=== PATIENT | female | born 1940 | race Caucasian/White ===

== ENCOUNTER 2016-08-27 15:29 | Emergency (ER) | payer MEDICARE, OTHER ==
[2016-07-18 10:03] VITALS: BMI 22.3
[~2016-08-27 15:29] MED LIST: AZO PO; BIOTIN5 MG PO; COREG 3.1253.125 MG PO; FORTAMET500 MG/BOT PO; HYDROCODONE-APA1 TAB PO; NEXIUM20 MG PO; PAXIL40 MG PO; PHENAZOPYRIDIN100 MG PO; PRINIVIL20 MG PO; PROTONIX40 MG PO
[2016-08-27 16:31] LABS: BASOPHILS 0.5 % (0.0-2.0); EOSINOPHILS 0.8 % (0-7); HEMATOCRIT 29.6 % (36.0-48.0); HEMOGLOBIN 8.3 g/dL (12-16); IMMATURE GRANULOCYTES 0.5 % (0-5); LYMPHOCYTES 19.3 % (15-50); MCH 22.6 pg (26.0-34.0); MCV 80.7 fL (80.0-100.0); MEAN PLATELET VOLUME 11.5 fL (7.4-10.4); MONOCYTES 7.4 % (2-11); NEUTROPHILS 71.5 % (40-80); PLATELET COUNT 335 10x3/uL (130-400); RBC 3.67 10x6/uL (4.00-5.40); RDW 19.3 % (11.5-14.5); WBC 6.4 10x3/uL (4.8-10.8)
[2016-08-27 16:41] LABS: ALBUMIN 3.6 g/dL (3.4-5.0); ALKALINE PHOSPHATASE 87 U/L (46-116); ALT (SGPT) 16 U/L (10-68); CALC OSMOLALITY 279 mosm/kg (275-300); CALCIUM 9.1 mg/dL (8.5-10.1); CARBON DIOXIDE 25.7 mmol/L (21.0-32.0); CHLORIDE - SERUM 103 mmol/L (98-107); CREATININE - SERUM 0.8 mg/dL (0.6-1.3); GLUCOSE 100 mg/dL (74-106); POTASSIUM - SERUM 5.2 mmol/L (3.5-5.1); PROTEIN - SERUM 6.6 g/dL (6.4-8.2); SODIUM 139 mmol/L (136-145); UREA NITROGEN 19 mg/dL (7-18); eGFR NON AFRICAN AMERICAN 74 mL/min (90-120)
[2016-08-27 16:53] LABS: CKMB 0.5 U/L (0.0-3.6); CREATINE KINASE 110 UL (21-215)
[2016-08-27 16:57] LABS: TROPONIN-I < 0.017 ng/mL (0.000-0.060)
[2016-08-27 16:58] LABS: MAGNESIUM - SERUM 2.1 mg/dL (1.8-2.4)
== END 2016-08-27 17:40 | disposition home or self-care (01) ==
LOC: D.ER 15:29
PROVIDERS: Emergency Medicine
DX: R07.9 Chest pain, unspecified (principal); D64.9 Anemia, unspecified; E87.5 Hyperkalemia; I10 Essential (primary) hypertension; E11.9 Type 2 diabetes mellitus without complications; Z95.0 Presence of cardiac pacemaker

== ENCOUNTER 2016-09-18 20:38 | Inpatient (IN) | payer MEDICARE, OTHER ==
[~2016-09-18] VITALS: Ht 182.9 cm; Wt 120.1 kg
[2016-09-18 21:27] LABS: BASOPHILS 0.3 % (0.0-2.0); EOSINOPHILS 0.4 % (0-7); HEMATOCRIT 25.4 % (36.0-48.0); IMMATURE GRANULOCYTES 0.1 % (0-5); LYMPHOCYTES 26.5 % (15-50); MCH 22.2 pg (26.0-34.0); MCHC 28.3 g/dL (31.0-37.0); MCV 78.4 fL (80.0-100.0); MEAN PLATELET VOLUME 10.5 fL (7.4-10.4); MONOCYTES 9.3 % (2-11); NEUTROPHILS 63.4 % (40-80); PLATELET COUNT 360 10x3/uL (130-400); RBC 3.24 10x6/uL (4.00-5.40); RDW 18.8 % (11.5-14.5); WBC 7.3 10x3/uL (4.8-10.8)
[2016-09-18 21:54] LABS: ALBUMIN 3.6 g/dL (3.4-5.0); ALKALINE PHOSPHATASE 67 U/L (46-116); ALT (SGPT) 18 U/L (10-68); BILIRUBIN - TOTAL 0.22 mg/dL (0.2-1.3); CALC OSMOLALITY 285 mosm/kg (275-300); CALCIUM 9.3 mg/dL (8.5-10.1); CARBON DIOXIDE 29.5 mmol/L (21.0-32.0); CHLORIDE - SERUM 102 mmol/L (98-107); GLUCOSE 120 mg/dL (74-106); POTASSIUM - SERUM 4.1 mmol/L (3.5-5.1); PROTEIN - SERUM 6.9 g/dL (6.4-8.2); SODIUM 141 mmol/L (136-145); UREA NITROGEN 25 mg/dL (7-18); eGFR NON AFRICAN AMERICAN 57 mL/min (90-120)
[2016-09-18 21:57] LABS: HEMOGLOBIN 7.2 g/dL (12-16)
[2016-09-18 22:04] LABS: AMYLASE - SERUM 24 U/L (25-115); CKMB 0.6 U/L (0.0-3.6); CREATINE KINASE 36 UL (21-215); LIPASE 152 U/L (73-393)
[2016-09-18 22:07] LABS: TROPONIN-I < 0.017 ng/mL (0.000-0.060)
[2016-09-19] VITALS: BP 122/69
[2016-09-19 00:41] LABS: APPEARANCE HAZY (CLEAR); BILIRUBIN NEGATIVE (NEGATIVE); COLOR YELLOW (YELLOW); GLUCOSE NEGATIVE (NEGATIVE); KETONE NEGATIVE (NEGATIVE); LEUKOCYTE ESTERASE TRACE (NEGATIVE); NITRITE NEGATIVE (NEGATIVE); PROTEIN NEGATIVE (NEGATIVE); SPECIFIC GRAVITY 1.025 (1.005-1.020); UROBILINOGEN NORMAL (NORMAL)
--- NOTE | 2016-09-19 00:44 | NUR ---
RECEIVED FROM ER VIA WHEELCHAIR, IV-LAC,02-2L, TELEMTRY HAS BEEN PLACED, PT IS GOING TO NEED BLOOD, CONSENT TO BE SIGNED, PT DENIES ANY NEEDS, CALL LIGHT IN REACH, WILL CONTINUE TO MONITOR
[2016-09-19 00:49] LABS: BACTERIA MANY /hpf (NONE SEEN); EPITHELIAL CELLS 0-5 /hpf (0-5); GRANULAR CAST RARE /lpf (NONE SEEN); HYALINE CAST RARE /lpf (NONE SEEN); MUCUS >1+ /lpf (NONE SEEN); RED CELLS - URINE 0-5 /hpf (0-5)
[2016-09-19] MEDS ORDERED: CARAFATE1 G PO (00:54)
[2016-09-19] MEDS ORDERED: FERROUS SULFAT140 MG PO (00:54)
[2016-09-19] MEDS ORDERED: ZOFRAN4 MG PO (00:55)
[2016-09-19 01:48] VITALS: BP 122/69; BMI 35.0
[2016-09-19 04:00] VITALS: BP 139/51
--- NOTE | 2016-09-19 07:30 | NUR ---
RECEIVED PT IN BED AAOX4 RESP SOB ON EXERTION O2 ON 2LPM NC DENIES ANY NEEDS OR DISCOMFORT AT THIS TIME
[2016-09-19 07:39] VITALS: BP 134/46
[2016-09-19 08:12] LABS: BASOPHILS 0.4 % (0.0-2.0); IMMATURE GRANULOCYTES 0.2 % (0-5); LYMPHOCYTES 29.1 % (15-50); MCH 22.4 pg (26.0-34.0); MCHC 28.6 g/dL (31.0-37.0); MCV 78.3 fL (80.0-100.0); MEAN PLATELET VOLUME 9.7 fL (7.4-10.4); MONOCYTES 9.7 % (2-11); NEUTROPHILS 59.6 % (40-80); RBC 2.81 10x6/uL (4.00-5.40); RDW 18.9 % (11.5-14.5)
[2016-09-19 08:19] LABS: WBC 4.9 10x3/uL (4.8-10.8)
[2016-09-19 08:20] LABS: HEMOGLOBIN 6.3 g/dL (12-16); PLATELET COUNT 267 10x3/uL (130-400)
[2016-09-19 08:25] LABS: % SATURATION 3 % (15-55); IRON 10 ug/dl (35-150); TOTAL IRON BIND CAPACITY 315 ug/dl (260-445); UNSAT IRON BIND CAPACITY 305 ug/dl (150-375)
--- NOTE | 2016-09-19 09:00 | NUR ---
INFUSION OF #1 UNIT PRBCs STARTED PT TOLERATING WELL
--- NOTE | 2016-09-19 11:24 | NUR ---
Patient Name: JORGE JULIO Admission Status: ER Accout number: [id number] Admission Date: 09-18-2016 : 1940 Admission Diagnosis: Attending: DEAN Current LOS: 1 Anticipated DC Date: Planned Disposition: Home Primary Insurance: MEDICARE A & B Discharge Planning Comments: * Is the patient Alert and Oriented? Yes 0 * How many steps to enter\exit or inside your home? 1 0 * PCP DR. ARIAS 0 * [facility] * Preadmission Environment Home with Family 0 * ADLs Independent 0 * Equipment Bedside Commode Cane Crutch Tub Bench 0 * Other Equipment NO MEDICAL EQUIPMENT PROVIDER PREFERENCE 0 * List name and contact numbers for known caregivers / representatives who currently or will assist patient after discharge: GENET ORTIZ, GRANDDAUGHTER, 0 * Community resources currently utilized None 0 * Please name any agencies selected above. NONE 0 * Additional services required to return to the preadmission environment? No 0 * Can the patient safely return to the preadmission environment? Yes 0 * Has this patient been hospitalized within the prior 30 days at any hospital? Yes 0 CM MET WITH PT IN ROOM TO DISCUSS DISCHARGE PLANNING AND NEEDS. PT REPORTS LIVING AT HOME INDEPENDENTLY WITH HER EXTENDED FAMILY AND SPOUSE. 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 PT REPORTS HAVING ALL NEEDED EQUIPMENT AND NO MEDICAL EQUIPMENT PROVIDER PREFERENCE. PT HAS NO OUTSIDE SERVICES ASSISTING IN THE HOME. CM DISCUSSED AVAILABILITY OF HOME HEALTH, REHAB SERVICES AND MEDICAL EQUIPMENT. PT DENIES DISCHARGE NEEDS, REPORTS HER GRANDDAUGHTER WILL PICK HER UP FOR DISCHARGE HOME. PT PLANS TO DISCHARGE HOME WITH FAMILY, DENIES DISCHARGE NEEDS. CM TO FOLLOW AND ASSIST IF NEEDED. Product Engineering Manager: Celso Guthrie
[2016-09-19 12:11] VITALS: BP 100/49
--- NOTE | 2016-09-19 13:10 | NUR ---
INFUSION OF #2 UNIT PRBCs STARTED AT THIS TIME NAD NOTED
[2016-09-19 13:16] VITALS: Ht 182.9 cm; Wt 120.1 kg
--- NOTE | 2016-09-19 15:07 | NUR ---
SCD'S ON BILATERAL LE
[2016-09-19 15:44] LABS: HEMATOCRIT 26.3 % (36.0-48.0)
[2016-09-19 15:45] LABS: HEMOGLOBIN 7.6 g/dL (12-16)
--- NOTE | 2016-09-19 16:10 | NUR ---
INFUSION OF #2 UNIT PRBCs COMPLETE PT TOLERATED WELL
--- NOTE | 2016-09-19 18:15 | NUR ---
INFUSION OF #1 UNIT PRBCs COMPLETE PT TOLERATED WELL NAD NOTED
[2016-09-19 20:00] VITALS: BP 148/48
--- NOTE | 2016-09-19 20:09 | NUR ---
PT RESTING IN BED. ALERT/ORIENTED. INSTRUCTED ON NPO AT MIDNIGHT FOR EGD PER GI TOMORROW AT NOON. RIGHT A/C SALINE LOCK. SCDS IN PLACE. H&H BEING MONITORED EVERY 12 HOURS. RECIEVED 2 UNITS OF PRBCS TODAY. SEE ASSESSMENT. CPOC. CALL LIGHT IN REACH.
[2016-09-20] VITALS: BP 138/63
[2016-09-20 04:00] VITALS: BP 126/46
[2016-09-20 06:53] LABS: BASOPHILS 0.3 % (0.0-2.0); EOSINOPHILS 2.6 % (0-7); HEMATOCRIT 26.6 % (36.0-48.0); HEMOGLOBIN 7.9 g/dL (12-16); IMMATURE GRANULOCYTES 0.3 % (0-5); LYMPHOCYTES 31.7 % (15-50); MCH 24.4 pg (26.0-34.0); MCHC 29.7 g/dL (31.0-37.0); MONOCYTES 9.5 % (2-11); NEUTROPHILS 55.6 % (40-80); PLATELET COUNT 247 10x3/uL (130-400); RBC 3.24 10x6/uL (4.00-5.40); RDW 18.9 % (11.5-14.5); WBC 5.8 10x3/uL (4.8-10.8)
[2016-09-20 06:56] LABS: MCV 82.1 fL (80.0-100.0)
[2016-09-20 07:01] LABS: APTT 23.7 SECONDS (22.8-39.4); INR 1.04 (0.85-1.17); PROTIME 13.5 SECONDS (11.6-15.0)
[2016-09-20 07:03] LABS: ANION GAP 10.4 mmol/L (8-16); CALCIUM 8.5 mg/dL (8.5-10.1); CARBON DIOXIDE 28.9 mmol/L (21.0-32.0); CREATININE - SERUM 0.9 mg/dL (0.6-1.3); POTASSIUM - SERUM 4.3 mmol/L (3.5-5.1)
--- NOTE | 2016-09-20 07:09 | NUR ---
RECEIVED PT IN BED AAOX4 RESP UNLABORED DENIES ANY NEEDS OR DISCOMFORT NAD NOTED
[2016-09-20 08:07] VITALS: BP 123/43
--- NOTE | 2016-09-20 08:52 | NUR ---
PO MEDS NOT GIVEN PT NPO FOR EGD THIS AM
[2016-09-20 10:19] LABS: FOLATE (FOLIC ACID) - SERUM 15.8 ng/mL (>3.0)
--- NOTE | 2016-09-20 10:40 | NUR ---
IFUSION STARTED OF #1 UNIT PRBCs AT THIS TIME VSS PT TOLERATING WELL
[2016-09-20 11:23] VITALS: BP 117/53
--- NOTE | 2016-09-20 11:24 | NUR ---
22G IV TO LEFT HAND WITH ONE ATTEMPT. COVERED WITH OP SITE, DATED. TOLERATED WELL.
--- NOTE | 2016-09-20 11:52 | NUR ---
PT TO GI LAB VIA BED IN STABLE CONDITION WITH PRBC INFUSION CONTINUEING NAD NOTED
--- NOTE | 2016-09-20 13:20 | NUR ---
#1 UNIT OF PRBCs INFUSION COMPLETE PT TOLERATED WELL
--- NOTE | 2016-09-20 14:04 | NUR ---
UNIT OF BLOOD STARTED. PT UP TO BR CLARKE WELL. WILL CONTINUE TO MONITOR.
--- NOTE | 2016-09-20 14:43 | NUR ---
PATIENT TOLERATING BLOOD WELL. WILL CONTINUE TO MONITOR.
[2016-09-20 15:59] VITALS: BP 141/51
--- NOTE | 2016-09-20 16:15 | NUR ---
#2 UNIT OF PRBCs INFUSION COMPLETE
--- NOTE | 2016-09-20 20:28 | NUR ---
RESTING IN BED. ALERT/ORIENTED. HAD EGD TODAY AND ALSO RECEIVED 2 UNITS OF PRBCS. SCDS IN PLACE. HAS PIV X 2, ONE IN LEFT HAND , ONE IN RIGHT HAND, BOTH ARE SALINE LOCKED. SR PER TELEMETRY. O2 @ 2L/NC WITH NONLABORED RESPIRATIONS. SEE ASSESSMENT. CPOC. CALL LIGHT IN REACH.
[2016-09-20 20:55] VITALS: BP 148/61
[2016-09-21 00:11] VITALS: BP 122/43
[2016-09-21 04:49] VITALS: BP 127/54
[2016-09-21 04:58] LABS: BASOPHILS 0.3 % (0.0-2.0); IMMATURE GRANULOCYTES 0.4 % (0-5); LYMPHOCYTES 26.4 % (15-50); MCH 25.2 pg (26.0-34.0); MCHC 30.3 g/dL (31.0-37.0); MEAN PLATELET VOLUME 11.3 fL (7.4-10.4); MONOCYTES 7.7 % (2-11); NEUTROPHILS 63.2 % (40-80); PLATELET COUNT 257 10x3/uL (130-400); RDW 18.6 % (11.5-14.5); WBC 7.1 10x3/uL (4.8-10.8)
[2016-09-21 05:03] LABS: HEMATOCRIT 32.3 % (36.0-48.0); HEMOGLOBIN 9.8 g/dL (12-16); RBC 3.89 10x6/uL (4.00-5.40)
[2016-09-21 05:14] LABS: ANION GAP 7.4 mmol/L (8-16); CALCIUM 8.2 mg/dL (8.5-10.1); CARBON DIOXIDE 30.5 mmol/L (21.0-32.0); CREATININE - SERUM 0.9 mg/dL (0.6-1.3); POTASSIUM - SERUM 3.9 mmol/L (3.5-5.1)
--- NOTE | 2016-09-21 07:30 | NUR ---
WALKING ROUNDS,WITHOUT DISTRESS.DENIES NEEDS AT PRESENT.CALL LIGHT IN REACH.
[2016-09-21 08:01] VITALS: BP 138/53
--- NOTE | 2016-09-21 08:30 | NUR ---
ASSESSMENT PER FLOW SHEET.PT WITHOUT DISTRESS,DENIES NEEDS.CALL LIGHT IN REACH
--- NOTE | 2016-09-21 11:41 | NUR ---
STILL DENIES NEEDS.CALL LIGHT IN REACH
[2016-09-21 12:02] VITALS: BP 157/59
--- NOTE | 2016-09-21 13:56 | NUR ---
AWAKENS TO TAKE CARAFATE ORDERED.DENIES NEEDS
--- NOTE | 2016-09-21 14:57 | NUR ---
RESTING WITHOUT DISTRESS.CALL LIGHT IN REACH
[2016-09-21 15:11] LABS: HEMATOCRIT 33.6 % (36.0-48.0); HEMOGLOBIN 10.1 g/dL (12-16)
[2016-09-21 15:51] VITALS: BP 157/57
--- NOTE | 2016-09-21 17:06 | NUR ---
IV RIGHT HAND TENDER.DCD CATH INTACT.IV ABX IN LEFT HAND IV.REMAINS WITHOUT NEEDS,WITHOUT CHANGE FROM INITIAL ASSESSMENT.CONT PLAN OF CARE.
--- NOTE | 2016-09-21 20:00 | NUR ---
INITIAL ROUNDS, PT STATES "I WANT TO MAKE A COMLAINT". PT STATES SHE HAS BEEN HERE FOR 4 DAYS AND HAS NEVER HAD HER LINENS CHANGED, GOWN CHANGED OR ASSISTED TO TAKE A BATH. PT IS A MINIMUM ASSIST ONLY. ASKED PT IF SHE HAD BEEN OFFERED BATHS DURING THE DAY AND SHE REPLIED "OH YES, TWICE, BUT I TOLD THEM NO BECAUSE I FELT TO BAD". PT STATES THAT SHE NOW FEELS SO MUCH BETTER, SHE WANTS TO BE CLEAN. CARE PROVIDED BY FRONT MAKER LOCKSTITCH, COMPLETE LINEN CHANGE/GOWN CHANGE AND PROVIDED WITH NEEDED WIPES TO CLEANSE SELF. WILL MONITOR AND ASSIST NEEDED.
[2016-09-21 20:30] VITALS: BP 157/53
[2016-09-22 00:30] VITALS: BP 148/53
--- NOTE | 2016-09-22 02:39 | NUR ---
PT RESTING IN BED WITH NO DISTRESS. EYES CLOSED. RESPS EVEN/NONLABORD. CPOC. CALL LIGHT IN REACH.
[2016-09-22 04:30] VITALS: BP 156/70
[2016-09-22 05:08] LABS: BASOPHILS 0.4 % (0.0-2.0); EOSINOPHILS 2.5 % (0-7); HEMATOCRIT 33.8 % (36.0-48.0); HEMOGLOBIN 10.2 g/dL (12-16); IMMATURE GRANULOCYTES 0.3 % (0-5); MCHC 30.2 g/dL (31.0-37.0); MCV 82.8 fL (80.0-100.0); MEAN PLATELET VOLUME 11.2 fL (7.4-10.4); MONOCYTES 8.7 % (2-11); NEUTROPHILS 59.1 % (40-80); PLATELET COUNT 281 10x3/uL (130-400); RBC 4.08 10x6/uL (4.00-5.40); RDW 19.6 % (11.5-14.5); WBC 7.1 10x3/uL (4.8-10.8)
[2016-09-22 05:28] LABS: ANION GAP 12.8 mmol/L (8-16); CALCIUM 8.5 mg/dL (8.5-10.1); CARBON DIOXIDE 27.6 mmol/L (21.0-32.0); CREATININE - SERUM 0.9 mg/dL (0.6-1.3); POTASSIUM - SERUM 4.4 mmol/L (3.5-5.1)
[2016-09-22 08:14] VITALS: BP 147/62
--- NOTE | 2016-09-22 10:00 | NUR ---
CONSENTS SIGNED FOR COLONOSCOPY.
--- NOTE | 2016-09-22 10:10 | NUR ---
UP AMBULATING HALLWAY WITH PT ASSIST. WILL CONT. PLAN OF CARE.
[2016-09-22 11:44] VITALS: BP 151/58
[2016-09-22 15:13] LABS: HEMATOCRIT 37.2 % (36.0-48.0); HEMOGLOBIN 11.3 g/dL (12-16)
[2016-09-22 15:27] VITALS: BP 143/36
--- NOTE | 2016-09-22 19:50 | NUR ---
REFILLED PTS CUP WITH GO-LYTELY, PT DENIES OTHER NEEDS, WILL CONT TO MONITOR.
--- NOTE | 2016-09-22 20:24 | NUR ---
HS MEDS GIVEN WITH FRESH ICE WATER, PT C/O OF BOTTOM BEING SORE, RICHARD'S BUTT GIVEN FOR PTS TO USE ON BUTTOCKS. NO OTHER NEEDS EXPRESSED AT THIS TIME.
[2016-09-22 20:30] VITALS: BP 137/54
--- NOTE | 2016-09-22 23:57 | NUR ---
UP TO BED SIDE COMMODE, RESULTS CLEAR, WILL CONT TO MONITOR.
--- NOTE | 2016-09-23 00:27 | NUR ---
BUTTONHOLE MAKER AT BEDSIDE FOR VS, NEEDS ADDRESSED. CALL LIGHT IN REACH. WILL CONT TO MONITOR.
[2016-09-23 00:30] VITALS: BP 124/50
--- NOTE | 2016-09-23 03:16 | NUR ---
RESTING WITH EYES CLOSED, RESPERATIONS EVEN, NO S/S DISTRESS NOTED.
[2016-09-23 04:45] VITALS: BP 141/59
[2016-09-23 05:27] LABS: BASOPHILS 0.5 % (0.0-2.0); EOSINOPHILS 3.1 % (0-7); HEMATOCRIT 33.6 % (36.0-48.0); IMMATURE GRANULOCYTES 0.5 % (0-5); LYMPHOCYTES 28.1 % (15-50); MCH 24.8 pg (26.0-34.0); MCHC 29.8 g/dL (31.0-37.0); MCV 83.4 fL (80.0-100.0); MEAN PLATELET VOLUME 11.2 fL (7.4-10.4); MONOCYTES 11.5 % (2-11); NEUTROPHILS 56.3 % (40-80); PLATELET COUNT 267 10x3/uL (130-400); RBC 4.03 10x6/uL (4.00-5.40); RDW 19.9 % (11.5-14.5); WBC 5.8 10x3/uL (4.8-10.8)
[2016-09-23 05:49] LABS: ANION GAP 11.2 mmol/L (8-16); CALCIUM 8.5 mg/dL (8.5-10.1); CARBON DIOXIDE 28.3 mmol/L (21.0-32.0); CREATININE - SERUM 0.9 mg/dL (0.6-1.3); POTASSIUM - SERUM 3.5 mmol/L (3.5-5.1)
--- NOTE | 2016-09-23 07:49 | NUR ---
ASSESSMENT COMPLETED. TELEMERTY SHOWS PACED RHYTHM. O2 AT 2 L/M PER NC. PT IS NPO FOR TEST. DENIES ANY NEEDS. SR UP WITH CALL LIGHTS IN REACH
[2016-09-23 08:13] VITALS: BP 127/35
[2016-09-23 12:04] VITALS: BP 136/48
--- NOTE | 2016-09-23 12:11 | NUR ---
LYING QUIETLY. AWAITING TEST. DENIES ANY NEEDS. WILL MONITOR
[2016-09-23 15:23] LABS: HEMOGLOBIN 10.5 g/dL (12-16)
[2016-09-23 18:12] VITALS: BP 144/51
--- NOTE | 2016-09-23 18:17 | OP ---
PATIENT NAME: JORGE MUJICA MEDICAL RECORD: [id number] :42 LOCATION:D.M2 D.2126 ADMISSION DATE:09/18/16 SURGEON: MACY NATION MD DATE OF OPERATION: 09/20/2016 PROCEDURE: EGD with biopsy. ATTENDING PHYSICIAN: Stas Arias MD. INDICATIONS: Ms. Mujica is a pleasant 76-year-old woman with a history of diabetes, hypertension, who was admitted secondary to progressive weakness. She had a preceding 1-week history of nausea, vomiting and diarrhea. Her diarrhea has resolved. She is still having some nausea. On admission, her hemoglobin was 7.2, which decreased to 6.3. She received 2 units of packed red blood cells yesterday and this morning her hemoglobin is 7.9. She is receiving additional 2 units of packed red blood cells. Her MCV has been low at 78. Her GI history is significant for gastric ulcers (per EGD June 2016). She has not been taking any recent nonsteroidal anti-inflammatory drugs. She presents for inpatient EGD. PREMEDICATIONS: Total IV anesthesia: Propofol 150 mg. INSTRUMENT: Olympus video gastroscope. PROCEDURE AND FINDINGS: After receiving informed consent, Ms. Mujica posterior pharynx was anesthetized with Cetacaine spray, placed in left lateral decubitus position and sedated as per anesthesia. After achieving adequate level of sedation, gastroscope was introduced per orally and advanced to the duodenum without difficulty. The esophageal mucosa was remarkable for several large ulcers, nonbleeding in the distal esophagus. A very large hiatal hernia is present with multiple linear and superficial ulcers at the distal aspect of the hernia, all none bleeding. Antral mucosa was mildly erythematous and antral biopsies were obtained to rule out Helicobacter pylori. In the mid to proximal body of the stomach was a 0.5-0.75 cm sessile polyp that was cold biopsy. No lesions were seen in the cardia or fundus. Pylorus was patent and competent. Duodenal mucosa was without erythema or ulcers. The mucosa appeared normal through the proximal third portion. There was a small diverticulum noted at the junction between the second and third portion of the duodenum. Biopsies obtained from the second portion of duodenum to rule out celiac disease. The gastroscope was then withdrawn. Ms. Mujica tolerated the procedure well. No immediate complications. ASSESSMENT: 1. Several large nonbleeding ulcers in the distal esophagus likely secondary to gastroesophageal reflux disease. 2. Large hiatal hernia. 3. Multiple shallow gastric ulcers at the distal aspect of the hiatal hernia, nonbleeding. 4. Mild gastritis. 5. Small gastric polyp. 6. Small duodenal diverticulum. 7. Gastrointestinal blood and loss anemia and iron deficiency anemia likely explained by esophageal and gastric ulcers; however, recommend lower gastrointestinal study to rule out additional source of blood loss. OPERATIVE REPORT [id number] JORGE MUJICA RECOMMENDATIONS: 1. Protonix 40 mg p.o. b.i.d. 2. Sucralfate liquid 1 gram p.o. 4 times daily. 3. CBC daily. 4. Inpatient colonoscopy on Friday. TRANSINT:[id number] Voice Confirmation ID: [id number] DOCUMENT ID: [id number] MACY NATION MD at 1817 CC: STAS ARIAS MD [id number] DICTATION DATE: 09/20/16 1306 TOWER TRUCK DRIVER: 09/20/16 2241 ADM IN [place] [id number] [place] [id number]
--- NOTE | 2016-09-23 18:54 | NUR ---
PT IN GI LAB
--- NOTE | 2016-09-23 19:38 | NUR ---
ROSEY PEDRAZA GIVEN AT PT REQUEST, WILL CONT TO MONITOR.
[2016-09-23 20:00] VITALS: BP 139/57
--- NOTE | 2016-09-23 21:58 | NUR ---
HS MEDS GIVEN WITH FRESH ICE WATER. PT DENIES NEEDS.
[2016-09-24] VITALS: BP 165/61
--- NOTE | 2016-09-24 00:39 | NUR ---
RELAY RECORD CLERK AT BEDSIDE FOR VS, NEEDS ADDRESSED. CALL LIGHT IN REACH. WILL CONT TO MONITOR.
--- NOTE | 2016-09-24 00:41 | NUR ---
ANSWERED CL, PT STATED THAT SHE IS HUNGRY. CUP OF CHICKEN NOODLE SOUP AND CRACKERS GIVEN AT PT REQUEST.
--- NOTE | 2016-09-24 02:23 | NUR ---
RESTING WITH EYES CLOSED, RESPERATIONS EVEN, NO S/S DISTRESS NOTED.
[2016-09-24 04:00] VITALS: BP 137/57
[2016-09-24 05:55] LABS: BASOPHILS 0.3 % (0.0-2.0); EOSINOPHILS 2.2 % (0-7); HEMATOCRIT 33.6 % (36.0-48.0); HEMOGLOBIN 10.1 g/dL (12-16); IMMATURE GRANULOCYTES 0.6 % (0-5); LYMPHOCYTES 27.7 % (15-50); MCHC 30.1 g/dL (31.0-37.0); MCV 83.2 fL (80.0-100.0); MEAN PLATELET VOLUME 10.9 fL (7.4-10.4); MONOCYTES 9.3 % (2-11); NEUTROPHILS 59.9 % (40-80); PLATELET COUNT 298 10x3/uL (130-400); RBC 4.04 10x6/uL (4.00-5.40); RDW 20.1 % (11.5-14.5); WBC 6.8 10x3/uL (4.8-10.8)
--- NOTE | 2016-09-24 07:35 | NUR ---
ASSESSMENT COMPLETED. DENIES ANT NEEDS. CALL LIGHT IN REACH WITH SR UP RIGHT WRIST SL.
[2016-09-24] MEDS ORDERED: CARAFATE1 G PO (07:42)
[2016-09-24 08:27] VITALS: BP 139/62
--- NOTE | 2016-09-24 09:36 | NUR ---
Patient Name: JORGE JULIO Encounter No: [id number] : 1940 Primary Insurance: MEDICARE A & B Anticipated DC Date: 09-24-2016 Planned Disposition: Home DCP follow-up note: CM MET WITH PT IN ROOM TO DISCUSS DISCHARGE NEEDS AND PLANNING. CM DISCUSSED AVAILABILITY OF HOME HEALTH, REHAB SERVICES AND MEDICAL EQUIPMENT. PT DENIES DISCHARGE NEEDS. PT REPORTS HAVING HER GRANDDAUGHTER AFTER LUNCH TODAY TO TRANSPORT HOME AT DISCHARGE. IMPORTANT MESSAGE FROM MEDICARE PROVIDED AND EXPLAINED. Celso Guthrie, CASE MANAGEMENT
[2016-09-24 12:02] VITALS: BP 151/77
--- NOTE | 2016-09-24 12:14 | NUR ---
PT TO BE DISCHARGED. AWAITING TRANSPORTATION
--- NOTE | 2016-09-24 14:19 | NUR ---
TO PRIVATE CAR PER WHEEL CHAIR
--- NOTE | 2016-10-04 15:02 | OP ---
PATIENT NAME: JORGE MUJICA MEDICAL RECORD: [id number] :42 LOCATION:D.M2 D.2126 ADMISSION DATE:09/18/16 SURGEON: MACY NATION MD DATE OF OPERATION: 09/23/2016 PROCEDURE: Colonoscopy with polypectomy. ATTENDING PHYSICIAN: Stas Arias MD INDICATIONS: Ms. Mujica is a delightful 76-year-old woman with a history of diabetes and hypertension, who was admitted secondary to progressive weakness. She had a 1-week history of nausea, vomiting and diarrhea, but no hematemesis or rectal bleeding. Her GI history is significant for gastric ulcers (June 2016). She has not been taking any recent nonsteroidal anti-inflammatory drugs. Admission hemoglobin was 7.2, which decreased to 6.3 overnight, she has received a total of 4 units of packed red blood cells during her hospitalization and her hemoglobin and hematocrit have been stable since then with a hemoglobin of approximately 10-10.5. EGD on 09/20/2016 showed large esophageal ulcers and small gastric ulcers at the distal aspect of a large hiatal hernia and gastritis. Antral biopsies are pending. She presents for inpatient colonoscopy to rule out lower GI etiology of her gastrointestinal blood loss anemia. PREMEDICATIONS: Total IV anesthesia (propofol 380 mg). INSTRUMENT: Olympus video colonoscope. PROCEDURE AND FINDINGS: After receiving informed consent, Ms. Mujica was placed in left lateral decubitus position, sedated as per anesthesia. After achieving an adequate level of sedation, digital rectal exam was performed that showed no external hemorrhoidal tags, fissures or fistulas, normal sphincter tone, no palpable rectal masses. Colonoscope was introduced per rectally and advanced to the cecum. The cecum, IC valve, and appendiceal orifice were identified. There is no blood seen in the colon. As the colonoscope was withdrawn, careful inspection was made of the leblanc of the colon. Overall mucosa had normal vascular and fold pattern. There were some thick liquid stool scattered throughout the colon, especially in the cecum and the ascending colon. In the mid to proximal ascending colon, was a 0.5-0.75 cm sessile polyp removed with biopsy forceps technique. A few diverticula were seen scattered in the sigmoid colon. Retroflexion in rectum showed mild internal hemorrhoids with hemorrhoidal tags. Ms. Mujica tolerated the procedure well, no immediate complications. ASSESSMENT: 1. Small ascending colon polyp status post polypectomy. 2. Mild sigmoid diverticulosis coli. 3. Mild internal hemorrhoids. 4. Acute anemia secondary to gastrointestinal blood loss, likely secondary to esophageal and gastric ulcers. RECOMMENDATIONS: 1. Follow up histopathology. 2. Avoid nonsteroidal anti-inflammatory drugs. Recommend proton pump inhibitor twice a day indefinitely. 3. Follow up EGD in 3 months to document healing of esophageal and gastric ulcers. OPERATIVE REPORT [id number] JORGE MUJICA JEAN TRANSINT:[id number] Voice Confirmation ID: [id number] DOCUMENT ID: [id number] MACY NATION MD at 1502 CC: STAS ARIAS MD [id number] DICTATION DATE: 09/23/161851 SUPERVISOR SLASHING DEPARTMENT: 09/23/16 2322 DIS IN 09/24/16 [facility] [address] [place] [address]
== END 2016-09-24 14:20 | disposition home or self-care (01) | DRG 381 ==
LOC: D.ER 20:38 → D.M2 23:36
PROVIDERS: Family Medicine; Internal Medicine Gastroenterology; Physician Assistant; ADMIT Family Medicine
PROC: 0DB68ZX Excision of Stomach, Via Natural or Artificial Opening Endoscopic, Diagnostic (ICD-10-PCS; principal; 2016-09-20 12:00)
PROC: 0DBK8ZZ Excision of Ascending Colon, Via Natural or Artificial Opening Endoscopic (ICD-10-PCS; 2016-09-23)
DX: K22.10 Ulcer of esophagus without bleeding (principal); N39.0 Urinary tract infection, site not specified; D62 Acute posthemorrhagic anemia; K25.9 Gastric ulcer, unspecified as acute or chronic, without hemorrhage or perforation; I10 Essential (primary) hypertension; E11.9 Type 2 diabetes mellitus without complications; G62.9 Polyneuropathy, unspecified; K63.5 Polyp of colon; K64.8 Other hemorrhoids; K57.90 Diverticulosis of intestine, part unspecified, without perforation or abscess without bleeding; K22.8 Other specified diseases of esophagus

== ENCOUNTER 2016-11-05 21:40 | Inpatient (IN) | payer MEDICARE, OTHER ==
[~2016-11-05] VITALS: Ht 182.9 cm; Wt 117.7 kg
[~2016-11-05 21:40] MED LIST changes: +CARAFATE1 G PO; +FERROUS SULFAT140 MG PO; +ZOFRAN4 MG PO
[2016-11-05 22:20] LABS: BASOPHILS 0.4 % (0.0-2.0); EOSINOPHILS 1.6 % (0-7); HEMATOCRIT 27.3 % (36.0-48.0); HEMOGLOBIN 7.9 g/dL (12-16); IMMATURE GRANULOCYTES 0.2 % (0-5); LYMPHOCYTES 22.2 % (15-50); MCH 23.2 pg (26.0-34.0); MCHC 28.9 g/dL (31.0-37.0); MCV 80.3 fL (80.0-100.0); MEAN PLATELET VOLUME 10.4 fL (7.4-10.4); MONOCYTES 6.9 % (2-11); NEUTROPHILS 68.7 % (40-80); RDW 19.2 % (11.5-14.5)
[2016-11-05 22:21] LABS: PLATELET COUNT 363 10x3/uL (130-400)
[2016-11-05 22:33] LABS: ALBUMIN 3.3 g/dL (3.4-5.0); ALKALINE PHOSPHATASE 71 U/L (46-116); ALT (SGPT) 15 U/L (10-68); BILIRUBIN - TOTAL 0.26 mg/dL (0.2-1.3); CALC OSMOLALITY 283 mosm/kg (275-300); CALCIUM 8.5 mg/dL (8.5-10.1); CARBON DIOXIDE 24.5 mmol/L (21.0-32.0); CHLORIDE - SERUM 103 mmol/L (98-107); GLUCOSE 162 mg/dL (74-106); POTASSIUM - SERUM 4.2 mmol/L (3.5-5.1); PROTEIN - SERUM 6.6 g/dL (6.4-8.2); SODIUM 139 mmol/L (136-145); UREA NITROGEN 19 mg/dL (7-18); eGFR NON AFRICAN AMERICAN 57 mL/min (90-120)
[2016-11-05 22:45] LABS: CHOL - HDL RATIO 3.7 ratio (2.3-4.1); CHOLESTEROL, TOTAL 167 mg/dL (0-200); CKMB 0.5 U/L (0.0-3.6); CREATINE KINASE 19 UL (21-215); HDL CHOLESTEROL 45 mg/dL (32-96); LDL CHOLESTEROL 95 mg/dL (0-100); LDL-HDL RATIO 2.1 ratio (1.5-3.5); TRIGLYCERIDE 137 mg/dL (30-200); TROPONIN-I < 0.017 ng/mL (0.000-0.060)
[2016-11-06 00:04] LABS: % SATURATION 47 % (15-55); IRON 153 ug/dl (35-150); TOTAL IRON BIND CAPACITY 319 ug/dl (260-445); UNSAT IRON BIND CAPACITY 166 ug/dl (150-375)
[2016-11-06 00:31] LABS: FERRITIN 15 ng/mL (3-244)
--- NOTE | 2016-11-06 01:30 | NUR ---
CONSENT FOR BLOOD TRANSFUSION OBTAINED AND PLACED ON CHART.
[2016-11-06 01:50] VITALS: Ht 182.9 cm; Wt 117.7 kg
--- NOTE | 2016-11-06 03:00 | NUR ---
STARTED UNIT #1 PRBC. VSS.
[2016-11-06 04:00] VITALS: BP 115/47
--- NOTE | 2016-11-06 04:11 | NUR ---
AUTOCAD TECHNICIAN AT BEDSIDE FOR VS. NEEDS ADDRESSED. CALL LIGHT INREACH. WILL CONT TO MONITOR.
--- NOTE | 2016-11-06 04:27 | NUR ---
TOLERATING TRANSFUSION WELL WITH NO S/S REACTION.
[2016-11-06 07:52] VITALS: BP 126/41
[2016-11-06 09:01] LABS: BASOPHILS 0.7 % (0.0-2.0); EOSINOPHILS 3.3 % (0-7); HEMATOCRIT 29.2 % (36.0-48.0); HEMOGLOBIN 8.6 g/dL (12-16); IMMATURE GRANULOCYTES 0.2 % (0-5); MCH 23.9 pg (26.0-34.0); MCHC 29.5 g/dL (31.0-37.0); MCV 81.1 fL (80.0-100.0); MEAN PLATELET VOLUME 10.2 fL (7.4-10.4); MONOCYTES 12.4 % (2-11); NEUTROPHILS 58.4 % (40-80); PLATELET COUNT 291 10x3/uL (130-400); RDW 18.4 % (11.5-14.5)
[2016-11-06 09:21] LABS: WBC 5.8 10x3/uL (4.8-10.8)
--- NOTE | 2016-11-06 10:05 | NUR ---
RESTS WITH EYES CLOSED. IV PATENT. CALL LIGHT IN REACH. WILL CONT. PLAN OF CARE.
[2016-11-06 11:13] VITALS: BP 115/46
--- NOTE | 2016-11-06 19:28 | NUR ---
RESUMED CARE OF PT, LYING IN BED RESPIRATIONS EVEN AND UNLABORED ON ROOM AIR. LEFT HAND INFUSING PROTONIX @ 10. PLAN OF CARE DISCUSSED, NO NEEDS VOICED AT THIS TIME. WILL CONTINUE TO MONITOR. SEE NURSE ASSESSMENT. CALL LIGHT IN REACH.
[2016-11-06 20:00] VITALS: BP 146/55
[2016-11-07 00:49] VITALS: BP 141/53
--- NOTE | 2016-11-07 04:33 | NUR ---
ADMINISTRATION PROFESSIONAL AT BEDSIDE TO OBTAIN VITALS, CALL LIGHT IN REACH. WILL CONTINUE WITH PLAN OF CARE.
--- NOTE | 2016-11-07 05:28 | NUR ---
DR. ACEVES PAGED FOR SHOULDER PAIN, AWAITING CALL BACK.
[2016-11-07 05:35] LABS: BASOPHILS 0.5 % (0.0-2.0); EOSINOPHILS 3.1 % (0-7); HEMATOCRIT 28.7 % (36.0-48.0); HEMOGLOBIN 8.3 g/dL (12-16); IMMATURE GRANULOCYTES 0.5 % (0-5); LYMPHOCYTES 27.4 % (15-50); MCH 23.4 pg (26.0-34.0); MCHC 28.9 g/dL (31.0-37.0); MCV 80.8 fL (80.0-100.0); MONOCYTES 11.3 % (2-11); NEUTROPHILS 57.2 % (40-80); PLATELET COUNT 309 10x3/uL (130-400); RBC 3.55 10x6/uL (4.00-5.40); RDW 18.7 % (11.5-14.5); WBC 6.2 10x3/uL (4.8-10.8)
[2016-11-07 05:42] VITALS: BP 114/56
[2016-11-07 05:54] LABS: % SATURATION 4 % (15-55); IRON 14 ug/dl (35-150); TOTAL IRON BIND CAPACITY 304 ug/dl (260-445); UNSAT IRON BIND CAPACITY 290 ug/dl (150-375)
[2016-11-07 06:00] LABS: ANION GAP 11.4 mmol/L (8-16); CALCIUM 8.7 mg/dL (8.5-10.1); CREATININE - SERUM 0.9 mg/dL (0.6-1.3); POTASSIUM - SERUM 4.4 mmol/L (3.5-5.1)
[2016-11-07 08:22] VITALS: BP 124/53
--- NOTE | 2016-11-07 10:06 | NUR ---
1ST UNIT PRBC STARTED. VS WNL. LINE IS PATENT. EKG COMPLETED. WILL CONT. PLAN OF CARE.
[2016-11-07 11:46] VITALS: BP 135/60
--- NOTE | 2016-11-07 13:37 | NUR ---
2ND UNIT PRBC STARTED WITHOUT ADVERSE REACTIONS NOTED. WILL MONITOR.
--- NOTE | 2016-11-07 14:52 | NUR ---
IV ACCESS-22 GAUGE INSERTED IN RIGHT HAND FOR ACCESS. NOE REEDER RN
--- NOTE | 2016-11-07 15:42 | NUR ---
2ND IV SITE STARTD BY NOE ANAND WITH 22 GAUGE CATH X 1 STICK. LINE IS PATENT.
--- NOTE | 2016-11-07 15:53 | NUR ---
BLOODTRANSFUSION COMPLETED WITHOUT ADVERSE REACTIONS NOTED. LEAVING FOR GI LAB BY BED.
[2016-11-07 16:03] VITALS: BP 119/59
--- NOTE | 2016-11-07 16:57 | NUR ---
1620 PATIENT ARRIVED AND BLOOD IN FLUSHED WITH NORMAL SALINE. V/S 148/55 65 18 99 TEMP 98.1
[2016-11-07 20:52] VITALS: BP 113/43
--- NOTE | 2016-11-08 01:00 | NUR ---
LYING IN BED, NO NEEDS VOICED AT THIS TIME. WILL CONTINUE TO MONITOR.
[2016-11-08 02:00] VITALS: BP 142/48
--- NOTE | 2016-11-08 03:05 | NUR ---
NORCO 10 GIVEN FOR SHOULDER PAIN. WILL CONTINUE TO MONITOR.
[2016-11-08 04:00] VITALS: BP 128/53
[2016-11-08 05:37] LABS: BASOPHILS 0.3 % (0.0-2.0); EOSINOPHILS 2.7 % (0-7); HEMATOCRIT 32.9 % (36.0-48.0); IMMATURE GRANULOCYTES 0.3 % (0-5); LYMPHOCYTES 29.3 % (15-50); MCH 25.2 pg (26.0-34.0); MCHC 30.7 g/dL (31.0-37.0); NEUTROPHILS 57.4 % (40-80); PLATELET COUNT 275 10x3/uL (130-400); RBC 4.01 10x6/uL (4.00-5.40); RDW 18.4 % (11.5-14.5); WBC 5.9 10x3/uL (4.8-10.8)
[2016-11-08 05:49] LABS: HEMOGLOBIN 10.1 g/dL (12-16)
[2016-11-08 05:51] LABS: CALCIUM 8.5 mg/dL (8.5-10.1); CARBON DIOXIDE 27.3 mmol/L (21.0-32.0); POTASSIUM - SERUM 4.3 mmol/L (3.5-5.1)
--- NOTE | 2016-11-08 06:32 | NUR ---
NO CHANGES FROM PREVIOUS ASSESSMENT, CALL LIGHT IN REACH.
[2016-11-08 07:51] VITALS: BP 121/49
--- NOTE | 2016-11-08 09:58 | NUR ---
IV DCD. DC PLANS GIVEN. UNDERSTANDING VOICED.
--- NOTE | 2016-11-08 10:31 | NUR ---
Patient Name: JORGE JULIO Admission Status: ER Accout number: [id number] Admission Date: 11-05-2016 : 1940 Admission Diagnosis:WEAKNESS Attending: DEAN Current LOS: 3 Anticipated DC Date: 11-08-2016 Planned Disposition: Home Primary Insurance: MEDICARE A & B Discharge Planning Comments: * Is the patient Alert and Oriented? Yes 0 * How many steps to enter\\exit or inside your home? 1 OUTSIDE / 2-3 INSIDE 0 * PCP DR. ARIAS 0 * [facility] * Preadmission Environment Home with Family 0 * ADLs Independent 0 * Equipment Bedside Commode Cane Crutch Tub Bench 0 * Other Equipment NO MEDICAL EQUIPMENT PROVIDER PREFERENCE 0 * List name and contact numbers for known caregivers / representatives who currently or will assist patient after discharge: GENET ORTIZ, GRANDDAUGHTER, 0 * Community resources currently utilized None 0 * Please name any agencies selected above. NONE 0 * Additional services required to return to the preadmission environment? No 0 * Can the patient safely return to the preadmission environment? Yes 0 * Has this patient been hospitalized within the prior 30 days at any hospital? Yes 0 CM MET WITH PT IN ROOM TO DISCUSS DISCHARGE PLANNING AND NEEDS. PT REPORTS LIVING AT HOME INDEPENDENTLY WITH "FOUR GENERATIONS OF FAMILY". PT REPORTS BEING CAREGIVER FOR HER DEMENTED SPOUSE AND GRANDCHILDREN. PT REPORTS HAVING ALL NEEDED MEDICAL EQUIPMENT WITH NO MEDICAL EQUIPMENT PROVIDER PREFERENCE. PT STATES DR. SINGH IS WORKING ON GETTING HER A WHEELCHAIR FOR HOME USE. PT HAS NO OUTSIDE SERVICES ASSISTING IN THE HOME. CM DISCUSSED AVAILABILITY OF HOME HEALTH, REHAB SERVICES AND MEDICAL EQUIPMENT. PT DENIES DISCHARGE NEEDS, REPORTS HER GRANDDAUGHTER WILL PICK HER UP FOR DISCHARGE HOME. IMPORTANT MESSAGE FROM MEDICARE PROVIDED AND EXPLAINED. Motel Keeper: Celso Guthrie
--- NOTE | 2016-11-08 10:40 | NUR ---
LEAVING HOSP WITH DAUGHTER. ESCORTED TO CAR BY W/C.
--- NOTE | 2016-11-11 13:02 | OP ---
PATIENT NAME: JORGE JULIO MEDICAL RECORD: [id number] :42 LOCATION:D.M2 D.2114 ADMISSION DATE:11/05/16 SURGEON: GANESH FUENTES DO DATE OF OPERATION: 11/07/2016 PROCEDURE: EGD. SCOPE: Olympus video gastroscope. MEDICATIONS: Propofol 180 mg IV per anesthesia. INDICATIONS FOR PROCEDURE: Anemia and chest pain. FINDINGS: Informed consent was given. The patient was made comfortable with the above medication. After reaching an adequate level of sedation by slow IV push, the patient was placed in the left side. The gastroscope was then advanced through the mouth under direct visualization to the second portion of the duodenum. The upper, middle and distal thirds of the esophagus appeared normal. At the GE junction, there was some evidence of LA class C reflux induced esophagitis. The scope was advanced beyond the GE junction into the stomach where a very large hiatal hernia was visualized. The distance is approximately 8 cm in length. Retroflexion was performed both above and below the diaphragmatic hiatus. There were some linear Heri ulcers associated with this hernia. There was no stigmata of bleeding or signs of active or recent bleeding. The endoscope was advanced beyond the diaphragmatic hiatus through the body of the stomach and down to the antrum and prepyloric regions, which appeared normal. The endoscope was advanced into the duodenum where the bulb and second portion of the duodenum appeared normal. Scope was withdrawn from the patient. The patient tolerated the procedure well and there were no complications. ESTIMATED BLOOD LOSS: Zero. IMPRESSION: Large hiatal hernia with associated Heri ulcers. This is likely contributing to the patient's chest pain and could be a factor in her chronic anemia. PLAN AND RECOMMENDATIONS: 1. Return to floor when recovery parameters are met. 2. Restart diet. 3. Continue current medications. 4. Consider fundoplication regarding the chest pain and ongoing anemia. TRANSINT:[id number] Voice Confirmation ID: [id number] DOCUMENT ID: [id number] GANESH FUENTES DO at 1302 CC: [id number] DICTATION DATE: 11/07/16 1650 PSYCHIATRIC NURSING AIDE: 11/07/162114 DIS IN 11/08/16 [place] [id number] [place] [address]
== END 2016-11-08 10:41 | disposition home or self-care (01) | DRG 812 ==
LOC: D.ER 21:40 → D.M2 23:57
PROVIDERS: Family Medicine; Internal Medicine Gastroenterology; Physician Assistant; ADMIT Family Medicine
PROC: 0DJ08ZZ Inspection of Upper Intestinal Tract, Via Natural or Artificial Opening Endoscopic (ICD-10-PCS; principal; 2016-11-07 13:00)
DX: D50.0 Iron deficiency anemia secondary to blood loss (chronic) (principal); I10 Essential (primary) hypertension; Z95.0 Presence of cardiac pacemaker; F41.9 Anxiety disorder, unspecified; F32.9 Major depressive disorder, single episode, unspecified; E11.40 Type 2 diabetes mellitus with diabetic neuropathy, unspecified; K25.9 Gastric ulcer, unspecified as acute or chronic, without hemorrhage or perforation; K44.9 Diaphragmatic hernia without obstruction or gangrene; K21.0 Gastro-esophageal reflux disease with esophagitis; Z87.891 Personal history of nicotine dependence

== ENCOUNTER 2016-11-23 21:59 | Emergency (ER) | payer MEDICARE, OTHER ==
[2016-11-06 01:50] VITALS: BMI 36.7
[2016-11-23 23:22] LABS: BASOPHILS 0.2 % (0-2); EOSINOPHILS 2.4 % (0-7); HEMATOCRIT 38.6 % (36.0-48.0); HEMOGLOBIN 11.6 g/dL (12-16); IMMATURE GRANULOCYTES 0.4 % (0-5); LYMPHOCYTES 24.8 % (15-50); MCH 25.6 pg (26.0-34.0); MCHC 30.1 g/dL (31.0-37.0); MCV 85.2 fL (80.0-100.0); MEAN PLATELET VOLUME 11.5 fL (7.4-10.4); MONOCYTES 6.5 % (2-11); NEUTROPHILS 65.7 % (40-80); PLATELET COUNT 246 10x3/uL (130-400); RBC 4.53 10x6/uL (4.00-5.40); RDW 20.5 % (11.5-14.5); WBC 8.2 10x3/uL (4.8-10.8)
[2016-11-23 23:36] LABS: APTT 24.9 SECONDS (22.8-39.4); INR 0.98 (0.85-1.17); PROTIME 12.8 SECONDS (11.6-15.0)
[2016-11-23 23:37] LABS: ANION GAP 11.8 mmol/L (8-16); POTASSIUM - SERUM 3.8 mmol/L (3.5-5.1)
== END 2016-11-24 00:27 | disposition home or self-care (01) ==
LOC: D.ER 21:59
PROVIDERS: Nurse Practitioner Acute Care
DX: K92.2 Gastrointestinal hemorrhage, unspecified (principal); I10 Essential (primary) hypertension

== ENCOUNTER → 2016-12-02 10:16 | Outpatient (CLI) | payer MEDICARE, OTHER ==
[2016-11-06 01:50] VITALS: BMI 36.7
== END | disposition home or self-care (01) ==
LOC: D.RAD 10:16
DX: M75.122 Complete rotator cuff tear or rupture of left shoulder, not specified as traumatic (principal)

== ENCOUNTER → 2016-12-13 08:41 | Outpatient (CLI) | payer MEDICARE, OTHER ==
[2016-11-06 01:50] VITALS: BMI 36.7
== END | disposition home or self-care (01) ==
LOC: D.RAD 08:41
DX: K21.9 Gastro-esophageal reflux disease without esophagitis (principal); K44.9 Diaphragmatic hernia without obstruction or gangrene

== ENCOUNTER 2016-12-19 11:41 | Observation (INO) | payer MEDICARE, OTHER ==
[~2016-12-19] VITALS: Ht 182.9 cm; Wt 115.0 kg
--- NOTE | 2016-12-19 12:00 | NUR ---
PT ARRIVED TO ROOM VIA WHEELCHAIR. WILL ADMIT. PT ALERT AND ORIENTED. VS ARE WNL. PLACED ON TELE UNCON AFIB 168.
[2016-12-19 12:14] VITALS: BP 104/65; Ht 182.9 cm; Wt 115.0 kg
[2016-12-19 12:21] LABS: BASOPHILS 0.4 % (0-2); EOSINOPHILS 0.8 % (0-7); HEMATOCRIT 39.6 % (36.0-48.0); HEMOGLOBIN 12.1 g/dL (12-16); IMMATURE GRANULOCYTES 0.4 % (0-5); LYMPHOCYTES 22.3 % (15-50); MCH 26.2 pg (26.0-34.0); MCHC 30.6 g/dL (31.0-37.0); MCV 85.7 fL (80.0-100.0); MEAN PLATELET VOLUME 10.6 fL (7.4-10.4); MONOCYTES 5.4 % (2-11); NEUTROPHILS 70.7 % (40-80); RBC 4.62 10x6/uL (4.00-5.40); WBC 10.4 10x3/uL (4.8-10.8)
[2016-12-19 12:22] LABS: PLATELET COUNT 399 10x3/uL (130-400)
[2016-12-19 12:30] LABS: ANION GAP 14.9 mmol/L (8-16); CALCIUM 9.6 mg/dL (8.5-10.1); CARBON DIOXIDE 25.4 mmol/L (21.0-32.0); CREATININE - SERUM 1.1 mg/dL (0.6-1.3); POTASSIUM - SERUM 4.3 mmol/L (3.5-5.1)
--- NOTE | 2016-12-19 12:35 | NUR ---
22G IV STARTED IN LEFT HAND. PT TOLERATED WELL. ANNETTA RN IN ROOM COMPLETING ADMISSION ASSESSMENT. PT UP TO HIGH FOWLERS POSITION PER REQUESTS AND DIET TRAY PROVIDED.
--- NOTE | 2016-12-19 13:00 | NUR ---
TALKED WITH ALICJA MILLER ABOUT PT HOME MEDICATIONS. SAID OK TO RESTART. DONE. TOLD HER PT WAS STILL IN UNCON AFIB RATE OF 150S-160S. GIVEN ORDERS FOR ADDITIONAL MEDICATIONS AND ALSO WANTS TO ADD HEPARIN DRIP PROTOCOL. MADE SURE THAT ALICJA MILLER APN WAS AWARE PT GI BLEEDING HISTORY, SHE IS AND STILL WANTS PT TO BE STARTED ON HEPARIN DRIP FOR FEAR OF CLOTTING WITH AFIB. WILL DO ONCE ANOTHER IV IS SITED R/T HEPARIN AND CARDIZEM NOT BEING COMPATIBLE.
[2016-12-19 13:09] LABS: HEMOGLOBIN A1C 5.6 % (4.8-6.0)
[2016-12-19 13:12] LABS: INR 0.95 (0.85-1.17); PROTIME 12.6 SECONDS (11.6-15.0)
--- NOTE | 2016-12-19 14:01 | NUR ---
IV ACCESRS-22 GAUGE INSERTED IN LEFT HAND FOR 2ND SITE FOR INCOMPATIBLE MEDS. NOE REEDER RN
--- NOTE | 2016-12-19 15:29 | NUR ---
STARTED HEPARIN DRIP PER PROTOCOL. ACCORDING TO PTT ORDER STATES TO GIVE 3,000 UNIT BOLUS AND START HEPARIN DRIP TO 1,000 UNITS/HR. INFUSING TO LEFT WRIST NO PROBLEMS. WILL CONT TO MONITOR
[2016-12-19 16:22] VITALS: BP 120/70
--- NOTE | 2016-12-19 16:46 | NUR ---
PT FILLED OUT LIVING FILL INFORMATION. WITNESSED LIVING WILL AND MADE A COPY FOR CHART, ON THE FRONT OF PT CHART. GIVEN PT BACK ORIGINAL COPY OF LIVING WILL
--- NOTE | 2016-12-19 18:22 | NUR ---
PT WAS IN UNCONTROLLED AFIB SINCE ADMISSION. AT 180 PT WAS CONTROLLED AFIB 83 BPM. I ADMINISTERED DIGOXIN 0.25MG PER EMAR AT 181. AND PT CONVERTED TO ACCELERATED JUNCTIONAL RHYTHM AT THAT TIME. 90 BPM.
--- NOTE | 2016-12-19 18:41 | NUR ---
PT SITTING UP IN BED PLAYING ON HER IPAD, DENIES NEEDS.
--- NOTE | 2016-12-19 19:05 | NUR ---
PT VEHICLE INSPECTOR LIGHT REQUESTING HER HYDROCODONE. PT STATES THAT SHE TAKES ONE HYDROCODONE EVERY 4HRS NEEDED FOR PAIN AT HOME. REPORT GIVEN TO ORQUIDEA ANAND. PT REPORTING "BURNING" IN HEPARIN IV SITE. NO REDNESS, SWELLING, OR WARMTH NOTED AT EITHER IV SITE.
[2016-12-19 20:00] VITALS: BP 148/58
--- NOTE | 2016-12-19 22:10 | NUR ---
HS MEDS GIVEN. PT NOW RESTING AND MORE COMFORTABLE. IV HEPARIN AND IV CARDIZEM INFUSING. CPOC.
--- NOTE | 2016-12-19 23:00 | NUR ---
PAGE/RETURN CALL FROM DR CLIFFORD PROPOSITION PLAYER. REPORTED PT JUNCTIONAL 60'S SINCE THE BEGINNING OF THIS SHIFT, THAT SHE IS ON CARDIZEM AT 5ML/HR AND IS NOW DUE FOR DIGOXIN 0.25MG IV. QUESTIONING ON IF ANYTHING SHOULD BE HELD. ORDER RECIEVED TO D/C CARDIZEM DRIP AND GIVE THE ORDERED DIGOXIN.
--- NOTE | 2016-12-19 23:25 | NUR ---
ADMINISTERED DIGOXIN 0.25MG SIVP. CARDIZEM DRIP NOW OFF. JUNCTIONAL 60'S PER TELEMETRY.
[2016-12-20] VITALS: BP 138/62
--- NOTE | 2016-12-20 02:15 | NUR ---
PT NOW PACED SR 60 PER TELEMETRY. HEPARIN DRIP INCREASED TO 1200UNITS/HR AT THIS TIME BASED ON PTT OF 30.9
--- NOTE | 2016-12-20 02:30 | NUR ---
RESTING IN BED WITH NO DISTRESS. IV HEPARIN NOW INFUSING AT 12ML/HR. NEXT PTT IN AM. CPOC.
[2016-12-20 04:00] VITALS: BP 108/42
--- NOTE | 2016-12-20 06:15 | NUR ---
AM MEDS GIVEN. PT SAYING SHE FEELS MUCH BETTER THIS AM. SHE HAS BEEN IN SR MOST OF THE NIGHT. IV HEPARIN CONTINUES AT 12ML/HR. CPOC.
--- NOTE | 2016-12-20 07:25 | NUR ---
PT LAYING TO R SIDE ARROUSES EASILY DENIES NEEDS WILL CONT TO MONITOR. PT IS CURRENTLY IN NSR PACED 90 BPM.
[2016-12-20 07:58] LABS: HEMATOCRIT 33.2 % (36.0-48.0); MCH 25.7 pg (26.0-34.0); MCHC 30.1 g/dL (31.0-37.0); MCV 85.3 fL (80.0-100.0); RBC 3.89 10x6/uL (4.00-5.40); RDW 19.1 % (11.5-14.5)
[2016-12-20 07:59] LABS: WBC 7.2 10x3/uL (4.8-10.8)
[2016-12-20 08:04] VITALS: BP 113/39
[2016-12-20 08:16] LABS: INR 1.02 (0.85-1.17); PROTIME 13.2 SECONDS (11.6-15.0)
[2016-12-20 08:17] LABS: APTT 46.9 SECONDS (22.8-39.4)
--- NOTE | 2016-12-20 08:22 | NUR ---
ALICJA MILLER APN ROUNDING ON PT. GAVE OK TO DC HEPARIN DRIP, DONE.
[2016-12-20] MEDS ORDERED: CARDIZEM120 MG PO (09:53)
[2016-12-20] MEDS ORDERED: BETAPACE 80 MG80 MG PO (09:53)
--- NOTE | 2016-12-20 11:07 | NUR ---
PT DOES NOT HAVE A RIDE AT THE MOMENT. UNABLE TO DC PT HOME UNTIL RIDE ARRIVES.
[2016-12-20 12:00] VITALS: BP 127/39
--- NOTE | 2016-12-20 13:47 | NUR ---
PT RIDE STILL NOT AVAILABLE. PT LAYING TO R SIDE RESTING DENIES NEEDS WILL CONT TO MONITOR
[2016-12-20 16:00] VITALS: BP 129/33
--- NOTE | 2016-12-20 16:49 | NUR ---
WENT OVER DC PAPERWORK WITH PT PT VERBALIZES UNDERSTANDING. PT HAS SCRIPTS FOR SOTOLOL AND CARDIZEM IN HER POSESSION. DC BOTH PIVS WITH CATH TIPS INTACT. 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 PT IS AWAITING HER GRANDSON TO COME AND PICK HER UP, HE GETS OFF WORK AT 1800. WILL CONT TO MONITOR
--- NOTE | 2016-12-20 18:35 | NUR ---
PT GRANDSON GOT TO HOSPITAL TO DRIVE HER HOME. WHEELED PT DOWNSTAIRS TO FRONT ENTRANCE AND GRANDSON TOOK HER HOME.
== END 2016-12-20 18:36 | disposition home or self-care (01) ==
LOC: D.M2 11:41 → OBSVTIME 14:00 → D.M2 12-20 18:36
PROVIDERS: Internal Medicine Interventional Cardiology; ADMIT Internal Medicine Cardiovascular Disease
DX: I48.91 Unspecified atrial fibrillation (principal); Z95.0 Presence of cardiac pacemaker; I10 Essential (primary) hypertension

== ENCOUNTER 2016-12-21 10:34 | Inpatient (IN) | payer MEDICARE, OTHER ==
[~2016-12-21] VITALS: Ht 182.9 cm; Wt 115.1 kg
[~2016-12-21 10:34] MED LIST changes: +BETAPACE 80 MG80 MG PO; +CARDIZEM120 MG PO
[2016-12-21 11:25] LABS: BASOPHILS 0.4 % (0-2); EOSINOPHILS 2.4 % (0-7); HEMATOCRIT 36.6 % (36.0-48.0); HEMOGLOBIN 11.1 g/dL (12-16); IMMATURE GRANULOCYTES 0.4 % (0-5); LYMPHOCYTES 22.8 % (15-50); MCH 25.9 pg (26.0-34.0); MCHC 30.3 g/dL (31.0-37.0); MCV 85.3 fL (80.0-100.0); MEAN PLATELET VOLUME 11.4 fL (7.4-10.4); MONOCYTES 6.3 % (2-11); NEUTROPHILS 67.7 % (40-80); PLATELET COUNT 364 10x3/uL (130-400); RBC 4.29 10x6/uL (4.00-5.40); RDW 19.2 % (11.5-14.5); WBC 7.8 10x3/uL (4.8-10.8)
[2016-12-21 11:38] LABS: ALBUMIN 3.6 g/dL (3.4-5.0); ALKALINE PHOSPHATASE 83 U/L (46-116); ALT (SGPT) 17 U/L (10-68); BILIRUBIN - TOTAL 0.24 mg/dL (0.2-1.3); CALC OSMOLALITY 286 mosm/kg (275-300); CALCIUM 9.3 mg/dL (8.5-10.1); CARBON DIOXIDE 24.7 mmol/L (21.0-32.0); CHLORIDE - SERUM 105 mmol/L (98-107); GLUCOSE 153 mg/dL (74-106); POTASSIUM - SERUM 4.5 mmol/L (3.5-5.1); SODIUM 141 mmol/L (136-145); UREA NITROGEN 22 mg/dL (7-18); eGFR NON AFRICAN AMERICAN 57 mL/min (90-120)
[2016-12-21 11:43] LABS: TROPONIN-I < 0.017 ng/mL (0.000-0.060)
[2016-12-21 18:43] VITALS: BP 120/70; Ht 182.9 cm; Wt 115.1 kg
--- NOTE | 2016-12-21 18:45 | NUR ---
RECIEVED FROM ER. TELEMERTY SHOWS UNCONTROLLED AFIB AT 110. CARDIZEM DRIP AT 10. DENIES ANY NEEDS. CALL LIGHT IN REACH WITH SR UP. WILL MONITOR
--- NOTE | 2016-12-21 19:00 | NUR ---
RECEIVED REPORT AND ASSUMED PT CARE FROM DAY SHIFT NURSE @ THIS TIME.
[2016-12-21 20:00] VITALS: BP 103/53
--- NOTE | 2016-12-21 20:18 | NUR ---
PT REQUESTS PAIN MEDICATION, NO ORDER FOR PAIN MEDICATION. PT STATES HAVING SORENESS IN HER LEFT SHOULDER D/T OLD INJURY - ROTATOR CUFF REPAIR. CALL TO DR OLIVA, HE RETURNS CALL. NEW ORDER RECEIVED FOR NORCO 10/325 MG 1 PO Q4H PRN PAIN.
--- NOTE | 2016-12-21 23:39 | NUR ---
PT RESTING WELL WITHOUT C/O OR DISTRESS NOTED. CALL LIGHT WITHIN REACH.
[2016-12-22] VITALS: BP 137/59
[2016-12-22 04:00] VITALS: BP 125/66
--- NOTE | 2016-12-22 08:33 | NUR ---
ASSESSMENT COMPLETED. TELEMERTY SHOWS CONTROLLED AFIB. O2 AT 2 L/M PER NC. IV TO LEFT WRIST WITH CARDIZEM AT 5. DRNIES ANY NEEDS. CALL LIGHT IN REACH WITH SR UP. WILL MONITOR
[2016-12-22 08:46] VITALS: BP 122/70
--- NOTE | 2016-12-22 11:26 | NUR ---
RESTING QUIETLY RESP UNLABORED NAD NOTED
--- NOTE | 2016-12-22 11:46 | NUR ---
LYING QUIETLY. NO NEEDS VOICED. CARDIZEM DRIP INFUSING WELL. WILL MONITOR
[2016-12-22 12:12] VITALS: BP 110/41
--- NOTE | 2016-12-22 14:33 | NUR ---
LYING QUIETLY WITH EYES CLOSED. RESP REG AND NON LABORES. TELEMERTY SHOWS CAF AT 77. WILL MONITOR
[2016-12-22 16:23] VITALS: BP 101/46
--- NOTE | 2016-12-22 17:22 | NUR ---
UP ON SIDE OF BED FOR DIET. DENIES ANY NEEDS. CARDIZEM DRIP INFUSING, TELEMERTY SHOWS CAF WITH OCC PACED BEAT. NO NEED VOICED
--- NOTE | 2016-12-22 19:15 | NUR ---
INITIAL ROUNDS MADE. PT LYING IN BED RESTING WELL WITH EYES CLOSED, AWAKENED EASILY WHEN NAME CALLED. NO NEEDS OR C/O VOICED AT THIS TIME. CALL LIGHT IN REACH. WILL CONT TO MONITOR.
[2016-12-22 20:00] VITALS: BP 116/56
[2016-12-23] VITALS: BP 137/53
--- NOTE | 2016-12-23 02:02 | NUR ---
PT RESTING WELL WITH EYES CLOSED, CONT TO MONITOR.
[2016-12-23 04:00] VITALS: BP 131/41
[2016-12-23 08:00] VITALS: BP 119/46
[2016-12-23] MEDS ORDERED: BETAPACE 80 MG80 MG PO (08:42)
--- NOTE | 2016-12-23 09:41 | NUR ---
Patient Name: JORGE JULIO Admission Status: ER Accout number: [id number] Admission Date: 12-22-2016 : 1940 Admission Diagnosis: Attending: MIRZA Current LOS: 1 Anticipated DC Date: 12-23-2016 Planned Disposition: Home Primary Insurance: MEDICARE A & B Discharge Planning Comments: * Is the patient Alert and Oriented? Yes 0 * How many steps to enter\exit or inside your home? 1-O/2-3 IN 0 * PCP DR. ARIAS 0 * [facility]acy [facility] * Preadmission Environment Home with Family 0 * ADLs Independent 0 * Equipment Back Brace Cane Crutch Tub Bench 0 * Other Equipment NO MEDICAL EQUIPMENT PROVIDER PREFERENCE 0 * List name and contact numbers for known caregivers / representatives who currently or will assist patient after discharge: GENET ORTIZ, GRANDDAUGHTER, 0 * Community resources currently utilized None 0 * Please name any agencies selected above. NONE 0 * Additional services required to return to the preadmission environment? No 0 * Can the patient safely return to the preadmission environment? Yes 0 * Has this patient been hospitalized within the prior 30 days at any hospital? No 0 CM MET WITH PT IN ROOM TO DISCUSS DISCHARGE PLANNING AND NEEDS. PT REPORTS LIVING AT HOME INDEPENDENTLY WITH HER FAMILY. 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 PT REPORTS HAVING ALL NEEDED NO MEDICAL EQUIPMENT WITH NO MEDICAL EQUIPMENT PROVIDER PREFERENCE. PT HAS NO OUTSIDE SERVICES ASSISTING IN THE HOME. CM DISCUSSED AVAILABILITY OF HOME HEALTH, REHAB SERVICES AND MEDICAL EQUIPMENT. PT DENIES DISCHARGE NEEDS, REPORTS HER FAMILY WILL PICK HER UP FOR DISCHARGE HOME TODAY. PT ASKED TO MAKE SURE THAT HER MEDICATION IS AVAILABLE AT PHARMACY BEFORE LEAVING THE HOSPITAL, SHE WAS UNABLE TO OBTAIN IT FROM [facility] AND THAT IS WHY SHE ENDED BACK AT THE HOSPITAL THIS TIME. CM NOTIFIED SLEEVE MACHINE TENDER WHO WILL CALL IN PT'S MEDICATION TO PHARMACY. Rolling Attendant: Celso Guthrie
--- NOTE | 2016-12-23 10:25 | NUR ---
IV AND TELEMETRY DCD. DC PLANS GIVEN. UNDERSTANDING VOICED.
[2016-12-23 12:17] VITALS: BP 107/34
--- NOTE | 2016-12-23 15:09 | NUR ---
ESCORTED TO CAR BY W/C.
== END 2016-12-23 15:10 | disposition home or self-care (01) | DRG 310 ==
LOC: D.ER 10:34 → OBSVTIME 17:01 → D.M2 17:01
PROVIDERS: Emergency Medicine; ADMIT Internal Medicine Cardiovascular Disease
DX: I48.0 Paroxysmal atrial fibrillation (principal); Z95.0 Presence of cardiac pacemaker; I10 Essential (primary) hypertension; E11.40 Type 2 diabetes mellitus with diabetic neuropathy, unspecified; F32.9 Major depressive disorder, single episode, unspecified; F41.9 Anxiety disorder, unspecified; H35.30 Unspecified macular degeneration

== ENCOUNTER 2017-01-03 17:45 | Inpatient (IN) | payer MEDICARE, OTHER ==
[~2017-01-03] VITALS: Ht 182.9 cm; Wt 113.4 kg
[2017-01-03 19:19] LABS: ANION GAP 12.6 mmol/L (8-16); CALCIUM 8.8 mg/dL (8.5-10.1); CARBON DIOXIDE 26.8 mmol/L (21.0-32.0); CREATININE - SERUM 0.9 mg/dL (0.6-1.3); POTASSIUM - SERUM 4.4 mmol/L (3.5-5.1)
[2017-01-03 20:00] VITALS: BP 128/47
[2017-01-03 21:32] VITALS: BP 137/45; BMI 34.0
[2017-01-03 23:00] VITALS: BP 137/45
[2017-01-03 23:15] VITALS: BP 131/32
[2017-01-03 23:30] VITALS: BP 118/31
[2017-01-03 23:45] VITALS: BP 136/40
[2017-01-04] VITALS (14 sets, daily range): BP systolic 80–139; BP diastolic 34–93; Ht 182.9 cm; Wt 113.4 kg
[2017-01-04 06:41] LABS: BASOPHILS 0.7 % (0-2); EOSINOPHILS 4.6 % (0-7); HEMATOCRIT 32.1 % (36.0-48.0); HEMOGLOBIN 9.9 g/dL (12-16); IMMATURE GRANULOCYTES 0.4 % (0-5); LYMPHOCYTES 33.3 % (15-50); MCH 26.3 pg (26.0-34.0); MCHC 30.8 g/dL (31.0-37.0); MCV 85.4 fL (80.0-100.0); MEAN PLATELET VOLUME 11.8 fL (7.4-10.4); MONOCYTES 10.5 % (2-11); NEUTROPHILS 50.5 % (40-80); RBC 3.76 10x6/uL (4.00-5.40); RDW 16.9 % (11.5-14.5); WBC 7.1 10x3/uL (4.8-10.8)
[2017-01-04 06:47] LABS: PLATELET COUNT 261 10x3/uL (130-400)
[2017-01-04 06:54] LABS: ANION GAP 14.5 mmol/L (8-16); CALCIUM 8.6 mg/dL (8.5-10.1); CARBON DIOXIDE 24.7 mmol/L (21.0-32.0); CREATININE - SERUM 0.9 mg/dL (0.6-1.3); POTASSIUM - SERUM 4.2 mmol/L (3.5-5.1)
--- NOTE | 2017-01-04 08:00 | NUR ---
PT AOX4 RESP EVEN AND NONLABORED PT DENIES NEEDS AT THIS TIME IV TO RIGHT FOREARM PATENT AND INTACT SRX2 BED AT LOWEST SETTING CALL LIGHT WITHIN REACH WILL CONTINUE TO MONITOR
--- NOTE | 2017-01-05 00:33 | NUR ---
blood finished. vs 111/64 p 68 r 18. no complaints at present. call light in reach
[2017-01-05 04:00] VITALS: BP 137/45
--- NOTE | 2017-01-05 07:00 | NUR ---
PT REC'D FROM [facility]. RESTING IN BED PLAYING GAMES ON TABLET. AAOX4. RATING CURRENT PAIN IN SHOULDERS 01/27. STATES, "I THINK I NEED THAT ROTATOR CUFF SURGERY AGAIN." WILL ADMINSTERED PAIN MEDICATION IF AVAILABLE. REGULAR HEART RATE AND RHYTHM. TELEMETRY IN PLACE. L CHEST PM. BOWEL SOUNDS ACTIVE X4 QUADRATNS. SOFT TO PALPATION W/O COMPLAINTS OF PAIN. BED LOW, CALL LIGHT IN REACH, DENIES NEEDS, CPOC.
[2017-01-05 08:01] LABS: BASOPHILS 0.5 % (0-2); EOSINOPHILS 3.5 % (0-7); HEMOGLOBIN 11.4 g/dL (12-16); IMMATURE GRANULOCYTES 0.5 % (0-5); LYMPHOCYTES 25.9 % (15-50); MCHC 30.8 g/dL (31.0-37.0); MEAN PLATELET VOLUME 11.8 fL (7.4-10.4); MONOCYTES 10.3 % (2-11); NEUTROPHILS 59.3 % (40-80); PLATELET COUNT 225 10x3/uL (130-400); RBC 4.23 10x6/uL (4.00-5.40); RDW 16.8 % (11.5-14.5); WBC 6.3 10x3/uL (4.8-10.8)
[2017-01-05 08:06] LABS: MCV 87.5 fL (80.0-100.0)
[2017-01-05 08:10] LABS: ANION GAP 11.6 mmol/L (8-16); CALCIUM 8.7 mg/dL (8.5-10.1); CARBON DIOXIDE 26.4 mmol/L (21.0-32.0); CREATININE - SERUM 0.9 mg/dL (0.6-1.3)
[2017-01-05 08:42] VITALS: BP 135/50
--- NOTE | 2017-01-05 09:05 | NUR ---
MORNING MEDS PASSED AT THIS TIME. PRN PAIN MEDICATION ADMINISTERED PER PT COMPLAINTS OF 7/10 SHOULDER PAIN. WILL REASSESS. MORNING LABS REVIEWED PER PT REQUEST WELL. BED LOW, CALL LIGHT IN REACH, DENIES NEEDS. CPOC.
[2017-01-05 11:36] VITALS: BP 117/65
--- NOTE | 2017-01-05 12:37 | NUR ---
AWAKE AND ALERT. ORIENTED X3. NO C/O PAIN OR DISCOMFORT. REPORTS CL DIET IS AWFUL. DENIES NEEDS.
[2017-01-05 15:58] LABS: HEMATOCRIT 36.3 % (36.0-48.0); HEMOGLOBIN 11.2 g/dL (12-16)
[2017-01-05 17:30] VITALS: BP 126/47
--- NOTE | 2017-01-05 19:25 | NUR ---
RECIEVED SHIFT REPORT. PT IS LYING IN BED. ALERT AND ORIENTED AND ABLE TO VERBALIZE NEEDS. IV IS PATENT AND FLUIDS ARE RUNNING PER ORDER. PT IS AMBULATORY BUT WAS INSTRUCTED TO CALL FOR ANY ASSISTANCE NEEDED. PT STATES PAIN IS 8/10. NO NEEDS ARE VERBALIZED AT THIS TIME. WILL CONTINUE TO MONITOR. SIDE RAILS ARE UP X 2. BED IS IN LOWEST POSITION. CALL LIGHT IS WITHIN REACH.
[2017-01-05 20:00] VITALS: BP 136/52
--- NOTE | 2017-01-05 20:44 | NUR ---
SHIFT ASSESSMENT COMPLETED. NIGHT MEDS GIVEN WITH NO PROBLEMS. PT C/O PAIN 02/27. ADMINISTERED PRESCRIBED PRN NORCO PER ORDER. DENIES FURTHER NEEDS. WILL MONITOR. SIDE RAILS X 2. BED LOW. CALL LIGHT IN REACH.
[2017-01-06] VITALS: BP 135/54
--- NOTE | 2017-01-06 00:11 | NUR ---
PT REQUESTING SUGAR TO BE CHECKED AT THIS TIME. FSBS=94.
[2017-01-06 04:00] VITALS: BP 140/58
[2017-01-06 06:19] LABS: BASOPHILS 0.5 % (0-2); EOSINOPHILS 5.5 % (0-7); HEMOGLOBIN 10.7 g/dL (12-16); IMMATURE GRANULOCYTES 0.3 % (0-5); LYMPHOCYTES 25.8 % (15-50); MCHC 30.6 g/dL (31.0-37.0); MCV 88.4 fL (80.0-100.0); MEAN PLATELET VOLUME 11.2 fL (7.4-10.4); MONOCYTES 10.5 % (2-11); NEUTROPHILS 57.4 % (40-80); PLATELET COUNT 201 10x3/uL (130-400); RBC 3.96 10x6/uL (4.00-5.40); RDW 17.2 % (11.5-14.5); WBC 6.4 10x3/uL (4.8-10.8)
[2017-01-06 06:41] LABS: ALBUMIN 2.8 g/dL (3.4-5.0); ANION GAP 7.7 mmol/L (8-16); BILIRUBIN - TOTAL 0.4 mg/dL (0.2-1.3); CALCIUM 8.2 mg/dL (8.5-10.1); CARBON DIOXIDE 24.9 mmol/L (21.0-32.0); POTASSIUM - SERUM 3.6 mmol/L (3.5-5.1); PROTEIN - SERUM 5.8 g/dL (6.4-8.2)
--- NOTE | 2017-01-06 07:00 | NUR ---
PT REC'D FROM [facility]IK[facility] GAVIRIA. RESTING IN BED WITH EYES CLOSED. NO SIGNS OF DISTRESS. RESP EVEN AND UNLABORED. BED LOW, CALL LIGHT IN REACH, DENIES NEEDS CPOC.
[2017-01-06 07:10] VITALS: BP 160/50
--- NOTE | 2017-01-06 09:20 | NUR ---
MORNING MEDS PASSED AT THIS TIME. BED LOW, CALL LIGHT IN REACH, DENIES NEEDS. CPOC.
[2017-01-06 12:04] VITALS: BP 159/72
--- NOTE | 2017-01-06 15:40 | NUR ---
PT RESTING IN BED WITH NO COMPLAINTS OF PAIN OR DISCOMFORT AT THIS TIME. SPOKE WITH PT AT THIS TIME ABOUT RESITING HER IV, INFORMED PT THAT I WOULD DISCUSS WITH NURSE. BED IN LOW POSITION AND CALL LIGHT WITHIN REACH. WILL CONTINUE TO MONITOR.
[2017-01-06 15:54] VITALS: BP 165/58
--- NOTE | 2017-01-06 16:03 | NUR ---
NUTRITION MONITORING & EVAL CHART REVIEWED. CLEAR LIQUID DIET. WILL MONITOR DIET ADVANCEMENT, PO INTAKE. MAY REQUIRE NUTRITION SUPPORT IF UNABLE TO TOLERATE FULL LIQUID DIET IN [address] FOLLOWING
--- NOTE | 2017-01-06 16:08 | NUR ---
IV TO R WRIST RED AND SWOLLEN. DC'D WITH CATHETER INTACT. IV RESITED TO L UPPER ARM WITH 22 GUAGE IV CATHETER. X3 ATTEMPTS. TOLERATED WELL. BED LOW, CALL LIGHT IN REACH, DENEIS NEEDS. CPOC.
--- NOTE | 2017-01-06 19:20 | NUR ---
RECIEVED SHIFT REPORT. PT IS ALERT AND ORIENTED AND ABLE TO VERBALIZE NEEDS. IV IS PATENT AND FLUIDS ARE RUNNING PER ORDER. PT IS AMBULATORY BUT WAS INSTRUCTED TO CALL FOR ANY ASSISTANCE NEEDED. PT STATES PAIN IS 5/10. NO NEEDS ARE VERBALIZED AT THIS TIME. WILL CONTINUE TO MONITOR. SIDE RAILS ARE UP X 2. BED IS IN LOWEST POSITION. CALL LIGHT IS WITHIN REACH.
[2017-01-06 20:00] VITALS: BP 148/57
--- NOTE | 2017-01-06 21:20 | NUR ---
SHIFT ASSESSMENT COMPLETED. NIGHT MEDS GIVEN WITH NO PROBLEMS. PT C/O PAIN 01/27. ADMINISTERED PRESCRIBED PRN NORCO PER ORDER. DENIES FURTHER NEEDS. WILL MONITOR. SIDE RAILS X 2. BED LOW. CALL LIGHT IN REACH.
[2017-01-07] VITALS (8 sets, daily range): BP systolic 125–174; BP diastolic 51–85
[2017-01-07 06:53] LABS: BASOPHILS 0.3 % (0-2); EOSINOPHILS 4.4 % (0-7); HEMATOCRIT 37.5 % (36.0-48.0); HEMOGLOBIN 11.6 g/dL (12-16); IMMATURE GRANULOCYTES 0.3 % (0-5); LYMPHOCYTES 26.8 % (15-50); MCH 27.6 pg (26.0-34.0); MCHC 30.9 g/dL (31.0-37.0); MCV 89.1 fL (80.0-100.0); MEAN PLATELET VOLUME 12.3 fL (7.4-10.4); NEUTROPHILS 57.2 % (40-80); PLATELET COUNT 232 10x3/uL (130-400); RBC 4.21 10x6/uL (4.00-5.40); RDW 17.3 % (11.5-14.5); WBC 5.9 10x3/uL (4.8-10.8)
[2017-01-07 07:10] LABS: ALBUMIN 2.9 g/dL (3.4-5.0); ANION GAP 11.1 mmol/L (8-16); BILIRUBIN - TOTAL 0.4 mg/dL (0.2-1.3); CALCIUM 8.3 mg/dL (8.5-10.1); CARBON DIOXIDE 27.5 mmol/L (21.0-32.0); POTASSIUM - SERUM 3.6 mmol/L (3.5-5.1); PROTEIN - SERUM 6.2 g/dL (6.4-8.2)
--- NOTE | 2017-01-07 10:35 | NUR ---
PATIENT SUPINE IN BED ALERT AND RESTING QUIETLY. RESPIRATIONS EVEN AND UNLABORED. SIDE RAILS UP X2. BED IN LOW POSITION. CALL LIGHT IN REACH.
--- NOTE | 2017-01-07 11:34 | NUR ---
Patient Name: JORGE JULIO Admission Status: Elective Accout number: [id number] Admission Date: 01-05-2017 : 1940 Admission Diagnosis: Attending: DEAN Current LOS: 2 Anticipated DC Date: 01-09-2017 Planned Disposition: Home Primary Insurance: MEDICARE A & B Discharge Planning Comments: CM MET WITH PATIENT REGARDING D/C NEEDS AND PLANS. PATIENT LIVES WITH HER SPOUSE (JUAN MANUEL) WHOM HAS DEMENTIA AND HER SON AND HIS FAMILY. PATIENT HAS 2 STEPS W/RAILS TO ENTER HOME AND NO STAIRS INSIDE. PATIENTS FAMILY WILL PICK HER UP AT DISCHARGE. PATIENT IS INDEPENDENT WITH HER CARE AND HAS A WALKER, WHEELCHAIR, SHOWER CHAIR, BS COMMODE, AND IS BUYING A NEW GLUCOMETER (DOG CHEWED HERS UP). PATIENTS PCP IS DR. ARIAS AND USES [facility] ON [address] FOR HER PHARMACY. PATIENT DID NOT WANT HOME HEALTH. CM WILL CONTINUE TO FOLLOW PATIENT WITH D/C NEEDS AND PLANS. PCP DR. [facility]UA[facility] ON [address] [phone] EMIGDIO (SON) [phone] Personal Driver: Antonette Snyder Is the patient Alert and Oriented? Yes 0 * How many steps to enter\exit or inside your home? 2 W/RAILS 0 * PCP DR. ARIAS 0 * Pharmacy [facility] [address] 0 * Preadmission Environment Home with Family 0 * ADLs Independent 0 * Equipment Bedside Commode Shower Chair Walker Wheelchair 0 * Other Equipment BUYING NEW GLUCOMETER 0 * List name and contact numbers for known caregivers / representatives who currently or will assist patient after discharge: EMIGDIO (SON) [phone] 0 * Community resources currently utilized None 0 * Additional services required to return to the preadmission environment? Yes 0 * Can the patient safely return to the preadmission environment? Yes 0 * Has this patient been hospitalized within the prior 30 days at any hospital? Yes 0 Grand Total: 0
--- NOTE | 2017-01-07 15:45 | NUR ---
SPOKE WITH LULÚ IN GI LAB. STATED I HAD NO PRE-OP ORDERS. SHE STATED, "WELL I GUESS THATS HOW IT'LL BE THEN."
--- NOTE | 2017-01-07 17:31 | NUR ---
REPORT REC'D FROM [facility]IKA BRADFORD. ROOM READY AND AWAITING PT ARRIVAL.
--- NOTE | 2017-01-07 17:51 | NUR ---
PT REC'D BACK TO ROOM VIA BED. AAOX4. NO COMPLAINTS OF PAIN. VSS. DINNER TRAY ORDERED. BED LOW, CALL LIGHT IN REACH, DENIES NEEDS. CPOC.
--- NOTE | 2017-01-07 19:30 | NUR ---
RECIEVED SHIFT REPORT. PT IS LYING IN BED. ALERT AND ORIENTED AND ABLE TO VERBALIZE NEEDS. IV IS PATENT AND FLUIDS ARE RUNNING PER ORDER. PT IS AMBULATORY BUT WAS INSTRUCTED TO CALL FOR ANY ASSISTANCE NEEDED. PT STATES PAIN IS 6/10. NO NEEDS ARE VERBALIZED AT THIS TIME. WILL CONTINUE TO MONITOR. SIDE RAILS ARE UP X 2. BED IS IN LOWEST POSITION. CALL LIGHT IS WITHIN REACH.
[2017-01-08] VITALS: BP 122/68
[2017-01-08 04:00] VITALS: BP 130/66
[2017-01-08 06:14] LABS: BASOPHILS 0.3 % (0-2); EOSINOPHILS 3.6 % (0-7); HEMATOCRIT 35.3 % (36.0-48.0); IMMATURE GRANULOCYTES 0.3 % (0-5); LYMPHOCYTES 22.6 % (15-50); MCH 27.2 pg (26.0-34.0); MCHC 31.2 g/dL (31.0-37.0); MCV 87.2 fL (80.0-100.0); MEAN PLATELET VOLUME 11.8 fL (7.4-10.4); MONOCYTES 9.6 % (2-11); NEUTROPHILS 63.6 % (40-80); PLATELET COUNT 219 10x3/uL (130-400); RBC 4.05 10x6/uL (4.00-5.40); RDW 17.1 % (11.5-14.5); WBC 6.7 10x3/uL (4.8-10.8)
[2017-01-08 06:35] LABS: ALBUMIN 2.7 g/dL (3.4-5.0); ANION GAP 10.1 mmol/L (8-16); BILIRUBIN - TOTAL 0.4 mg/dL (0.2-1.3); CALCIUM 8.1 mg/dL (8.5-10.1); CARBON DIOXIDE 25.4 mmol/L (21.0-32.0); CREATININE - SERUM 0.8 mg/dL (0.6-1.3); POTASSIUM - SERUM 3.5 mmol/L (3.5-5.1); PROTEIN - SERUM 5.8 g/dL (6.4-8.2)
--- NOTE | 2017-01-08 07:00 | NUR ---
PT REC'D FROM KIKA GAVIRIA. RESTING IN BED WATCHING TV. AAOX4. PIV TO L FOREARM FREE OF REDNESS AND SWELLING. REGULAR HEART RATE AND RHYTHM. BOWEL SOUNDS ACTIVE X4 QUADRANTS. REFUSING SCD'S. RATING CURRENT PAIN IN SHOULDERS 12/28. PAIN PILL ADMINISTERED EARLIER. BED LOW, CALL LIGHT IN REACH, DENIES NEEDS. CPOC.
--- NOTE | 2017-01-08 08:00 | NUR ---
EXPLAINED TO PT NPO STATUS FOR MECKEL SCAN AND SBFT. STATED THAT SHE WOULD BE ABLE TO EAT ONCE TESTS WERE FINISHED. NO QUESTIONS OR CONCERNS VOICED AT THIS TIME. BED LOW, CALL LIGHT IN REACH, DENIES NEEDS. CPOC.
[2017-01-08 10:05] VITALS: BP 126/59
[2017-01-08 11:36] VITALS: BP 139/52
--- NOTE | 2017-01-08 16:11 | NUR ---
PT AOX4 RESP EVEN AND NONLABORED PT HERE FOR CHRONIC GI BLEED FOR THIS VISIT IV TO HAND PATENT AND INTACT. SRX2 BED AT LOWEST SETTING CALL LIGHT WITHIN REACH WILL CONTINUE TO MONITOR
--- NOTE | 2017-01-08 16:46 | NUR ---
IV TO L FOREARM RED AND SWOLLEN. DC'D WITH CATHETER INTACT. STEVIE HERE TO TAKE PT FOR MECKEL SCAN. 24GUAGE IV RESITED TO R HAND BY KIKA JARRELL. X2 ATTEMPTS. ESCORTED TO NUCLEAR MED IN WC.
[2017-01-08 19:00] VITALS: BP 154/62
--- NOTE | 2017-01-08 19:13 | OP ---
PATIENT NAME: JORGE MUJICA MEDICAL RECORD: [id number] :42 LOCATION:[id number] ADMISSION DATE:01/05/17 SURGEON: MACY NATION MD DATE OF OPERATION: 01/07/2017 PROCEDURE: EGD with biopsy. ATTENDING PHYSICIAN: Grayson. SURGEON: Nicolas Priest. INDICATIONS: Ms. 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 Over the past several days, she has had recurrent melenic stools and during her hospitalization has received 4 units of packed red blood cells. EGD on 06/2016 showed gastric ulcers, colonoscopy 09/23/2016 showed a small polyp, mild sigmoid diverticulosis and mild internal hemorrhoids. EGD on 11/07/2016 was significant for a large hiatal hernia with Heri ulcers. Barium swallow back /upper GI series on 12/13/2016 showed significant reflux, large hiatal hernia and duodenal diverticulum. She presents for inpatient EGD. PREMEDICATIONS: Total IV anesthesia (propofol 250 mg). INSTRUMENT: Olympus video gastroscope. PROCEDURE AND FINDINGS: After receiving informed consent, Ms. Mujica posterior pharynx was anesthetized with Cetacaine spray. She was placed in left lateral decubitus position, sedated as per anesthesia. After achieving adequate level of sedation, gastroscope was introduced per orally and advanced to the duodenum without difficulty. The esophageal mucosa was without erythema, ulcers, strictures or masses, appeared normal down the GE junction (GE junction located at 35 cm). A large hiatal hernia partially paraesophageal was noted with erythematous and edematous distal folds (in the fundus) which were biopsied. There were no ulcers. There is mild erythema in the antrum and antral biopsies were obtained to rule out Helicobacter pylori. There are no ulcers or blood seen in the stomach. In the second portion of duodenum was a large diverticula containing old food, but no blood, and in the third portion of duodenum were 2 smaller diverticula without signs of bleeding. The gastroscope was advanced to the proximal jejunum and no angioectasias or blood was seen. The gastroscope was then withdrawn. Ms. Mujica tolerated the procedure well, no immediate complications. ASSESSMENT: 1. Large hiatal hernia. 2. Gastritis. 3. Duodenal diverticula. 4. Gastrointestinal bleeding, unknown etiology with anemia secondary to GI bleeding. RECOMMENDATIONS: 1. Small bowel followthrough. 2. Meckel scan. 3. Small bowel capsule endoscopy (which will have to be done as an outpatient at [facility]). 4. If she has recurrent melenic stools, recommend Nuclear Medicine GI blood OPERATIVE REPORT [id number] JORGE MUJICA loss scan. TRANSINT:[id number] Voice Confirmation ID: [id number] DOCUMENT ID: [id number] MACY NATION MD at 1913 CC: LEIA GUERRA MD and NICOLAS PRIEST MD [id number] DICTATION DATE: 01/07/171741 COLD STORAGE SUPERINTENDENT: 01/08/17 0047 ADM IN [facility] [address] [place] [address]
--- NOTE | 2017-01-08 20:00 | NUR ---
PT IS RESTING IN BED WITH EYES OPEN. WORKING A PUZZLE ON HER TABLET. ALERT AND ORIENTED X 3. DENIES ACUTE DISCOMFORT AT THIS TIME. IV INFUSING TO RIGHT HAND WITHOUT DIFFICULTY. NO REDNESS OR EDEMA NOTED AT THE INSERTION SITE. TELEMETRY UNIT IS ON AND INTACT. SR'S ARE UP X 2 IN BED. CALL LIGHT AND BEDSIDE TABLE ARE WITHIN EASY REACH.
--- NOTE | 2017-01-08 21:18 | NUR ---
PT IS RESTING IN BED. NO NEEDS VOICED.
--- NOTE | 2017-01-08 23:19 | NUR ---
PT IS RESTING QUIETLY IN BED WITH EYES CLOSED. NO DISTRESS NOTED.
--- NOTE | 2017-01-09 00:33 | NUR ---
PT AWAKE WATCHING TV. SHE REQUESTED A GLASS OF WATER, BUT PT IS NPO AFTER MIDNIGHT. SHE VOICED UNDERSTANDING.
--- NOTE | 2017-01-09 01:38 | NUR ---
RN NOTE: CHANGED BATTERIES ON TELEMETRY. IV PATENT. PT STATES ABDOMINAL AND LEFT SHOULDER PAIN WELL CONTROLLED AT THIS ASSESSMENT. WILL CONTINUE TO MONITOR FOR NEEDS.
--- NOTE | 2017-01-09 03:00 | NUR ---
PT IS RESTING QUIETLY IN BED WITH EYES CLOSED. RESPS ARE EVEN AND UNLABORED. NO ACUTE DISTRESS NOTED.
[2017-01-09 04:00] VITALS: BP 131/60
[2017-01-09 05:56] LABS: BASOPHILS 0.5 % (0-2); EOSINOPHILS 3.9 % (0-7); HEMATOCRIT 35.3 % (36.0-48.0); IMMATURE GRANULOCYTES 0.2 % (0-5); LYMPHOCYTES 28.6 % (15-50); MCH 27.4 pg (26.0-34.0); MCHC 31.2 g/dL (31.0-37.0); MEAN PLATELET VOLUME 11.9 fL (7.4-10.4); MONOCYTES 12.8 % (2-11); PLATELET COUNT 226 10x3/uL (130-400); RBC 4.01 10x6/uL (4.00-5.40); RDW 17.3 % (11.5-14.5); WBC 6.4 10x3/uL (4.8-10.8)
--- NOTE | 2017-01-09 06:00 | NUR ---
PT IS RESTING IN BED WITH EYES CLOSED. NO DISTRESS NOTED.
[2017-01-09 06:14] LABS: ALBUMIN 2.7 g/dL (3.4-5.0); ANION GAP 10.9 mmol/L (8-16); BILIRUBIN - TOTAL 0.37 mg/dL (0.2-1.3); CALCIUM 8.3 mg/dL (8.5-10.1); CARBON DIOXIDE 25.9 mmol/L (21.0-32.0); CREATININE - SERUM 0.8 mg/dL (0.6-1.3); POTASSIUM - SERUM 3.8 mmol/L (3.5-5.1)
--- NOTE | 2017-01-09 08:00 | NUR ---
OFF UNIT VIA WC FOR TEST.
[2017-01-09 08:42] VITALS: BP 144/76
--- NOTE | 2017-01-09 10:00 | NUR ---
RETURNED FROM TEST. TOOK AM MEDS AND ATE ALL OF BREAKFAST. LUNGS ARE CLEAR BUT DIMINISHED THROUGHOUT. SKIN IS INTACT WITHOUT REDNESS. IV TO RIGHT HAND PATENE WITHOUT REDNESS AT INSERTION SITE. DENIES NEEDS.
[2017-01-09 12:01] VITALS: BP 156/64
--- NOTE | 2017-01-09 13:26 | NUR ---
C/O NAUSEA WITH LUNCH. REQUESTED AND GIVNE 4MG ZOFRAN PO FOR SAME. WILL MONITOR.
--- NOTE | 2017-01-09 15:27 | NUR ---
REPORTS SOME RELIEF WITH USE OF ZOFRAN. DENIES NEEDS AT THIS TIME.
[2017-01-09 15:45] VITALS: BP 159/58
--- NOTE | 2017-01-09 19:38 | NUR ---
ATE MOST OF SUPPER. NO C/O AT THIS TIME. NO CHANGES NOTED.
[2017-01-09 20:00] VITALS: BP 146/51
[2017-01-10 04:00] VITALS: BP 139/54
[2017-01-10 06:25] LABS: BASOPHILS 0.5 % (0-2); HEMATOCRIT 35.3 % (36.0-48.0); HEMOGLOBIN 10.8 g/dL (12-16); IMMATURE GRANULOCYTES 0.3 % (0-5); LYMPHOCYTES 28.6 % (15-50); MCH 26.9 pg (26.0-34.0); MCHC 30.6 g/dL (31.0-37.0); MEAN PLATELET VOLUME 11.9 fL (7.4-10.4); MONOCYTES 9.9 % (2-11); NEUTROPHILS 56.7 % (40-80); PLATELET COUNT 223 10x3/uL (130-400); RBC 4.01 10x6/uL (4.00-5.40); RDW 17.2 % (11.5-14.5)
[2017-01-10 06:44] LABS: ALBUMIN 2.7 g/dL (3.4-5.0); ANION GAP 11.1 mmol/L (8-16); BILIRUBIN - TOTAL 0.4 mg/dL (0.2-1.3); CALCIUM 8.3 mg/dL (8.5-10.1); CARBON DIOXIDE 27.7 mmol/L (21.0-32.0); CREATININE - SERUM 0.8 mg/dL (0.6-1.3); POTASSIUM - SERUM 3.8 mmol/L (3.5-5.1); PROTEIN - SERUM 5.9 g/dL (6.4-8.2)
--- NOTE | 2017-01-10 07:30 | NUR ---
AWAKE AND ALERT. ORIENTED X3. NO C/O AT THIS TIME. LUNGS ARE CLEAR BILATERALLY, OCCASSIONAL NON PRODUCTIVE COUGH NOTED. SKIN IS INTACT WITHOUT REDNESS. IV TO RIGHT HAND PATENT WITHOUT REDNESS AT INSERTION SITE. DENIES NEEDS.
[2017-01-10 08:16] VITALS: BP 151/53
--- NOTE | 2017-01-10 08:30 | NUR ---
ATE ALL OF BREAKFAST. IV TO RIGHT HAND LEAKING. D/C WITH CATHETER INTACT. ANXIOUS TO GET TO GO HOME.
--- NOTE | 2017-01-10 08:51 | NUR ---
CM REASSESSMENT NOTE: PATIENT IS DISCHARGING HOME TODAY-DID NOT WANT HOME HEALTH AND HAD NO OTHER NEEDS FOR DISCHARGE. PATIENT STATED SOMEONE IN HER FAMILY WILL BE DRIVING HER HOME.
--- NOTE | 2017-01-10 11:15 | NUR ---
DISCHARGED TO HOME AMBULATORY WITH FAMILY. DISCHARGE INSTRUCTIONS GIVEN BOTH VERBALLY AND WRITTEN. ALL QUESTIONS ANSWERED. PATIENT VERBALIZED UNDERSTANDING OF SAME. NO NEW PRESCRIPTIONS NEEDED.
== END 2017-01-10 11:15 | disposition home or self-care (01) | DRG 812 ==
LOC: D.MS 17:45 → OBSVTIME 17:46 → D.MS 01-05 18:17
PROVIDERS: Family Medicine; Internal Medicine Gastroenterology; ADMIT Family Medicine
PROC: 0DB98ZX Excision of Duodenum, Via Natural or Artificial Opening Endoscopic, Diagnostic (ICD-10-PCS; 2017-01-07)
PROC: 0DB68ZX Excision of Stomach, Via Natural or Artificial Opening Endoscopic, Diagnostic (ICD-10-PCS; principal; 2017-01-07 16:00)
DX: D50.0 Iron deficiency anemia secondary to blood loss (chronic) (principal); K92.1 Melena; K44.9 Diaphragmatic hernia without obstruction or gangrene; K29.70 Gastritis, unspecified, without bleeding; K57.10 Diverticulosis of small intestine without perforation or abscess without bleeding

== ENCOUNTER → 2017-01-15 08:11 | Outpatient (CLI) | payer MEDICARE, OTHER ==
[2017-01-04 13:51] VITALS: BMI 33.9
== END | disposition home or self-care (01) ==
LOC: D.CT 08:11
DX: K92.2 Gastrointestinal hemorrhage, unspecified (principal)

== ENCOUNTER 2017-02-01 10:22 | Inpatient (IN) | payer MEDICARE, OTHER ==
[~2017-02-01] VITALS: Ht 182.9 cm; Wt 105.9 kg
[2017-02-01 11:33] LABS: BASOPHILS 0.2 % (0-2); EOSINOPHILS 1.2 % (0-7); HEMATOCRIT 34.3 % (36.0-48.0); HEMOGLOBIN 10.5 g/dL (12-16); IMMATURE GRANULOCYTES 0.3 % (0-5); LYMPHOCYTES 20.3 % (15-50); MCHC 30.6 g/dL (31.0-37.0); MCV 84.9 fL (80.0-100.0); MEAN PLATELET VOLUME 11.8 fL (7.4-10.4); MONOCYTES 7.6 % (2-11); NEUTROPHILS 70.4 % (40-80); PLATELET COUNT 303 10x3/uL (130-400); RBC 4.04 10x6/uL (4.00-5.40); RDW 16.5 % (11.5-14.5); WBC 9.9 10x3/uL (4.8-10.8)
[2017-02-01 11:41] LABS: APTT 23.1 SECONDS (22.8-39.4); INR 1.02 (0.85-1.17); PROTIME 13.3 SECONDS (11.6-15.0)
[2017-02-01 11:50] LABS: ALBUMIN 3.5 g/dL (3.4-5.0); ALKALINE PHOSPHATASE 84 U/L (46-116); ALT (SGPT) 14 U/L (10-68); BILIRUBIN - TOTAL 0.29 mg/dL (0.2-1.3); CALC OSMOLALITY 285 mosm/kg (275-300); CALCIUM 9.1 mg/dL (8.5-10.1); CARBON DIOXIDE 27.4 mmol/L (21.0-32.0); CHLORIDE - SERUM 105 mmol/L (98-107); CREATININE - SERUM 1.1 mg/dL (0.6-1.3); GLUCOSE 125 mg/dL (74-106); POTASSIUM - SERUM 4.3 mmol/L (3.5-5.1); PROTEIN - SERUM 7.2 g/dL (6.4-8.2); SODIUM 140 mmol/L (136-145); UREA NITROGEN 29 mg/dL (7-18); eGFR NON AFRICAN AMERICAN 51 mL/min (90-120)
[2017-02-01 12:15] LABS: AMYLASE - SERUM 25 U/L (25-115); CKMB 0.4 U/L (0.0-3.6); CREATINE KINASE 28 UL (21-215); LIPASE 130 U/L (73-393)
[2017-02-01 12:19] LABS: APPEARANCE CLEAR (CLEAR); BILIRUBIN NEGATIVE (NEGATIVE); COLOR YELLOW (YELLOW); GLUCOSE NEGATIVE (NEGATIVE); KETONE NEGATIVE (NEGATIVE); LEUKOCYTE ESTERASE NEGATIVE (NEGATIVE); NITRITE NEGATIVE (NEGATIVE); PROTEIN NEGATIVE (NEGATIVE); UROBILINOGEN NORMAL (NORMAL)
[2017-02-01 12:23] LABS: TROPONIN-I < 0.017 ng/mL (0.000-0.060)
[2017-02-01 14:32] LABS: CKMB 0.3 U/L (0.0-3.6); CREATINE KINASE 24 UL (21-215)
[2017-02-01 14:34] LABS: TROPONIN-I < 0.017 ng/mL (0.000-0.060)
--- NOTE | 2017-02-01 15:10 | NUR ---
RECEIVED PT TO ROOM 2105 VIA W/C DX GI BLEED SOB NOTED ON EXERTION C/O GENERALIZED PAIN 03/30 PT IS AAOX4 IV OF NS PATENT TO RAC WITHOUT DIFFICULTY SITE WITHOUT REDNESS OR EDEMA
[2017-02-01 15:14] VITALS: BP 137/41; BMI 33.5
[2017-02-01 15:52] VITALS: BP 137/41
[2017-02-01 19:28] LABS: HEMATOCRIT 30.7 % (36.0-48.0); HEMOGLOBIN 9.4 g/dL (12-16)
[2017-02-01 19:50] LABS: CKMB 0.3 U/L (0.0-3.6); CREATINE KINASE 24 UL (21-215)
[2017-02-01 19:51] LABS: TROPONIN-I < 0.017 ng/mL (0.000-0.060)
--- NOTE | 2017-02-01 19:55 | NUR ---
PT RESTING IN BED. UP TO BATHROOM WITH STANDBYE ASSIST. NS INFUSING TO RIGHT AC IV AT 100. PT C/O PAIN AND ASKED FOR PAIN MEDS WITH NIGHT MED PASS. DENIES ANY OTHER NEEDS. WILL CONTINUE TO MONITOR
[2017-02-01 20:00] VITALS: BP 144/44
--- NOTE | 2017-02-02 00:57 | NUR ---
PT IN BED PLAYING A GAME ON HER TABLET. PT DENIES ANY NEEDS AT THIS TIME. NO S/S OF DISTRESS WILL CONTINUE TO MONITOR
[2017-02-02 01:07] LABS: HEMATOCRIT 28.9 % (36.0-48.0); HEMOGLOBIN 8.7 g/dL (12-16)
[2017-02-02 01:31] LABS: CKMB 0.4 U/L (0.0-3.6); CREATINE KINASE 24 UL (21-215)
[2017-02-02 01:32] LABS: TROPONIN-I < 0.017 ng/mL (0.000-0.060)
[2017-02-02 04:00] VITALS: BP 118/47
--- NOTE | 2017-02-02 05:57 | NUR ---
PT IN ROOM WITH LAB DRAWING BLOOD. PT DENIES ANY NEEDS AT THIS TIME. NO S/S OF DISTRESS. WILL CONTINUE TO MONITOR
[2017-02-02 06:44] LABS: BASOPHILS 0.6 % (0-2); EOSINOPHILS 3.4 % (0-7); HEMATOCRIT 27.5 % (36.0-48.0); HEMOGLOBIN 8.4 g/dL (12-16); LYMPHOCYTES 34.1 % (15-50); MCH 25.8 pg (26.0-34.0); MCHC 30.5 g/dL (31.0-37.0); MCV 84.4 fL (80.0-100.0); MEAN PLATELET VOLUME 12.4 fL (7.4-10.4); MONOCYTES 10.5 % (2-11); NEUTROPHILS 50.4 % (40-80); RBC 3.26 10x6/uL (4.00-5.40); RDW 16.6 % (11.5-14.5)
[2017-02-02 06:45] LABS: PLATELET COUNT 217 10x3/uL (130-400); WBC 6.8 10x3/uL (4.8-10.8)
[2017-02-02 06:53] LABS: ANION GAP 11.3 mmol/L (8-16); CALCIUM 8.7 mg/dL (8.5-10.1); CARBON DIOXIDE 26.2 mmol/L (21.0-32.0); CREATININE - SERUM 1.1 mg/dL (0.6-1.3); POTASSIUM - SERUM 4.5 mmol/L (3.5-5.1)
--- NOTE | 2017-02-02 07:00 | NUR ---
RECEIVED REPORT. ASSUMED CARE OF PATIENT. CALL LIGHT WITHIN REACH. RESTING ON LEFT LATERAL SIDE WITH EYES OPEN. RESP EVEN AND UNLABORED. UP ADLIB, REFUSES SCDS. IV FLUIDS INFUSING ORDERED TO RIGHT AC. NO DISTRESS. RESP EVEN AND UNLABORED. PACED ON TELEMETRY.
--- NOTE | 2017-02-02 07:30 | NUR ---
FRESH ICE WATER PROVIDED UPON REQUEST.
[2017-02-02 08:00] VITALS: BP 116/35
[2017-02-02] MEDS ORDERED: BETAPACE 80 MG80 MG PO (08:56)
[2017-02-02 12:00] VITALS: BP 125/59
--- NOTE | 2017-02-02 14:02 | NUR ---
BLOOD TRANSFUSION INITIATED AT THIS TIME. UNIT#1 INFUSING. TOLERATING INFUSION WELL. CALL LIGHT WITHIN REACH. NO DISTRESS.
[2017-02-02 16:00] VITALS: BP 115/51
--- NOTE | 2017-02-02 17:56 | NUR ---
PRBC UNIT #2 INFUSION INITIATED AT THIS TIME. CALL LIGHT WITHIN REACH. NO S/S BLOOD TRANSFUSION REACTION. TOLERATED FIRST UNIT OF PRBC'S WELL. NO DISTRESS.
--- NOTE | 2017-02-02 20:03 | NUR ---
PT LYING IN BED, AWAKE, ALERT, ORIENTED, DENIES ANY NEEDS. 2ND UNIT OF PRBC'S TRANSFUSING WITHOUT ANY DIFFICULTIES. PT IS TOLERATING WELL. PT DENIES ANY NEEDS, CONTINUE TO MONITOR CLOSELY. BED LOW, CALL LIGHT IN REACH, SIDE RAILS X 2, HOB 30 DEGREES.
--- NOTE | 2017-02-02 20:50 | NUR ---
2ND UNIT OF BLOOD HAS FINISHED, FLUSHING LINE NOW.
[2017-02-02 22:41] VITALS: BP 145/66
--- NOTE | 2017-02-02 23:28 | NUR ---
PT AWAKE, ALERT, ORIENTED, C/O NAUSEA EARLIER IN SHIFT, WAS GIVEN PRN ZOFRAN WHICH DID HELP. PT DENIES ANY OTHER NEEDS AT THIS TIME. SHE IS LYING IN BED, PLAYING A GAME ON HER TABLET. CONTINUE TO MONITOR CLOSELY.
[2017-02-03 02:51] VITALS: BP 121/46
[2017-02-03 05:22] LABS: BASOPHILS 0.3 % (0-2); EOSINOPHILS 2.4 % (0-7); HEMOGLOBIN 9.9 g/dL (12-16); IMMATURE GRANULOCYTES 0.5 % (0-5); MCHC 30.9 g/dL (31.0-37.0); MEAN PLATELET VOLUME 12.2 fL (7.4-10.4); MONOCYTES 10.5 % (2-11); NEUTROPHILS 59.3 % (40-80); PLATELET COUNT 197 10x3/uL (130-400); RBC 3.67 10x6/uL (4.00-5.40); RDW 16.4 % (11.5-14.5); WBC 6.6 10x3/uL (4.8-10.8)
[2017-02-03 05:23] LABS: MCV 87.2 fL (80.0-100.0)
[2017-02-03 05:27] VITALS: BP 136/58
[2017-02-03 05:38] LABS: ANION GAP 10.4 mmol/L (8-16); CALCIUM 8.5 mg/dL (8.5-10.1); CARBON DIOXIDE 27.5 mmol/L (21.0-32.0); CREATININE - SERUM 0.9 mg/dL (0.6-1.3); POTASSIUM - SERUM 3.9 mmol/L (3.5-5.1)
[2017-02-03 08:00] VITALS: BP 126/51
--- NOTE | 2017-02-03 10:48 | NUR ---
ASLEEP R SIDE - NO S/SX OF DISTRESS
[2017-02-03 12:00] VITALS: BP 133/53
--- NOTE | 2017-02-03 13:08 | NUR ---
RESTS WITH EYES CLOSED. CALL LIGHT IN REACH. NO S/S DISCOMFORTS NOTED. WILL MONITOR.
[2017-02-03 16:00] VITALS: BP 122/77
--- NOTE | 2017-02-03 19:45 | NUR ---
PT RESTING IN BED. DISCUSSED HER BEING NPO AFTER MN FOR HER EGD. PT DENIES ANY NEEDS, NO S/S OF DISTRESS WILL CONTINUE TO MONITOR
[2017-02-03 21:50] VITALS: BP 126/44
[2017-02-04] VITALS: BP 132/44
--- NOTE | 2017-02-04 00:10 | NUR ---
PTS IV IS RED, TENDER AND SWOLLEN. NS INFUSION STOPPED AND IV REMOVED WITH CATH INTACT . WILL ATTEMPT TO RESITE. PT DENIES ANY NEEDS WILL CONTINUE TO MONITOR
[2017-02-04 01:18] VITALS: BP 144/54
--- NOTE | 2017-02-04 01:21 | NUR ---
PT GIVEN A NORCO FOR 9/10 PAIN IN WHOLE CHEST SHOULDERS AND STOMACH. SAYS IT FEELS LIKE KNIFES IN STOMACH AND PRESSURE IN CHEST, SAYS IT IS THE SAME FEELING SHE HAS BEEN FEELING IT IS NOT A NEW ONSET. PT FEELS IT MAY BE R/T HER HERNIA. PT HAS NO S/S OF DISTRESS. WILL CONTINUE TO MONITOR
--- NOTE | 2017-02-04 04:33 | NUR ---
PT NEW IV 20G IN LEFT HAND. SCANT BLEEDING FROM INSERTION SITE. NS INFUSION HOOKED BACK TO NEW IV. NOT GOING ORDERED RATE AT THIS TIME BECAUSE PT IS HARD STICK AND THE 150ML/HR BLEW THE LAST IV RUNNING AT 75ML/HR
[2017-02-04 05:35] VITALS: BP 158/63
[2017-02-04 06:00] LABS: BASOPHILS 0.2 % (0-2); EOSINOPHILS 2.5 % (0-7); HEMOGLOBIN 9.9 g/dL (12-16); IMMATURE GRANULOCYTES 0.6 % (0-5); LYMPHOCYTES 25.1 % (15-50); MCH 27.2 pg (26.0-34.0); MCHC 30.9 g/dL (31.0-37.0); MCV 87.9 fL (80.0-100.0); MEAN PLATELET VOLUME 12.4 fL (7.4-10.4); MONOCYTES 8.5 % (2-11); NEUTROPHILS 63.1 % (40-80); PLATELET COUNT 201 10x3/uL (130-400); RBC 3.64 10x6/uL (4.00-5.40); RDW 16.9 % (11.5-14.5); WBC 8.1 10x3/uL (4.8-10.8)
[2017-02-04 06:05] LABS: ANION GAP 13.6 mmol/L (8-16); CALCIUM 8.2 mg/dL (8.5-10.1); CARBON DIOXIDE 24.4 mmol/L (21.0-32.0)
--- NOTE | 2017-02-04 06:33 | NUR ---
PT RESTING IN BED. PT HAPPY ABOUT HAVING A SMALL BM AFTER DRINKING SOME PRUNE JUICE. PT IS GOING TO TRY AND SLEEP UNTIL DAY SHIFT 0900 MED PASS. PT DENIES ANY NEEDS. NO S/S OF DISTRESS. WILL CONTINUE TO MONITOR
[2017-02-04 08:00] VITALS: BP 146/68
[2017-02-04 11:12] VITALS: Ht 182.9 cm; Wt 105.9 kg
[2017-02-04 12:00] VITALS: BP 132/52
--- NOTE | 2017-02-04 12:53 | NUR ---
GI LAB HERE TO TAKE PT FOR PROCEDURE. NO CURRENT NEEDS. WILL CPOC.
--- NOTE | 2017-02-04 14:20 | NUR ---
PT BACK FROM PROCEDURE. VSS. PT WILL BE HAVING ANOTHER PROCEDURE TOMORROW AND VOICED UNDERSTANDING. CL IN REACH, BED IN LOWEST, SIDE RAILS X2. WILL CPOC.
--- NOTE | 2017-02-04 15:30 | NUR ---
CONSENTS OBTAINED FOR COLONOSCOPY WITH TIVA AND PLACED IN CHART. PT RESTING QUIETLY IN BED AND DENIES ANY CURRENT NEEDS AT THIS TIME. CL IN REACH, BED IN LOWEST, SIDE RAILS X2. WILL CPOC.
[2017-02-04 15:51] VITALS: BP 116/59
--- NOTE | 2017-02-04 20:06 | NUR ---
PT LAYING IN BED. WARM TO THE TOUCH. HAS EMESIS BAG IN FROUNT OF HER. PT C/O NAUSEA. ZOFRAN OFFERED AND PT WANTS. WILL ADMINISTER TO LEFT HAND IV. PT DENIES ANY OTHER NEEDS. NO S/S OF DISTRESS. WILL CONTINUE TO MONITOR
--- NOTE | 2017-02-05 02:26 | NUR ---
PT DRINKING GOLYTELY IN PREPERATION OF COLONOSCOPY AT 1630 [address]. PT RESTING IN BED. PT STATES HER NAUSEA IS ALOT BETTER. PT DENIES ANY NEEDS. NO S/S OF DISTRESS. WILL CONTINUE TO MONITOR
[2017-02-05 04:51] VITALS: BP 146/62
[2017-02-05 06:13] LABS: BASOPHILS 0.2 % (0-2); EOSINOPHILS 1.7 % (0-7); HEMATOCRIT 37.7 % (36.0-48.0); HEMOGLOBIN 11.5 g/dL (12-16); IMMATURE GRANULOCYTES 0.7 % (0-5); LYMPHOCYTES 20.2 % (15-50); MCHC 30.5 g/dL (31.0-37.0); MCV 88.5 fL (80.0-100.0); MEAN PLATELET VOLUME 11.4 fL (7.4-10.4); MONOCYTES 8.2 % (2-11); RBC 4.26 10x6/uL (4.00-5.40); RDW 17.4 % (11.5-14.5); WBC 8.2 10x3/uL (4.8-10.8)
[2017-02-05 06:31] LABS: ANION GAP 12.2 mmol/L (8-16); CALCIUM 8.7 mg/dL (8.5-10.1); CARBON DIOXIDE 28.6 mmol/L (21.0-32.0); CREATININE - SERUM 0.9 mg/dL (0.6-1.3); POTASSIUM - SERUM 3.8 mmol/L (3.5-5.1)
[2017-02-05 06:44] LABS: PLATELET COUNT 261 10x3/uL (130-400)
--- NOTE | 2017-02-05 06:57 | NUR ---
PT SITTING ON BED SIDE COMMODE. STATES THAT SHE FEELS SICK... OVER HALF OF THE GOLYTLY IS GONE. SEVERAL LOOSE WATER BMS. PT DENIES ANY NEEDS AT THIS TIME. NO S/S OF DISTRESS. WILL CONTINUE TO MONVIVEKTOR
[2017-02-05 09:07] VITALS: BP 119/60
--- NOTE | 2017-02-05 09:28 | NUR ---
INTRODUCED MYSELF TO PT PRIMARY RN FOR TODAYS SHIFT. SHIFT ASSESSMENT COMPLETED. PT A&O SITTING UP IN BED. PT C/O NAUSEA AND PAIN. REQUESTED AND PROVIDED WITH PRN ZOFRAN AND PRN PAIN MEDICATION. PT IS TO BE NPO AFTER CLEAR LIQUID BREAKFAST. PT GOING FOR COLONOSCOPY TODAY AND VERBALIZED UNDERSTANDING. PT WILL RECIEVE 2 TAP WATER ENEMAS ORDERED AND ALSO VERBALIZED UNDERSTANDING AND IS FAMILAR WITH THEM. NO FURTHER NEEDS AT THIS TIME. CL IN REACH, BED IN LOWEST, SIDE RAILS X2. WILL CPOC.
[2017-02-05 12:08] VITALS: BP 110/46
--- NOTE | 2017-02-05 12:13 | NUR ---
2 TAP WATER ENEMAS DUE BUT UNABLE TO GIVE AT THIS TIME R/T INSUFFICIENT SUPPLY ON OUR UNIT. CALLED [facility] AND REQUESTED SUPPLY. WILL ADMINISTER WHEN AVAILABLE.
--- NOTE | 2017-02-05 13:29 | NUR ---
PT REQUESTED PRN PAIN MED ALONG WITH NAUSEA MED AND WAS PROVIDED WITH IT. 2 WARM TAP WATER ENEMAS GIVEN WITH MAINLY CLEAR RETURN WITH SCANT COFFEE GROUND MATERIAL NOTED. COMPLETED BED BATH AND BED CHANGE PROVIDED. PT VOICED THANKS AND WOULD LIKE TO REST UNTIL HER COLONOSCOPY LATER THIS AFTERNOON.
--- NOTE | 2017-02-05 15:54 | NUR ---
PRE-OP COMPLETED ORDERED. PT READY TO GO AND AWAITING GI TEAM. NO FURTHER NEEDS. WILL CTM.
--- NOTE | 2017-02-05 16:15 | NUR ---
PT LEAVING FOR COLONOSCOPY. NO CURRENT NEEDS. WILL CTM.
[2017-02-05 16:32] VITALS: BP 124/44
--- NOTE | 2017-02-05 18:03 | NUR ---
PT BACK FROM PROCEDURE A&O AND FEELING "FINE" VSS. PT WANTING TO EAT AND TRAY HAS BEEN ORDERED. NO CURRENT NEEDS. WILL CPOC.
--- NOTE | 2017-02-05 18:20 | NUR ---
PROVIDED PT WITH HER MISSED MEDS FROM WHEN SHE WAS IN HER PROCEDURE. PT REQUESTED NOT TO BE CONNECTED TO FLUIDS AND DRINKS WELL AND STATES SHE IS BEING D/C TOMORROW SO IS CURRENTLY SL.
[2017-02-05 23:32] VITALS: BP 116/49
--- NOTE | 2017-02-06 01:40 | NUR ---
RECEIVED IN BEDROOM. LAYING IN BED WATCHING TV. STATES PAIN IN SHOULDER, CHEST AND ABDOMEN AT AN 8 ON PAIN SCALE. NORCO GIVEN. SOCIAL WITH THIS NURSE. NO OTHE4R NEEDS VOICED. CALL LIGHT IN REACH
[2017-02-06 06:07] LABS: BASOPHILS 0.2 % (0-2); EOSINOPHILS 3.6 % (0-7); HEMATOCRIT 33.4 % (36.0-48.0); HEMOGLOBIN 10.1 g/dL (12-16); IMMATURE GRANULOCYTES 0.5 % (0-5); LYMPHOCYTES 29.1 % (15-50); MCH 27.1 pg (26.0-34.0); MCHC 30.2 g/dL (31.0-37.0); MCV 89.5 fL (80.0-100.0); MEAN PLATELET VOLUME 12.1 fL (7.4-10.4); MONOCYTES 12.7 % (2-11); NEUTROPHILS 53.9 % (40-80); PLATELET COUNT 219 10x3/uL (130-400); RBC 3.73 10x6/uL (4.00-5.40); RDW 17.9 % (11.5-14.5)
[2017-02-06 06:14] LABS: WBC 5.5 10x3/uL (4.8-10.8)
[2017-02-06 06:24] VITALS: BP 118/87
[2017-02-06 06:24] LABS: ANION GAP 11.1 mmol/L (8-16); CALCIUM 8.2 mg/dL (8.5-10.1); CARBON DIOXIDE 29.5 mmol/L (21.0-32.0); POTASSIUM - SERUM 3.6 mmol/L (3.5-5.1)
[2017-02-06] MEDS ORDERED: PREMARIN0.625 MG PO (07:41)
--- NOTE | 2017-02-06 08:07 | NUR ---
PT RESTING IN BED. LT HAND IV IS SL PER PT REQUEST. PT DENIES NEEDS. WCTM.
[2017-02-06 08:42] VITALS: BP 135/46
--- NOTE | 2017-02-06 08:52 | NUR ---
Patient Name: JORGE JULIO Admission Status: ER Accout number: [id number] Admission Date: 02-03-2017 : 1940 Admission Diagnosis:BRAYDEN Attending: DENNY Current LOS: 3 Anticipated DC Date: 02-06-2017 Planned Disposition: Primary Insurance: MEDICARE A & B Discharge Planning Comments: CM MET WITH PATIENT TO DISCUSS DISCHARGE PLANNING NEEDS. PATIENT STATED SHE LIVES AT HOME WITH HER , JUAN MANUEL, WHO HAS SEVERE DEMENTIA. HER SON EMIGDIO, WHO DRIVES "THE DUCKS" AND IS GONE ALL DAY UNTIL 10 OR 11 AT NIGHT. HER GRANDDAUGHTER GENET, WHO WORKS ALL DAY AND MOST NIGHTS AT [employer] AND HER SPOUSE LAVERN, WHO ALSO WORKS AND WHEN HE COMES HOME, HE GATHERS THE KIDS AND DOES HIS THING WITH THEM. SHE STATED THAT THIS IS WHERE SHE WILL RETURN ON DISCHARGE BUT IS UNSURE TO WHO WILL TAKE HER HOME. SHE STATED THAT IT WOULD BE WHOEVER GETS OFF FIRST, AND THAT IT MAY BE 7, 8, OR 9 TONIGHT BEFORE SHE CAN LEAVE. SHE WAS REQUESTING SERVICES TO HELP HER TAKE CARE OF HER SPOUSE. EXPLAINED THAT SHE WOULD NEED TO TALK WITH DR ARIAS ABOUT THIS, THAT SINCE HE IS NOT OUR PATIENT, WE COULD NOT SET UP THESE SERVICES, BUT THE [facility] COULD HELP THERE. SHE HAS REQUESTED HOME HEALTH TO ASSIST HER WHEN SHE GETS HOME. SHE HAS HAD FREQUENT ADMISSIONS FOR THE SAME REASON "GI BLEED" AND PER HER HAS HAD 21 UNITS OF BLOOD SINCE JULY. SHE SAID SHE GOES HOME AND DOES FINE FOR A DAY OR SO, BUT CONTINUES TO BLEED AND BECOMES SO WEAK AND DIZZY THAT SHE IS NOT ABLE TO GET OUT OF BED TO THE C LET ALONE TO THE KITCHEN TO MAKE MEALS OR TO THE BATHROOM TO TAKE A BATH. EXPLAINED THAT I WOULD SPEAK WITH DR ARIAS TO SEE IF HE WAS WILLING TO GIVE US AN ORDER FOR HOME HEALTH. PATIENT STATED THAT SHE WOULD LIKE [facility]. THIS NURSE EXPLAINED THAT THEY MAY NOT HAVE NURSING AVAILABILITY AND ASKED IF SHE HAD A SECOND CHOICE. SHE STATED SHE DID NOT KNOW OF ANY OTHER, VERBAL LIST OF OTHER AGENCIES GIVEN AND PATIENT CHOSE [facility] SECOND CHOICE. WILL COME BACK WITH PATIENT CHOICE FORM. PATIENT FEELS IT IS SAFE TO RETURN TO HOME, SHE JUST WISHED SHE HAD HELP FROM THE OTHERS THAT LIVED THERE. PATIENT DENIES NEEDS FOR ANY [facility] OR OTHER COMMUNITY RESOURCES FOR HERSELF, BUT LIST PLENTY OF NEEDS FOR HER . CM WILL CONTINUE TO FOLLOW AND ASSIST. Dress Shoe Inspector: Avis Pisano Appended by Avis Pisano on 02/06/2017 9:07: PATIENT CHOICE FORM WAS SIGNED BY PATIENT. [place] SPOKE WITH DESMOND AT [facility]. THEY WILL TAKE THE PATIENT. HE IS TO FAX INFORMATION. Is the patient Alert and Oriented? Yes * How many steps to enter\\exit or inside your home? 3, 0 RAIL * PCP DR. STAS ARIAS * Pharmacy [facility] * Preadmission Environment Home with Family * ADLs Partial Dependent * Partial ADLs (Assistance needed) Ambulation Bathing * Equipment Bedside Commode Crutch Nebulizer Rolling Walker Shower Chair Walker Wheelchair * Other Equipment PATIENT STATED THAT DR SINGH WAS WORKING ON GETTING HER AN ELECTRIC WHEEL CHAIR, BUT SHE CANNOT FIND SOMEONE TO FIX HER PORCH SO SHE IS UNABLE TO GET IT AT THIS TIME. * List name and contact numbers for known caregivers / representatives who currently or will assist patient after discharge: GENET ORTIZ, GRANDDAUGHTER, * Additional services required to return to the preadmission environment? Yes * Can the patient safely return to the preadmission environment? Yes * Has this patient been hospitalized within the prior 30 days at any hospital? Yes
[2017-02-06 11:57] VITALS: BP 108/48
[2017-02-07 19:10] LABS: HGB - A 97.8 % (94.0-98.0); HGB - A2 2.2 % (0.7-3.1); HGB - INTERPRETATION Note: (()); HGB - SOLUBILITY Negative (Negative)
[2017-02-10 10:11] LABS: SPE - ALBUMIN 3.3 g/dL (2.9-4.4); SPE - ALPHA-1 GLOBULIN 0.3 g/dL (0.0-0.4); SPE - ALPHA-2 GLOBULIN 0.9 g/dL (0.4-1.0); SPE - BETA GLOBULIN 1.3 g/dL (0.7-1.3); SPE - GAMMA GLOBULIN 0.9 g/dL (0.4-1.8); SPE - M-SPIKE Not Observed g/dL (Not Observed); SPE - TOTAL PROTEIN 6.7 g/dL (6.0-8.5)
== END 2017-02-06 16:36 | disposition home health service (06) | DRG 812 ==
LOC: D.ER 10:22 → D.M2 13:53 → OBSVTIME 13:53 → D.M2 02-03 14:54
PROVIDERS: Family Medicine; Internal Medicine Gastroenterology; ADMIT Family Medicine
PROC: 0DJ08ZZ Inspection of Upper Intestinal Tract, Via Natural or Artificial Opening Endoscopic (ICD-10-PCS; principal; 2017-02-04 13:00)
PROC: 0DJD8ZZ Inspection of Lower Intestinal Tract, Via Natural or Artificial Opening Endoscopic (ICD-10-PCS; 2017-02-05)
DX: D50.0 Iron deficiency anemia secondary to blood loss (chronic) (principal); K92.1 Melena; K29.70 Gastritis, unspecified, without bleeding; K44.9 Diaphragmatic hernia without obstruction or gangrene; I48.91 Unspecified atrial fibrillation; I10 Essential (primary) hypertension; E11.40 Type 2 diabetes mellitus with diabetic neuropathy, unspecified; K57.30 Diverticulosis of large intestine without perforation or abscess without bleeding; Z95.0 Presence of cardiac pacemaker

== ENCOUNTER → 2017-03-05 20:13 | Outpatient (CLI) | payer MEDICARE, OTHER ==
[2017-02-04 11:12] VITALS: BMI 34.8
[~2017-03-05 20:13] MED LIST changes: +PREMARIN0.625 MG PO
== END | disposition home or self-care (01) ==
LOC: D.LABREF 20:13
DX: M19.012 Primary osteoarthritis, left shoulder (principal); Z11.8 Encounter for screening for other infectious and parasitic diseases

== ENCOUNTER 2017-03-17 09:45 | Inpatient (IN) | payer MEDICARE, OTHER ==
[~2017-03-17] VITALS: Ht 182.9 cm; Wt 113.6 kg
[2017-04-03 14:18] LABS: BASOPHILS 0.4 % (0-2); EOSINOPHILS 1.2 % (0-7); HEMOGLOBIN 10.2 g/dL (12-16); IMMATURE GRANULOCYTES 0.1 % (0-5); LYMPHOCYTES 20.2 % (15-50); MCH 24.6 pg (26.0-34.0); MCV 81.9 fL (80.0-100.0); MEAN PLATELET VOLUME 11.3 fL (7.4-10.4); MONOCYTES 7.3 % (2-11); NEUTROPHILS 70.8 % (40-80); RBC 4.15 10x6/uL (4.00-5.40); RDW 16.7 % (11.5-14.5); WBC 6.9 10x3/uL (4.8-10.8)
[2017-04-03 14:26] LABS: PLATELET COUNT 282 10x3/uL (130-400)
[2017-04-03 15:00] LABS: APPEARANCE CLEAR (CLEAR); BILIRUBIN NEGATIVE (NEGATIVE); COLOR YELLOW (YELLOW); GLUCOSE NEGATIVE (NEGATIVE); KETONE NEGATIVE (NEGATIVE); LEUKOCYTE ESTERASE 1+ (NEGATIVE); NITRITE NEGATIVE (NEGATIVE); PROTEIN NEGATIVE (NEGATIVE); SPECIFIC GRAVITY 1.015 (1.005-1.020); UROBILINOGEN NORMAL (NORMAL)
[2017-04-03 15:01] LABS: EPITHELIAL CELLS RARE /hpf (0-5); MUCUS <1+ /lpf (NONE SEEN); RED CELLS - URINE RARE /hpf (0-5)
[2017-04-03 15:02] LABS: BACTERIA FEW /hpf (NONE SEEN)
[2017-04-07 07:19] VITALS: BMI 34.0
--- NOTE | 2017-04-07 09:37 | NUR ---
DELAY START OF CASE DUE TO PT NOT READY IN OUTPT SERVICES. ALSO PT IV HAD TO BE RESTARTED IN OR ROOM.
[2017-04-07 11:10] VITALS: BP 118/59
--- NOTE | 2017-04-07 11:15 | NUR ---
RECEIVED TO ROOM 2214 FROM RECOVERY ROOM VIA BED. SLING/IMMOBLIIZER IN USE TO L ARM. IV TO R HAND PATENT. SL TO R FA. O2 2L NC IN USE. INTERSCALENE BLOCK INFUSING. DENIES ANY COMPLAINT OF PAIN AT THIS TIME. VSS.
[2017-04-07 11:18] VITALS: BP 118/59; Ht 182.9 cm; Wt 113.6 kg
--- NOTE | 2017-04-07 14:47 | OP ---
PATIENT NAME: JORGE JULIO MEDICAL RECORD: [id number] :42 LOCATION:D.[id number] ADMISSION DATE:04/07/17 SURGEON: SERGIO SINGH MD DATE OF OPERATION: 04/07/2017 PREOPERATIVE DIAGNOSIS: Degenerative arthritis of the left shoulder. POSTOPERATIVE DIAGNOSIS: Degenerative arthritis of the left shoulder. PROCEDURE: Left total shoulder arthroplasty. SURGEON: SERGIO SINGH MD ANESTHESIA: General. INTRAOPERATIVE COMPLICATIONS: None. SUMMARY OF PATHOLOGIC FINDINGS: Extensive osteoarthritis of shoulder without rotator cuff tear. IMPLANTS USED: Arthrex total shoulder arthroplasty system, size medium glenoid, 48/21 offset head, size 9 short stem. ESTIMATED BLOOD LOSS: 150 cc. OPERATIVE SUMMARY IN DETAIL: After obtaining the appropriate preoperative orthopedic surgery consent as well as anesthetic consultation, evaluation and clearance, the patient was brought to the operating room and placed on the operating table in supine position. After general laryngeal mask was administered, the patient was placed in the beach chair position. All pressure points were well padded to include bilateral lower extremities. She was held firmly to the operating table using the vacuum pack suction system. Left upper extremity and shoulder were prepped and draped in routine sterile fashion. The arm was held in the Trimano arm holding device. Deltopectoral incision was created, taken down to the level of the cephalic vein, which was protected throughout the entire case. Clavipectoral fascia was incised. Conjoined tendon was retracted medially gently. The deltoid was retracted laterally using a brown retractor. Subscapularis was taken down in a peel technique, reflected, and the humeral head was then dislocated into the wound. Humeral head cut was made using the humeral head cutting guide. This was followed by serial and sequential reaming and broaching and the appropriate size trial implant was put in place with the humeral head cut protector. Glenoid was exposed and circumferential labrectomy and removal of the residual tendon was followed by placement of the center pin followed by drill hole and reaming. Further takedown of any circumferential osteophytes was then followed by copious irrigation and then cementing the glenoid in place. All excess cement was removed and then after the cement was hardened, attention was returned to the proximal humerus. Proximal humerus was then brought forth through the wound again and the size 9 Arthrex short stem was put into place, tamped into place, the inferior and central screws were tightened followed by tamping the Eldridge taper of the humeral head in place. Shoulder was then reduced, it had posterior subluxation appropriately for good fit. Wound was again copiously irrigated. Subscapularis was reapproximated to the lesser tuberosity using transosseous sutures. Biceps was tenotomized in this closure. Wound was again copiously irrigated and closed with #1 Vicryl followed by 2-0 Vicryl and skin dre. OPERATIVE REPORT [id number] JORGE JULIO Sterile dressings were applied. The patient was awakened, taken to recovery in stable condition. All final needle and sponge counts were correct. TRANSINT:[id number] Voice Confirmation ID: [id number] DOCUMENT ID: [id number] SAMANTHA MARSHALL, SERGIO BEAL at 1447 CC: [id number] DICTATION DATE: 04/07/17 1018 INSURANCE ADJUSTOR: 04/07/17 1209 ADM IN [facility] [address] [id number]
--- NOTE | 2017-04-07 15:00 | NUR ---
RESTING QUIETLY IN BED AT THIS TIME. DENIES ANY COMPLAINTS AT THIS TIME.
--- NOTE | 2017-04-07 18:15 | NUR ---
COMPLAINING OF PAIN. TORADOL GIVEN SLOW IVP.
--- NOTE | 2017-04-08 | NUR ---
EYES CLOSED RESPIRATIONS WITH EASE AND UNLABORED.
[2017-04-08 04:00] VITALS: BP 120/52
--- NOTE | 2017-04-08 06:45 | NUR ---
2030) REC'D. ANGRY CALLED GRANDDTR.GRANDDAUGHTER CALLED YACHT HAND ROBERT ON ENTERING ROOM.DISCUSSED ANOTHER ROUTE FOR PAINMANAGEMENT IS TO USE EPIDURAL BUTTON."STATES I DID NOT KNOW I HAD A BUTTON TO PUSH.PAIN PILL GIVEN ORDERED. SWALLOWED PAIN MED. STATES ITS NOT HELPING. I NEED A CATHETER I CAN'TPEE. INDWELLING CATH INSERTED.OBTAINED 500CC LINSEY COLORED URINE.CONTINUES TO CONPLAIN ABOUT PAIN.
[2017-04-08 07:38] LABS: HEMOGLOBIN 8.5 g/dL (12-16); MCH 23.9 pg (26.0-34.0); MCHC 29.3 g/dL (31.0-37.0); MCV 81.5 fL (80.0-100.0); MEAN PLATELET VOLUME 11.4 fL (7.4-10.4); RBC 3.56 10x6/uL (4.00-5.40); WBC 7.6 10x3/uL (4.8-10.8)
--- NOTE | 2017-04-08 07:45 | NUR ---
AWAKE AND ALERT. ORIENTED X3. C/O INTENSE PAIN TO LEFT SHOULDER. GIVEN ONE PRCOCET PO FOR SAME. WILL MONITOR. LUNGS ARE CLEAR BILATERALLY, NO COUGH NOTED. SKIN IS INTACT WITHOUT REDNESS EXCEPT INCISION TO LEFT SHOULDER WHICH HAS A DRY INTACT DRESSING IN PLACE. IV TO RIGHT HAND IS PATENT WITHOUT REDNESS AT INSERTION SITE. BEATTY PATENT WITH CLEAR YELLOW URINE.
--- NOTE | 2017-04-08 08:13 | NUR ---
PT. CONTINUES TO COMPLAIN ABOUT PAIN.DISCUSSED WITH CHARGE NURSE OFELIA AND HOUSESUPERVISOR.ANESTHESIA CALL X2 WITH NO RESPONSE.[phone])DR. YEE NURSE HERE.STATES TALKED TO DR. CHEW TO COME TO DC BLK WHEN BLK DC'D CAN START LEAD SYSTEMS ANALYST
[2017-04-08 08:50] VITALS: BP 143/62
--- NOTE | 2017-04-08 09:35 | NUR ---
GIVEN 15MG TORADOL SLOW IVP TO CONTINUE WITH PAIN MANAGEMENT. PAIN LEVEL 7. WILL MONITOR.
--- NOTE | 2017-04-08 10:00 | NUR ---
BEATTY D/C WITH TIP INTACT WITHOUT DIFFICULTY PER PATIENT REQUEST.
--- NOTE | 2017-04-08 10:30 | NUR ---
UP TO BR WITH ONE PERSON SBA. VOIDED WITHOUT DIFFICULTY. SKIN CARE PER SELF.
[2017-04-08 12:03] VITALS: BP 74/49
--- NOTE | 2017-04-08 12:30 | NUR ---
GIVEN ONE HYDROCODONE PO FOR C/O LEFT SHOULDER PAIN. LEVEL 4. WILL MONITOR.
--- NOTE | 2017-04-08 13:30 | NUR ---
RESTING QUIETLY WITH EYES CLOSED. NO NEEDS ASSESSED.
[2017-04-08 16:21] VITALS: BP 134/48
--- NOTE | 2017-04-08 18:22 | NUR ---
NO CHANGES NOTED. DENIES NEEDS.
[2017-04-08 19:00] VITALS: BP 151/56
--- NOTE | 2017-04-08 20:26 | NUR ---
RESTING QUIETLY IN BED AT THIS TIME. STILL C/O SOME NAUSEA. WILL MONITOR. LUNGS ARE CLEAR BILATERALLY, NO COUGH NOTED. SKIN IS INTACT WITHOUT REDNESS EXCEPT INCISION TO LEFT SHOULDER WHICH HAS A DRY INTACT DRESSING IN PLACE. IMMOBILIZER IN PLACE TO LEFT SHOULDER WELL. NEURO CHECKS WNL. DENIES NEEDS. WILL MONITOR.
[2017-04-09] VITALS: BP 154/41
--- NOTE | 2017-04-09 00:50 | NUR ---
PT COMPLAIN OF PAIN TO LEFT SHOULDER TORADOL PER SLOW IVP GIVEN 15 MG PER ORDER FOR PAIN CONTROL. ASSISTED WITH TOILETING SBA AND REPOSITIONED IN BED.
--- NOTE | 2017-04-09 03:15 | NUR ---
PRN NORCO ADMINISTERED AT THIS TIME PER ORDER FOR PAIN 5/10 INCISIONALLY.
[2017-04-09 04:00] VITALS: BP 127/36
--- NOTE | 2017-04-09 04:40 | NUR ---
CAROLIN MAT ALARM APPLIED TO PT AT THIS TIME SHE IS AT RISK FOR FALLS AND IS CURRENTLY ON A BED WITHOUT AN ALARM.
--- NOTE | 2017-04-09 05:56 | NUR ---
PROVIDED PT WITH WARM PACK TO PLACE TO LOWER ABDOMEN FOR COMPLAINTS OF CRAMPING. PT STATES IT FEELS IF SHE HAS A UTI. INSTRUCTED PT THAT I WOULD LET THE PHYSICIAN KNOW IF HE IS HERE BEFORE THE END OF MY SHIFT AND IF NOT THEN I WILL PASS IT ON TO THE ONCOMING NURSE. PT VERBALIZED UNDERSTANDING.
[2017-04-09 06:25] LABS: HEMATOCRIT 27.5 % (36.0-48.0); HEMOGLOBIN 8.2 g/dL (12-16); MCH 24.2 pg (26.0-34.0); MCHC 29.8 g/dL (31.0-37.0); MCV 81.1 fL (80.0-100.0); MEAN PLATELET VOLUME 11.5 fL (7.4-10.4); RBC 3.39 10x6/uL (4.00-5.40); WBC 7.2 10x3/uL (4.8-10.8)
--- NOTE | 2017-04-09 07:30 | NUR ---
RECIEVED PT DURING WALKING ROUNDS, PT SITTING UP TO SIDE OF BED WITH COMPLAINTS OF PAIN OF A 8 ON A SCALE OF 1-10. NO MEDICATION TO BE GIVEN AT THIS TIME. PT IV OUT AND LAYING IN BED, IV FLUIDS TURNED OFF. IV TO BE RESITED IF NEEDED. ASSESSMENT DONE PER FLOWSHEET. BED IN LOW POSITION AND CALL LIGHT WITHIN REACH. WILL CONTINUE TO MONITOR.
[2017-04-09 08:19] VITALS: BP 118/65
[2017-04-09 12:26] VITALS: BP 120/62
[2017-04-09 12:58] LABS: APPEARANCE CLEAR (CLEAR); BACTERIA FEW /hpf (NONE SEEN); BILIRUBIN NEGATIVE (NEGATIVE); COLOR DK YELLOW (YELLOW); EPITHELIAL CELLS 0-5 /hpf (0-5); GLUCOSE NEGATIVE (NEGATIVE); KETONE NEGATIVE (NEGATIVE); LEUKOCYTE ESTERASE TRACE (NEGATIVE); NITRITE NEGATIVE (NEGATIVE); PROTEIN NEGATIVE (NEGATIVE); UROBILINOGEN NORMAL (NORMAL); WHITE CELLS - URINE 0-5 /hpf (0-5)
[2017-04-09 12:59] LABS: MUCUS <1+ /lpf (NONE SEEN)
--- NOTE | 2017-04-09 14:11 | NUR ---
Patient Name: JORGE MUJICA Admission Status: Elective Accout number: [id number] Admission Date: 04-07-2017 : 1940 Admission Diagnosis:PRIMARY OSTEOARTHRITIS, LEFT SHOULDER Attending: SERGIO SINGH Current LOS: 2 Anticipated DC Date: Planned Disposition: Assisted Living Primary Insurance: MEDICARE A & B Discharge Planning Comments: CM met with patient to assess discharge planning needs. Patient lives independently with her family (,son,grandchildren, daughter in law) she stated that she plans to return there and her granddaughter JERZY will be the one to drive her home. She has had HH in the past , but she has refused HH at this time, because she said it did not work for her family's dynamics. She has a cane, walker, wheelchair, electric wheelchair, shower chair at home. CM will continue to assist with discharge planning needs. PCP: [facility] [address] [place]- [phone] Oncology Specialist: Mirella Rader * Is the patient Alert and Oriented? Yes 0 * How many steps to enter\exit or inside your home? 9 0 * PCP Jose R 0 * Pharmacy [facility] [address] * Preadmission Environment Home Alone 0 * ADLs Independent 0 * Equipment Cane Elevated [place] Seat Rolling Walker Shower Chair Walker Wheelchair 0 * List name and contact numbers for known caregivers / representatives who currently or will assist patient after discharge: Manuel Mujica(son) [phone] 0 * Community resources currently utilized Other 0 * Additional services required to return to the preadmission environment? No 0 * Can the patient safely return to the preadmission environment? Yes 0 * Has this patient been hospitalized within the prior 30 days at any hospital? No 0 Grand Total: 0
[2017-04-09 19:00] VITALS: BP 148/67
[2017-04-10 04:00] VITALS: BP 132/48
--- NOTE | 2017-04-10 07:07 | NUR ---
PRN NORCO ADMINISTERED FOR PAIN. AWAKE AND ALERT WITH CAROLIN MAT ALARM ON AND IN WORKING ORDER. SCD'S OFF PER PT. CALL LIGHT IN REACH, WILL CONTINUE WITH PLAN OF CARE.
[2017-04-10] MEDS ORDERED: HYDROCODONE-APA1 TAB PO (08:18)
--- NOTE | 2017-04-10 09:25 | NUR ---
PATIENT DISCHARING HOME TODAY WITH FAMILY TO DRIVE HOME. PATIENT REFUSED HH AND DENIES ANY NEEDS FROM CM
--- NOTE | 2017-04-10 09:35 | NUR ---
SCHEDULED MEDICATIONS ADMINISTERED AT THIS TIME. DRESSING TO LEFT SHOULDER CHANGED PER ORDER. PT REMAINS IN SLING. WILL D/C HOME WHEN RIDE AVAILABLE.
[2017-04-10 09:46] VITALS: BP 142/54
--- NOTE | 2017-04-10 11:38 | NUR ---
ÁNGEL LUZ ADMINISTERED AT THIS TIME FOR PAIN. PT EXPRESSES CONCERNS WITH GOING HOME AND WOULD LIKE TO SPEAK TO EMISSIONS TECHNICIAN REGARDING REHAB OPTIONS.
[2017-04-10 12:33] VITALS: BP 138/63
--- NOTE | 2017-04-10 13:32 | NUR ---
Rehab Note- Acute rehab Prescreen order received. The patient does not have a quailifying acute rehab diagnosis at this time. Spoke to HUBER Martinez. Thank you for this referral! Grazyna Reyna RN Clinical Liaison, [facility] Rehab
--- NOTE | 2017-04-10 14:38 | NUR ---
WENT TO DISCHARGE THE PATIENT AND THE PATIENT STATED THAT SHE DID NOT THINK IT WAS SAFE TO GO HOME, PATIENT WOULD LIKE TO GO TO [facility], I CALLED THEM AND THEY WERE FULL. I SPOKE WITH THE GRANDDAUGHTER GENET AND SHE ASKED TO CALL [facility]. I CALLED [facility] AND SENT THE REFERRAL. WAITING TO HEAR FOR ACCEPTANCE
--- NOTE | 2017-04-10 16:00 | NUR ---
PRN NORCO ADMINISTERED AT THIS TIME FOR PAIN PER ORDER.
[2017-04-10 16:13] VITALS: BP 129/44
[2017-04-10 17:59] VITALS: BP 148/54
--- NOTE | 2017-04-10 18:03 | NUR ---
REPORT CALLED TO PEGGY OTOOLE AT [facility], .
--- NOTE | 2017-04-10 18:20 | NUR ---
D/C TO [facility] AT THIS TIME.
== END 2017-04-10 18:20 | DRG 483 ==
LOC: D.SDCHOLD 10:45 → D.MS 04-07 06:52 → D.SDCHOLD 04-07 06:52 → D.MS 04-07 10:16 → D.SDCHOLD 04-07 10:45 → D.MS 04-10 18:20
PROVIDERS: Anesthesiology; ADMIT Orthopaedic Surgery
PROC: 0RRK0JZ Replacement of Left Shoulder Joint with Synthetic Substitute, Open Approach (ICD-10-PCS; principal; 2017-04-07 08:00)
DX: M19.012 Primary osteoarthritis, left shoulder (principal); E11.9 Type 2 diabetes mellitus without complications; I10 Essential (primary) hypertension; Z95.0 Presence of cardiac pacemaker; D50.0 Iron deficiency anemia secondary to blood loss (chronic); K21.9 Gastro-esophageal reflux disease without esophagitis; E66.01 Morbid (severe) obesity due to excess calories; Z68.34 Body mass index [BMI] 34.0-34.9, adult

== ENCOUNTER 2017-04-15 20:29 | Emergency (ER) | payer MEDICARE, OTHER ==
[2017-04-07 11:18] VITALS: BMI 34.0
[2017-04-15 21:03] LABS: BASOPHILS 0.4 % (0-2); EOSINOPHILS 6.8 % (0-7); HEMATOCRIT 30.7 % (36.0-48.0); HEMOGLOBIN 9.1 g/dL (12-16); IMMATURE GRANULOCYTES 0.5 % (0-5); LYMPHOCYTES 21.8 % (15-50); MCH 23.6 pg (26.0-34.0); MCHC 29.6 g/dL (31.0-37.0); MCV 79.5 fL (80.0-100.0); MEAN PLATELET VOLUME 10.9 fL (7.4-10.4); MONOCYTES 8.7 % (2-11); NEUTROPHILS 61.8 % (40-80); PLATELET COUNT 344 10x3/uL (130-400); RBC 3.86 10x6/uL (4.00-5.40); RDW 17.1 % (11.5-14.5); WBC 7.6 10x3/uL (4.8-10.8)
[2017-04-15 21:27] LABS: ALKALINE PHOSPHATASE 100 U/L (46-116); ALT (SGPT) 37 U/L (10-68); CALC OSMOLALITY 283 mosm/kg (275-300); CALCIUM 8.5 mg/dL (8.5-10.1); CARBON DIOXIDE 27.2 mmol/L (21.0-32.0); CHLORIDE - SERUM 103 mmol/L (98-107); CREATININE - SERUM 0.8 mg/dL (0.6-1.3); GLUCOSE 119 mg/dL (74-106); PROTEIN - SERUM 6.2 g/dL (6.4-8.2); SODIUM 142 mmol/L (136-145); UREA NITROGEN 13 mg/dL (7-18); eGFR NON AFRICAN AMERICAN 74 mL/min (90-120)
[2017-04-15 21:38] LABS: CHOL - HDL RATIO 4.4 ratio (2.3-4.1); CHOLESTEROL, TOTAL 158 mg/dL (0-200); CREATINE KINASE 42 UL (21-215); HDL CHOLESTEROL 36 mg/dL (32-96); LDL CHOLESTEROL 102 mg/dL (0-100); LDL-HDL RATIO 2.8 ratio (1.5-3.5); TRIGLYCERIDE 100 mg/dL (30-200); TROPONIN-I < 0.017 ng/mL (0.000-0.060)
== END 2017-04-16 01:27 | disposition home or self-care (01) ==
LOC: D.ER 20:29
PROVIDERS: Family Medicine
DX: R00.2 Palpitations (principal); G89.18 Other acute postprocedural pain; Z95.0 Presence of cardiac pacemaker

== ENCOUNTER 2017-07-06 21:06 | Emergency (ER) | payer MEDICARE, OTHER ==
[2017-04-07 11:18] VITALS: BMI 34.0
[2017-07-06 22:22] LABS: BASOPHILS 0.2 % (0-2); EOSINOPHILS 2.3 % (0-7); HEMATOCRIT 38.5 % (36.0-48.0); HEMOGLOBIN 11.7 g/dL (12-16); IMMATURE GRANULOCYTES 0.3 % (0-5); LYMPHOCYTES 27.6 % (15-50); MCH 24.8 pg (26.0-34.0); MCHC 30.4 g/dL (31.0-37.0); MCV 81.6 fL (80.0-100.0); MEAN PLATELET VOLUME 11.7 fL (7.4-10.4); MONOCYTES 10.5 % (2-11); NEUTROPHILS 59.1 % (40-80); PLATELET COUNT 225 10x3/uL (130-400); RBC 4.72 10x6/uL (4.00-5.40); RDW 22.3 % (11.5-14.5); WBC 8.7 10x3/uL (4.8-10.8)
== END 2017-07-06 23:10 | disposition home or self-care (01) ==
LOC: D.ER 21:06
PROVIDERS: Family Medicine
DX: R10.9 Unspecified abdominal pain (principal); S40.012A Contusion of left shoulder, initial encounter; X58.XXXA Exposure to other specified factors, initial encounter; Y93.89 Activity, other specified; Y92.89 Other specified places as the place of occurrence of the external cause; I10 Essential (primary) hypertension; E11.9 Type 2 diabetes mellitus without complications; Z95.0 Presence of cardiac pacemaker

== ENCOUNTER 2017-10-23 16:04 | Emergency (ER) | payer MEDICARE ==
[2017-04-07 11:18] VITALS: BMI 34.0
== END 2017-10-23 18:48 | disposition home or self-care (01) ==
LOC: D.ER 16:04
DX: M25.562 Pain in left knee (principal); R10.9 Unspecified abdominal pain; W19.XXXA Unspecified fall, initial encounter; Y93.89 Activity, other specified; Y92.019 Unspecified place in single-family (private) house as the place of occurrence of the external cause

== ENCOUNTER 2017-10-24 15:33 | Emergency (ER) | payer MEDICARE ==
[2017-04-07 11:18] VITALS: BMI 34.0
== END 2017-10-24 23:36 | disposition home or self-care (01) ==
LOC: D.ER 15:33
DX: M54.5 Low back pain (principal); I10 Essential (primary) hypertension; E11.9 Type 2 diabetes mellitus without complications; Z95.0 Presence of cardiac pacemaker

== ENCOUNTER 2017-10-27 21:17 | Inpatient (IN) | payer MEDICARE ==
[~2017-10-27] VITALS: Ht 182.9 cm; Wt 118.2 kg
--- NOTE | ~2017-10-27 | EC ---
PATIENT:JORGE JULIO DATE OF SERVICE: 10/30/17 SEX: F MEDICAL RECORD: [id number] DATE OF : [birth year] LOCATION:D.MS [id number] AGE OF PATIENT: 77 ADMISSION DATE: 10/30/17 REFERRING PHYSICIAN: INTERPRETING PHYSICIAN: LIDIA LUCERO MD ECHOCARDIOGRAM REPORT ECHO CHARGES 4 ECHO COMPLETE Date: 11/03 CLINICAL DIAGNOSIS: A-FIB WITH RVR ECHOCARDIOGRAPHIC MEASUREMENTS (adult normal given) AC root (d.<3.7cm) 3.1 cm LV Septum d (<1.2 cm> 1.8 cm Valve Excursion 1.9 cm LV Septum (systole) 2.2 cm Left Atria (s.<4.0cm> 3.2 cm LVPW d(<1.2cm) 1.4 cm RV (d.<2.3cm) 3.0 cm LVPW (sytole) 1.9 cm LV diastole(<5.6CM) 3.6 cm MV E-F(>70mm/sec) cm LV systole 1.9 cm LVOT Diameter 1.9 cm MV exc.(>10mm) cm Est.ejection fraction (50-75%) % DOPPLER: LVIT cm/sec A cm/sec E 107 cm/sec LA cm/sec RVSP 37.0 mmHg LVOT 150 cm/sec AOP1/2T m/s Asc. Ao 185 cm/sec RVOT 89.0 cm/sec RA cm/sec PA 117 cm/sec AV Gradient Peak 14.0 mmHg AV Mean 6.8 mmHg AV Area 2.4 cm MV Gradient Peak 7.0 mmHg MV Mean 2.3 mmHg MV Area cm COMMENTS: Grinder And Honer Operator Automatic: Wilner SOSAOE Cigarette Tipper: 1 Dr. Lucero TAPE# PACS Pericardial Effusion N DATE OF SERVICE: PROCEDURE: Echocardiogram FINDINGS: 1. Left ventricle chamber size is within normal limits. Left ventricular systolic function is normal. Overall ejection fraction estimated at 60%. 2. Left atrium is within normal limits at 3.2 cm. Right atrium and right ventricle chamber sizes are mildly dilated. 3. Valvular structures have normal structure and motion. ECHOCARDIOGRAM REPORT [id number] JORGE JULIO 4. Doppler interrogation only reveals moderate tricuspid regurgitation, no other valvular insufficiency or stenosis and pulmonary systolic pressure is normal estimated at 37 mmHg. 5. No evidence of pericardial effusion or left ventricular thrombus. TRANSINT:[id number] Voice Confirmation ID: [id number] DOCUMENT ID: [id number] LIDIA LUCERO MD at 0956 CC: [id number] DICTATION DATE: 11/04/17 1130 DIABETES SOLUTIONS SPECIALIST: 11/04/17 1421 DIS IN 11/05/17 [facility] [address] [id number]
--- NOTE | ~2017-10-27 | HEMODYNAMI ---
PATIENT:JORGE JULIO MEDICAL RECORD: [id number] : 44 LOCATION:[facility] D.2222 ADMISSION DATE: 10/30/17 Generatedon:11/04/201710:05 Patient name: JORGE JULIO Patient #: [id number] SSN: DO B: 1940 Date of study: 11/04/2017 Page: Of Hemodynamic Procedure Report Patient Data Patient Demographics Procedure consent was obtained First Name: JORGE Gender: Female Last Name: NORI : 1940 Middle Initial: YUSUF Age: 77 year(s) Patient #: [id number] Race: Unknown Additional ID: [id number] Contact details Address: [address] [place] [address] State: [place] City: [place] Zip code: [address] Admission Admission Data Admission Date: 10/30/2017 Admission Time: 9:21 Room #: D.2222 Procedure Procedure Types Cath Procedure Diagnostic Procedure Cardioversion External Procedure Description Procedure Date Procedure Date: 11/04/2017 Procedure Start Time: 10:00 Procedure End Time: 10:02 Procedure Staff Name Function Laureano Lucero MD Performing Physician Alon Beltre RT Monitor Mj Radford RN Nurse Francisco Saldaña Jr, CRNA Additional personnel Procedure Data Cath Procedure Fluoroscopy Diagnostic fluoroscopy Total fluoroscopy Time: 0 time: 0 min min Diagnostic fluoroscopy Total fluoroscopy dose: 0 dose: 0 mGy mGy Contrast Material Contrast Material Type Amount (ml) Isovue 300 0 Estimated blood loss: 0 ml Procedure Complications No complications Hemodynamics Rest Heart Rate: 138 (bpm) Snapshots Pre Cath Intra NCS Post Cath Vital Signs Time Heart Resp SPO2 etCO2 NIBP (mmHg) Rhythm Pain Sedation Rate (ipm) (%) (mmHg) Status Level (bpm) 9:31:44 95 9 0 182/93(123) NSR 0 (11) 10(A) , No pain 9:35:15 90 8 0 Aborted NSR 0 (11) 10(A) , No pain 9:39:15 99 10 0 No Cuff NSR 0 (11) 10(A) , No pain 9:44:14 90 18 0 Auto NIBP NSR 0 (11) 10(A) off , No pain 9:49:13 98 17 Auto NIBP NSR 0 (11) 10(A) off , No pain 9:54:12 100 8 98 32.1 Auto NIBP NSR 0 (11) 10(A) off , No pain 9:55:09 104 11 99 14.9 Time NSR 0 (11) 10(A) Exceeded , No pain 9:56:23 97 15 99 26.1 188/133(160) NSR 0 (11) 10(A) , No pain 10:01:22 61 9 97 28.4 Measuring NSR 0 (11) 10(A) , No pain 10:01:49 60 8 98 26.9 167/75(121) NSR 0 (11) 10(A) , No pain Procedure Log Time Note 8:54:16 Informed consent obtained and on chart 8:54:38 Diagnostic Cath status Elective 8:54:39 Time tracking: Regular hours (M-F 7:00 - 5:00) 8:54:42 Plan of Care:Hemodynamics will remain stable., Cardiac rhythm will remain stable., Comfort level will be maintained., Respiratory function will remain adequate., Patient/ family verbilizes understanding of procedure., Procedure tolerated without complication., Recovers from procedure without complications.. 8:55:07 H&P Date Dictated: 11/03/2017 Within 30 days and on chart.. 9:00:26 Alon BURNHAM(R) sent for patient. Start room use. 9:18:37 Patient arrived from Med/Surg to CCL 3. Patient remains on bed/stretcher for procedure. 9:18:38 Warm blankets applied, and huma hugger turned on for patient comfort. 9:18:38 Correct patient and procedure confirmed by team. 9:18:39 ECG and BP/O2 sat monitors applied to patient. 9:18:41 Pre-procedure instructions explained to patient. 9:18:41 Pre-op teaching completed and patient verbalized understanding. 9:18:42 Family unavailable. 9:18:44 Patient NPO since Midnight. 9:25:38 Is the patient allergic to Iodine/contrast media? No. 9:25:40 Is patient on blood thinner?No 9:25:42 Patient diabetic? Yes. 9:25:43 If diabetic: On Metformin? Yes 9:25:46 Snore? Yes 9:25:48 Sleep apnea? No 9:25:49 Deviated septum? No 9:25:52 Opens mouth fully? Yes 9:25:54 Sticks out tongue? Yes 9:26:03 Dentures? No ? 9:26:10 Airway obstruction? No ? 9:28:39 IV patent on arrival in right hand with 0.9% NaCl at KVO. 9:28:44 IV right hand D/C'd due to infiltration. 9:30:30 Vital chart was started 9::33 Baseline sample Acquired. 9::29 Rhythm: atrial fibrillation 9::30 Full Disclosure recording started 9::36 Lab results completed and on chart. 9::47 Quick Combo opened to sterile field. 9:33:31 Francisco Saldaña Jr BURGLAR ALARM OPERATOR present and monitoring patient for TIVA. 9:33:33 Quick combo pads placed on patients chest and back. 9:36:18 Procedure delayed due to: Pt. arrived with an infiltrated IV. 9:50:50 IV started by Francisco Saldaña Jr BURGLAR ALARM OPERATOR inleft antecubital with a 22 gauge IV catheter with 0.9% NaCl at KVO. 9:51:09 Alarms reviewed by Edel Kingsley 9:55:36 Physician arrived 9:55:36 --------ALL STOP TIME OUT------ 9:55:36 Final Timeout: patient, procedure, and site verified with staff and physician. All members of the team are in agreement. 9:55:46 Physical assessment completed. ASA score P 3 - A patient with severe systemic disease as per Laureano Lucero MD. 9:55:50 Sedation plan: TIVA Medication:Propofol 9:55:59 Procedure started. 9:58:33 Defibrillator synced and charged to 275 Joules. 9:58:39 Shock delivered. 9:59:05 Patient cardioverted to sinus rhythm . 9:59:36 Procedure ended.(Physican Out) 10:00:57 Fluoroscopy time 00.00 minutes. 10:00:59 Fluoroscopy dose: 0 mGy 10:00:59 Flurop Dose total: 0 10:01:00 Contrast amount:Isovue 300 0ml. 10:01:27 Post-procedure physical assessment completed. ASA score P 3 - A patient with severe systemic disease as per Laureano Lucero MD. 10:01:29 Post procedure rhythm: sinus rhythm 10:01:31 Estimated blood loss: 0 ml 10:01:33 Post procedure instruction explained to patient.Patient verbalizes understanding. 10:01:37 Patient needs reinforcement of post procedure teaching. 10:01:49 Procedure and supply charges have been captured, reviewed, submitted and are correct. 10:01:52 Procedure Complication : No complications 10:01:53 Vital chart was stopped 10:01:54 See physician's report for complete and final results. 10:02:02 Report given to Med/Surg. 10:02:04 Patient transfered to Med/Surg with Stretcher. 10:02:48 Procedure ended. 10:02:48 Full Disclosure recording stopped 10:02:50 End room use (Document Last) Device Usage Item Manufacture Quantity Catalog Hospital Part Current Minimal Lot# / Name Number Charge Number Stock [facility]# Code [facility] brick&mobile [place] [id number] Combo Signature Audit [place] Stage Time Signature Unsigned Intra-Procedure 11/04/2017 Alon Beltre 10:05:11 AM RT(R) Signatures Monitor : Alon Beltre RT Signature : Date : Time : [address] [id number]
--- NOTE | ~2017-10-27 | OP ---
PATIENT NAME: JORGE JULIO MEDICAL RECORD: [id number] :44 LOCATION:D.MS [place].2222 ADMISSION DATE:10/30/17 SURGEON: LIDIA VARGAS MD DATE OF OPERATION: 11/04/2017 PROCEDURE: DC cardioversion. INDICATION: Atrial fibrillation. Continuous heart rate, O2 saturation, blood pressure monitoring all undertaken, all of which remained stable. IV conscious sedation per anesthesia. She received 1 shock restoring sinus rhythm at 275 joules. OVERALL IMPRESSION: Successful DC cardioversion from atrial fibrillation to sinus rhythm. Pacemaker was interrogated and had excellent thresholds and sinus rhythm afterwards. TRANSINT:[id number] Voice Confirmation ID: [id number] DOCUMENT ID: [id number] LIDIA VARGAS MD at 0956 CC: [id number] DICTATION DATE: 11/04/17 1002 CLINICAL OB: 11/04/17 1356 DIS IN 11/05/17 [place] [id number] [place] [address]
[2017-10-27 22:59] LABS: BASOPHILS 0.2 % (0-2); EOSINOPHILS 1.3 % (0-7); HEMATOCRIT 37.7 % (36.0-48.0); HEMOGLOBIN 11.8 g/dL (12-16); IMMATURE GRANULOCYTES 0.9 % (0-5); LYMPHOCYTES 20.9 % (15-50); MCH 29.1 pg (26.0-34.0); MCHC 31.3 g/dL (31.0-37.0); MCV 93.1 fL (80.0-100.0); MEAN PLATELET VOLUME 11.1 fL (7.4-10.4); MONOCYTES 8.8 % (2-11); NEUTROPHILS 67.9 % (40-80); PLATELET COUNT 228 10x3/uL (130-400); RBC 4.05 10x6/uL (4.00-5.40); RDW 15.9 % (11.5-14.5); WBC 8.9 10x3/uL (4.8-10.8)
[2017-10-27 23:13] LABS: ALBUMIN 2.6 g/dL (3.4-5.0); ANION GAP 13.6 mmol/L (8-16); BILIRUBIN - TOTAL 0.35 mg/dL (0.2-1.3); CALCIUM 8.2 mg/dL (8.5-10.1); CARBON DIOXIDE 29.3 mmol/L (21.0-32.0); POTASSIUM - SERUM 3.9 mmol/L (3.5-5.1); PROTEIN - SERUM 6.2 g/dL (6.4-8.2)
[2017-10-28] VITALS (8 sets, daily range): BP systolic 111–155; BP diastolic 49–78; Ht 182.9 cm; Wt 118.2 kg
[2017-10-28 00:34] LABS: APPEARANCE HAZY (CLEAR); BILIRUBIN NEGATIVE (NEGATIVE); COLOR YELLOW (YELLOW); GLUCOSE NEGATIVE (NEGATIVE); KETONE NEGATIVE (NEGATIVE); NITRITE NEGATIVE (NEGATIVE); PROTEIN TRACE mg/dL (NEGATIVE); UROBILINOGEN NORMAL (NORMAL)
[2017-10-28 00:36] LABS: WHITE CELLS - URINE 0-5 /hpf (0-5)
[2017-10-28 00:37] LABS: BACTERIA FEW /hpf (NONE SEEN); EPITHELIAL CELLS 0-5 /hpf (0-5); RED CELLS - URINE 0-5 /hpf (0-5)
[2017-10-28] MEDS ORDERED: ROBAXIN-750750 MG PO (01:30)
[2017-10-29 04:00] VITALS: BP 167/67
[2017-10-29 04:35] LABS: BASOPHILS 0 % (0-2); EOSINOPHILS 0 % (0-7); HEMATOCRIT 40.2 % (36.0-48.0); HEMOGLOBIN 12.6 g/dL (12-16); LYMPHOCYTES 10.6 % (15-50); MCH 28.8 pg (26.0-34.0); MCHC 31.3 g/dL (31.0-37.0); MEAN PLATELET VOLUME 11.7 fL (7.4-10.4); MONOCYTES 2.2 % (2-11); NEUTROPHILS 86.2 % (40-80); PLATELET COUNT 262 10x3/uL (130-400); RBC 4.37 10x6/uL (4.00-5.40); RDW 15.2 % (11.5-14.5); WBC 9.1 10x3/uL (4.8-10.8)
[2017-10-29 04:57] LABS: ANION GAP 12.2 mmol/L (8-16); CALCIUM 8.9 mg/dL (8.5-10.1); CARBON DIOXIDE 29.2 mmol/L (21.0-32.0); POTASSIUM - SERUM 4.4 mmol/L (3.5-5.1)
[2017-10-29 08:41] VITALS: BP 140/76
[2017-10-29 11:46] VITALS: BP 150/66
[2017-10-29 16:11] VITALS: BP 158/61
[2017-10-29 20:00] VITALS: BP 157/66
[2017-10-30] VITALS: BP 142/59
[2017-10-30 04:00] VITALS: BP 135/71
[2017-10-30 09:11] VITALS: BP 152/83
[2017-10-30 13:21] VITALS: BP 173/74
[2017-10-30 18:38] VITALS: BP 175/69
[2017-10-30 20:00] VITALS: BP 171/63
[2017-10-31] VITALS: BP 149/67
[2017-10-31 04:00] VITALS: BP 150/61
[2017-10-31 08:10] VITALS: BP 169/63
[2017-10-31 11:42] VITALS: BP 144/88
[2017-10-31 16:09] VITALS: BP 153/73
[2017-10-31 22:20] VITALS: BP 184/77
[2017-11-01 01:36] VITALS: BP 162/83
[2017-11-01 05:54] VITALS: BP 157/69
[2017-11-01 08:41] VITALS: BP 168/69
[2017-11-01 12:41] VITALS: BP 160/69
[2017-11-01 16:47] VITALS: BP 155/49
[2017-11-01 21:53] VITALS: BP 168/56
[2017-11-02 02:51] VITALS: BP 154/65
[2017-11-02 08:24] VITALS: BP 150/90
[2017-11-02 10:52] LABS: BASOPHILS 0.1 % (0-2); EOSINOPHILS 0 % (0-7); HEMATOCRIT 45.1 % (36.0-48.0); HEMOGLOBIN 14.9 g/dL (12-16); IMMATURE GRANULOCYTES 1.6 % (0-5); LYMPHOCYTES 3.6 % (15-50); MCH 29.4 pg (26.0-34.0); MCV 89.1 fL (80.0-100.0); MEAN PLATELET VOLUME 11.5 fL (7.4-10.4); MONOCYTES 2.9 % (2-11); NEUTROPHILS 91.8 % (40-80); PLATELET COUNT 314 10x3/uL (130-400); RBC 5.06 10x6/uL (4.00-5.40); RDW 14.9 % (11.5-14.5)
[2017-11-02 11:26] LABS: ANION GAP 12.9 mmol/L (8-16); CALCIUM 8.6 mg/dL (8.5-10.1); CARBON DIOXIDE 26.8 mmol/L (21.0-32.0); CREATININE - SERUM 1.1 mg/dL (0.6-1.3); MAGNESIUM - SERUM 2.2 mg/dL (1.8-2.4); PHOSPHOROUS 3.9 mg/dL (2.5-4.9); POTASSIUM - SERUM 3.7 mmol/L (3.5-5.1)
[2017-11-02 12:06] VITALS: BP 156/95
[2017-11-02 18:08] LABS: CREATINE KINASE 23 UL (21-215); PRO BNP 2978 pg/mL (0-450)
[2017-11-02 18:09] LABS: TROPONIN-I < 0.017 ng/mL (0.000-0.060)
[2017-11-02 22:12] VITALS: BP 147/100
[2017-11-03 09:07] VITALS: BP 131/71
[2017-11-03 12:35] VITALS: BP 156/84
[2017-11-03 16:05] VITALS: BP 146/89
[2017-11-03 21:19] VITALS: BP 187/94
[2017-11-04 00:41] VITALS: BP 171/74
[2017-11-04 05:01] VITALS: BP 124/68
[2017-11-04 10:27] VITALS: BP 137/103
[2017-11-04 18:18] VITALS: BP 111/54
[2017-11-04 20:44] VITALS: BP 148/55
[2017-11-05 01:24] VITALS: BP 158/64
[2017-11-05 05:00] VITALS: BP 153/80
[2017-11-05 08:12] VITALS: BP 186/80
[2017-11-05] MEDS ORDERED: BETAPACE 120 M120 MG PO (08:21)
[2017-11-05] MEDS ORDERED: HYDROCODONE-APA1 TAB PO (08:22)
[2017-11-05 11:51] VITALS: BP 173/72
[2017-11-05 16:08] VITALS: BP 157/69
== END 2017-11-05 17:21 | disposition home or self-care (01) | DRG 551 ==
LOC: D.ER 21:17 → D.MS 10-28 00:19 → OBSVTIME 10-28 00:19 → D.MS 10-28 00:19
PROVIDERS: Family Medicine
PROC: B01B1ZZ Fluoroscopy of Spinal Cord using Low Osmolar Contrast (ICD-10-PCS; principal; 2017-10-29)
PROC: 3E0U33Z Introduction of Anti-inflammatory into Joints, Percutaneous Approach (ICD-10-PCS; 2017-10-30)
PROC: 3E0U3BZ Introduction of Anesthetic Agent into Joints, Percutaneous Approach (ICD-10-PCS; 2017-10-30)
DX: M51.16 Intervertebral disc disorders with radiculopathy, lumbar region (principal); K31.811 Angiodysplasia of stomach and duodenum with bleeding; I10 Essential (primary) hypertension; E11.40 Type 2 diabetes mellitus with diabetic neuropathy, unspecified; E11.44 Type 2 diabetes mellitus with diabetic amyotrophy; Z95.0 Presence of cardiac pacemaker; D64.9 Anemia, unspecified

== ENCOUNTER 2017-12-24 08:25 | Emergency (ER) | payer MEDICARE ==
[~2017-12-24] VITALS: Ht 182.9 cm; Wt 118.2 kg
[~2017-12-24 08:25] MED LIST changes: +BETAPACE 120 M120 MG PO; +ROBAXIN-750750 MG PO
[2017-12-24 08:41] VITALS: Ht 182.9 cm; Wt 118.2 kg
[2017-12-24 12:33] VITALS: BP 177/71
== END 2017-12-24 13:33 | disposition home or self-care (01) ==
LOC: D.ER 08:25
DX: S00.03XA Contusion of scalp, initial encounter (principal); W19.XXXA Unspecified fall, initial encounter; Y93.89 Activity, other specified; Y92.012 Bathroom of single-family (private) house as the place of occurrence of the external cause; E11.9 Type 2 diabetes mellitus without complications

== ENCOUNTER → 2018-01-26 12:18 | Outpatient (CLI) | payer MEDICARE ==
[2017-12-24 08:41] VITALS: BMI 35.3
== END | disposition home or self-care (01) ==
LOC: D.SP 12:18
DX: M16.12 Unilateral primary osteoarthritis, left hip (principal); Z01.812 Encounter for preprocedural laboratory examination

== ENCOUNTER 2018-05-23 20:12 | Inpatient (IN) | payer MEDICARE ==
[~2018-05-23] VITALS: Ht 167.6 cm; Wt 128.2 kg
--- NOTE | ~2018-05-23 | MORECARE ---
CASE MANAGEMENT DISCHARGE SUMMARY PATIENT: JORGE JULIO UNIT: [id number] ADM DATE: 05/24/18 AGE: 78 : 42 SEX: F ROOM/BED: D.8645 AUTHOR: ALEX,DOC PHYSICIAN: REFERRING PHYSICIAN: STAS ARIAS MD DATE OF SERVICE: 05/26/18 Discharge Plan Patient Name: JORGE JULIO Facility: [facility]:[place] : 1940 Planned Disposition: Home Anticipated Discharge Date: 05/29/18 Discharge Date: Expected LOS: 5 Initial Reviewer: [email or web address] Initial Review Date: 05/26/2018 Generated: 05/26/18 10:02 am Comments DCP- Discharge Planning Updated by [email or web address]: Antonette Snyder on 05/26/18 8:[address] Patient Name: JORGE JULIO Admission Status: ER Accout number: [id number] Admission Date: 05-24-2018 : 1940 Admission Diagnosis: Attending: STAS ARIAS Current LOS: 2 Anticipated DC Date: 05-29-2018 Planned Disposition: Home Primary Insurance: [facility] [employer] [employer] Discharge Planning Comments: CM MET WITH PATIENT REGARDING D/C NEEDS AND PLANS. PATIENT STATED SHE LIVES WITH HER FAMILY AND THEY WILL DRIVE HER HOME WHEN DISCHARGED. PATIENT STATED THERE IS ONE STEP TO ENTER HOME AND NO STAIRS INSIDE. PATIENT HAS HELP WITH DRESSING, AND MEDS. PATIENT HAS A WALKER, CANE, WHEELCHAIR, SHOWER CHAIR, GLUCOMETER AT HOME. PATIENT ALSO STATED SHE HAS A CPAP OR BIPAP AT HOME THAT SHE NEVER USES. PATIENT REFUSED HOME HEALTH BUT STATED IF SHE NEEDS REHAB BEFORE GOING HOME SHE [facility]. THE BECKY FORM HAS BEEN SIGNED IF NEEDED. CM WILL CONTINUE TO FOLLOW PATIENT WITH D/C NEEDS AND PLANS. PCP DR. JUANA FLORES ON [address] GENET (GRANDDAUGHTER) [phone] Court Specialist: Antonette Snyder DCPIA - Discharge Planning Initial Assessment Updated by [email or web address]: Antonette Snyder on 05/26/18 8:56 am * Is the patient Alert and Oriented? Yes * How many steps to enter\exit or inside your home? * PCP DR. ARIAS * [facility] * Preadmission Environment Home with Family * ADLs Partial Dependent * Partial ADLs (Assistance needed) Bathing Dressing Medication Management * Equipment Cane Glucometer Shower Chair Walker Wheelchair * Other Equipment PATIENT STATED SHE HAS A CPAP OR BIPAP MACHINE AT HOME BUT DOES NOT USE IT. * List name and contact numbers for known caregivers / representatives who currently or will assist patient after discharge: GENET (GRANDDAUGHTER) [phone] * Verbal permission to speak to the caregivers and representatives has been obtained from the patient. Yes * Community resources currently utilized None * Additional services required to return to the preadmission environment? Yes * Can the patient safely return to the preadmission environment? Yes * Has this patient been hospitalized within the prior 30 days at any hospital? No Last DP export: 05/26/18 7:56 a Patient Name: JORGE JULIO Page [id number] at 0902 All edits/amendments must be made on the electronic document DICTATION DATE: 05/26/18901 HAND WRAPPER OPERATOR: JACOB 05/26/18901 RPT#: [id number] DC DATE: STATUS: ADM IN [facility] [address] [place] [address] END OF REPORT
--- NOTE | ~2018-05-23 | MORECARE ---
CASE MANAGEMENT DISCHARGE SUMMARY PATIENT: JORGE JULIO UNIT: [id number] ADM DATE: 05/24/18 AGE: 78 : 42 SEX: F ROOM/BED: D.2123 AUTHOR: TANNA JOHNSON PHYSICIAN: REFERRING PHYSICIAN: STAS ARIAS MD DATE OF SERVICE: 05/26/18 Discharge Plan Patient Name: JORGE JULIO [facility] [facility] 1940 Planned Disposition: Home Anticipated Discharge Date: 05/29/18 Discharge Date: Expected LOS: 5 Initial Reviewer: [email or web address] Initial Review Date: 05/26/2018 Generated: 05/26/18 9:56 am Patient Name: JORGE JULIO Page 15453 at 0856 All edits/amendments must be made on the electronic document DICTATION DATE: 05/26/18854 RUBBER GASKET INSPECTOR TRIMMER: JACOB 05/26/1855 RPT#: [id number] DC DATE: STATUS: ADM IN [facility] [address] [place] [address] END OF REPORT
--- NOTE | ~2018-05-23 | HEMODYNAMI ---
PATIENT:JORGE JULIO MEDICAL RECORD: [id number] : 44 LOCATION:[address] ADMISSION DATE: 05/24/18 Generatedon:05/27/201814:35 Patient name: JORGE JULIO Patient #: [id number] SSN: DO B: 1940 Date of study: 05/27/2018 Page: Of Hemodynamic Procedure Report Patient Data Patient Demographics Procedure consent was obtained First Name: JORGE Gender: Female Last Name: NORI : 1940 Middle Initial: YUSUF Age: 78 year(s) Patient #: [id number] Race: Unknown Additional ID: [id number] Contact details Address: [address] [place] [address] State: [place] City: [place] Zip code: [address] Past Medical History Allergies Allergen Reaction Date Comments Reported Other allergy 05/27/2018 ALTAFPCN Admission Admission Data Admission Date: 05/24/2018 Admission Time: 15:47 Room #: 2123 Procedure Procedure Types Cath Procedure Peripheral Cath Diagnostic Procedure Venography IVC/SVC Inferior Venacava Filter Procedure Description Procedure Date Procedure Date: 05/27/2018 Procedure Start Time: 14:12 Procedure Staff Name Function Rick Arnoldo RT Monitor Suzy White Scrub Lulu Rutledge RN Nurse Gen Puentes MD Performing Physician Jenna Reyna RN Nurse Procedure Data Cath Procedure Fluoroscopy Diagnostic fluoroscopy Total fluoroscopy Time: 1.1 time: 1.1 min min Diagnostic fluoroscopy Total fluoroscopy dose: 430 dose: 430 mGy mGy Contrast Material Contrast Material Type Amount (ml) Isovue 300 55 Procedure Medications Medication Administration Route Dosage Oxygen etCO2 Nasal cannula 4 l/min Lidocaine 1% added to field 20 Heparin Flush Bag added to field 2 bags (1000units/500ml NS) Versed I.V. 2 mg Fentanyl I.V. 50 mcg Hemodynamics Rest Heart Rate: 62 (bpm) Snapshots Pre Cath Intra NCS Post Cath Vital Signs Time Heart Resp SPO2 etCO2 NIBP (mmHg) Rhythm Pain Sedation Rate (ipm) (%) (mmHg) Status Level (bpm) 13:56:58 60 19 9.7 142/59(122) NSR 0 (11) 10(A) , No pain 14:01:22 60 19 97 28.6 138/58(112) NSR 0 (11) 9(A) , No pain 14:04:13 60 7 94 25.6 135/61(80) NSR 0 (11) 9(A) , No pain 14:09:12 59 13 98 28.6 Measuring SB 0 (11) 9(A) , No pain 14:09:53 60 11 97 28.6 156/51(110) NSR 0 (11) 8(A) , No pain 14:14:52 60 9 92 26.3 Measuring NSR 0 (11) 8(A) , No pain 14:15:16 60 11 92 35.3 139/51(95) NSR 0 (11) 8(A) , No pain 14:19:36 84 7 93 24.8 133/63(80) Paced 0 (11) 8(A) , No pain 14:24:01 83 6 94 37.6 123/60(92) Paced 0 (11) 8(A) , No pain 14:28:23 63 8 95 18.8 133/56(85) Paced 0 (11) 8(A) , No pain 14:32:45 59 35 94 29.3 142/60(103) Paced 0 (11) 8(A) , No pain Medications Time Medication Route Dose Verified Delivered Reason Notes Effe ctiveness by by 14:00:09 Oxygen etCO2 4l/min Gen West Per Nasal MD Axel ANAND protocol cannula 14:02:21 Lidocaine 1% added 20ml Gen Puentes Per to vial MD MARSHALL protocol field 14:02:36 Heparin Flush added 2 bags Gen Puentes Per Bag to MD MARSHALL protocol (1000units/500ml field NS) 14:13:40 Versed I.V. 2 mg Gen West for Most ly MD Axel ANAND sedation sleeping @ 14:15:41 14:13:49 Fentanyl I.V. 50 mcg Gen West for Most ly MD Axel ANAND sedation sleeping @ 14:15:38 Procedure Log Time Note 13:38:26 Rick Mclaughlin RT (R) (CV) sent for patient. Start room use. 13:38:39 Use device set IR Diagnostic 13:38:40 Bag Decanter (2002S) opened to sterile field. 13:38:41 Sterile Angiographic Pack opened to sterile field. 13:38:42 Tegaderm 4 x 4 (1626W) opened to sterile field. 13:38:58 Time tracking: Regular hours (M-F 7:00 - 5:00) 13:39:03 Plan of Care:Hemodynamics will remain stable., Cardiac rhythm will remain stable., Comfort level will be maintained., Respiratory function will remain adequate., Patient/ family verbilizes understanding of procedure., Procedure tolerated without complication., Recovers from procedure without complications.. 13:39:12 Patient received from [employer] II to IR Alert and oriented. Tansferred to table in Supine position. 13:39:14 Correct patient and procedure confirmed by team. 13:39:16 Signed procedure consent form obtained from patient. 13:39:17 ECG and BP/O2 sat monitors applied to patient. 13:39:19 Full Disclosure recording started 13:39:19 - 13:39:20 - 13:39:23 H&P Date Dictated: 05/27/2018 Within 30 days and on chart.. 13:39:24 Pre-procedure instructions explained to patient. 13:39:25 Pre-op teaching completed and patient verbalized understanding. 13:39:26 Family in waiting room. 13:39:28 Patient NPO since Midnight. 13:39:31 Is the patient allergic to Iodine/contrast media? No. 13:40:08 Patient allergic to Other allergyBENADRYL,PCN 13:40:12 Is the patient allergic to Iodine/contrast media? No. 13:40:18 Is patient on blood thinner?Yes 13:40:21 ACC The patient was administered the following blood thiners within the last 24 hours: ACCLovenox 13:40:24 Patient diabetic? Yes. 13:40:25 If diabetic: On Metformin? No 13:40:26 - 13:40:27 ----Pre-sedation anethsthesia assessment.---- 13:40:30 Previous problem with sedation/anesthesia? No ? 13:40:33 Snore? Yes 13:40:34 Sleep apnea? Yes 13:40:36 Deviated septum? No 13:40:40 Opens mouth fully? Yes 13:40:41 Sticks out tongue? Yes 13:40:46 Airway obstruction? Yes PE 13:40:55 Patient pain scale 0/10 NO PAIN. 13:41:03 IV patent on arrival in right forearm with 0.9% NaCl at [facility]. 13:55:33 Vital chart was started 14:00:09 Oxygen 4l/min etCO2 Nasal cannula was administered by Jenna Reyna RN; Per protocol; 14:02:21 Lidocaine 1% 20ml vial added to field was administered by Gen Puentes MD; Per protocol; 14:02:36 Heparin Flush Bag (1000units/500ml NS) 2 bags added to field was administered by Gen Puentes MD; Per protocol; 14:08:08 Baseline sample Acquired. 14:11:20 --------ALL STOP TIME OUT------ 14:11:21 Final Timeout: patient, procedure, and site verified with staff and physician. All members of the team are in agreement. 14:11:23 Right groin site verified by team. 14:11:31 Sedation plan: IV Moderate Sedation Medication:Versed, Fentanyl 14:11:49 Procedure started. 14:12:02 Local anesthetic to right femoral vein with Lidocaine 1% by Gen Puentes MD.INITIAL ACCESS ONLY 14:12:05 DOC .035 wire ([id number]) opened to sterile field. 14:12:05 SHEATH 5FR Benezett ([id number]) opened to sterile field. 14:12:06 Micropuncture VSI 4FR kit opened to sterile field. 14:13:40 Versed 2 mg I.V. was administered by Jenna Reyna RN; for sedation; 14:13:49 Fentanyl 50 mcg I.V. was administered by Jenna Reyna RN; for sedation; 14:15:38 Effectiveness of Fentanyl delivered @ 14:13:49 is: Mostly sleeping 14:15:41 Effectiveness of Versed delivered @ 14:13:40 is: Mostly sleeping 14:20:53 FILTER Ann Vena Cava ([id number]) opened to sterile field. 14:21:07 Ann Femoral IVC filter was placed below renal veins. 14:23:59 Procedure ended.(Physican Out) 14:24:28 Fluoroscopy time 01.10 minutes. 14:24:38 Flurop Dose total: 430 14:24:38 Fluoroscopy dose: 430 mGy 14:24:51 Contrast amount:Isovue 300 55ml. 14:24:53 Insertion/operative site no bleeding no hematoma. 14:25:03 Post-op/insertion site Right Femoral vein dressed using a 4 x 4 and Tegaderm. 14:25:13 Post right femoral vein:stable 14:25:15 Post procedure instruction explained to patient.Patient verbalizes understanding. 14:25:16 Procedure and supply charges have been captured, reviewed, submitted an d are correct. 14:34:46 Report given to [facility]. 14:34:50 Patient transfered to [facility] with Bed. 14:35:14 Vital chart was stopped Device Usage Item Name Manufacture Quantity Catalog Hospital Part Current Minima l Lot# / Number Charge Number Stock Stock Serial# Code Bag Decanter Microtek 1 [id number] 5 () [employer] Inc. Sterile Cardinal 1 [id number] 5 Angiographic Health Pack Tegaderm 4 x 3M 1 1626W [id number] 5 4 (1626W) DOC .035 wire [employer] 1 [id number] 5 ([id number]) SHEATH 5FR Terumo 1 [id number] 109227 [id number] 40 Benezett (OBH623) Micropuncture VSI VASCULAR 1 [id number] 058675 [id number] 5 VSI 4FR kit SOLUTIONS FILTER Ann Bard 1 [id number] 147060 [id number] 5 [id number] Vena Cava (IA217P) Signature Audit [place] Stage Time Signature Unsigned Intra-Procedure 05/27/2018 Rick 2:35:11 PM [place] RT (R) (CV) Signatures Monitor : Rick Signature : [place] RT Date : Time : [place] [id number]
--- NOTE | ~2018-05-23 | MORECARE ---
CASE MANAGEMENT DISCHARGE SUMMARY PATIENT: JORGE JULIO UNIT: [id number] ADM DATE: 05/24/18 AGE: 78 : 42 SEX: F ROOM/BED: D.7183 AUTHOR: TANNA JOHNSON PHYSICIAN: REFERRING PHYSICIAN: STAS ARIAS MD DATE OF SERVICE: 05/28/18 Discharge Plan Patient Name: JORGE JULIO Facility: [facility]:[place] : 1940 Planned Disposition: Home Anticipated Discharge Date: 05/28/18 Discharge Date: Expected LOS: 4 Initial Reviewer: [id number] Initial Review Date: 05/26/2018 Generated: 05/28/18 11:29 am Comments DCP- Discharge Planning Updated by [email or web address]: Celso Guthrie on 05/28/18 9:[address] Patient Name: JORGE JULIO Encounter No: [id number] : 1940 Primary Insurance: [facility] MEDICARE SOLUTIONS Anticipated DC Date: 05-28-2018 Planned Disposition: Home DCP follow-up note: CM MET WITH PT IN ROOM TO DISCUSS DISCHARGE NEEDS AND PLANNING. CM DISCUSSED AVAILABILITY OF HOME HEALTH, REHAB SERVICES AND MEDICAL EQUIPMENT. PT DENIES DISCHARGE NEEDS AND DOES NOT WANT HOME HEALTH AT ALL. PT REPORTS 4 GENERATIONS OF FAMILY LIVE IN HER HOME AND CAN ASSIST IF NEEDED. PT REPORTS SHE ONLY NEEDS A POWER WHEELCHAIR AND KNOWS SHE MUST GET REFERRAL FROM PRIMARY CARE DOCTOR TO START THE PROCESS. PT DENIES DISCHARGE NEEDS, REPORTS HER GRANDDAUGHTER TO TRANSPORT HOME AT DISCHARGE TODAY. IMPORTANT MESSAGE FROM MEDICARE PROVIDED AND EXPLAINED. DIRECTOR VOLUNTEER SERVICES NURSE NOTIFIED. THOMAS Chaudhry DCP- Discharge Planning Updated by [id number]: Antonette Snyder on 05/26/18 8:[address] Patient Name: JORGE JULIO Admission Status: ER Accout number: [id number] Admission Date: 05-24-2018 : 1940 Admission Diagnosis: Attending: STAS ARIAS Current LOS: 2 Anticipated DC Date: 05-29-2018 Planned Disposition: Home Primary Insurance: [facility] MEDICARE SOLUTIONS Discharge Planning Comments: CM MET WITH PATIENT REGARDING D/C NEEDS AND PLANS. PATIENT STATED SHE LIVES WITH HER FAMILY AND THEY WILL DRIVE HER HOME WHEN DISCHARGED. PATIENT STATED THERE IS ONE STEP TO ENTER HOME AND NO STAIRS INSIDE. PATIENT HAS HELP WITH DRESSING, AND MEDS. PATIENT HAS A WALKER, CANE, WHEELCHAIR, SHOWER CHAIR, GLUCOMETER AT HOME. PATIENT ALSO STATED SHE HAS A CPAP OR BIPAP AT HOME THAT SHE NEVER USES. PATIENT REFUSED HOME HEALTH BUT STATED IF SHE NEEDS REHAB BEFORE GOING HOME SHE WANTS [facility]. THE [facility]ECKY FORM HAS BEEN SIGNED IF NEEDED. CM WILL CONTINUE TO FOLLOW PATIENT WITH D/C NEEDS AND PLANS. PCP DR. JUANA FLORES ON GENET (GRANDDAUGHTER) [phone] Internal Grinder Set Up Operator: Antonette Snyder DCPIA - Discharge Planning Initial Assessment Updated by [email or web address]: Antonette Snyder on 05/26/18 8:56 am * Is the patient Alert and Oriented? Yes * How many steps to enter\exit or inside your home? * PCP DR. ARIAS * Pharmacy [facility] * Preadmission Environment Home with Family * ADLs Partial Dependent * Partial ADLs (Assistance needed) Bathing Dressing Medication Management * Equipment Cane Glucometer Shower Chair Walker Wheelchair * Other Equipment PATIENT STATED SHE HAS A CPAP OR BIPAP MACHINE AT HOME BUT DOES NOT USE IT. * List name and contact numbers for known caregivers / representatives who currently or will assist patient after discharge: GENET (GRANDDAUGHTER) [phone] * Verbal permission to speak to the caregivers and representatives has been obtained from the patient. Yes * Community resources currently utilized None * Additional services required to return to the preadmission environment? Yes * Can the patient safely return to the preadmission environment? Yes * Has this patient been hospitalized within the prior 30 days at any hospital? No Coverage Notice Reviewer: [id number] Velma Guthrie Notice Issued Date-Time: 05/26/2018 8:15 Notice Type: Patient Choice Letter Notice Delivered To: Patient Relationship to Patient: Chief Cardiopulmonary Technologist Name: Delivery Method: HAND - Hand Delivered Meka Days: Prior Verbal Notification: Recipient Understood Notice: Yes Recipient Signature: Yes Med Rec Note Co-signed by Attending: Coverage Notice Comment: [facility] ONLY IF NEEDED Reviewer: [id number] Velma Guthrie Notice Issued Date-Time: 05/28/2018 10:10 Notice Type: IM Discharge Notice Notice Delivered To: Patient Relationship to Patient: Chief Cardiopulmonary Technologist Name: Delivery Method: HAND - Hand Delivered Meka Days: Prior Verbal Notification: Recipient Understood Notice: Yes Recipient Signature: Yes Med Rec Note Co-signed by Attending: Coverage Notice Comment: Last DP export: 05/26/18 8:02 a Patient Name: JORGE JULIO Page [phone] at 1029 All edits/amendments must be made on the electronic document DICTATION DATE: 05/28/18 1028 BOILER PLANT OPERATOR: JACOB 05/28/18 1028 RPT#: [id number] DC DATE: STATUS: ADM IN [facility] [address] [place] [address] END OF REPORT
[2018-05-23 20:44] LABS: BASOPHILS 0.5 % (0-2); EOSINOPHILS 2.3 % (0-7); HEMATOCRIT 26.7 % (36.0-48.0); HEMOGLOBIN 7.8 g/dL (12-16); IMMATURE GRANULOCYTES 0.5 % (0-5); MCH 23.4 pg (26.0-34.0); MCHC 29.2 g/dL (31.0-37.0); MCV 80.2 fL (80.0-100.0); MEAN PLATELET VOLUME 10.9 fL (7.4-10.4); MONOCYTES 8.6 % (2-11); NEUTROPHILS 68.1 % (40-80); PLATELET COUNT 282 10x3/uL (130-400); RBC 3.33 10x6/uL (4.00-5.40); RDW 17.4 % (11.5-14.5); WBC 7.8 10x3/uL (4.8-10.8)
[2018-05-23 20:59] LABS: ALKALINE PHOSPHATASE 114 U/L (46-116); ALT (SGPT) 13 U/L (10-68); BILIRUBIN - TOTAL 0.31 mg/dL (0.2-1.3); CALC OSMOLALITY 285 mosm/kg (275-300); CALCIUM 8.1 mg/dL (8.5-10.1); CARBON DIOXIDE 27.6 mmol/L (21.0-32.0); CHLORIDE - SERUM 105 mmol/L (98-107); GLUCOSE 199 mg/dL (74-106); POTASSIUM - SERUM 4.5 mmol/L (3.5-5.1); PROTEIN - SERUM 6.2 g/dL (6.4-8.2); SODIUM 141 mmol/L (136-145); UREA NITROGEN 11 mg/dL (7-18); eGFR NON AFRICAN AMERICAN 57 mL/min (90-120)
[2018-05-23 21:08] LABS: CREATINE KINASE 34 UL (21-215); PRO BNP 373 pg/mL (0-450); TROPONIN-I < 0.017 ng/mL (0.000-0.060)
[2018-05-23 22:00] VITALS: BP 134/82
[2018-05-23 22:05] LABS: APPEARANCE CLEAR (CLEAR); BILIRUBIN NEGATIVE (NEGATIVE); COLOR YELLOW (YELLOW); GLUCOSE NEGATIVE (NEGATIVE); KETONE NEGATIVE (NEGATIVE); NITRITE NEGATIVE (NEGATIVE); PROTEIN 1+ mg/dL (NEGATIVE); UROBILINOGEN NORMAL (NORMAL)
[2018-05-23 22:06] LABS: AMORPHOUS SEDIMENT >1+ /lpf (NONE SEEN); BACTERIA MANY /hpf (NONE SEEN); MUCUS <1+ /lpf (NONE SEEN)
[2018-05-24 01:47] VITALS: BP 165/83; BMI 45.8
[2018-05-24 04:30] VITALS: BP 144/60
[2018-05-24 08:26] VITALS: BP 129/37
[2018-05-24 13:39] VITALS: BP 147/87
[2018-05-24 17:13] VITALS: BP 155/57
[2018-05-24 20:23] VITALS: BP 155/75
[2018-05-25 01:20] VITALS: BP 132/85
[2018-05-25 05:15] VITALS: BP 130/54
[2018-05-25 05:17] LABS: BASOPHILS 0.4 % (0-2); EOSINOPHILS 4.2 % (0-7); HEMATOCRIT 30.3 % (36.0-48.0); IMMATURE GRANULOCYTES 0.3 % (0-5); LYMPHOCYTES 35.3 % (15-50); MCH 24.3 pg (26.0-34.0); MCHC 29.7 g/dL (31.0-37.0); MCV 81.9 fL (80.0-100.0); MEAN PLATELET VOLUME 10.2 fL (7.4-10.4); MONOCYTES 11.6 % (2-11); NEUTROPHILS 48.2 % (40-80); PLATELET COUNT 259 10x3/uL (130-400); RDW 18.5 % (11.5-14.5); WBC 6.7 10x3/uL (4.8-10.8)
[2018-05-25 05:45] LABS: ALBUMIN 2.8 g/dL (3.4-5.0); ANION GAP 11.6 mmol/L (8-16); BILIRUBIN - TOTAL 0.46 mg/dL (0.2-1.3); CALCIUM 8.5 mg/dL (8.5-10.1); CARBON DIOXIDE 28.6 mmol/L (21.0-32.0); CREATININE - SERUM 0.9 mg/dL (0.6-1.3); POTASSIUM - SERUM 4.2 mmol/L (3.5-5.1); PROTEIN - SERUM 6.2 g/dL (6.4-8.2)
[2018-05-25 08:14] VITALS: BP 133/40
[2018-05-25 11:51] VITALS: BP 111/39
[2018-05-25 13:48] VITALS: Ht 167.6 cm; Wt 128.2 kg
[2018-05-25 16:04] VITALS: BP 109/41
[2018-05-25 22:03] VITALS: BP 132/57
[2018-05-26 01:13] VITALS: BP 115/52
[2018-05-26 05:01] VITALS: BP 120/63
[2018-05-26 06:29] LABS: BASOPHILS 0.4 % (0-2); EOSINOPHILS 4.8 % (0-7); HEMATOCRIT 30.9 % (36.0-48.0); HEMOGLOBIN 9.1 g/dL (12-16); MCH 24.4 pg (26.0-34.0); MCHC 29.4 g/dL (31.0-37.0); MCV 82.8 fL (80.0-100.0); MONOCYTES 11.7 % (2-11); NEUTROPHILS 53.1 % (40-80); PLATELET COUNT 286 10x3/uL (130-400); RBC 3.73 10x6/uL (4.00-5.40); WBC 5.2 10x3/uL (4.8-10.8)
[2018-05-26 07:01] LABS: ALBUMIN 2.6 g/dL (3.4-5.0); ANION GAP 11.3 mmol/L (8-16); BILIRUBIN - TOTAL 0.29 mg/dL (0.2-1.3); CALCIUM 8.2 mg/dL (8.5-10.1); CARBON DIOXIDE 27.9 mmol/L (21.0-32.0); CREATININE - SERUM 0.9 mg/dL (0.6-1.3); POTASSIUM - SERUM 4.2 mmol/L (3.5-5.1); PROTEIN - SERUM 5.9 g/dL (6.4-8.2)
[2018-05-26 08:13] VITALS: BP 118/58
[2018-05-26 11:35] VITALS: BP 116/41
[2018-05-26 15:28] VITALS: BP 136/68
[2018-05-26 16:44] LABS: APPEARANCE HAZY (CLEAR); BILIRUBIN NEGATIVE (NEGATIVE); COLOR YELLOW (YELLOW); GLUCOSE NEGATIVE (NEGATIVE); KETONE NEGATIVE (NEGATIVE); NITRITE NEGATIVE (NEGATIVE); PROTEIN TRACE mg/dL (NEGATIVE); SPECIFIC GRAVITY 1.025 (1.005-1.020); UROBILINOGEN NORMAL (NORMAL)
[2018-05-26 16:45] LABS: BACTERIA MODERATE /hpf (NONE SEEN); EPITHELIAL CELLS 0-5 /hpf (0-5); RED CELLS - URINE 0-5 /hpf (0-5); WHITE CELLS - URINE >50 /hpf (0-5)
[2018-05-26 21:01] VITALS: BP 151/49
[2018-05-27] VITALS: BP 143/76
[2018-05-27 06:11] VITALS: BP 123/46
[2018-05-27 06:22] LABS: BASOPHILS 0.4 % (0-2); EOSINOPHILS 3.9 % (0-7); HEMATOCRIT 30.6 % (36.0-48.0); HEMOGLOBIN 8.9 g/dL (12-16); IMMATURE GRANULOCYTES 0.4 % (0-5); LYMPHOCYTES 33.5 % (15-50); MCH 24.4 pg (26.0-34.0); MCHC 29.1 g/dL (31.0-37.0); MCV 83.8 fL (80.0-100.0); MEAN PLATELET VOLUME 10.6 fL (7.4-10.4); MONOCYTES 10.2 % (2-11); NEUTROPHILS 51.6 % (40-80); PLATELET COUNT 294 10x3/uL (130-400); RBC 3.65 10x6/uL (4.00-5.40); RDW 19.2 % (11.5-14.5); WBC 5.1 10x3/uL (4.8-10.8)
[2018-05-27 06:39] LABS: ALBUMIN 2.8 g/dL (3.4-5.0); BILIRUBIN - TOTAL 0.29 mg/dL (0.2-1.3); CALCIUM 8.7 mg/dL (8.5-10.1); CARBON DIOXIDE 31.2 mmol/L (21.0-32.0); CREATININE - SERUM 0.9 mg/dL (0.6-1.3); POTASSIUM - SERUM 4.2 mmol/L (3.5-5.1); PROTEIN - SERUM 6.3 g/dL (6.4-8.2)
[2018-05-27 08:25] LABS: APTT 26.6 SECONDS (22.8-39.4); INR 1.08 (0.85-1.17); PROTIME 13.6 SECONDS (11.6-15.0)
[2018-05-27 08:30] VITALS: BP 139/49
[2018-05-27 11:37] VITALS: BP 124/52
[2018-05-27 15:34] VITALS: BP 140/50
[2018-05-27 20:33] VITALS: BP 119/46
[2018-05-28 00:34] VITALS: BP 102/42
[2018-05-28 05:45] LABS: BASOPHILS 0.4 % (0-2); EOSINOPHILS 4.1 % (0-7); HEMATOCRIT 30.4 % (36.0-48.0); HEMOGLOBIN 8.9 g/dL (12-16); IMMATURE GRANULOCYTES 0.4 % (0-5); LYMPHOCYTES 30.1 % (15-50); MCH 24.7 pg (26.0-34.0); MCHC 29.3 g/dL (31.0-37.0); MCV 84.4 fL (80.0-100.0); MEAN PLATELET VOLUME 10.9 fL (7.4-10.4); MONOCYTES 11.7 % (2-11); NEUTROPHILS 53.3 % (40-80); PLATELET COUNT 281 10x3/uL (130-400); RDW 19.4 % (11.5-14.5); WBC 5.7 10x3/uL (4.8-10.8)
[2018-05-28 06:02] LABS: ALBUMIN 2.9 g/dL (3.4-5.0); ANION GAP 10.7 mmol/L (8-16); BILIRUBIN - TOTAL 0.3 mg/dL (0.2-1.3); CALCIUM 8.6 mg/dL (8.5-10.1); CREATININE - SERUM 0.9 mg/dL (0.6-1.3); POTASSIUM - SERUM 4.7 mmol/L (3.5-5.1); PROTEIN - SERUM 6.2 g/dL (6.4-8.2)
[2018-05-28 06:14] VITALS: BP 149/45
[2018-05-28] MEDS ORDERED: XARELTO10 MG PO (07:26)
[2018-05-28 07:49] VITALS: BP 139/41
[2018-05-28 11:33] VITALS: BP 114/51
== END 2018-05-28 13:00 | disposition home or self-care (01) | DRG 356 ==
LOC: D.ER 20:12 → D.M2 22:07 → OBSVTIME 22:07 → D.M2 22:07 → D.SDCHOLD 05-25 09:35 → D.M2 05-25 09:37
PROVIDERS: Emergency Medicine; Family Medicine; Radiology Vascular & Interventional Radiology
PROC: 0DB78ZX Excision of Stomach, Pylorus, Via Natural or Artificial Opening Endoscopic, Diagnostic (ICD-10-PCS; 2018-05-26)
PROC: 06H03DZ Insertion of Intraluminal Device into Inferior Vena Cava, Percutaneous Approach (ICD-10-PCS; principal; 2018-05-27 14:11)
DX: K25.0 Acute gastric ulcer with hemorrhage (principal); I26.99 Other pulmonary embolism without acute cor pulmonale; N39.0 Urinary tract infection, site not specified; Z68.42 Body mass index [BMI] 45.0-49.9, adult; K57.11 Diverticulosis of small intestine without perforation or abscess with bleeding; D50.9 Iron deficiency anemia, unspecified; E11.9 Type 2 diabetes mellitus without complications; I48.0 Paroxysmal atrial fibrillation; K21.9 Gastro-esophageal reflux disease without esophagitis; E66.01 Morbid (severe) obesity due to excess calories; K44.9 Diaphragmatic hernia without obstruction or gangrene; Z95.0 Presence of cardiac pacemaker

== ENCOUNTER 2018-06-14 19:17 | Inpatient (IN) | payer MEDICARE ==
[~2018-06-14] VITALS: Ht 182.9 cm; Wt 123.2 kg
--- NOTE | ~2018-06-14 | MORECARE ---
CASE MANAGEMENT DISCHARGE SUMMARY PATIENT: JORGE JULIO UNIT: [id number] ADM DATE: 06/14/18 AGE: 78 : 42 SEX: F ROOM/BED: D.8337 AUTHOR: ALEX,TANNA PHYSICIAN: REFERRING PHYSICIAN: STAS ARIAS MD DATE OF SERVICE: 06/19/18 Discharge Plan Patient Name: JORGE JULIO Facility: [facility]:[place] : 1940 Planned Disposition: Home with Home Health Anticipated Discharge Date: 06/19/18 Discharge Date: Expected LOS: 5 Initial Reviewer: [email or web address] Initial Review Date: 06/14/2018 Generated: 06/19/18 3:21 pm Comments DCP- Discharge Planning Updated by [email or web address]: Celso Guthrie on 06/19/18 1:[address] Patient Name: JORGE JULIO Admission Status: ER Accout number: [id number] Admission Date: 06-14-2018 : 1940 Admission Diagnosis:WEAKNESS Attending: STAS ARIAS Current LOS: 5 Anticipated DC Date: 06-19-2018 Planned Disposition: Home with Home Health Primary Insurance: [facility] MEDICARE SOLUTIONS PLANNED EXTERNAL PROVIDER: [facility] Discharge Planning Comments: CM SPOKE TO ZOILA AT [facility], THEY ACCEPTED PT. CM SPOKE TO PT IN ROOM WHO DECLINED SENIOR CARE FACILITY PLACEMENT. PT REPORTS SHE CHANGED HER MIND AND WANTS TO GO HOME WITH [facility] PT REPORTS HAVING 4 GENERATIONS OF FAMILY LIVING IN THE HOME TO ASSIST IF NEEDED. CHOICE FOR [facility] SIGNED. CM PAGED AND NOTIFIED DR. GUERRA. CM NOTIFIED BEDSIDE NURSE. PT'S FAMILY TO TRANSPORT HOME. IMPORTANT MESSAGE FROM MEDICARE PROVIDED AND EXPLAINED. CM CALLED [facility], , SPOKE TO BRYN, REFERRAL PROVIDED, PT PLACED ON SCHEDULE FOR FRIDAY, PT NOTIFIED AND IN AGREEMENT WITH PLAN. CM FAXED REFERRAL AND DISCHARGE INFORMATION FAXED TO [facility], . Bottled Beverage Inspector: Celso Guthrie DCP- Discharge Planning Updated by [email or web address]: Celso Guthrie on 06/18/18 1:[address] Patient Name: JORGE JULIO Encounter No: [id number] : 1940 Primary Insurance: [facility] MEDICARE SOLUTIONS Anticipated DC Date: 06-18-2018 Planned Disposition: Intermediate Facility External Planned Provider: [facility], MEDICARE REHAB BED DCP follow-up note: CM RECEIVED CALL FROM [facility]PATIENT [facility], PT WAS DECLINED BY INSURANCE FOR INPATIENT REHAB, SUGGESTED SENIOR CARE REHAB. CM SPOKE TO PT IN ROOM WHO DOES NOT WANT TO APPEAL INSURANCE DECISON AND WOULD LIKE REFERRAL SENT TO [facility]. PT HAD ALREADY SIGNED CHOICE LETTER. CM NOTIFIED ZOILA OF [facility] OF REFERRAL AT [phone], FAXED REFERRAL TO [facility] AT [phone]. CM WAITING ADMISSION DETERMINATION FROM [facility] WELL INSURANCE AUTHORIZATION FROM PT'S INSURANCE COMPANY. Celso Guthrie, CASE MANAGEMENT DCP- Discharge Planning Updated by [id number]: Celso Guthrie on 06/16/18 4:[address] Patient Name: JORGE JULIO Admission Status: ER Accout number: [id number] Admission Date: 06-14-2018 : 1940 Admission Diagnosis:WEAKNESS Attending: STAS ARIAS Current LOS: 2 Anticipated DC Date: 06-17-2018 Planned Disposition: Inpatient Rehab Primary Insurance: [facility] MEDICARE SOLUTIONS PLANNED EXTERNAL PROVIDER: [facility] INPATIENT REHAB Discharge Planning Comments: CM RECEIVED ORDER FOR INPATIENT REHAB PRESCREENING AND TO CALL FOR DISCHARGE IF ACCEPTED. CM MET WITH PT IN ROOM TO DISCUSS DISCHARGE PLANNING AND NEEDS. PT REPORTS LIVING AT HOME DEPENDENTLY WITH HER FAMILY FOR ASSISTANCE WITH BATHING, DRESSING AND MEDICATION MANAGEMENT. PT HASCANE, GLUCOMETER, SHOWER CHAIR, WALKER AND WHEELCHAIR AT HOME FROM UNKNOWN MEDICAL EQUIPMENT PROVIDER. PT HAS CPAP OR BIPAP THAT SHE STILL DOES NOT USE. PT HAS NO OUTSIDE SERVICES ASSISTING IN THE HOME. CM DISCUSSED AVAILABILITY OF HOME HEALTH, REHAB SERVICES AND MEDICAL EQUIPMENT. PT DOES NOT WANT HOME HEALTH, STATES HOME HEALTH DOES NOT LIKE DOGS AND SHE HAS THEM IN HER HOME. PT WANTS REHAB AT [facility] AND IF INSURANCE DOES NOT APPROVE, SHE WOULD LIKE REFERRAL TO [facility] FOR REHAB; CHOICE SIGNED. PT REPORTS FAMILY WILL PICK HER UP FOR DISCHARGE HOME. IMPORTANT MESSAGE FROM MEDICARE PROVIDED AND EXPLAINED. CM WAITING INSURANCE AUTHORIZATION OR DENIAL FOR INPATIENT REHAB SERVICES AT [facility]. Bottled Beverage Inspector: Celso Guhtrie DCPIA - Discharge Planning Initial Assessment Updated by JOHN PAUL: Celso Guthrie on 06/16/18 5:34 pm * Is the patient Alert and Oriented? Yes * How many steps to enter\exit or inside your home? NONE * PCP DR. ARIAS * Pharmacy [facility] [address] * Preadmission Environment Home with Family * ADLs Partial Dependent * Partial ADLs (Assistance needed) Bathing Dressing Medication Management * Equipment Cane CPAP Glucometer Shower Chair Walker Wheelchair * Other Equipment DOES NOT USE CPAP [employer] * List name and contact numbers for known caregivers / representatives who currently or will assist patient after discharge: GENET ORTIZ, GRANDDAUGHTER, * Verbal permission to speak to the caregivers and representatives has been obtained from the patient. N/A * Community resources currently utilized None * Please name any agencies selected above. NONE * Additional services required to return to the preadmission environment? Yes * Can the patient safely return to the preadmission environment? Yes * Has this patient been hospitalized within the prior 30 days at any hospital? Yes Coverage Notice Reviewer: [id number] Guthrie Notice Issued Date-Time: 06/16/2018 12:25 Notice Type: Patient Choice Letter Notice Delivered To: Patient Relationship to Patient: Balancer Name: Delivery Method: HAND - Hand Delivered Meka Days: Prior Verbal Notification: Recipient Understood Notice: Yes Recipient Signature: Yes Med Rec Note Co-signed by Attending: Coverage Notice Comment: ABBEY RONQUILLO; REYNALDO DOOLEY Reviewer: [id number] Guthrie Notice Issued Date-Time: 06/16/2018 12:25 Notice Type: IM Discharge Notice Notice Delivered To: Patient Relationship to Patient: Balancer Name: Delivery Method: HAND - Hand Delivered Meka Days: Prior Verbal Notification: Recipient Understood Notice: Yes Recipient Signature: Yes Med Rec Note Co-signed by Attending: Coverage Notice Comment: Reviewer: [id number] Guthrie Notice Issued Date-Time: 06/19/2018 13:00 Notice Type: Patient Choice Letter Notice Delivered To: Patient Relationship to Patient: Balancer Name: Delivery Method: HAND - Hand Delivered Meka Days: Prior Verbal Notification: Recipient Understood Notice: Yes Recipient Signature: Yes Med Rec Note Co-signed by Attending: Coverage Notice Comment: ANA Reviewer: [id number] Guthrie Notice Issued Date-Time: 06/19/2018 13:00 Notice Type: IM Discharge Notice Notice Delivered To: Patient Relationship to Patient: Balancer Name: Delivery Method: HAND - Hand Delivered Meka Days: Prior Verbal Notification: Recipient Understood Notice: Yes Recipient Signature: Yes Med Rec Note Co-signed by Attending: Coverage Notice Comment: Last DP export: 06/19/18 1:11 Patient Name: JORGE JULIO Page [id number] at 1421 All edits/amendments must be made on the electronic document DICTATION DATE: 06/19/18 142 HOEING ROW BOSS: JACOB 06/19/18 1420 RPT#: [id number] DC DATE: STATUS: ADM IN [facility] [address] [place] [address] END OF REPORT
--- NOTE | ~2018-06-14 | MORECARE ---
CASE MANAGEMENT DISCHARGE SUMMARY PATIENT: JORGE JULIO UNIT: [id number] ADM DATE: 06/14/18 AGE: 78 : 42 SEX: F ROOM/BED: D.8363 AUTHOR: ALEX,DOC PHYSICIAN: REFERRING PHYSICIAN: STAS ARIAS MD DATE OF SERVICE: 06/16/18 Discharge Plan Patient Name: JORGE JULIO [facility] [facility] 1940 Planned Disposition: Inpatient Rehab Anticipated Discharge Date: 06/17/18 Discharge Date: Expected LOS: 3 Initial Reviewer: [email or web address] Initial Review Date: 06/14/2018 Generated: 06/16/18 6:43 pm Comments DCP- Discharge Planning Updated by [id number]: Celso Guthrie on 06/16/18 4:[address] Patient Name: JORGE JULIO Admission Status: ER Accout number: [id number] Admission Date: 06-14-2018 : 1940 Admission Diagnosis:WEAKNESS Attending: STAS ARIAS Current LOS: 2 Anticipated DC Date: 06-17-2018 Planned Disposition: Inpatient Rehab Primary Insurance: [facility] MEDICARE SOLUTIONS PLANNED EXTERNAL PROVIDER: [facility] INPATIENT REHAB Discharge Planning Comments: CM RECEIVED ORDER FOR INPATIENT REHAB PRESCREENING AND TO CALL FOR DISCHARGE IF ACCEPTED. CM MET WITH PT IN ROOM TO DISCUSS DISCHARGE PLANNING AND NEEDS. PT REPORTS LIVING AT HOME DEPENDENTLY WITH HER FAMILY FOR ASSISTANCE WITH BATHING, DRESSING AND MEDICATION MANAGEMENT. PT HASCANE, GLUCOMETER, SHOWER CHAIR, WALKER AND WHEELCHAIR AT HOME FROM UNKNOWN MEDICAL EQUIPMENT PROVIDER. PT HAS CPAP OR BIPAP THAT SHE STILL DOES NOT USE. PT HAS NO OUTSIDE SERVICES ASSISTING IN THE HOME. CM DISCUSSED AVAILABILITY OF HOME HEALTH, REHAB SERVICES AND MEDICAL EQUIPMENT. PT DOES NOT WANT HOME HEALTH, STATES HOME HEALTH DOES NOT LIKE DOGS AND SHE HAS THEM IN HER HOME. PT WANTS REHAB AT [facility] AND IF INSURANCE DOES NOT APPROVE, SHE WOULD LIKE [facility]ERRAL TO [facility] FOR REHAB; CHOICE SIGNED. PT REPORTS FAMILY WILL PICK HER UP FOR DISCHARGE HOME. IMPORTANT MESSAGE FROM MEDICARE PROVIDED AND EXPLAINED. CM WAITING INSURANCE AUTHORIZATION OR DENIAL FOR INPATIENT REHAB SERVICES AT [facility]. Commercial Artist: Celso Guthrie DCPIA - Discharge Planning Initial Assessment Updated by [id number]: Celso Guthrie on 06/16/18 5:34 pm * Is the patient Alert and Oriented? Yes * How many steps to enter\exit or inside your home? NONE * PCP DR. ARIAS * Pharmacy [facility] [address] * Preadmission Environment Home with Family * ADLs Partial Dependent * Partial ADLs (Assistance needed) Bathing Dressing Medication Management * Equipment Cane CPAP Glucometer Shower Chair Walker Wheelchair * Other Equipment DOES NOT USE CPAP [employer] * List name and contact numbers for known caregivers / representatives who currently or will assist patient after discharge: GENET ORTIZ, GRANDDAUGHTER, * Verbal permission to speak to the caregivers and representatives has been obtained from the patient. N/A * Community resources currently utilized None * Please name any agencies selected above. NONE * Additional services required to return to the preadmission environment? Yes * Can the patient safely return to the preadmission environment? Yes * Has this patient been hospitalized within the prior 30 days at any hospital? Yes Coverage Notice Reviewer: [id number] Guthrie Notice Issued Date-Time: 06/16/2018 12:25 Notice Type: Patient Choice Letter Notice Delivered To: Patient Relationship to Patient: Cigarette Tester Name: Delivery Method: HAND - Hand Delivered Meka Days: Prior Verbal Notification: Recipient Understood Notice: Yes Recipient Signature: Yes Med Rec Note Co-signed by Attending: Coverage Notice Comment: SECOND CHOICE; REYNALDO DOOLEY Reviewer: [id number] Velma Guthrie Notice Issued Date-Time: 06/16/2018 12:25 Notice Type: IM Discharge Notice Notice Delivered To: Patient Relationship to Patient: Cigarette Tester Name: Delivery Method: HAND - Hand Delivered Meka Days: Prior Verbal Notification: Recipient Understood Notice: Yes Recipient Signature: Yes Med Rec Note Co-signed by Attending: Coverage Notice Comment: Last DP export: 06/16/18 4:35 Patient Name: JORGE JULIO Page [id number] at 1743 All edits/amendments must be made on the electronic document DICTATION DATE: 06/16/181741 HAIR SPINNING MACHINE OPERATOR: JACOB 06/16/181741 RPT#: [id number] DC DATE: STATUS: ADM IN [facility] [address] [place] [place] [address] END OF REPORT
--- NOTE | ~2018-06-14 | MORECARE ---
CASE MANAGEMENT DISCHARGE SUMMARY PATIENT: JORGE JULIO UNIT: [id number] ADM DATE: 06/14/18 AGE: 78 : 42 SEX: F ROOM/BED: D.7684 AUTHOR: TANNA JOHNSON PHYSICIAN: REFERRING PHYSICIAN: STAS ARIAS MD DATE OF SERVICE: 06/16/18 Discharge Plan Patient Name: JORGE JULIO [facility] [facility] 1940 Planned Disposition: Inpatient Rehab Anticipated Discharge Date: 06/17/18 Discharge Date: Expected LOS: 3 Initial Reviewer: [id number] Initial Review Date: 06/14/2018 Generated: 06/16/18 6:34 pm Coverage Notice Reviewer: [id number] Velma Guthrie Notice Issued Date-Time: 06/16/2018 12:25 Notice Type: Patient Choice Letter Notice Delivered To: Patient Relationship to Patient: Director Funds Development Name: Delivery Method: HAND - Hand Delivered Meka Days: Prior Verbal Notification: Recipient Understood Notice: Yes Recipient Signature: Yes Med Rec Note Co-signed by Attending: Coverage Notice Comment: SECOND CHOICE; REYNALDO [facility] Reviewer: [id number] Velma Guthrie Notice Issued Date-Time: 06/16/2018 12:25 Notice Type: IM Discharge Notice Notice Delivered To: Patient Relationship to Patient: Director Funds Development Name: Delivery Method: HAND - Hand Delivered Meka Days: Prior Verbal Notification: Recipient Understood Notice: Yes Recipient Signature: Yes Med Rec Note Co-signed by Attending: Coverage Notice Comment: Patient Name: JORGE JULIO Page [phone] at 1735 All edits/amendments must be made on the electronic document DICTATION DATE: 06/16/181733 AUTO REPAIR TECHNICIAN: JACOB 06/16/181733 RPT#: [id number] SD DATE: STATUS: ADM IN [facility] [address] [place] [address] END OF REPORT
--- NOTE | ~2018-06-14 | MORECARE ---
CASE MANAGEMENT DISCHARGE SUMMARY PATIENT: JORGE JULIO UNIT: [id number] ADM DATE: 06/14/18 AGE: 78 : 42 SEX: F ROOM/BED: D.2138 AUTHOR: ALEX,DOC PHYSICIAN: REFERRING PHYSICIAN: STAS ARIAS MD DATE OF SERVICE: 06/18/18 Discharge Plan Patient Name: JORGE JULIO Facility: [facility]:[place] : 1940 Planned Disposition: Fpc Facility Anticipated Discharge Date: 06/18/18 Discharge Date: Expected LOS: 4 Initial Reviewer: [id number] Initial Review Date: 06/14/2018 Generated: 06/18/18 3:17 pm Comments DCP- Discharge Planning Updated by [email or web address]: Celso Guthrie on 06/18/18 1:[address] Patient Name: JORGE JULIO Encounter No: [id number] : 1940 Primary Insurance: [facility] MEDICARE SOLUTIONS Anticipated DC Date: 06-18-2018 Planned Disposition: Fpc Facility External Planned Provider: [facility]SING [facility], MEDICARE REHAB BED DCP follow-up note: CM RECEIVED CALL FROM [facility]PATIENT [facility], PT WAS DECLINED BY INSURANCE FOR INPATIENT REHAB, SUGGESTED LONG TERM REHAB. CM SPOKE TO PT IN ROOM WHO DOES NOT WANT TO APPEAL INSURANCE DECISON AND WOULD LIKE REFERRAL SENT TO [facility]. PT HAD ALREADY SIGNED CHOICE LETTER. CM NOTIFIED ZOILA OF [facility] OF REFERRAL AT [phone], FAXED REFERRAL TO [facility] AT [phone]. CM WAITING ADMISSION DETERMINATION FROM [facility] NURSING [facility] REH[facility] WELL INSURANCE AUTHORIZATION FROM PT'S INSURANCE COMPANY. Celso Guthrie CASE MANAGEMENT DCP- Discharge Planning Updated by [id number]: Celso Guthrie on 06/16/18 4:[address] Patient Name: JORGE JULIO Admission Status: ER Accout number: [id number] Admission Date: 06-14-2018 : 1940 Admission Diagnosis:WEAKNESS Attending: STAS ARIAS Current LOS: 2 Anticipated DC Date: 06-17-2018 Planned Disposition: Inpatient Rehab Primary Insurance: [facility] MEDICARE SOLUTIONS PLANNED EXTERNAL PROVIDER: [facility] INPATIENT REHAB Discharge Planning Comments: CM RECEIVED ORDER FOR INPATIENT REHAB PRESCREENING AND TO CALL FOR DISCHARGE IF ACCEPTED. CM MET WITH PT IN ROOM TO DISCUSS DISCHARGE PLANNING AND NEEDS. PT REPORTS LIVING AT HOME DEPENDENTLY WITH HER FAMILY FOR ASSISTANCE WITH BATHING, DRESSING AND MEDICATION MANAGEMENT. PT HASCANE, GLUCOMETER, SHOWER CHAIR, WALKER AND WHEELCHAIR AT HOME FROM UNKNOWN MEDICAL EQUIPMENT PROVIDER. PT HAS CPAP OR BIPAP THAT SHE STILL DOES NOT USE. PT HAS NO OUTSIDE SERVICES ASSISTING IN THE HOME. CM DISCUSSED AVAILABILITY OF HOME HEALTH, REHAB SERVICES AND MEDICAL EQUIPMENT. PT DOES NOT WANT HOME HEALTH, STATES HOME HEALTH DOES NOT LIKE DOGS AND SHE HAS THEM IN HER HOME. PT WANTS REHAB AT [facility] AND IF INSURANCE DOES NOT APPROVE, SHE WOULD LIKE REFERRAL TO [facility] FOR REHAB; CHOICE SIGNED. PT REPORTS FAMILY WILL PICK HER UP FOR DISCHARGE HOME. IMPORTANT MESSAGE FROM MEDICARE PROVIDED AND EXPLAINED. CM WAITING INSURANCE AUTHORIZATION OR DENIAL FOR INPATIENT REHAB SERVICES AT [facility]. Communications Program Manager: Celso Guthrie INPIA - Discharge Planning Initial Assessment Updated by [id number]: Celso Guthrie on 06/16/18 5:34 pm * Is the patient Alert and Oriented? Yes * How many steps to enter\exit or inside your home? NONE * PCP DR. ARIAS * [facility] * Preadmission Environment Home with Family * ADLs Partial Dependent * Partial ADLs (Assistance needed) Bathing Dressing Medication Management * Equipment Cane CPAP Glucometer Shower Chair Walker Wheelchair * Other Equipment DOES NOT USE CPAP [employer] * List name and contact numbers for known caregivers / representatives who currently or will assist patient after discharge: GENET ORTIZ, GRANDDAUGHTER, * Verbal permission to speak to the caregivers and representatives has been obtained from the patient. N/A * Community resources currently utilized None * Please name any agencies selected above. NONE * Additional services required to return to the preadmission environment? Yes * Can the patient safely return to the preadmission environment? Yes * Has this patient been hospitalized within the prior 30 days at any hospital? Yes Coverage Notice Reviewer: [id number] - Celso Guthrie Notice Issued Date-Time: 06/16/2018 12:25 Notice Type: Patient Choice Letter Notice Delivered To: Patient Relationship to Patient: Gas Maker Name: Delivery Method: HAND - Hand Delivered Meka Days: Prior Verbal Notification: Recipient Understood Notice: Yes Recipient Signature: Yes Med Rec Note Co-signed by Attending: Coverage Notice Comment: SECOND CHOICE; REYNALDO DOOLEY Reviewer: [id number] Velma Guthrie Notice Issued Date-Time: 06/16/2018 12:25 Notice Type: IM Discharge Notice Notice Delivered To: Patient Relationship to Patient: Gas Maker Name: Delivery Method: HAND - Hand Delivered Meka Days: Prior Verbal Notification: Recipient Understood Notice: Yes Recipient Signature: Yes Med Rec Note Co-signed by Attending: Coverage Notice Comment: Last DP export: 06/18/18 12:32 Patient Name: JORGE JULIO Page [id number] at 1417 All edits/amendments must be made on the electronic document DICTATION DATE: 06/18/181416 PROTOTYPE SEWER: JACOB 06/18/181416 RPT#: [id number] DC DATE: STATUS: ADM IN [facility] [address] [place] [address] END OF REPORT
--- NOTE | ~2018-06-14 | MORECARE ---
CASE MANAGEMENT DISCHARGE SUMMARY PATIENT: JORGE JULIO UNIT: [id number] ADM DATE: 06/14/18 AGE: 78 : 42 SEX: F ROOM/BED: D.2130 AUTHOR: ALEX,DOC PHYSICIAN: REFERRING PHYSICIAN: STAS ARIAS MD DATE OF SERVICE: 06/19/18 Discharge Plan Patient Name: JORGE JULIO Facility: [facility]:[place] : 1940 Planned Disposition: Home with Home Health Anticipated Discharge Date: 06/19/18 Discharge Date: Expected LOS: 5 Initial Reviewer: [id number] Initial Review Date: 06/14/2018 Generated: 06/19/18 2:18 pm Comments DCP- Discharge Planning Updated by [id number]: Celso Guthrie on 06/18/18 1:[address] Patient Name: JORGE JULIO Encounter No: [id number] : 1940 Primary Insurance: [facility] MEDICARE SOLUTIONS Anticipated DC Date: 06-18-2018 Planned Disposition: Halfway Facility External Planned Provider: [facility], MEDICARE REHAB BED DCP follow-up note: CM RECEIVED CALL FROM CHARLES OF INPATIENT REHAB, PT WAS DECLINED BY INSURANCE FOR INPATIENT REHAB, SUGGESTED RETIREMENT REHAB. CM SPOKE TO PT IN ROOM WHO DOES NOT WANT TO APPEAL INSURANCE DECISON AND WOULD LIKE REFERRAL SENT TO THE [facility]. PT HAD ALREADY SIGNED CHOICE LETTER. CM NOTIFIED ZOILA OF THE [facility] OF REFERRAL AT [phone], FAXED REFERRAL TO HIRAM AT [phone]. CM WAITING ADMISSION DETERMINATION FROM [facility] WELL INSURANCE AUTHORIZATION FROM PT'S INSURANCE COMPANY. Celso Guthrie CASE BUCK DCP- Discharge Planning Updated by [email or web address]: Celso Guthrie on 06/16/18 4:[address] Patient Name: JORGE JULIO Admission Status: ER Accout number: [id number] Admission Date: 06-14-2018 : 1940 Admission Diagnosis:WEAKNESS Attending: STAS ARIAS Current LOS: 2 Anticipated DC Date: 06-17-2018 Planned Disposition: Inpatient Rehab Primary Insurance: [facility] MEDICARE SOLUTIONS PLANNED EXTERNAL PROVIDER: [facility] Discharge Planning Comments: CM RECEIVED ORDER FOR INPATIENT REHAB PRESCREENING AND TO CALL FOR DISCHARGE IF ACCEPTED. CM MET WITH PT IN ROOM TO DISCUSS DISCHARGE PLANNING AND NEEDS. PT REPORTS LIVING AT HOME DEPENDENTLY WITH HER FAMILY FOR ASSISTANCE WITH BATHING, DRESSING AND MEDICATION MANAGEMENT. PT HASCANE, GLUCOMETER, SHOWER CHAIR, WALKER AND WHEELCHAIR AT HOME FROM UNKNOWN MEDICAL EQUIPMENT PROVIDER. PT HAS CPAP OR BIPAP THAT SHE STILL DOES NOT USE. PT HAS NO OUTSIDE SERVICES ASSISTING IN THE HOME. CM DISCUSSED AVAILABILITY OF HOME HEALTH, REHAB SERVICES AND MEDICAL EQUIPMENT. PT DOES NOT WANT HOME HEALTH, STATES HOME HEALTH DOES NOT LIKE DOGS AND SHE HAS THEM IN HER HOME. PT WANTS REHAB AT [facility] AND IF INSURANCE DOES NOT APPROVE, SHE WOULD LIKE REFERRAL TO THE [facility] FOR REHAB; CHOICE SIGNED. PT REPORTS FAMILY WILL PICK HER UP FOR DISCHARGE HOME. IMPORTANT MESSAGE FROM MEDICARE PROVIDED AND EXPLAINED. CM WAITING INSURANCE AUTHORIZATION OR DENIAL FOR INPATIENT REHAB SERVICES AT [facility]. Office Admin: Celso Guthrie ARPIA - Discharge Planning Initial Assessment Updated by [id number]: Celso Guthrie on 06/16/18 5:34 pm * Is the patient Alert and Oriented? Yes * How many steps to enter\exit or inside your home? NONE * PCP DR. ARIAS * Pharmacy [facility] [address] * Preadmission Environment Home with Family * ADLs Partial Dependent * Partial ADLs (Assistance needed) Bathing Dressing Medication Management * Equipment Cane CPAP Glucometer Shower Chair Walker Wheelchair * Other Equipment DOES NOT USE CPAP [employer] PROVIDER * List name and contact numbers for known caregivers / representatives who currently or will assist patient after discharge: GENET ORTIZ, GRANDDAUGHTER, * Verbal permission to speak to the caregivers and representatives has been obtained from the patient. N/A * Community resources currently utilized None * Please name any agencies selected above. NONE * Additional services required to return to the preadmission environment? Yes * Can the patient safely return to the preadmission environment? Yes * Has this patient been hospitalized within the prior 30 days at any hospital? Yes External Providers External Provider: [facility] Next Contact Date: 06/19/2018 Service Request Date: Service Type: Resolution: Reviewer: Comments: Coverage Notice Reviewer: [id number] - Celso Guthrie Notice Issued Date-Time: 06/16/2018 12:25 Notice Type: Patient Choice Letter Notice Delivered To: Patient Relationship to Patient: Welding Machine Operator Plasma Arc Name: Delivery Method: HAND - Hand Delivered Meka Days: Prior Verbal Notification: Recipient Understood Notice: Yes Recipient Signature: Yes Med Rec Note Co-signed by Attending: Coverage Notice Comment: SECOND CHOICE; REYNALDO DOOLEY Reviewer: [id number] Velma Guthrie Notice Issued Date-Time: 06/16/2018 12:25 Notice Type: IM Discharge Notice Notice Delivered To: Patient Relationship to Patient: Welding Machine Operator Plasma Arc Name: Delivery Method: HAND - Hand Delivered Meka Days: Prior Verbal Notification: Recipient Understood Notice: Yes Recipient Signature: Yes Med Rec Note Co-signed by Attending: Coverage Notice Comment: Last DP export: 06/18/18 1:17 Patient Name: JORGE JULIO Page [phone] at 1318 All edits/amendments must be made on the electronic document DICTATION DATE: 06/19/18 1318 LANDSCAPER HELPER: JACOB 06/19/18 1318 RPT#: [id number] DC DATE: STATUS: ADM IN [facility] [address] [place] [address] END OF REPORT
--- NOTE | ~2018-06-14 | MORECARE ---
CASE MANAGEMENT DISCHARGE SUMMARY PATIENT: JORGE JULIO UNIT: [id number] ADM DATE: 06/14/18 AGE: 78 : 42 SEX: F ROOM/BED: D.2137 AUTHOR: ALEX,DOC PHYSICIAN: REFERRING PHYSICIAN: STAS ARIAS MD DATE OF SERVICE: 06/19/18 Discharge Plan Patient Name: JORGE JULIO Facility: [facility]:[place] : 1940 Planned Disposition: Home with Home Health Anticipated Discharge Date: 06/19/18 Discharge Date: Expected LOS: 5 Initial Reviewer: [id number] Initial Review Date: 06/14/2018 Generated: 06/19/18 3:10 pm Comments DCP- Discharge Planning Updated by [email or web address]: Celso Guthrie on 06/18/18 1:[address] Patient Name: JORGE JULIO Encounter No: [id number] : 1940 Primary Insurance: [facility] MEDICARE SOLUTIONS Anticipated DC Date: 06-18-2018 Planned Disposition: Half-Way Facility External Planned Provider: [facility], MEDICARE REHAB BED DCP follow-up note: CM RECEIVED CALL FROM CHARLES OF INPATIENT REHAB, PT WAS DECLINED BY INSURANCE FOR INPATIENT REHAB, SUGGESTED [facility]. CM SPOKE TO PT IN ROOM WHO DOES NOT WANT TO APPEAL INSURANCE DECISON AND WOULD LIKE REFERRAL SENT TO THE [facility]. PT HAD ALREADY SIGNED CHOICE LETTER. CM NOTIFIED ZOILA OF THE [facility] OF REFERRAL AT [phone], FAXED REFERRAL TO CATHERINE AT [phone]. CM WAITING ADMISSION DETERMINATION FROM [facility] WELL INSURANCE AUTHORIZATION FROM PT'S INSURANCE COMPANY. Celso Guthrie CASE BUCK DCP- Discharge Planning Updated by [id number]: Celso Guthrie on 06/16/18 4:[address] Patient Name: JORGE JULIO Admission Status: ER Accout number: [id number] Admission Date: 06-14-2018 : 1940 Admission Diagnosis:WEAKNESS Attending: STAS ARIAS Current LOS: 2 Anticipated DC Date: 06-17-2018 Planned Disposition: Inpatient Rehab Primary Insurance: [facility] MEDICARE SOLUTIONS PLANNED EXTERNAL PROVIDER: [facility] INPATIENT REHAB Discharge Planning Comments: CM RECEIVED ORDER FOR INPATIENT REHAB PRESCREENING AND TO CALL FOR DISCHARGE IF ACCEPTED. CM MET WITH PT IN ROOM TO DISCUSS DISCHARGE PLANNING AND NEEDS. PT REPORTS LIVING AT HOME DEPENDENTLY WITH HER FAMILY FOR ASSISTANCE WITH BATHING, DRESSING AND MEDICATION MANAGEMENT. PT HASCANE, GLUCOMETER, SHOWER CHAIR, WALKER AND WHEELCHAIR AT HOME FROM UNKNOWN MEDICAL EQUIPMENT PROVIDER. PT HAS CPAP OR BIPAP THAT SHE STILL DOES NOT USE. PT HAS NO OUTSIDE SERVICES ASSISTING IN THE HOME. CM DISCUSSED AVAILABILITY OF HOME HEALTH, REHAB SERVICES AND MEDICAL EQUIPMENT. PT DOES NOT WANT HOME HEALTH, STATES HOME HEALTH DOES NOT LIKE DOGS AND SHE HAS THEM IN HER HOME. PT WANTS REHAB AT [facility] AND IF INSURANCE DOES NOT APPROVE, SHE WOULD LIKE REFERRAL TO [facility] FOR REHAB; CHOICE SIGNED. PT REPORTS FAMILY WILL PICK HER UP FOR DISCHARGE HOME. IMPORTANT MESSAGE FROM MEDICARE PROVIDED AND EXPLAINED. CM WAITING INSURANCE AUTHORIZATION OR DENIAL FOR INPATIENT REHAB SERVICES AT [facility]. Galley Hand: Celso Guthrie ARPIA - Discharge Planning Initial Assessment Updated by [id number]: Celso Guthrie on 06/16/18 5:34 pm * Is the patient Alert and Oriented? Yes * How many steps to enter\exit or inside your home? NONE * PCP DR. ARIAS * Pharmacy [facility] [address] * Preadmission Environment Home with Family * ADLs Partial Dependent * Partial ADLs (Assistance needed) Bathing Dressing Medication Management * Equipment Cane CPAP Glucometer Shower Chair Walker Wheelchair * Other Equipment DOES NOT USE CPAP [employer] * List name and contact numbers for known caregivers / representatives who currently or will assist patient after discharge: GENET ORTIZ, GRANDDAUGHTER, * Verbal permission to speak to the caregivers and representatives has been obtained from the patient. N/A * Community resources currently utilized None * Please name any agencies selected above. NONE * Additional services required to return to the preadmission environment? Yes * Can the patient safely return to the preadmission environment? Yes * Has this patient been hospitalized within the prior 30 days at any hospital? Yes External Providers External Provider: [facility] Next Contact Date: 06/19/2018 Service Request Date: Service Type: Resolution: Reviewer: Comments: Coverage Notice Reviewer: [id number] - Celso Guthrie Notice Issued Date-Time: 06/16/2018 12:25 Notice Type: Patient Choice Letter Notice Delivered To: Patient Relationship to Patient: Bakery Helper Name: Delivery Method: HAND - Hand Delivered Meka Days: Prior Verbal Notification: Recipient Understood Notice: Yes Recipient Signature: Yes Med Rec Note Co-signed by Attending: Coverage Notice Comment: SECOND CHOICE; REYNALDO DOOLEY Reviewer: [id number] Velma Guthrie Notice Issued Date-Time: 06/16/2018 12:25 Notice Type: IM Discharge Notice Notice Delivered To: Patient Relationship to Patient: Bakery Helper Name: Delivery Method: HAND - Hand Delivered Meka Days: Prior Verbal Notification: Recipient Understood Notice: Yes Recipient Signature: Yes Med Rec Note Co-signed by Attending: Coverage Notice Comment: Last DP export: 06/19/18 12:18 Patient Name: JORGE JULIO Page [phone] at 1411 All edits/amendments must be made on the electronic document DICTATION DATE: 06/19/18 1410 PROCESS CONTROL MANAGER: JACOB 06/19/18 1410 RPT#: [id number] DC DATE: STATUS: ADM IN [facility] [address] [place] [address] END OF REPORT
--- NOTE | ~2018-06-14 | EC ---
PATIENT:JORGE JULIO DATE OF SERVICE: 06/14/18 SEX: F MEDICAL RECORD: [id number] DATE OF : [birth year] LOCATION:D.M2 D.213 AGE OF PATIENT: 78 ADMISSION DATE: 06/14/18 REFERRING PHYSICIAN: INTERPRETING PHYSICIAN: LIDIA LUCERO MD ECHOCARDIOGRAM REPORT ECHO CHARGES 4 ECHO COMPLETE Date: 06/15/18 CLINICAL DIAGNOSIS: ECHOCARDIOGRAPHIC MEASUREMENTS (adult normal given) AC root (d.<3.7cm) 2.6 cm LV Septum d (<1.2 cm> 1.4 cm Valve Excursion 1.7 cm LV Septum (systole) 2.2 cm Left Atria (s.<4.0cm> 3.9 cm LVPW d(<1.2cm) 1.4 cm RV (d.<2.3cm) 3.1 cm LVPW (sytole) 2.3 cm LV diastole(<5.6CM) 5.1 cm MV E-F(>70mm/sec) cm LV systole 2.0 cm LVOT Diameter 1.9 cm MV exc.(>10mm) cm Est.ejection fraction (50-75%) % DOPPLER: LVIT cm/sec A 75.0 cm/sec E 133 cm/sec LA cm/sec RVSP 57.3 mmHg LVOT 153 cm/sec AOP1/2T m/s Asc. Ao 200 cm/sec RVOT 79.0 cm/sec RA cm/sec PA 100 cm/sec AV Gradient Peak 16.0 mmHg AV Mean 8.0 mmHg AV Area 2.0 cm MV Gradient Peak 11.0 mmHg MV Mean 3.1 mmHg MV Area cm COMMENTS: Roll Hauler: Wilner SOSAOE Commercial Floor Covering Installer: 1 Dr. Lucero TAPE# PACS Pericardial Effusion N DATE OF SERVICE: 06/15/2018 PROCEDURE: Echocardiogram. FINDINGS: 1. Left ventricular chamber size is within normal limits. Left ventricular systolic function is normal. Overall ejection fraction estimated at 65%. 2. Left atrium, right atrium, and right ventricle chamber sizes are within normal limits. 3. Valvular structures have normal structure and motion. ECHOCARDIOGRAM REPORT [id number] JORGE JULIO 4. Doppler interrogation reveals mild mitral regurgitation, moderate tricuspid regurgitation, no other valvular insufficiency or stenosis. Pulmonary systolic pressure is elevated, estimated at 57 mmHg. 5. No evidence of pericardial effusion or left ventricular thrombus. TRANSINT:[id number] Voice Confirmation ID: [id number] DOCUMENT ID: [id number] LIDIA LUCERO MD at 1704 CC: [id number] DICTATION DATE: 06/16/18 1130 KNITTER WIRE MESH: 06/16/18 1140 ADM IN [place] [address] [place] [id number]
--- NOTE | ~2018-06-14 | MORECARE ---
CASE MANAGEMENT DISCHARGE SUMMARY PATIENT: JORGE JULIO UNIT: [id number] ADM DATE: 06/14/18 AGE: 78 : 42 SEX: F ROOM/BED: D.8326 AUTHOR: ALEX,DOC PHYSICIAN: REFERRING PHYSICIAN: STAS ARIAS MD DATE OF SERVICE: 06/18/18 Discharge Plan Patient Name: JORGE JULIO [facility] [facility] 1940 Planned Disposition: Group Home Facility Anticipated Discharge Date: 06/18/18 Discharge Date: Expected LOS: 4 Initial Reviewer: [id number] Initial Review Date: 06/14/2018 Generated: 06/18/18 2:32 pm Comments DCP- Discharge Planning Updated by [id number]: Celso Guthrie on 06/16/18 4:[address] Patient Name: JORGE JULIO Admission Status: ER Accout number: [id number] Admission Date: 06-14-2018 : 1940 Admission Diagnosis:WEAKNESS Attending: STAS ARIAS Current LOS: 2 Anticipated DC Date: 06-17-2018 Planned Disposition: Inpatient Rehab Primary Insurance: [facility] MEDICARE [facility] PLANNED EXTERNAL PROVIDER: [facility] INPATIENT REHAB Discharge Planning Comments: CM RECEIVED ORDER FOR INPATIENT REHAB PRESCREENING AND TO CALL FOR DISCHARGE IF ACCEPTED. CM MET WITH PT IN ROOM TO DISCUSS DISCHARGE PLANNING AND NEEDS. PT REPORTS LIVING AT HOME DEPENDENTLY WITH HER FAMILY FOR ASSISTANCE WITH BATHING, DRESSING AND MEDICATION MANAGEMENT. PT HASCANE, GLUCOMETER, SHOWER CHAIR, WALKER AND WHEELCHAIR AT HOME FROM UNKNOWN MEDICAL EQUIPMENT PROVIDER. PT HAS CPAP OR BIPAP THAT SHE STILL DOES NOT USE. PT HAS NO OUTSIDE SERVICES ASSISTING IN THE HOME. CM DISCUSSED AVAILABILITY OF HOME HEALTH, REHAB SERVICES AND MEDICAL EQUIPMENT. PT DOES NOT WANT HOME HEALTH, STATES HOME HEALTH DOES NOT LIKE DOGS AND SHE HAS THEM IN HER HOME. PT WANTS REHAB AT [facility] AND IF INSURANCE DOES NOT APPROVE, SHE WOULD LIKE REFERRAL TO THE [facility] FOR REHAB; CHOICE SIGNED. PT REPORTS FAMILY WILL PICK HER UP FOR DISCHARGE HOME. IMPORTANT MESSAGE FROM MEDICARE PROVIDED AND EXPLAINED. CM WAITING INSURANCE AUTHORIZATION OR DENIAL FOR INPATIENT REHAB SERVICES AT [facility]. Silk Hanger: Celso Guthrie DCPIA - Discharge Planning Initial Assessment Updated by [id number]: Celso Guthrie on 06/16/18 5:34 pm * Is the patient Alert and Oriented? Yes * How many steps to enter\exit or inside your home? NONE * PCP DR. ARIAS * Pharmacy [facility] [address] * Preadmission Environment Home with Family * ADLs Partial Dependent * Partial ADLs (Assistance needed) Bathing Dressing Medication Management * Equipment Cane CPAP Glucometer Shower Chair Walker Wheelchair * Other Equipment DOES NOT USE CPAP [employer] PROVIDER * List name and contact numbers for known caregivers / representatives who currently or will assist patient after discharge: GENET ORTIZ, GRANDDAUGHTER, * Verbal permission to speak to the caregivers and representatives has been obtained from the patient. N/A * Community resources currently utilized None * Please name any agencies selected above. NONE * Additional services required to return to the preadmission environment? Yes * Can the patient safely return to the preadmission environment? Yes * Has this patient been hospitalized within the prior 30 days at any hospital? Yes External Providers [facility] Next Contact Date: 06/18/2018 Service Request Date: Service Type: Resolution: Reviewer: Comments: Coverage Notice Reviewer: [id number] Velma Guthrie Notice Issued Date-Time: 06/16/2018 12:25 Notice Type: Patient Choice Letter Notice Delivered To: Patient Relationship to Patient: Grab Setter Name: Delivery Method: HAND - Hand Delivered Meka Days: Prior Verbal Notification: Recipient Understood Notice: Yes Recipient Signature: Yes Med Rec Note Co-signed by Attending: Coverage Notice Comment: SECOND CHOICE; REYNALDO [facility] Reviewer: [id number] Velma Guthrie Notice Issued Date-Time: 06/16/2018 12:25 Notice Type: IM Discharge Notice Notice Delivered To: Patient Relationship to Patient: Grab Setter Name: Delivery Method: HAND - Hand Delivered Meka Days: Prior Verbal Notification: Recipient Understood Notice: Yes Recipient Signature: Yes Med Rec Note Co-signed by Attending: Coverage Notice Comment: Last DP export: 06/16/18 4:43 Patient Name: JORGE JULIO Page [id number] at 1332 All edits/amendments must be made on the electronic document DICTATION DATE: 06/18/181330 SPLUNK DASHBOARD DEVELOPER: JACOB 06/18/18 1331 RPT#: [id number] DC DATE: STATUS: ADM IN [facility] [address] [place] [address] END OF REPORT
[~2018-06-14 19:17] MED LIST changes: +XARELTO10 MG PO
[2018-06-14 19:51] LABS: BASOPHILS 0.2 % (0-2); EOSINOPHILS 1.1 % (0-7); HEMATOCRIT 30.2 % (36.0-48.0); HEMOGLOBIN 8.8 g/dL (12-16); IMMATURE GRANULOCYTES 0.5 % (0-5); LYMPHOCYTES 14.1 % (15-50); MCH 23.4 pg (26.0-34.0); MCHC 29.1 g/dL (31.0-37.0); MCV 80.3 fL (80.0-100.0); MEAN PLATELET VOLUME 10.5 fL (7.4-10.4); NEUTROPHILS 76.1 % (40-80); PLATELET COUNT 302 10x3/uL (130-400); RBC 3.76 10x6/uL (4.00-5.40); RDW 19.6 % (11.5-14.5); WBC 10.5 10x3/uL (4.8-10.8)
[2018-06-14 20:07] LABS: APTT 25.3 SECONDS (22.8-39.4); INR 1.19 (0.85-1.17); PROTIME 14.6 SECONDS (11.6-15.0)
[2018-06-14 20:18] LABS: ALKALINE PHOSPHATASE 101 U/L (46-116); ALT (SGPT) 16 U/L (10-68); BILIRUBIN - TOTAL 0.24 mg/dL (0.2-1.3); CALC OSMOLALITY 283 mosm/kg (275-300); CALCIUM 8.4 mg/dL (8.5-10.1); CARBON DIOXIDE 28.6 mmol/L (21.0-32.0); CHLORIDE - SERUM 104 mmol/L (98-107); CREATININE - SERUM 0.9 mg/dL (0.6-1.3); POTASSIUM - SERUM 3.5 mmol/L (3.5-5.1); PROTEIN - SERUM 6.3 g/dL (6.4-8.2); SODIUM 140 mmol/L (136-145); UREA NITROGEN 14 mg/dL (7-18); eGFR NON AFRICAN AMERICAN 64 mL/min (90-120)
[2018-06-14 20:27] LABS: GLUCOSE 162 mg/dL (74-106)
[2018-06-14 20:30] LABS: CKMB 0.4 U/L (0.0-3.6); CREATINE KINASE 22 UL (21-215); MAGNESIUM - SERUM 1.7 mg/dL (1.8-2.4); TROPONIN-I < 0.017 ng/mL (0.000-0.060)
[2018-06-14 21:20] VITALS: BP 164/53
[2018-06-14] MEDS ORDERED: POTASSIUM CHLORIDE E (22:08)
[2018-06-14] MEDS ORDERED: CYCLOBENZAPRINE5 MG PO (22:09)
[2018-06-14] MEDS ORDERED: REMERON15 MG PO (22:09)
[2018-06-14] MEDS ORDERED: K-DUR20 MEQ PO (22:43)
[2018-06-15] VITALS (8 sets, daily range): BP systolic 118–158; BP diastolic 37–75; Ht 182.9 cm; Wt 123.2 kg
[2018-06-15 06:51] LABS: BASOPHILS 0.3 % (0-2); EOSINOPHILS 1.8 % (0-7); HEMATOCRIT 27.6 % (36.0-48.0); HEMOGLOBIN 8.2 g/dL (12-16); IMMATURE GRANULOCYTES 0.3 % (0-5); LYMPHOCYTES 22.7 % (15-50); MCH 23.9 pg (26.0-34.0); MCHC 29.7 g/dL (31.0-37.0); MCV 80.5 fL (80.0-100.0); MEAN PLATELET VOLUME 10.3 fL (7.4-10.4); MONOCYTES 9.5 % (2-11); NEUTROPHILS 65.4 % (40-80); PLATELET COUNT 261 10x3/uL (130-400); RBC 3.43 10x6/uL (4.00-5.40); RDW 19.7 % (11.5-14.5)
[2018-06-15 07:05] LABS: ANION GAP 11.3 mmol/L (8-16); CALCIUM 8.1 mg/dL (8.5-10.1); CARBON DIOXIDE 28.9 mmol/L (21.0-32.0); CREATININE - SERUM 0.9 mg/dL (0.6-1.3); POTASSIUM - SERUM 3.2 mmol/L (3.5-5.1)
[2018-06-16 00:45] VITALS: BP 132/81
[2018-06-16 04:57] VITALS: BP 135/59
[2018-06-16 06:20] LABS: BASOPHILS 0.4 % (0-2); EOSINOPHILS 2.9 % (0-7); IMMATURE GRANULOCYTES 0.3 % (0-5); LYMPHOCYTES 21.3 % (15-50); MCH 24.4 pg (26.0-34.0); MCHC 30.1 g/dL (31.0-37.0); MCV 81.2 fL (80.0-100.0); MEAN PLATELET VOLUME 11.1 fL (7.4-10.4); NEUTROPHILS 66.1 % (40-80); PLATELET COUNT 253 10x3/uL (130-400); RBC 4.09 10x6/uL (4.00-5.40); RDW 18.9 % (11.5-14.5); WBC 7.1 10x3/uL (4.8-10.8)
[2018-06-16 06:52] LABS: ALBUMIN 2.8 g/dL (3.4-5.0); ANION GAP 8.6 mmol/L (8-16); BILIRUBIN - TOTAL 0.47 mg/dL (0.2-1.3); CALCIUM 8.3 mg/dL (8.5-10.1); CARBON DIOXIDE 32.8 mmol/L (21.0-32.0); CREATININE - SERUM 0.8 mg/dL (0.6-1.3); POTASSIUM - SERUM 3.4 mmol/L (3.5-5.1); PROTEIN - SERUM 6.1 g/dL (6.4-8.2)
[2018-06-16 06:58] LABS: HEMATOCRIT 33.2 % (36.0-48.0)
[2018-06-16 08:40] VITALS: BP 155/68
[2018-06-16 12:22] VITALS: BP 148/52
[2018-06-16 20:42] VITALS: BP 140/70
[2018-06-17] VITALS (7 sets, daily range): BP systolic 104–156; BP diastolic 42–93
[2018-06-17 06:11] LABS: BASOPHILS 0.3 % (0-2); EOSINOPHILS 3.6 % (0-7); HEMATOCRIT 35.7 % (36.0-48.0); HEMOGLOBIN 10.8 g/dL (12-16); IMMATURE GRANULOCYTES 0.5 % (0-5); LYMPHOCYTES 26.7 % (15-50); MCH 24.4 pg (26.0-34.0); MCHC 30.3 g/dL (31.0-37.0); MCV 80.8 fL (80.0-100.0); MEAN PLATELET VOLUME 11.2 fL (7.4-10.4); MONOCYTES 10.4 % (2-11); NEUTROPHILS 58.5 % (40-80); PLATELET COUNT 291 10x3/uL (130-400); RBC 4.42 10x6/uL (4.00-5.40); RDW 19.1 % (11.5-14.5); WBC 6.3 10x3/uL (4.8-10.8)
[2018-06-17 06:29] LABS: ANION GAP 10.4 mmol/L (8-16); CALCIUM 8.9 mg/dL (8.5-10.1); CARBON DIOXIDE 34.2 mmol/L (21.0-32.0); POTASSIUM - SERUM 3.6 mmol/L (3.5-5.1)
[2018-06-18 00:57] VITALS: BP 127/62
[2018-06-18 05:32] VITALS: BP 121/68
[2018-06-18 08:01] VITALS: BP 136/75
[2018-06-18 11:52] VITALS: BP 134/65
[2018-06-18 15:20] VITALS: BP 127/66
[2018-06-18 21:34] VITALS: BP 122/71
[2018-06-19 01:20] VITALS: BP 154/91
[2018-06-19 06:23] LABS: BASOPHILS 0.3 % (0-2); HEMATOCRIT 39.3 % (36.0-48.0); HEMOGLOBIN 11.9 g/dL (12-16); IMMATURE GRANULOCYTES 0.4 % (0-5); LYMPHOCYTES 27.7 % (15-50); MCH 24.4 pg (26.0-34.0); MCHC 30.3 g/dL (31.0-37.0); MCV 80.5 fL (80.0-100.0); MEAN PLATELET VOLUME 10.6 fL (7.4-10.4); MONOCYTES 10.5 % (2-11); NEUTROPHILS 57.1 % (40-80); PLATELET COUNT 257 10x3/uL (130-400); RBC 4.88 10x6/uL (4.00-5.40); RDW 19.5 % (11.5-14.5); WBC 7.1 10x3/uL (4.8-10.8)
[2018-06-19 06:33] LABS: ANION GAP 11.9 mmol/L (8-16); CALCIUM 9.1 mg/dL (8.5-10.1); CARBON DIOXIDE 32.7 mmol/L (21.0-32.0); CREATININE - SERUM 1.1 mg/dL (0.6-1.3); POTASSIUM - SERUM 3.6 mmol/L (3.5-5.1)
[2018-06-19 06:38] VITALS: BP 120/45
[2018-06-19 09:41] VITALS: BP 134/60
[2018-06-19] MEDS ORDERED: LASIX40 MG PO (13:01)
[2018-06-19 13:11] VITALS: BP 146/84
== END 2018-06-19 18:00 | disposition home health service (06) | DRG 812 ==
LOC: D.ER 19:17 → D.M2 21:09
PROVIDERS: Family Medicine
DX: D64.9 Anemia, unspecified (principal); R53.1 Weakness; I50.9 Heart failure, unspecified; Z86.711 Personal history of pulmonary embolism; Z86.718 Personal history of other venous thrombosis and embolism; Z79.01 Long term (current) use of anticoagulants; Z95.0 Presence of cardiac pacemaker; I48.0 Paroxysmal atrial fibrillation

== ENCOUNTER 2018-07-14 20:29 | Observation (INO) | payer MEDICARE ==
[~2018-07-14] VITALS: Ht 182.9 cm; Wt 125.9 kg
--- NOTE | ~2018-07-14 | MORECARE ---
CASE MANAGEMENT DISCHARGE SUMMARY PATIENT: JORGE JULIO UNIT: [id number] ADM DATE: 07/15/18 AGE: 78 : 42 SEX: F ROOM/BED: D.8997 AUTHOR: TANNA JOHNSON PHYSICIAN: REFERRING PHYSICIAN: KELLY DE SANTIAGO MD DATE OF SERVICE: 07/16/18 Discharge Plan Patient Name: JORGE JULIO Facility: [facility]:[place] : 1940 Planned Disposition: Home with Home Health Anticipated Discharge Date: 07/16/18 Discharge Date: 07/16/2018 Expected LOS: 1 Initial Reviewer: [id number] Initial Review Date: 07/16/2018 Generated: 07/16/18 6:28 pm Comments DCP- Discharge Planning Updated by [id number]: Celso Guthrie on 07/16/18 4:[address] Patient Name: JORGE JULIO Admission Status: ER Accout number: [id number] Admission Date: 07-15-2018 : 1940 Admission Diagnosis: Attending: KELLY DE SANTIAGO Current LOS: 1 Anticipated DC Date: 07-16-2018 Planned Disposition: Home with Home Health Primary Insurance: [facility] MEDICARE SOLUTIONS PLANNED EXTERNAL PROVIDER: [facility] Discharge Planning Comments: CM RECEIVED CALL FROM [facility] TO CHECK ON PT'S STATUS AND PROJECTED DISCHARGE FOR RESUMPTION OF [facility]. CM OBSERVED PT TO HAVE BEEN IN OBSERVATION STATUS AND DISCHARGED TODAY. BRYN NOTIFIED AND PT WAS PLACED ON HOME HEALTH RESUMPTION SCHEDULE. CM FAXED DISCHARGE INFORMATION WITH HOSPITAL TREATMENT INFORMATION TO [facility] AT [phone]. Controls Project Engineer: Celso Guthrie External Providers External Provider: [facility] Next Contact Date: 07/16/2018 Service Request Date: Service Type: Resolution: Reviewer: Comments: Coverage Notice Reviewer: [id number] Velma Pisano Notice Issued Date-Time: 07/15/2018 11:06 Notice Type: Medicare Outpatient Observation Notice Notice Delivered To: Patient Relationship to Patient: Self Lens Grinder Name: Delivery Method: HAND - Hand Delivered Meka Days: Prior Verbal Notification: Recipient Understood Notice: Yes Recipient Signature: Yes Med Rec Note Co-signed by Attending: Coverage Notice Comment: OBTAINED VERBAL CONSENT TO SPEAK IN FRONT OF DAUGHTERGENET, WHO ALSO STATED THAT SHE IS THE POA. I HAVE REQUESTED THAT SHE BRING A COPY TO THE HOSPITAL. PATIENT INITIATED A LONG CONVERSATION ABOUT WANTING TO FIRE DR OLIVA AND WHY. SHE HAS REQUESTED THAT WE TAKE TO DR VARGAS AND SEE IF HE WILL PICK HER UP HER NEW LOOM CLEANER. IF HE WILL NOT, THE DAUGHTER STATED SHE WANTED THE PATIENT TRANSFERED TO [facility]. I DISCUSSED WITH THEM WHAT A LATERAL TRANSFER IS. THE DAUGHTER STATED THAT IF DR VARGAS REFUSED TO TAKE THEM ON, SHE WOULD ASK DR ARIAS FOR DISCHARGE ORDERS AND SHE WILL DRIVE HER THERE. Patient Name: JORGE JULIO Page [phone] at 1728 All edits/amendments must be made on the electronic document DICTATION DATE: 07/16/181727 SURGERY MANAGER: JACOB 07/16/181727 RPT#: [id number] DC DATE:07/16/18 STATUS: DIS IN [facility] [address] [place] [address] END OF REPORT
--- NOTE | ~2018-07-14 | EC ---
PATIENT:JORGE JULIO DATE OF SERVICE: 07/15/18 SEX: F MEDICAL RECORD: [id number] DATE OF : [birth year] LOCATION:D. D.211 AGE OF PATIENT: 78 ADMISSION DATE: 07/15/18 REFERRING PHYSICIAN: INTERPRETING PHYSICIAN: JEFFY LARSON MD ECHOCARDIOGRAM REPORT ECHO CHARGES 5 ECHO LIMITED Date: 07/15/18 1 DOPPLER ECHO COLOR FLOW 2 DOPPLER ECHO PULSE CLINICAL DIAGNOSIS: DIZZINESS/CP ECHOCARDIOGRAPHIC MEASUREMENTS (adult normal given) AC root (d.<3.7cm) 0 cm LV Septum d (<1.2 cm> 0 cm Valve Excursion 0 cm LV Septum (systole) 0 cm Left Atria (s.<4.0cm> 0 cm LVPW d(<1.2cm) 0 cm RV (d.<2.3cm) 0 cm LVPW (sytole) 0 cm LV diastole(<5.6CM) 0 cm MV E-F(>70mm/sec) 0 cm LV systole 0 cm LVOT Diameter 0 cm MV exc.(>10mm) 0 cm Est.ejection fraction (50-75%) 0 % DOPPLER: LVIT 0 cm/sec A 0 cm/sec E 0 cm/sec LA 0 cm/sec RVSP 33.3 mmHg LVOT 0 cm/sec AOP1/2T 0 m/s Asc. Ao 0 cm/sec RVOT 0 cm/sec RA 0 cm/sec PA 0 cm/sec AV Gradient Peak 0 mmHg AV Mean 0 mmHg AV Area 0 cm MV Gradient Peak 0 mmHg MV Mean 0 mmHg MV Area 0 cm COMMENTS: LIMITED STUDY (2-D,COLOR,DOPPLER) Orthodontist Vice President: Wilner HARO Dietetic Technician: 3 Dr. Vernon TAPE# PACS Pericardial Effusion N DATE OF SERVICE: 07/15/2018 2D, color flow, spectral Doppler only Grossly LVH appears present. LV internal dimensions are normal. Wall motion is normal. EF is greater than or equal to 55%. Aortic valve is tricuspid. No evidence of stenosis on Doppler interrogation. Left atrium grossly appears normal. No mitral valve prolapse. Trace MR only. Right-sided chambers are grossly normal. Trace TR only. ECHOCARDIOGRAM REPORT [id number] JORGE JULIO TRANSINT:[id number] Voice Confirmation ID: [id number] DOCUMENT ID: [id number] JEFFY LARSON MD CC: [id number] DICTATION DATE: 07/15/18 1300 GEOTECHNICAL LABORATORY TECHNICIAN: 07/15/18 1359 ADM IN [place] [id number] [place] [id number]
--- NOTE | ~2018-07-14 | OP ---
PATIENT NAME: JORGE JULIO MEDICAL RECORD: [id number] :44 LOCATION:D.M2 D.2117 ADMISSION DATE:07/15/18 SURGEON: LIDIA VARGAS MD DATE OF OPERATION: 07/16/2018 PROCEDURES: 1. Left heart catheterization. 2. Selective coronary angiography. 3. Left ventriculogram. INDICATION: Shortness of breath, dyspnea on exertion, and chest discomfort compatible with angina. PROCEDURE IN DETAIL: After informed consent was obtained and after a detailed description of risks, benefits as well as alternative therapies, the patient elected to proceed with angiogram and heart catheterization. The right femoral area was prepped and draped in normal sterile fashion. Right femoral artery was cannulated via modified Seldinger technique with placement of 6-Bahraini sheath. All catheters exchanged through this sheath. FINDINGS: Left ventriculogram was performed in standard 30-degree MEZA view, reveals good cardiac wall motion throughout all segments. Overall ejection fraction estimated 60%. SELECTIVE CORONARY ANGIOGRAPHY: Left main, left anterior descending, left circumflex, and right coronary artery are smooth-walled vessels with no angiographic evidence of coronary artery disease. OVERALL IMPRESSION: 1. No angiographic evidence of coronary artery disease. 2. Normal left heart pressures. 3. Normal left ventricular systolic function. Chest pain is noncardiac in etiology. No further cardiac workup needs to be ascertained. TRANSINT:[id number] Voice Confirmation ID: [id number] DOCUMENT ID: [id number] LIDIA VARGAS MD at 1457 CC: KELLY DE SANTIAGO MD [id number] DICTATION DATE: 07/16/18 0850 WIRE PULLER: 07/16/18 0906 ADM IN [facility] [address] [place] [address]
--- NOTE | ~2018-07-14 | HEMODYNAMI ---
PATIENT:JORGE JULIO MEDICAL RECORD: [id number] : 44 [facility] D.2117 [id number] ADMISSION DATE: 07/15/18 Generatedon:07/16/20188:49 Patient name: JORGE JULIO Patient #: [id number] SSN: DO B: 1940 Date of study: 07/16/2018 Page: Of Hemodynamic Procedure Report Patient Data Patient Demographics Procedure consent was obtained First Name: JORGE Gender: Female Last Name: NORI : 1940 [facility] Initial: YUSUF Age: 78 year(s) Patient #: [id number] Race: Unknown Additional ID: [id number] Contact details [address]: [address] [place] [address] State: [place] City: [place] Zip code: [address] Past Medical History Allergies Allergen Reaction Date Comments Reported Other allergy 05/27/2018 BENADRYL,PCN Admission Admission Data Admission Date: 07/15/2018 Admission Time: 0:56 Admit Source: Other Room #: D.2117 Lab Results Lab Result Date: 07/15/2018 Lab Result Time: 14:45 Biochemistry Name Units Result Min Max BUN mg/dl 23 --(----)-* 7 18 Creatinine mg/dl 1.2 --(---*)-- 0.6 1.3 CBC Name Units Result Min Max Hematocrit % 40.7 -*(----)-- 42 54 Hemoglobin g/dl 12.5 *-(----)-- 13.5 17.5 Procedure Procedure Types Cath Procedure Diagnostic Procedure LHC LHC w/Coronaries Procedure Description Procedure Date Procedure Date: 07/16/2018 Procedure Start Time: 8:37 Procedure End Time: 8:45 Procedure Staff Name Function Laureano Lucero MD Performing Physician Samara Alfred RT Monitor Alon Beltre RT Scrub Sherwin Tran RN Nurse Warner Fernandes RT Traffic Investigator Procedure Data Cath Procedure Fluoroscopy Diagnostic fluoroscopy Total fluoroscopy Time: 0.9 time: 0.9 min min Diagnostic fluoroscopy Total fluoroscopy dose: 433 dose: 433 mGy mGy Contrast Material Contrast Material Type Amount (ml) Isovue 300 53 Entry Location Entry Primary Successful Side Size Upsize Upsize Entry Closure Succes sful Closure Location (Fr) 1 (Fr) 2 (Fr) Remarks Device Remarks Femoral Right 5 Fr Exoseal artery Estimated blood loss: 5 ml Diagnostic catheters Device Type Used For End Catheter Placement MULTIPACK Pigtail 5 Fr LV Angiography catheter MULTIPACK JL 4.0 5Fr Left Coronary catheter Angiography MULTIPACK 3DRC 5Fr Right Coronary catheter Angiography Procedure Complications No complications Procedure Medications Medication Administration Route Dosage 0.9% NaCl I.V. 100 ml/hr Oxygen etCO2 Nasal cannula 2 l/min Heparin Flush Bag added to field 2 bags (1000units/500ml NS) Lidocaine 2% added to field 20 Versed I.V. 2 mg Fentanyl I.V. 100 mcg Versed I.V. 1 mg Hemodynamics Rest HGB: 12.5 (g/dl) Heart Rate: 63 (bpm) Pressure Samples Time Site Value (mmHg) Purpose Heart Use Rate(bpm) 8:39 LV 60/12,14 Snapshot 60 Snapshots Pre Cath Intra NCS Post Cath Vital Signs Time Heart Resp SPO2 etCO2 NIBP (mmHg) Rhythm Pain Sedation Rate (ipm) (%) (mmHg) Status Level (bpm) 8:23:39 61 13 96 44.6 152/57(124) NSR 0 (11) 10(A) , No pain 8:27:40 60 12 97 37.2 145/92(99) NSR 0 (11) 10(A) , No pain 8:31:56 60 11 99 29 149/67(113) NSR 0 (11) 10(A) , No pain 8:36:14 60 18 94 34.1 129/64(100) NSR 0 (11) 10(A) , No pain 8:40:24 60 18 96 11.8 145/65(98) NSR 0 (11) 10(A) , No pain 8:44:40 62 19 96 37.1 149/67(99) NSR 0 (11) 9(A) , No pain Medications Time Medication Route Dose Verified Delivered Reason Notes Effe ctiveness by by 8:27:56 0.9% NaCl I.V. 100 Sherwin Sherwin Per ml/hr Chelsea Tran physician RN RN 8:28:07 Oxygen etCO2 2 Sherwin Sherwin Per Nasal l/min Chelsea Tran physician cannula RN RN 8:28:17 Heparin Flush added 2 Sherwin Sherwin used for Bag to bags Lorigan Chelsea procedure (1000units/500ml field RN RN NS) 8:28:27 Lidocaine 2% added 20ml Sherwin Sherwin for local to vial Lorigan Lorigan anesthetic field RN RN 8:32:28 Versed I.V. 2 mg Sherwin Sherwin for Lorigan Lorigan sedation RN RN 8:32:38 Fentanyl I.V. 100 Sherwin Sherwin for mcg Lorigan Lorigan sedation RN RN 8:38:31 Versed I.V. 1 mg Sherwin Sherwin for Lorigan Lorigan sedation RN software product specialist Log Time Note 7:49:35 Informed consent obtained and on chart 7:49:38 Admit Source: Other 7:49:59 Diagnostic Cath status Elective 7:50:00 Time tracking: Regular hours (M-F 7:00 - 5:00) 7:50:04 Plan of Care:Hemodynamics will remain stable., Cardiac rhythm will remain stable., Comfort level will be maintained., Respiratory function will remain adequate., Patient/ family verbilizes understanding of procedure., Procedure tolerated without complication., Recovers from procedure without complications.. 7:50:17 H&P Date Dictated: 07/15/2018 Within 30 days and on chart.. 7:51:00 Lab Result : BUN 23 mg/dl 7:51:00 Lab Result : Creatinine 1.2 mg/dl 7:51:00 Lab Result : Hemoglobin 12.5 g/dl 7:51:00 Lab Result : Hematocrit 40.7 % 7:51:02 Lab results completed and on chart. 8:01:37 Alon Beltre RT(R) sent for patient. Start room use. 8:12:11 Patient received from Med II to CCL 2 Alert and oriented. Tansferred to table in Supine position. 8:12:12 Warm blankets applied, and huma hugger turned on for patient comfort. 8:12:13 Correct patient and procedure confirmed by team. 8:22:21 ECG and BP/O2 sat monitors applied to patient. 8:22:21 Vital chart was started 8:22:22 Baseline sample Acquired. 8:22:25 Rhythm: sinus rhythm 8::27 Full Disclosure recording started 8:: Pre-procedure instructions explained to patient. 8:: Pre-op teaching completed and patient verbalized understanding. 8::30 Family in waiting room. 8::32 Patient NPO since Midnight. 8::33 Is the patient allergic to Iodine/contrast media? No. 8:22:34 Was the patient premedicated? No 8::35 Is patient on blood thinner?Yes 8::38 ACC The patient was administered the following blood thiners within the last 24 hours: Xarelto 8:27:04 Patient diabetic? No. 8:27:06 Previous problem with sedation/anesthesia? No ? 8:27:07 Snore? Yes 8:27:08 Sleep apnea? Yes 8:27:10 Deviated septum? No 8:27:11 Opens mouth fully? Yes 8:27:11 Sticks out tongue? Yes 8:27:13 Airway obstruction? No ? 8:27:16 Dentures? No ? 8:27:19 Pre procedure: right dorsailis pedis pulse 2+ Normal; easily identifiable; not easily obliterated 8:27:21 Pre procedure: left dorsailis pedis pulse 2+ Normal; easily identifiable; not easily obliterated 8:27:23 Patient pain scale 0/10 ?. 8:27:26 Modified Garth's test Radial > 7 seconds. 8:27:31 IV patent on arrival in right forearm with 0.9% NaCl at O. 8:27:34 Lab results completed and on chart. 8:27:40 Right groin area was prepped with chlora-prep and draped in sterile fashion 8:27:41 Alarms reviewed by R. N. 8:27:41 Sharps counted by scrub and verified by R.N. 8:27:56 0.9% NaCl 100 ml/hr I.V. was administered by Sherwin Tran RN; Per physician; 8:28:07 Oxygen 2 l/min etCO2 Nasal cannula was administered by Sherwin Tran RN; Per physician; 8:28:17 Heparin Flush Bag (1000units/500ml NS) 2 bags added to field was administered by Sherwin Tran RN; used for procedure; 8::27 Lidocaine 2% 20ml vial added to field was administered by Sherwin Tran RN; for local anesthetic; 8:30:39 Physician arrived 8:30:39 --------ALL STOP TIME OUT------ 8:30:40 Final Timeout: patient, procedure, and site verified with staff and physician. All members of the team are in agreement. 8:30:41 Right groin site verified by team. 8:30:45 Physical assessment completed. ASA score P 2 - A patient with mild systemic disease as per Laureano Lucero MD. 8:30:48 Sedation plan: IV Moderate Sedation Medication:Versed, Fentanyl 8:30:52 Use device set Femoral Dx 8:30:53 ACIST Syringe (95154) opened to sterile field. 8:30:54 Bag Decanter (2002S) opened to sterile field. 8:30:54 Medline Cath Pack ([id number]) opened to sterile field. 8:30:55 DIAGNOSTIC WIRE .035 260cm J wire (626051) opened to sterile field. 8:30:56 ACIST Hand Control (85472) opened to sterile field. 8:30:56 ACIST Manifold (36581) opened to sterile field. 8:30:57 DIAGNOSTIC Multipack 5Fr catheter set (RV9943) opened to sterile field. 8:30:57 Tegaderm 4 x 4 (1626W) opened to sterile field. 8:30:58 SHEATH 5FR [place] (MMU966) opened to sterile field. 8:32:03 Zero performed for pressure channel P1 8:32:28 Versed 2 mg I.V. was administered by Sherwin Tran RN; for sedation; 8:32:38 Fentanyl 100 mcg I.V. was administered by Sherwin Tran RN; for sedation; 8:37:25 Procedure started. 8:37:28 Local anesthetic to right femoral artery with Lidocaine 2% by Laureano Lucero MD.INITIAL ACCESS ONLY 8:37:39 A 5 Fr sheath was inserted into the Right Femoral artery 8:38:31 Versed 1 mg I.V. was administered by Sherwin Tran RN; for sedation; 8:39:08 A MULTIPACK Pigtail 5 Fr catheter was advanced over the wire and used for LV Angiography. 8:39:46 LV hemodynamics recorded. 8:39:47 LV gram done using MEZA 8:39:50 Injector settings: Ml/sec: 5, Volume: 15, 8:39:57 EF : 60 % 8:40:46 Catheter removed. 8:40:51 A MULTIPACK JL 4.0 5Fr catheter was advanced over the wire and used for Left Coronary Angiography. 8:41:14 LCA angiography performed. 8:41:21 Injector settings: Ml/sec: 3, Volume: 6, 8:42:15 Catheter removed. 8:42:20 A MULTIPACK 3DRC 5Fr catheter was advanced over the wire and used for Right Coronary Angiography. 8:42:24 Injector settings: Ml/sec: 3, Volume: 65, 8:42:39 RCA angiography performed. 8:42:42 Catheter removed. 8:42:55 EXOSEAL 5Fr (EX500) opened to sterile field. 8:43:17 Sheath removed intact; hemostasis achieved with Exoseal to the Right Femoral artery. 8:43:48 Procedure ended.(Physican Out) 8:44:11 Fluoroscopy time 00.90 minutes. 8:44:16 Fluoroscopy dose: 433 mGy 8:44:16 Flurop Dose total: 433 8:44:20 Contrast amount:Isovue 300 53ml. 8:44:21 Sharps counted by scrub and verified by R.N. 8:44:22 Insertion/operative site no bleeding no hematoma. 8:44:25 Post-op/insertion site Right Femoral artery dressed using a 4 x 4 and Tegaderm. 8:44:29 Post right femoral artery:stable 8:44:31 Post Procedure Pulses reassessed and unchanged 8:44:33 Post procedure rhythm: unchanged. 8:44:36 Estimated blood loss: 5 ml 8:44:38 Post procedure instruction explained to patient.Patient verbalizes understanding. 8:44:38 Patient needs reinforcement of post procedure teaching. 8:44:47 Procedure and supply charges have been captured, reviewed, submitted and are correct. 8:44:52 Procedure Complication : No complications 8:44:55 Vital chart was stopped 8:44:56 See physician's report for complete and final results. 8:45:00 Report given to Med II. 8:45:02 Patient transfered to Med II with Stretcher. 8:45:05 Procedure ended. 8:45:05 Full Disclosure recording stopped 8:45:20 End room use (Document Last) Device Usage Item Name Manufacture Quantity Catalog Hospital Part Current Minimal L ot# / Number Charge Number Stock Stock Serial# Code ACIST Acist 1 32163 [id number] 873241 617590 20 Syringe Medical (53902) Systems Inc Bag Microtek 1 2001S 803655 37793 091628 5 Decanter Medical Inc. () Medline Medline 1 [id number] 482901 44664 394061 5 Cath Pack ([id number]) DIAGNOSTIC St Simone 1 016579 497410 164362 228625 30 WIRE .035 260cm J wire (523731) ACIST Hand Acist 1 56817 987796 444309 418003 5 Control Medical (41374) Systems Inc ACIST Acist 1 36990 468383 625129 224973 5 Manifold Medical (62642) Systems Inc DIAGNOSTIC Cardinal 1 GL1773 002378 15066 644458 30 Multipack Health 5Fr catheter set (PQ6085) Tegaderm 4 3M 1 1626W 093675 734855 695643 5 x 4 (1626W) SHEATH 5FR Terumo 1 EOR066 384789 773909 493653 5 [place] (OTT963) MULTIPACK Cardinal 1 163267 5 Pigtail 5 Health Fr catheter MULTIPACK Cardinal 1 598687 5 JL 4.0 5Fr Health catheter MULTIPACK Cardinal 1 112544 5 3DRC 5Fr Health catheter EXOSEAL 5Fr Cardinal 1 EX500 169788 462994 053284 10 (EX500) Health Signature Audit [place] Stage Time Signature Unsigned Intra-Procedure 07/16/2018 Samara Alfred 8:49:24 AM RT(R) Signatures Monitor : Samara Alfred RT Signature : Date : Time : [facility] [address] [facility] [place] [address]
[~2018-07-14 20:29] MED LIST changes: +CYCLOBENZAPRINE5 MG PO; +K-DUR20 MEQ PO; +LASIX40 MG PO; +POTASSIUM CHLORIDE E; +REMERON15 MG PO
[2018-07-14 21:06] LABS: BASOPHILS 0.2 % (0-2); HEMATOCRIT 40.7 % (36.0-48.0); HEMOGLOBIN 12.5 g/dL (12-16); IMMATURE GRANULOCYTES 0.7 % (0-5); LYMPHOCYTES 24.7 % (15-50); MCH 24.8 pg (26.0-34.0); MCHC 30.7 g/dL (31.0-37.0); MCV 80.6 fL (80.0-100.0); MEAN PLATELET VOLUME 11.5 fL (7.4-10.4); MONOCYTES 8.2 % (2-11); NEUTROPHILS 65.2 % (40-80); PLATELET COUNT 252 10x3/uL (130-400); RBC 5.05 10x6/uL (4.00-5.40); RDW 19.1 % (11.5-14.5); WBC 8.9 10x3/uL (4.8-10.8)
[2018-07-14 21:14] LABS: APTT 27.4 SECONDS (22.8-39.4); INR 1.3 (0.85-1.17); PROTIME 15.6 SECONDS (11.6-15.0)
[2018-07-14 21:16] LABS: D-DIMER-QUANTITATIVE 0.38 ug/mLFEU (0.20-0.54)
[2018-07-14 21:21] LABS: ALBUMIN 3.4 g/dL (3.4-5.0); ALKALINE PHOSPHATASE 123 U/L (46-116); ALT (SGPT) 16 U/L (10-68); BILIRUBIN - TOTAL 0.21 mg/dL (0.2-1.3); CALC OSMOLALITY 288 mosm/kg (275-300); CALCIUM 8.7 mg/dL (8.5-10.1); CARBON DIOXIDE 29.8 mmol/L (21.0-32.0); CHLORIDE - SERUM 99 mmol/L (98-107); CREATININE - SERUM 1.5 mg/dL (0.6-1.3); PROTEIN - SERUM 7.6 g/dL (6.4-8.2); SODIUM 139 mmol/L (136-145); UREA NITROGEN 19 mg/dL (7-18); eGFR NON AFRICAN AMERICAN 36 mL/min (90-120)
[2018-07-14 21:22] LABS: GLUCOSE 255 mg/dL (74-106)
[2018-07-14 21:31] LABS: CKMB 0.5 U/L (0.0-3.6); LIPASE 100 U/L (73-393); TROPONIN-I < 0.017 ng/mL (0.000-0.060)
[2018-07-14 21:44] VITALS: BP 157/73
[2018-07-14 22:28] VITALS: BP 147/68
[2018-07-14 23:31] VITALS: BP 158/75
[2018-07-15] VITALS (9 sets, daily range): BP systolic 106–172; BP diastolic 40–87; Ht 182.9 cm; Wt 125.9 kg
[2018-07-15 08:43] LABS: CKMB 0.5 U/L (0.0-3.6); CREATINE KINASE 34 UL (21-215); TROPONIN-I < 0.017 ng/mL (0.000-0.060)
[2018-07-15 15:12] LABS: ANION GAP 11.6 mmol/L (8-16); CALCIUM 8.5 mg/dL (8.5-10.1); CARBON DIOXIDE 33.9 mmol/L (21.0-32.0); CREATININE - SERUM 1.2 mg/dL (0.6-1.3)
[2018-07-15 15:13] LABS: POTASSIUM - SERUM 3.5 mmol/L (3.5-5.1)
[2018-07-15 15:31] LABS: CKMB 0.5 U/L (0.0-3.6); CREATINE KINASE 44 UL (21-215); TROPONIN-I < 0.017 ng/mL (0.000-0.060)
[2018-07-16 00:44] VITALS: BP 127/61
[2018-07-16 04:34] VITALS: BP 147/84
[2018-07-16 05:44] LABS: ANION GAP 12.7 mmol/L (8-16); CARBON DIOXIDE 32.3 mmol/L (21.0-32.0); CREATININE - SERUM 1.1 mg/dL (0.6-1.3)
[2018-07-16 05:45] LABS: BASOPHILS 0.3 % (0-2); EOSINOPHILS 3.4 % (0-7); HEMATOCRIT 38.7 % (36.0-48.0); HEMOGLOBIN 11.6 g/dL (12-16); IMMATURE GRANULOCYTES 0.7 % (0-5); LYMPHOCYTES 34.8 % (15-50); MCH 24.2 pg (26.0-34.0); MCV 80.6 fL (80.0-100.0); MEAN PLATELET VOLUME 11.8 fL (7.4-10.4); MONOCYTES 8.4 % (2-11); NEUTROPHILS 52.4 % (40-80); PLATELET COUNT 233 10x3/uL (130-400); RDW 19.6 % (11.5-14.5)
[2018-07-16 05:46] LABS: WBC 6.1 10x3/uL (4.8-10.8)
[2018-07-16 07:43] VITALS: BP 107/60
[2018-07-16 11:44] VITALS: BP 124/53
[2018-07-16 15:21] VITALS: BP 120/39
== END 2018-07-16 16:26 | disposition home health service (06) ==
LOC: D.ER 20:29 → OBSVTIME 07-15 00:56 → D.M2 07-15 00:56 → D.EDHOLD 07-15 00:56 → D.M2 07-15 01:09
PROVIDERS: Family Medicine
DX: R07.89 Other chest pain (principal); I48.0 Paroxysmal atrial fibrillation; Z79.01 Long term (current) use of anticoagulants; Z86.711 Personal history of pulmonary embolism; Z95.0 Presence of cardiac pacemaker; E11.9 Type 2 diabetes mellitus without complications; I11.0 Hypertensive heart disease with heart failure; I50.9 Heart failure, unspecified; E87.6 Hypokalemia

== ENCOUNTER 2018-07-26 15:58 | Emergency (ER) | payer MEDICARE ==
[~2018-07-26] VITALS: Ht 182.9 cm; Wt 122.8 kg
[2018-07-26 16:33] VITALS: Ht 182.9 cm; Wt 122.8 kg
[2018-07-26 18:01] LABS: BASOPHILS 0.1 % (0-2); EOSINOPHILS 1.6 % (0-7); HEMATOCRIT 37.1 % (36.0-48.0); HEMOGLOBIN 11.2 g/dL (12-16); IMMATURE GRANULOCYTES 0.1 % (0-5); LYMPHOCYTES 21.3 % (15-50); MCH 24.2 pg (26.0-34.0); MCHC 30.2 g/dL (31.0-37.0); MCV 80.1 fL (80.0-100.0); MEAN PLATELET VOLUME 10.8 fL (7.4-10.4); MONOCYTES 8.3 % (2-11); NEUTROPHILS 68.6 % (40-80); RBC 4.63 10x6/uL (4.00-5.40); RDW 19.9 % (11.5-14.5); WBC 7.5 10x3/uL (4.8-10.8)
[2018-07-26 18:06] LABS: PLATELET COUNT 287 10x3/uL (130-400)
[2018-07-26 18:26] LABS: CREATINE KINASE 59 UL (21-215); TROPONIN-I < 0.017 ng/mL (0.000-0.060)
[2018-07-26 18:45] LABS: APTT 28.2 SECONDS (22.8-39.4); INR 1.23 (0.85-1.17); PROTIME 14.9 SECONDS (11.6-15.0)
[2018-07-26 18:47] LABS: D-DIMER-QUANTITATIVE 0.34 ug/mLFEU (0.20-0.54)
[2018-07-26 19:14] LABS: APPEARANCE CLEAR (CLEAR); BILIRUBIN NEGATIVE (NEGATIVE); COLOR STRAW (YELLOW); GLUCOSE NEGATIVE (NEGATIVE); KETONE NEGATIVE (NEGATIVE); NITRITE NEGATIVE (NEGATIVE); PROTEIN NEGATIVE (NEGATIVE); UROBILINOGEN NORMAL (NORMAL)
[2018-07-26 20:51] LABS: ANION GAP 17.3 mmol/L (8-16); CARBON DIOXIDE 27.5 mmol/L (21.0-32.0); CREATININE - SERUM 1.1 mg/dL (0.6-1.3)
[2018-07-26 20:54] LABS: POTASSIUM - SERUM 2.8 mmol/L (3.5-5.1)
[2018-07-26 21:51] VITALS: BP 186/86
== END 2018-07-26 21:51 | disposition home or self-care (01) ==
LOC: D.ER 15:58
PROVIDERS: Family Medicine
DX: E87.6 Hypokalemia (principal); M79.18 Myalgia, other site; W06.XXXA Fall from bed, initial encounter; Y93.89 Activity, other specified; Y92.013 Bedroom of single-family (private) house as the place of occurrence of the external cause

== ENCOUNTER 2018-07-30 20:25 | Emergency (ER) | payer MEDICARE ==
[~2018-07-30] VITALS: Ht 182.9 cm; Wt 122.7 kg
[2018-07-30 20:41] VITALS: Ht 182.9 cm; Wt 122.7 kg
[2018-07-30 21:44] LABS: BASOPHILS 0.3 % (0-2); HEMATOCRIT 38.7 % (36.0-48.0); HEMOGLOBIN 11.9 g/dL (12-16); IMMATURE GRANULOCYTES 0.4 % (0-5); LYMPHOCYTES 16.5 % (15-50); MCH 24.5 pg (26.0-34.0); MCHC 30.7 g/dL (31.0-37.0); MCV 79.8 fL (80.0-100.0); MEAN PLATELET VOLUME 11.2 fL (7.4-10.4); MONOCYTES 5.6 % (2-11); NEUTROPHILS 76.2 % (40-80); PLATELET COUNT 283 10x3/uL (130-400); RBC 4.85 10x6/uL (4.00-5.40); RDW 19.9 % (11.5-14.5); WBC 7.1 10x3/uL (4.8-10.8)
[2018-07-30 21:54] LABS: ALBUMIN 3.3 g/dL (3.4-5.0); ALKALINE PHOSPHATASE 125 U/L (46-116); ALT (SGPT) 17 U/L (10-68); BILIRUBIN - TOTAL 0.38 mg/dL (0.2-1.3); CALC OSMOLALITY 282 mosm/kg (275-300); CALCIUM 9.4 mg/dL (8.5-10.1); CARBON DIOXIDE 29.2 mmol/L (21.0-32.0); CHLORIDE - SERUM 99 mmol/L (98-107); CREATININE - SERUM 1.3 mg/dL (0.6-1.3); GLUCOSE 200 mg/dL (74-106); POTASSIUM - SERUM 3.2 mmol/L (3.5-5.1); PROTEIN - SERUM 7.6 g/dL (6.4-8.2); SODIUM 138 mmol/L (136-145); UREA NITROGEN 16 mg/dL (7-18); eGFR NON AFRICAN AMERICAN 42 mL/min (90-120)
[2018-07-30 21:57] LABS: TROPONIN-I < 0.017 ng/mL (0.000-0.060)
[2018-07-30] MEDS ORDERED: VALTREX1000 MG PO (22:30)
[2018-07-30] MEDS ORDERED: HYDROCODON-ACE1 EAC7 PO (22:30)
[2018-07-30] MEDS ORDERED: NEURONTIN 300300 MG PO (22:30)
[2018-07-31 00:38] VITALS: BP 149/71
== END 2018-07-31 00:39 | disposition home or self-care (01) ==
LOC: D.ER 20:25
PROVIDERS: Emergency Medicine
DX: B02.9 Zoster without complications (principal); E11.9 Type 2 diabetes mellitus without complications; Z86.79 Personal history of other diseases of the circulatory system; E87.6 Hypokalemia; I10 Essential (primary) hypertension

== ENCOUNTER 2018-08-04 03:58 | Inpatient (IN) | payer MEDICARE ==
[~2018-08-04] VITALS: Ht 172.7 cm; Wt 122.7 kg
[2018-08-04] VITALS (13 sets, daily range): BP systolic 114–149; BP diastolic 45–88; BMI 41.0
[~2018-08-04 03:58] MED LIST changes: +HYDROCODON-ACE1 EAC7 PO; +NEURONTIN 300300 MG PO; +VALTREX1000 MG PO
--- NOTE | 2018-08-04 04:50 | NUR ---
PT UP TO BSC, LIQUID DIARHEA NOTED, WITH BLACK PARTICALS NOTED
[2018-08-04 04:53] LABS: BASOPHILS 0.5 % (0-2); EOSINOPHILS 0.4 % (0-7); HEMOGLOBIN 8.8 g/dL (12-16); IMMATURE GRANULOCYTES 0.5 % (0-5); LYMPHOCYTES 19.6 % (15-50); MCH 23.3 pg (26.0-34.0); MCHC 29.3 g/dL (31.0-37.0); MCV 79.4 fL (80.0-100.0); MEAN PLATELET VOLUME 11.4 fL (7.4-10.4); MONOCYTES 4.7 % (2-11); NEUTROPHILS 74.3 % (40-80); PLATELET COUNT 300 10x3/uL (130-400); RBC 3.78 10x6/uL (4.00-5.40); WBC 7.9 10x3/uL (4.8-10.8)
[2018-08-04 05:01] LABS: ALBUMIN 2.6 g/dL (3.4-5.0); ALKALINE PHOSPHATASE 84 U/L (46-116); ALT (SGPT) 19 U/L (10-68); BILIRUBIN - TOTAL 0.24 mg/dL (0.2-1.3); CALC OSMOLALITY 293 mosm/kg (275-300); CALCIUM 8.5 mg/dL (8.5-10.1); CARBON DIOXIDE 28.5 mmol/L (21.0-32.0); CHLORIDE - SERUM 102 mmol/L (98-107); CREATININE - SERUM 1.1 mg/dL (0.6-1.3); GLUCOSE 204 mg/dL (74-106); POTASSIUM - SERUM 3.6 mmol/L (3.5-5.1); PROTEIN - SERUM 6.1 g/dL (6.4-8.2); SODIUM 138 mmol/L (136-145); UREA NITROGEN 47 mg/dL (7-18); eGFR NON AFRICAN AMERICAN 51 mL/min (90-120)
[2018-08-04 05:13] LABS: CKMB 0.5 U/L (0.0-3.6); CREATINE KINASE 14 UL (21-215); LIPASE 72 U/L (73-393); MAGNESIUM - SERUM 1.5 mg/dL (1.8-2.4); PRO BNP 92 pg/mL (0-450); TROPONIN-I < 0.017 ng/mL (0.000-0.060)
[2018-08-04 05:15] LABS: APTT 35.2 SECONDS (22.8-39.4)
[2018-08-04 05:20] LABS: INR 2.22 (0.85-1.17)
--- NOTE | 2018-08-04 07:16 | NUR ---
1ST UNIT OF BLOOD HUNG AND STARTED AT 0715.
[2018-08-04 07:17] LABS: HEMATOCRIT 27.3 % (36.0-48.0); HEMOGLOBIN 8.1 g/dL (12-16)
--- NOTE | 2018-08-04 08:35 | NUR ---
PT ARRIVED TO UNIT AT THIS TIME FROM ER VIA BED. NO ACUTE DISTRESS NOTED. PT ALERT AND ORIENTED. RECIEVING FIRST OF 2 ORDERED UNITS OF BLOOD. VS; 160/99, 93 SINUS, 96.2 ORAL TEMP, RR 14, PULSE OX 97% TO ROOM AIR. WILL CONTINUE PLAN OF CARE.
--- NOTE | 2018-08-04 09:22 | NUR ---
BEATTY PLACED AT THIS TIME PER PHYSICIAN ORDER FOR ACCURATE I&O. CLEAR YELLOW URINE FLOWING INTO CLOSED CONTAINER. NO ACUTE DISTRSES NOTED. WILL CONTINUE PLAN OF CARE.
[2018-08-04 17:41] LABS: INR 1.19 (0.85-1.17); PROTIME 14.6 SECONDS (11.6-15.0)
--- NOTE | 2018-08-04 19:00 | NUR ---
RECEIVED PATIENT FROM RN, DEMARIO X4. INITIAL SHIFT ASSESSMENT COMPLETED, SEE FLOWSHEET. VSS. WILL MONITOR CLOSELY THROUGH OUT THE NIGHT.
[2018-08-04 19:21] LABS: HEMATOCRIT 28.9 % (36.0-48.0); HEMOGLOBIN 9.2 g/dL (12-16)
--- NOTE | 2018-08-04 21:00 | NUR ---
PATIENT REQUESTED SOTALOL, DR. ARIAS PAGED/CALLED AND MED RESTARTED. VSS. WILL CTM.
[2018-08-04 22:51] LABS: APPEARANCE CLEAR (CLEAR); COLOR YELLOW (YELLOW); NITRITE NEGATIVE (NEGATIVE)
[2018-08-04 22:52] LABS: BILIRUBIN NEGATIVE (NEGATIVE); GLUCOSE NEGATIVE (NEGATIVE); KETONE NEGATIVE (NEGATIVE); PROTEIN TRACE mg/dL (NEGATIVE); UROBILINOGEN NORMAL (NORMAL)
[2018-08-04 22:53] LABS: BACTERIA MODERATE /hpf (NONE SEEN); EPITHELIAL CELLS 0-5 /hpf (0-5); RED CELLS - URINE 0-5 /hpf (0-5); WHITE CELLS - URINE 0-5 /hpf (0-5)
--- NOTE | 2018-08-04 23:00 | NUR ---
REASSESSMENT COMPLETED, SEE FLOWSHEET. PATIENT C/O PAIN IN HIPS AND PAINFUL RASH ON CHEST, ARMS AND BACK-MDS AWARE. NO PAIN MEDS ORDERED AT THIS TIME. PATIENT STATES THAT SHE WOULD TRY AND WAIT UNTIL MORNING BECAUSE SHE DID NOT WANT TO WAKE A DOCTOR. WILL CTM CLOSELY.
[2018-08-05] VITALS (9 sets, daily range): BP systolic 85–119; BP diastolic 32–60; Ht 172.7 cm; Wt 122.7 kg
--- NOTE | 2018-08-05 01:00 | NUR ---
PATIENT APPEARS TO BE RESTING COMFORTABLY. NO ACUTE CHANGES NOTED AT THIS TIME. VSS. WILL CTM.
--- NOTE | 2018-08-05 03:00 | NUR ---
PATIENT FOUND CRYING IN PAIN AROUND 0230. BULLION WEIGHER, DR. BUSTAMANTE STATED IT WAS OK TO RESTART PATIENT'S HOME MED NORCO, SEE MAR. REASSESSMENT COMPLETED, SEE FLOWSHEET. VSS. WILL CTM.
[2018-08-05 04:27] LABS: BASOPHILS 0.3 % (0-2); EOSINOPHILS 1.2 % (0-7); HEMATOCRIT 25.7 % (36.0-48.0); HEMOGLOBIN 8.1 g/dL (12-16); IMMATURE GRANULOCYTES 0.7 % (0-5); LYMPHOCYTES 27.8 % (15-50); MCH 24.9 pg (26.0-34.0); MCHC 31.5 g/dL (31.0-37.0); MCV 79.1 fL (80.0-100.0); MEAN PLATELET VOLUME 10.9 fL (7.4-10.4); MONOCYTES 7.4 % (2-11); NEUTROPHILS 62.6 % (40-80); RBC 3.25 10x6/uL (4.00-5.40); RDW 19.3 % (11.5-14.5); WBC 7.4 10x3/uL (4.8-10.8)
[2018-08-05 04:29] LABS: INR 1.16 (0.85-1.17); PROTIME 14.3 SECONDS (11.6-15.0)
[2018-08-05 04:35] LABS: PLATELET COUNT 235 10x3/uL (130-400)
[2018-08-05 04:37] LABS: ANION GAP 10.5 mmol/L (8-16); CALCIUM 7.9 mg/dL (8.5-10.1); CARBON DIOXIDE 27.4 mmol/L (21.0-32.0); CREATININE - SERUM 0.9 mg/dL (0.6-1.3)
[2018-08-05 04:42] LABS: POTASSIUM - SERUM 2.9 mmol/L (3.5-5.1)
--- NOTE | 2018-08-05 05:00 | NUR ---
PATIENT APPEARS TO BE RESTING COMFORTABLY. NO COMPLAINTS AT THIS TIME. VSS. WILL CTM.
--- NOTE | 2018-08-05 07:00 | NUR ---
SHIFT ASSESSMENT COMPLETED, PT CARE ASSUMED. MONITORS ON AND WORKING. BEATTY STAT LOCKED IN PLACE, PT AWAKE AND ALERT. CALL LIGHT WITHIN REACH, WILL CONTINUE TO OBSERVE.
--- NOTE | 2018-08-05 09:00 | NUR ---
ORDERS REC'D TO TRANSFER PT TO FLOOR, WILL TRANSFER WHEN ROOM BECOMES AVAILABLE, NO SIGNS/SYMPTOMS OF PAIN OR DISCOMFORT NOTED AT THIS TIME, CALL LIGHT WITHIN REACH, WILL CONTINUE TO OBSERVE.
--- NOTE | 2018-08-05 09:00 | NUR ---
HOME HEALTH CARE PHYSICIAN COMPLETE. NO SIGNS OF DISTRESS NOTED. DENIES NEEDS AT THIS TIME.
--- NOTE | 2018-08-05 20:00 | NUR ---
ASSESSMENT PER FLOWSHEET. PATIENT IS IN DROPLET ISOLATION FOR SHINGLES. IV PATENT LEFT HAND SALINE LOCKED. ALERT/ORIENTED X 3. DENIES NEEDS SR UP X2 CALL LIGHT WITHIN REACH.
--- NOTE | 2018-08-05 21:40 | NUR ---
C/O PAIN ALL OVER BODY. NORCO 10 TAB ONE PO GIVEN FOR PAIN CONTROL.
--- NOTE | 2018-08-05 23:00 | NUR ---
RESTING QUIETLY STATES PAIN PILL DID HELP ALOT.
[2018-08-06 00:31] VITALS: BP 115/80
--- NOTE | 2018-08-06 01:02 | NUR ---
EYES CLOSED RESPIRATIONS WITH EASE AND UNLABORED.
[2018-08-06 04:34] VITALS: BP 136/41
--- NOTE | 2018-08-06 06:18 | NUR ---
MEDS GIVEN PER SEP. SR UP X2 CALL LIGHT WITHIN REACH.
[2018-08-06 06:20] LABS: BASOPHILS 0.3 % (0-2); EOSINOPHILS 2.4 % (0-7); HEMATOCRIT 28.5 % (36.0-48.0); HEMOGLOBIN 8.8 g/dL (12-16); IMMATURE GRANULOCYTES 0.8 % (0-5); LYMPHOCYTES 38.3 % (15-50); MCH 25.3 pg (26.0-34.0); MCHC 30.9 g/dL (31.0-37.0); MEAN PLATELET VOLUME 11.1 fL (7.4-10.4); MONOCYTES 8.1 % (2-11); NEUTROPHILS 50.1 % (40-80); PLATELET COUNT 218 10x3/uL (130-400); RBC 3.48 10x6/uL (4.00-5.40); RDW 19.4 % (11.5-14.5); WBC 5.9 10x3/uL (4.8-10.8)
[2018-08-06 06:35] LABS: MCV 81.9 fL (80.0-100.0)
[2018-08-06 07:11] LABS: ANION GAP 13.5 mmol/L (8-16); CALCIUM 8.5 mg/dL (8.5-10.1); CARBON DIOXIDE 24.8 mmol/L (21.0-32.0); CREATININE - SERUM 0.9 mg/dL (0.6-1.3); POTASSIUM - SERUM 3.3 mmol/L (3.5-5.1)
[2018-08-06 10:55] VITALS: BP 115/49
[2018-08-06 12:09] VITALS: BP 108/45
--- NOTE | 2018-08-06 12:39 | NUR ---
NUTRITION F/U PT REMAINS IN ISOLATION, TOLERATING AHA DIET WITH 50% INTAKE RECENT MEALS. WILL CONTINUE TO PROVIDE DIET, MONITOR PO INTAKE. RD FOLLOWING
--- NOTE | 2018-08-06 12:47 | MORECARE ---
CASE MANAGEMENT DISCHARGE SUMMARY PATIENT: JORGE JULIO UNIT: [id number] ADM DATE: 08/04/18 AGE: 78 : 42 SEX: F ROOM/BED: D.2222 AUTHOR: TANNA JOHNSON PHYSICIAN: REFERRING PHYSICIAN: STAS ARIAS MD DATE OF SERVICE: 08/06/18 Discharge Plan Patient Name: JORGE JULIO [facility] [facility] 1940 Planned Disposition: Anticipated Discharge Date: Discharge Date: Expected LOS: Initial Reviewer: [email or web address] Initial Review Date: 08/04/2018 Generated: 08/06/18 1:46 pm Comments DCP- Discharge Planning Updated by [email or web address]: Tamara Flores on 08/06/18 11:[address] Attempted to meet with patient, she is sleeping. I will check back later today. CM will continue to follow and assist with discharge planning/needs. Patient Name: JORGE JULIO Page [phone] at 1247 All edits/amendments must be made on the electronic document DICTATION DATE: 08/06/18 1246 PAPER SALES REPRESENTATIVE: JACOB 08/06/18 1246 RPT#: [id number] DC DATE: STATUS: ADM IN [facility] [address] [place] [address] END OF REPORT
--- NOTE | 2018-08-06 15:13 | MORECARE ---
CASE MANAGEMENT DISCHARGE SUMMARY PATIENT: JORGE JULIO UNIT: [id number] ADM DATE: 08/04/18 AGE: 78 : 42 SEX: F ROOM/BED: D.2222 AUTHOR: TANNA JOHNSON PHYSICIAN: REFERRING PHYSICIAN: STAS ARIAS MD DATE OF SERVICE: 08/06/18 Discharge Plan Patient Name: JORGE JULIO [facility] [facility] 1940 Planned Disposition: Home Anticipated Discharge Date: Discharge Date: Expected LOS: Initial Reviewer: [email or web address] Initial Review Date: 08/04/2018 Generated: 08/06/18 4:13 pm Comments DCP- Discharge Planning Updated by [email or web address]: Tamara Flores on 08/06/18 11:[address] Attempted to meet with patient, she is sleeping. I will check back later today. CM will continue to follow and assist with discharge planning/needs. Last DP export: 08/06/18 11:46 a Patient Name: JORGE JULIO Page [phone] at 1513 All edits/amendments must be made on the electronic document DICTATION DATE: 08/06/181512 LITHOGRAPHIC PROOFER APPRENTICE: JACOB 08/06/181512 RPT#: [id number] DC DATE: STATUS: ADM IN [facility] [address] [place] [address] END OF REPORT
--- NOTE | 2018-08-06 15:25 | MORECARE ---
CASE MANAGEMENT DISCHARGE SUMMARY PATIENT: JORGE MUJICA UNIT: [id number] ADM DATE: 08/04/18 AGE: 78 : 42 SEX: F ROOM/BED: D.2222 AUTHOR: TANNA JOHNSON PHYSICIAN: REFERRING PHYSICIAN: STAS ARIAS MD DATE OF SERVICE: 08/06/18 Discharge Plan Patient Name: JORGE MUJICA Facility: [facility]:[place] : 1940 Planned Disposition: Home with Home Health Anticipated Discharge Date: Discharge Date: Expected LOS: Initial Reviewer: [email or web address] Initial Review Date: 08/04/2018 Generated: 08/06/18 4:25 pm Comments DCP- Discharge Planning Updated by [email or web address]: Tamara Flores on 08/06/18 11:[address] Attempted to meet with patient, she is sleeping. I will check back later today. CM will continue to follow and assist with discharge planning/needs. DCPIA - Discharge Planning Initial Assessment Updated by [email or web address]: Tamara Flores on 08/06/18 3:17 pm * Is the patient Alert and Oriented? Yes * How many steps to enter\exit or inside your home? 1/0 * PCP Dr. Arias * Pharmacy [facility] on [address] * Preadmission Environment Home with Family * ADLs Partial Dependent * Partial ADLs (Assistance needed) Ambulation * Equipment CPAP Shower Chair Walker Wheelchair * List name and contact numbers for known caregivers / representatives who currently or will assist patient after discharge: Hellen Elena - Grand daughter - [phone] Manuel Mujica - son - [phone] * Verbal permission to speak to the caregivers and representatives has been obtained from the patient. Yes * Community resources currently utilized None * Additional services required to return to the preadmission environment? Yes * Can the patient safely return to the preadmission environment? Yes * Has this patient been hospitalized within the prior 30 days at any hospital? Yes Last DP export: 08/06/18 2:13 p Patient Name: JORGE MUJICA Page [phone] at 1525 All edits/amendments must be made on the electronic document DICTATION DATE: 08/06/181524 DATA ACQUISITION TECHNICIAN: JACOB 08/06/18 152 RPT#: [id number] DC DATE: STATUS: ADM IN [facility] [address] [place] [address] END OF REPORT
--- NOTE | 2018-08-06 15:30 | NUR ---
PATIENT FIRST UNIT OF BLOOD INFUSING. LASIX GIVEN BEFORE STARTING PER DR. NATION. IV INTACT. NO COMPLAINTS. CALL LIGHT WITHIN REACH. VS STABLE.
--- NOTE | 2018-08-06 15:43 | MORECARE ---
CASE MANAGEMENT DISCHARGE SUMMARY PATIENT: JORGE MUJICA UNIT: [id number] ADM DATE: 08/04/18 AGE: 78 : 42 SEX: F ROOM/BED: D.2222 AUTHOR: ALEX,DOC PHYSICIAN: REFERRING PHYSICIAN: STAS ARIAS MD DATE OF SERVICE: 08/06/18 Discharge Plan Patient Name: JORGE MUJICA Facility: [facility]:[place] : 1940 Planned Disposition: Home with Home Health Anticipated Discharge Date: Discharge Date: Expected LOS: Initial Reviewer: [email or web address] Initial Review Date: 08/04/2018 Generated: 08/06/18 4:43 pm Comments DCP- Discharge Planning Updated by [email or web address]: Tamara Flores on 08/06/18 2:[address] Patient Name: JORGE MUJICA Admission Status: ER Accout number: [id number] Admission Date: 08-04-2018 : 1940 Admission Diagnosis: Attending: STAS ARIAS Current LOS: 2 Anticipated DC Date: Planned Disposition: Home with Home Health Primary Insurance: [facility] MEDICARE SOLUTIONS Discharge Planning Comments: CM met with patient to discuss discharge planning, she is alone in the room. She states she lives with her son, grand daughter and her , her 2 great grandchildren (ages 3 and 5). States she ambulates with her walker, otherwise is independent with ADL's. States she does drive some, her grand daughter usually takes her to her doctor appointments. She has a CPAP that she got 5-7 years ago, but states she does not use it. States she had [facility] and was just released from their care but would like it resumed. I did discuss inpatient rehab and skilled facilities and she declines. States "I can safely go home with home health helping me, I have plenty of help at home." CM will continue to follow and assist with discharge planning/needs. Martial Arts Instructor: Tamara Flores DCP- Discharge Planning Updated by [email or web address]: Tamara Flores on 08/06/18 11:[address] Attempted to meet with patient, she is sleeping. I will check back later today. CM will continue to follow and assist with discharge planning/needs. DCPIA - Discharge Planning Initial Assessment Updated by [email or web address]: Tamara Flores on 08/06/18 3:17 pm * Is the patient Alert and Oriented? Yes * How many steps to enter\\exit or inside your home? 1/0 * PCP Dr. Arias * Pharmacy [facility] [address] * Preadmission Environment Home with Family * ADLs Partial Dependent * Partial ADLs (Assistance needed) Ambulation * Equipment CPAP Shower Chair Walker Wheelchair * List name and contact numbers for known caregivers / representatives who currently or will assist patient after discharge: Hellen Kassy - Grand daughter - [phone] Manuel Mujica - son - [phone] * Verbal permission to speak to the caregivers and representatives has been obtained from the patient. Yes * Community resources currently utilized None * Additional services required to return to the preadmission environment? Yes * Can the patient safely return to the preadmission environment? Yes * Has this patient been hospitalized within the prior 30 days at any hospital? Yes Last DP export: 08/06/18 2:25 p Patient Name: JORGE MUJICA Page [id number] at 1543 All edits/amendments must be made on the electronic document DICTATION DATE: 08/06/181541 ANIMAL TAXONOMIST: JACOB 08/06/181541 RPT#: [id number] DC DATE: STATUS: ADM IN [facility] [address] [place] [address] END OF REPORT
--- NOTE | 2018-08-06 15:52 | MORECARE ---
CASE MANAGEMENT DISCHARGE SUMMARY PATIENT: JORGE MUJICA UNIT: [id number] ADM DATE: 08/04/18 AGE: 78 : 42 SEX: F ROOM/BED: D.2222 AUTHOR: ALEXDOC PHYSICIAN: REFERRING PHYSICIAN: STAS ARIAS MD DATE OF SERVICE: 08/06/18 Discharge Plan Patient Name: JORGE MUJICA Facility: [facility]:[place] : 1940 Planned Disposition: Home with Home Health Anticipated Discharge Date: Discharge Date: Expected LOS: Initial Reviewer: [email or web address] Initial Review Date: 08/04/2018 Generated: 08/06/18 4:51 pm Comments DCP- Discharge Planning Updated by [email or web address]: Tamara Flores on 08/06/18 2:[address] Spoke with Monica at [employer] [facility] and clinical faxed. CM will continue to follow and assist with discharge planning/needs. DCP- Discharge Planning Updated by [email or web address]: Tamara Flores on 08/06/18 2:[address] Patient Name: JORGE MUJICA Admission Status: ER Accout number: [id number] Admission Date: 08-04-2018 : 1940 Admission Diagnosis: Attending: STAS ARIAS Current LOS: 2 Anticipated DC Date: Planned Disposition: Home with Home Health Primary Insurance: [facility] MEDICARE SOLUTIONS Discharge Planning Comments: CM met with patient to discuss discharge planning, she is alone in the room. She states she lives with her son, grand daughter and her , her 2 great grandchildren (ages 3 and 5). States she ambulates with her walker, otherwise is independent with ADL's. States she does drive some, her grand daughter usually takes her to her doctor appointments. She has a CPAP that she got 5-7 years ago, but states she does not use it. States she had [facility] and was just released from their care but would like it resumed. I did discuss inpatient rehab and skilled facilities and she declines. States "I can safely go home with home health helping me, I have plenty of help at home." CM will continue to follow and assist with discharge planning/needs. Faculty Administrator: Tamara Flores DCP- Discharge Planning Updated by [email or web address]: Tamara Flores on 08/06/18 11:[address] Attempted to meet with patient, she is sleeping. I will check back later today. CM will continue to follow and assist with discharge planning/needs. DCPIA - Discharge Planning Initial Assessment Updated by [id number]: Tamara Flores on 08/06/18 3:17 pm * Is the patient Alert and Oriented? Yes * How many steps to enter\\exit or inside your home? 1/0 * PCP Dr. Arias * Pharmacy [facility] [address] * Preadmission Environment Home with Family * ADLs Partial Dependent * Partial ADLs (Assistance needed) Ambulation * Equipment CPAP Shower Chair Walker Wheelchair * List name and contact numbers for known caregivers / representatives who currently or will assist patient after discharge: Hellen Elena - Grand daughter - [phone] Manuel Mujica - son - [phone] * Verbal permission to speak to the caregivers and representatives has been obtained from the patient. Yes * Community resources currently utilized None * Additional services required to return to the preadmission environment? Yes * Can the patient safely return to the preadmission environment? Yes * Has this patient been hospitalized within the prior 30 days at any hospital? Yes External Providers External Provider: [facility] Next Contact Date: Service Request Date: Service Type: Resolution: Reviewer: Comments: Last DP export: 08/06/18 2:43 p Patient Name: JORGE MUJICA Page [phone] at 1552 All edits/amendments must be made on the electronic document DICTATION DATE: 08/06/181550 RECRUITMENT DIRECTOR: JACOB 08/06/181550 RPT#: [id number] DC DATE: STATUS: ADM IN [facility] [address] [place] [address] END OF REPORT
--- NOTE | 2018-08-06 16:43 | NUR ---
PATIENT IV REMOVED WITH CATH TIP INTACT DUE TO LEAKING. RESTARTED IN RIGHT HAND X 1 STICK 20 G. PATIENT TOLERATED WITH SMALL AMOUNT OF PAIN. BLOOD INFUSING. VS STABLE. FAMILY AT BEDSIDE. CALL LIGHT WITHIN REACH.
--- NOTE | 2018-08-06 18:50 | NUR ---
PATIENT BLOOD FINISHED AT THIS TIME. IV INTACT. VS STABLE. NO COMPLAINTS OF PAIN OR SIGNS OF DISTRESS. CALL LIGHTW ITHIN REACH.
[2018-08-06 20:20] VITALS: BP 122/40
--- NOTE | 2018-08-06 22:00 | NUR ---
C/O DIZZINESS/SHAKINESS WHEN AMBULATION TO RESTROOM. INSTRUCTED TO USE CALL LIGHT BEFORE AMBULATION TO RESTROOM. VITAL SIGNS ARE STABLE, NO OTHER COMPLAINTS AT THIS TIME, WILL CONTINUE TO MONITOR.
[2018-08-06 23:37] VITALS: BP 131/54
--- NOTE | 2018-08-07 02:16 | NUR ---
ASSESSED, PT IS IN DROPLET ISOLATION AND HAS A UNIT OF BLOOD INFUSING. NURSE IS IN ROOM AT THIS TIME. EASY RESPIRATIONS AND NO DISTRESS NOTED.
--- NOTE | 2018-08-07 03:06 | NUR ---
PT ADMITS DIZZINESS/SHAKING. VS STABLE, INFORMED TO CHANGE POSITIONS SLOWLY AND UTILIZE CL.
[2018-08-07 04:08] LABS: HEMATOCRIT 33.3 % (36.0-48.0); MCHC 32.4 g/dL (31.0-37.0); MCV 83.3 fL (80.0-100.0); MEAN PLATELET VOLUME 11.3 fL (7.4-10.4); PLATELET COUNT 237 10x3/uL (130-400); RDW 18.6 % (11.5-14.5)
[2018-08-07 04:13] LABS: HEMOGLOBIN 10.8 g/dL (12-16); WBC 7.7 10x3/uL (4.8-10.8)
[2018-08-07 04:34] LABS: ANION GAP 11.8 mmol/L (8-16); CALCIUM 8.2 mg/dL (8.5-10.1); CARBON DIOXIDE 27.7 mmol/L (21.0-32.0); CREATININE - SERUM 0.9 mg/dL (0.6-1.3); POTASSIUM - SERUM 3.5 mmol/L (3.5-5.1)
[2018-08-07 05:01] LABS: BASOPHILS 1 % (0-2); EOSINOPHILS 2 % (0-7); LYMPHOCYTES 21 % (15-50); MONOCYTES 7 % (2-11); NEUTROPHILS 69 % (40-80); PLATELET ESTIMATE NORMAL
[2018-08-07 05:53] VITALS: BP 109/55; BP 130/86
[2018-08-07 07:30] VITALS: BP 130/90
--- NOTE | 2018-08-07 11:17 | NUR ---
ISLATION DISCONTINUED D/T SHINGLES ARE DRY WITH SCABS, PER INFECTION CONTROL NURSE
--- NOTE | 2018-08-07 11:25 | NUR ---
IV SITE TENDER WITH EDEMA NOTED. IV DISCONTINUED WITH CATH INTACT, PATIENT REQUEST NOT TO HAVE IV RESTARTED AT THIS TIME
[2018-08-07 13:37] VITALS: BP 102/38
[2018-08-07 17:45] VITALS: BP 140/57
--- NOTE | 2018-08-07 19:15 | NUR ---
RECEIVED CARE FROM DAY NURSE. SITTING UP IN BED WITH CALL LIGHT AT SIDE. REPORTS NO NEEDS AT THIS TIME. NO IV.
[2018-08-07 20:00] VITALS: BP 104/65
[2018-08-08 00:41] VITALS: BP 110/44
[2018-08-08 05:25] VITALS: BP 110/73
[2018-08-08 06:41] LABS: ANION GAP 14.7 mmol/L (8-16); CALCIUM 8.3 mg/dL (8.5-10.1); CARBON DIOXIDE 24.8 mmol/L (21.0-32.0); CREATININE - SERUM 0.9 mg/dL (0.6-1.3); POTASSIUM - SERUM 3.5 mmol/L (3.5-5.1)
--- NOTE | 2018-08-08 08:08 | NUR ---
AWAKE AND ALERT. ORIENTED X3. NO C/O AT THIS TIME. LUNGS ARE CLEAR BUT DIMINISHED IN UPPER LOBES. NO COUGH NOTED. SKIN IS INTACT WITHOUT REDNESS. NO IV AT THIS TIME. DENIES NEEDS.
[2018-08-08 08:57] VITALS: BP 130/40
[2018-08-08] MEDS ORDERED: PROTONIX40 MG PO (09:26)
[2018-08-08] MEDS ORDERED: POTASSIUM CHLOR8 ME1 PO (09:28)
[2018-08-08 09:35] LABS: BASOPHILS 0.3 % (0-2); EOSINOPHILS 2.3 % (0-7); HEMATOCRIT 35.5 % (36.0-48.0); HEMOGLOBIN 11.2 g/dL (12-16); IMMATURE GRANULOCYTES 0.7 % (0-5); LYMPHOCYTES 23.9 % (15-50); MCH 26.4 pg (26.0-34.0); MCHC 31.5 g/dL (31.0-37.0); MCV 83.7 fL (80.0-100.0); MEAN PLATELET VOLUME 10.3 fL (7.4-10.4); MONOCYTES 9.9 % (2-11); NEUTROPHILS 62.9 % (40-80); PLATELET COUNT 239 10x3/uL (130-400); RBC 4.24 10x6/uL (4.00-5.40); RDW 19.5 % (11.5-14.5)
--- NOTE | 2018-08-08 10:00 | NUR ---
SITTING UP ON SIDE OF BED SEWING. DENIES NEEDS.
--- NOTE | 2018-08-08 10:05 | MORECARE ---
CASE MANAGEMENT DISCHARGE SUMMARY PATIENT: JORGE MUJICA UNIT: [id number] ADM DATE: 08/04/18 AGE: 78 : 42 SEX: F ROOM/BED: D.2222 AUTHOR: TANNA JOHNSON PHYSICIAN: REFERRING PHYSICIAN: STAS ARIAS MD DATE OF SERVICE: 08/08/18 Discharge Plan Patient Name: JORGE MUJICA Facility: [facility]:[place] : 1940 Planned Disposition: Home with Home Health Anticipated Discharge Date: 08/08/18 Discharge Date: Expected LOS: 4 Initial Reviewer: [email or web address] Initial Review Date: 08/04/2018 Generated: 08/08/18 11:04 am Comments DCP- Discharge Planning Updated by [email or web address]: Tamara Flores on 08/06/18 2:[address] Spoke with Monica at [facility] and clinical faxed. CM will continue to follow and assist with discharge planning/needs. DCP- Discharge Planning Updated by [email or web address]: Tamara Flores on 08/06/18 2:[address] Patient Name: JORGE MUJICA Admission Status: ER Accout number: [id number] Admission Date: 08-04-2018 : 1940 Admission Diagnosis: Attending: STAS ARIAS Current LOS: 2 Anticipated DC Date: Planned Disposition: Home with Home Health Primary Insurance: [facility] MEDICARE SOLUTIONS Discharge Planning Comments: CM met with patient to discuss discharge planning, she is alone in the room. She states she lives with her son, grand daughter and her , her 2 great grandchildren (ages 3 and 5). States she ambulates with her walker, otherwise is independent with ADL's. States she does drive some, her grand daughter usually takes her to her doctor appointments. She has a CPAP that she got 5-7 years ago, but states she does not use it. States she had [facility] and was just released from their care but would like it resumed. I did discuss inpatient rehab and skilled facilities and she declines. States "I can safely go home with home health helping me, I have plenty of help at home." CM will continue to follow and assist with discharge planning/needs. Carbon Brush Maker: Tamara Flores DCP- Discharge Planning Updated by [id number]: Tamara Flores on 08/06/18 11:[address] Attempted to meet with patient, she is sleeping. I will check back later today. CM will continue to follow and assist with discharge planning/needs. DCPIA - Discharge Planning Initial Assessment Updated by [id number]: Tamara Flores on 08/06/18 3:17 pm * Is the patient Alert and Oriented? Yes * How many steps to enter\\exit or inside your home? 1/0 * PCP Dr. Arias * Pharmacy [facility] [address] * Preadmission Environment Home with Family * ADLs Partial Dependent * Partial ADLs (Assistance needed) Ambulation * Equipment CPAP Shower Chair Walker Wheelchair * List name and contact numbers for known caregivers / representatives who currently or will assist patient after discharge: Hellen Elena - Grand daughter - [phone] Manuel Mujica - son - [phone] * Verbal permission to speak to the caregivers and representatives has been obtained from the patient. Yes * Community resources currently utilized None * Additional services required to return to the preadmission environment? Yes * Can the patient safely return to the preadmission environment? Yes * Has this patient been hospitalized within the prior 30 days at any hospital? Yes Coverage Notice Reviewer: [id number] - Ariana Chapin Notice Issued Date-Time: 08/08/2018 9:50 Notice Type: IM Discharge Notice Notice Delivered To: Patient Relationship to Patient: Crochet Machine Operator Name: Delivery Method: HAND - Hand Delivered Meka Days: Prior Verbal Notification: Recipient Understood Notice: Yes Recipient Signature: Yes Med Rec Note Co-signed by Attending: Coverage Notice Comment: DICHARGE IMM DELIVERED. CM EXPLAINED. PATIENT HAD NO QUESTIONS. SIGNATURE OBTAINED. COPY TO THE PATIENT. SIGNED COPY TO THE CHART Last DP export: 08/06/18 2:51 p Patient Name: JORGE MUJICA Page [id number] at 1005 All edits/amendments must be made on the electronic document DICTATION DATE: 08/08/18 1004 DRYWALL HANGER: JACOB 08/08/18 1004 RPT#: [id number] DC DATE: STATUS: ADM IN [facility] [address] [place] [address] END OF REPORT
--- NOTE | 2018-08-08 10:18 | MORECARE ---
CASE MANAGEMENT DISCHARGE SUMMARY PATIENT: JORGE MUJICA UNIT: [id number] ADM DATE: 08/04/18 AGE: 78 : 42 SEX: F ROOM/BED: D.2222 AUTHOR: TANNA JOHNSON PHYSICIAN: REFERRING PHYSICIAN: STAS ARIAS MD DATE OF SERVICE: 08/08/18 Discharge Plan Patient Name: JORGE MUJICA Facility: [facility]:[place] : 1940 Planned Disposition: Home with Home Health Anticipated Discharge Date: 08/08/18 Discharge Date: Expected LOS: 4 Initial Reviewer: [email or web address] Initial Review Date: 08/04/2018 Generated: 08/08/18 11:17 am Comments DCP- Discharge Planning Updated by [id number]: Ariana Chapin on 08/08/18 9:[address] PLAN FOR LATE DISCHARGE TODAY AFTER 1999 WHEN FAMILY WILL BE HOME. SHE WILL SEE HOW SHE FAIRS AT HOME. MAY CONSIDER SKILLED STAY AT THE [facility] IF NOT MANAGING WELL. HOME HEALTH FOR NURSING AND PHYSICAL THERAPY W/ [facility]. TC TO [facility] TO ADVISE OF DISCHARGE. WILL FAX DISCHARGE ORDERS WHEN RECEIVED. DCP- Discharge Planning Updated by [id number]: Tamara Flores on 08/06/18 2:[address] Spoke with Monica at [facility] and clinical faxed. CM will continue to follow and assist with discharge planning/needs. DCP- Discharge Planning Updated by [email or web address]: Tamara Flores on 08/06/18 2:[address] Patient Name: JORGE MUJICA Admission Status: ER Accout number: [id number] Admission Date: 08-04-2018 : 1940 Admission Diagnosis: Attending: STAS ARIAS Current LOS: 2 Anticipated DC Date: Planned Disposition: Home with Home Health Primary Insurance: [facility] MEDICARE SOLUTIONS Discharge Planning Comments: CM met with patient to discuss discharge planning, she is alone in the room. She states she lives with her son, grand daughter and her , her 2 great grandchildren (ages 3 and 5). States she ambulates with her walker, otherwise is independent with ADL's. States she does drive some, her grand daughter usually takes her to her doctor appointments. She has a CPAP that she got 5-7 years ago, but states she does not use it. States she had [facility] and was just released from their care but would like it resumed. I did discuss inpatient rehab and skilled facilities and she declines. States "I can safely go home with home health helping me, I have plenty of help at home." CM will continue to follow and assist with discharge planning/needs. Lacquer Maker: Tamara Flores DCP- Discharge Planning Updated by [email or web address]: Tamara Flores on 08/06/18 11:[address] Attempted to meet with patient, she is sleeping. I will check back later today. CM will continue to follow and assist with discharge planning/needs. DCPIA - Discharge Planning Initial Assessment Updated by [email or web address]: Tamara Flores on 08/06/18 3:17 pm * Is the patient Alert and Oriented? Yes * How many steps to enter\\exit or inside your home? 1/0 * PCP Dr. Arias * Pharmacy [facility] on [address] * Preadmission Environment Home with Family * ADLs Partial Dependent * Partial ADLs (Assistance needed) Ambulation * Equipment CPAP Shower Chair Walker Wheelchair * List name and contact numbers for known caregivers / representatives who currently or will assist patient after discharge: Hellen Elena - Grand daughter - [phone] Manuel Mujica - son - [phone] * Verbal permission to speak to the caregivers and representatives has been obtained from the patient. Yes * Community resources currently utilized None * Additional services required to return to the preadmission environment? Yes * Can the patient safely return to the preadmission environment? Yes * Has this patient been hospitalized within the prior 30 days at any hospital? Yes Coverage Notice Reviewer: [id number] - Ariana Chapin Notice Issued Date-Time: 08/08/2018 9:50 Notice Type: IM Discharge Notice Notice Delivered To: Patient Relationship to Patient: Institutional Nutrition Consultant Name: Delivery Method: HAND - Hand Delivered Meka Days: Prior Verbal Notification: Recipient Understood Notice: Yes Recipient Signature: Yes Med Rec Note Co-signed by Attending: Coverage Notice Comment: DICHARGE IMM DELIVERED. CM EXPLAINED. PATIENT HAD NO QUESTIONS. SIGNATURE OBTAINED. COPY TO THE PATIENT. SIGNED COPY TO THE CHART Last DP export: 08/08/18 9:04 a Patient Name: JORGE MUJICA Page 23981 at 1018 All edits/amendments must be made on the electronic document DICTATION DATE: 08/08/181016 READING TEACHER: JACOB 08/08/181016 RPT#: [id number] DC DATE: STATUS: ADM IN [facility] [address] [place] [address] END OF REPORT
[2018-08-08 12:55] VITALS: BP 133/54
--- NOTE | 2018-08-08 15:36 | NUR ---
RESTING QUIETLY IN BED. WAITING ON RIDE FOR DISCHARGE TO HOME. STATED THEY WON'T BE HERE UNTILL 7 OR 8 TONIGHT. DENIES NEEDS.
--- NOTE | 2018-08-08 19:16 | NUR ---
ATE ALL OF SUPPER. NO CHANGES NOTED. DENIES NEEDS.
--- NOTE | 2018-08-08 20:00 | NUR ---
KENDAL'D VIA ROSA.
--- NOTE | 2018-08-09 13:25 | MORECARE ---
CASE MANAGEMENT DISCHARGE SUMMARY PATIENT: JORGE MUJICA UNIT: [id number] ADM DATE: 08/04/18 AGE: 78 : 42 SEX: F ROOM/BED: D.2222 AUTHOR: ALEX,DOC PHYSICIAN: REFERRING PHYSICIAN: STAS ARIAS MD DATE OF SERVICE: 08/09/18 Discharge Plan Patient Name: JORGE MUJICA Facility: [facility]:[place] : 1940 Planned Disposition: Home with Home Health Anticipated Discharge Date: 08/08/18 Discharge Date: 08/08/2018 Expected LOS: 4 Initial Reviewer: [email or web address] Initial Review Date: 08/04/2018 Generated: 08/09/18 2:25 pm Comments DCP- Discharge Planning Updated by [email or web address]: Ariana Chapin on 08/09/18 12:[address] LATE ENTRY 08/08/181999 [facility] DOWN FOR UPDATE PATIENT DISCHARGED TO HOME W/ FAMILY AT 1999. CM FAXED DISCHARGE INSTRUCTION AND MED LIST TO [facility]. DCP- Discharge Planning Updated by [id number]: Ariana Chapin on 08/08/18 9:[address] PLAN FOR LATE DISCHARGE TODAY AFTER 1999 WHEN FAMILY WILL BE HOME. SHE WILL SEE HOW SHE FAIRS AT HOME. MAY CONSIDER SKILLED STAY AT THE [facility] IF NOT MANAGING WELL. HOME HEALTH FOR NURSING AND PHYSICAL THERAPY W/ [facility]. TC TO [facility] TO ADVISE OF DISCHARGE. WILL FAX DISCHARGE ORDERS WHEN RECEIVED. DCP- Discharge Planning Updated by [email or web address]: Tamara Flores on 08/06/18 2:[address] Spoke with Monica at [facility] and clinical faxed. CM will continue to follow and assist with discharge planning/needs. DCP- Discharge Planning Updated by [email or web address]: Tamara Flores on 08/06/18 2:[address] Patient Name: JORGE MUJICA Admission Status: ER Accout number: [id number] Admission Date: 08-04-2018 : 1940 Admission Diagnosis: Attending: STAS ARIAS Current LOS: 2 Anticipated DC Date: Planned Disposition: Home with Home Health Primary Insurance: [facility] MEDICARE SOLUTIONS Discharge Planning Comments: CM met with patient to discuss discharge planning, she is alone in the room. She states she lives with her son, grand daughter and her , her 2 great grandchildren (ages 3 and 5). States she ambulates with her walker, otherwise is independent with ADL's. States she does drive some, her grand daughter usually takes her to her doctor appointments. She has a CPAP that she got 5-7 years ago, but states she does not use it. States she had [facility] and was just released from their care but would like it resumed. I did discuss inpatient rehab and skilled facilities and she declines. States "I can safely go home with home health helping me, I have plenty of help at home." CM will continue to follow and assist with discharge planning/needs. Automotive Power Electronics Engineer: Tamara Flores DCP- Discharge Planning Updated by [id number]: Tamara Sandra on 08/06/18 11:[address] Attempted to meet with patient, she is sleeping. I will check back later today. CM will continue to follow and assist with discharge planning/needs. DCPIA - Discharge Planning Initial Assessment Updated by [email or web address]: Tamara Sandra on 08/06/18 3:17 pm * Is the patient Alert and Oriented? Yes * How many steps to enter\\exit or inside your home? 10 * PCP Dr. Arias * Pharmacy [facility] on [address] * Preadmission Environment Home with Family * ADLs Partial Dependent * Partial ADLs (Assistance needed) Ambulation * Equipment CPAP Shower Chair Walker Wheelchair * List name and contact numbers for known caregivers / representatives who currently or will assist patient after discharge: Hellen Elena - Grand daughter - [phone] Manuel Mujica - son - [phone] * Verbal permission to speak to the caregivers and representatives has been obtained from the patient. Yes * Community resources currently utilized None * Additional services required to return to the preadmission environment? Yes * Can the patient safely return to the preadmission environment? Yes * Has this patient been hospitalized within the prior 30 days at any hospital? Yes Coverage Notice Reviewer: [id number] - Ariana Chapin Notice Issued Date-Time: 08/08/2018 9:50 Notice Type: IM Discharge Notice Notice Delivered To: Patient Relationship to Patient: Rail Specialist Name: Delivery Method: HAND - Hand Delivered Meka Days: Prior Verbal Notification: Recipient Understood Notice: Yes Recipient Signature: Yes Med Rec Note Co-signed by Attending: Coverage Notice Comment: DICHARGE IMM DELIVERED. CM EXPLAINED. PATIENT HAD NO QUESTIONS. SIGNATURE OBTAINED. COPY TO THE PATIENT. SIGNED COPY TO THE CHART Last DP export: 08/08/18 9:17 a Patient Name: JORGE MUJICA Page 61668 at 1325 All edits/amendments must be made on the electronic document DICTATION DATE: 08/09/18 1325 GENETIC COORDINATOR: JACOB 08/09/18 1325 RPT#: [id number] DC DATE:08/08/18 STATUS: DIS IN [facility] [address] [place] [address] END OF REPORT
--- NOTE | 2018-08-10 16:56 | MORECARE ---
CASE MANAGEMENT DISCHARGE SUMMARY PATIENT: JORGE MUJICA UNIT: [id number] ADM DATE: 08/04/18 AGE: 78 : 42 SEX: F ROOM/BED: D.2222 AUTHOR: ALEX,DOC PHYSICIAN: REFERRING PHYSICIAN: STAS ARIAS MD DATE OF SERVICE: 08/10/18 Discharge Plan Patient Name: JORGE MUJICA Facility: [facility]:[place] : 1940 Planned Disposition: Home with Home Health Anticipated Discharge Date: 08/08/18 Discharge Date: 08/08/2018 Expected LOS: 4 Initial Reviewer: [email or web address] Initial Review Date: 08/04/2018 Generated: 08/10/18 5:55 pm Comments DCP- Discharge Planning Updated by [email or web address]: Ariana Chapin on 08/09/18 12:[address] LATE ENTRY 08/08/181999 [facility] DOWN FOR UPDATE PATIENT DISCHARGED TO HOME W/ FAMILY AT 1999. CM FAXED DISCHARGE INSTRUCTION AND MED LIST TO [facility]. DCP- Discharge Planning Updated by [email or web address]: Ariana Chapin on 08/08/18 9:[address] PLAN FOR LATE DISCHARGE TODAY AFTER 1999 WHEN FAMILY WILL BE HOME. SHE WILL SEE HOW SHE FAIRS AT HOME. MAY CONSIDER SKILLED STAY AT THE [facility] IF NOT MANAGING WELL. HOME HEALTH FOR NURSING AND PHYSICAL THERAPY W/ [facility]. TC TO [facility] TO ADVISE OF DISCHARGE. WILL FAX DISCHARGE ORDERS WHEN RECEIVED. DCP- Discharge Planning Updated by [email or web address]: Tamara Flores on 08/06/18 2:[address] Spoke with Monica at [facility] and clinical faxed. CM will continue to follow and assist with discharge planning/needs. DCP- Discharge Planning Updated by [email or web address]: Tamara Flores on 08/06/18 2:[address] Patient Name: JORGE MUJICA Admission Status: ER Accout number: [id number] Admission Date: 08-04-2018 : 1940 Admission Diagnosis: Attending: STAS ARIAS Current LOS: 2 Anticipated DC Date: Planned Disposition: Home with Home Health Primary Insurance: [facility] MEDICARE SOLUTIONS Discharge Planning Comments: CM met with patient to discuss discharge planning, she is alone in the room. She states she lives with her son, grand daughter and her , her 2 great grandchildren (ages 3 and 5). States she ambulates with her walker, otherwise is independent with ADL's. States she does drive some, her grand daughter usually takes her to her doctor appointments. She has a CPAP that she got 5-7 years ago, but states she does not use it. States she had [facility] and was just released from their care but would like it resumed. I did discuss inpatient rehab and skilled facilities and she declines. States "I can safely go home with home health helping me, I have plenty of help at home." CM will continue to follow and assist with discharge planning/needs. Feller Buncher Operator: Tamara Flores DCP- Discharge Planning Updated by [email or web address]: Tamara Sandra on 08/06/18 11:[address] Attempted to meet with patient, she is sleeping. I will check back later today. CM will continue to follow and assist with discharge planning/needs. DCPIA - Discharge Planning Initial Assessment Updated by [email or web address]: Tamara Sandra on 08/06/18 3:17 pm * Is the patient Alert and Oriented? Yes * How many steps to enter\\exit or inside your home? 10 * PCP Dr. Arias * Pharmacy [facility] [address] * Preadmission Environment Home with Family * ADLs Partial Dependent * Partial ADLs (Assistance needed) Ambulation * Equipment CPAP Shower Chair Walker Wheelchair * List name and contact numbers for known caregivers / representatives who currently or will assist patient after discharge: Hellen Elena - Grand daughter - [phone] Manuel Mujica - son - [phone] * Verbal permission to speak to the caregivers and representatives has been obtained from the patient. Yes * Community resources currently utilized None * Additional services required to return to the preadmission environment? Yes * Can the patient safely return to the preadmission environment? Yes * Has this patient been hospitalized within the prior 30 days at any hospital? Yes Coverage Notice Reviewer: [id number] - Ariana Chapin Notice Issued Date-Time: 08/08/2018 9:50 Notice Type: IM Discharge Notice Notice Delivered To: Patient Relationship to Patient: Marine Firer Name: Delivery Method: HAND - Hand Delivered Meka Days: Prior Verbal Notification: Recipient Understood Notice: Yes Recipient Signature: Yes Med Rec Note Co-signed by Attending: Coverage Notice Comment: DICHARGE IMM DELIVERED. CM EXPLAINED. PATIENT HAD NO QUESTIONS. SIGNATURE OBTAINED. COPY TO THE PATIENT. SIGNED COPY TO THE CHART Last DP export: 08/09/18 12:25 p Patient Name: JORGE MUJICA Page [id number] at 1656 All edits/amendments must be made on the electronic document DICTATION DATE: 08/10/181654 YARDER ENGINEER: JACOB 08/10/181654 RPT#: [id number] DC DATE:08/08/18 STATUS: DIS IN [facility] [address] [place] [address] END OF REPORT
== END 2018-08-08 20:00 | disposition home health service (06) | DRG 378 ==
LOC: D.ER 03:58 → D.EDHOLD 06:32 → D.ICU 06:32 → D.MS 08-05 13:37
PROVIDERS: Family Medicine; Internal Medicine Gastroenterology; ADMIT Family Medicine
PROC: 0DJ08ZZ Inspection of Upper Intestinal Tract, Via Natural or Artificial Opening Endoscopic (ICD-10-PCS; principal; 2018-08-04 15:37)
DX: K25.4 Chronic or unspecified gastric ulcer with hemorrhage (principal); D62 Acute posthemorrhagic anemia; I27.82 Chronic pulmonary embolism; K44.9 Diaphragmatic hernia without obstruction or gangrene; K29.70 Gastritis, unspecified, without bleeding; K57.10 Diverticulosis of small intestine without perforation or abscess without bleeding; E11.9 Type 2 diabetes mellitus without complications; I11.0 Hypertensive heart disease with heart failure; I50.9 Heart failure, unspecified; E87.6 Hypokalemia; Z79.01 Long term (current) use of anticoagulants

== ENCOUNTER 2018-08-16 11:56 | Inpatient (IN) | payer MEDICARE ==
[2018-08-16] VITALS (10 sets, daily range): BP systolic 115–162; BP diastolic 39–95; BMI 41.7
[~2018-08-16] VITALS: Ht 172.7 cm; Wt 124.5 kg
[~2018-08-16 11:56] MED LIST changes: +POTASSIUM CHLOR8 ME1 PO
[2018-08-16] MEDS ORDERED: XARELTO10 MG (12:04)
[2018-08-16 13:08] LABS: BASOPHILS 0.5 % (0-2); EOSINOPHILS 0.7 % (0-7); IMMATURE GRANULOCYTES 0.4 % (0-5); LYMPHOCYTES 21.1 % (15-50); MCH 26.8 pg (26.0-34.0); MCHC 30.6 g/dL (31.0-37.0); MCV 87.6 fL (80.0-100.0); MEAN PLATELET VOLUME 10.6 fL (7.4-10.4); MONOCYTES 7.6 % (2-11); NEUTROPHILS 69.7 % (40-80); RBC 4.11 10x6/uL (4.00-5.40); RDW 19.5 % (11.5-14.5); WBC 8.2 10x3/uL (4.8-10.8)
[2018-08-16 13:10] LABS: PLATELET COUNT 304 10x3/uL (130-400)
--- NOTE | 2018-08-16 13:18 | NUR ---
POC OCCULT STOOL NEGATIVE.
[2018-08-16 13:23] LABS: ALKALINE PHOSPHATASE 99 U/L (46-116); ALT (SGPT) 17 U/L (10-68); CALCIUM 8.7 mg/dL (8.5-10.1); CARBON DIOXIDE 24.4 mmol/L (21.0-32.0); CHLORIDE - SERUM 104 mmol/L (98-107); POTASSIUM - SERUM 4.4 mmol/L (3.5-5.1); PROTEIN - SERUM 6.8 g/dL (6.4-8.2); SODIUM 138 mmol/L (136-145); UREA NITROGEN 20 mg/dL (7-18); eGFR NON AFRICAN AMERICAN 57 mL/min (90-120)
[2018-08-16 13:23] LABS: APPEARANCE CLEAR (CLEAR); COLOR YELLOW (YELLOW); GLUCOSE NEGATIVE (NEGATIVE); KETONE NEGATIVE (NEGATIVE); NITRITE NEGATIVE (NEGATIVE); PROTEIN 1+ mg/dL (NEGATIVE); UROBILINOGEN NORMAL (NORMAL)
[2018-08-16 13:24] LABS: BILIRUBIN NEGATIVE (NEGATIVE); RED CELLS - URINE 0-5 /hpf (0-5)
[2018-08-16 13:25] LABS: AMYLASE - SERUM 21 U/L (25-115); LIPASE 93 U/L (73-393)
[2018-08-16 13:25] LABS: AMORPHOUS SEDIMENT NONE SEEN /lpf (NONE SEEN); BACTERIA MODERATE /hpf (NONE SEEN); CALCIUM OXALATE CRYSTALS NONE SEEN /hpf (NONE SEEN); CHOLESTEROL CRYSTALS NONE SEEN /hpf (NONE SEEN); EPITHELIAL CELL CAST NONE SEEN /lpf (NONE SEEN); EPITHELIAL CELLS 0-5 /hpf (0-5); GRANULAR CAST NONE SEEN /lpf (NONE SEEN); HYALINE CAST NONE SEEN /lpf (NONE SEEN); MUCUS NONE SEEN /lpf (NONE SEEN); RED CELL CAST NONE SEEN /lpf (NONE SEEN); SPERMATOZOA NONE SEEN /hpf (NONE SEEN); TALC POWDER CRYSTALS NONE SEEN /hpf (NONE SEEN); TRIPLE PHOSPHATE CRYSTALS NONE SEEN /hpf (NONE SEEN); URIC ACID CRYSTALS NSEEN /hpf (NONE SEEN); WAXY CAST NONE SEEN /lpf (NONE SEEN); YEAST NONE SEEN /hpf (NONE SEEN)
[2018-08-16 13:30] LABS: CALC OSMOLALITY 282 mosm/kg (275-300); GLUCOSE 172 mg/dL (74-106); TROPONIN-I < 0.017 ng/mL (0.000-0.060)
[2018-08-16 18:56] LABS: HEMATOCRIT 38.1 % (36.0-48.0); HEMOGLOBIN 11.3 g/dL (12-16)
--- NOTE | 2018-08-16 19:58 | NUR ---
LAB CALLED ABOUT PT AND INR NEEDING TO BE DONE ON BLOOD THAT WAS DRAWN AT 1845 OR DRAW NOW FOR PHYSICIAN TO VIEW.
--- NOTE | 2018-08-16 20:12 | NUR ---
DR. MELISSA NOTIFIED OF H AND H RESULTS AND NEW ORDER GIVEN FOR FULL LIQUID DIET. WILL CONTINUE TO MONITOR.
[2018-08-16 20:35] LABS: INR 1.09 (0.85-1.17); PROTIME 13.6 SECONDS (11.6-15.0)
--- NOTE | 2018-08-16 20:37 | NUR ---
DR. GUERRA PAGED FOR PAIN MED PER PATIENT REQUEST FOR BACK PAIN.
--- NOTE | 2018-08-16 20:58 | NUR ---
2039-DR. GUERRA CALL BACK; ORDERS GIVEN FOR MEDS.
[2018-08-16 23:34] LABS: HEMATOCRIT 34.3 % (36.0-48.0); HEMOGLOBIN 10.5 g/dL (12-16)
[2018-08-17] VITALS (23 sets, daily range): BP systolic 97–173; BP diastolic 42–72; Ht 172.7 cm; Wt 124.5 kg
--- NOTE | 2018-08-17 04:55 | NUR ---
PATIENT STATES HER HIP IS HURTING THAT SHE "NEEDS A HIP REPLACEMENT". PATIENT ASK WHEN HER NORCO WAS DUE, PATIENT INFORMED. I TOLD PATIENT THAT SHE HAD MORPHINE ORDERED AND SHE STATED SHE WOULD JUST TRY THE HEATED BLANKET FOR NOW.
[2018-08-17 07:35] LABS: BASOPHILS 0.4 % (0-2); HEMATOCRIT 35.5 % (36.0-48.0); IMMATURE GRANULOCYTES 0.1 % (0-5); LYMPHOCYTES 33.9 % (15-50); MCH 26.8 pg (26.0-34.0); MCV 86.6 fL (80.0-100.0); MEAN PLATELET VOLUME 10.8 fL (7.4-10.4); MONOCYTES 8.4 % (2-11); NEUTROPHILS 55.2 % (40-80); PLATELET COUNT 314 10x3/uL (130-400); RDW 19.7 % (11.5-14.5); WBC 7.6 10x3/uL (4.8-10.8)
[2018-08-17 07:56] LABS: ALBUMIN 3.1 g/dL (3.4-5.0); ANION GAP 15.3 mmol/L (8-16); BILIRUBIN - TOTAL 0.48 mg/dL (0.2-1.3); CALCIUM 8.8 mg/dL (8.5-10.1); CARBON DIOXIDE 25.7 mmol/L (21.0-32.0); PROTEIN - SERUM 6.7 g/dL (6.4-8.2)
[2018-08-17 07:59] LABS: INR 1.1 (0.85-1.17); PROTIME 13.7 SECONDS (11.6-15.0)
--- NOTE | 2018-08-17 09:00 | NUR ---
DR HUGHES STAFF HERE TO SEE PATIENT.
--- NOTE | 2018-08-17 14:10 | NUR ---
PT ASSISTE DUP TO TOILET. URINATED ONLY
--- NOTE | 2018-08-17 16:55 | NUR ---
dr mckinley at bedside at this time.
--- NOTE | 2018-08-17 23:18 | NUR ---
PATIENT UP TO BATHROOM WITHOUT ASSIST AND TOLERATED WELL. PATIENT REQUESTED PAIN MED BEFORE BED FOR BACK AND HIP PAIN. MED GIVEN PER MD ORDER. WILL CONTINUE TO MONITOR.
[2018-08-18] VITALS (17 sets, daily range): BP systolic 122–161; BP diastolic 41–89
[2018-08-18 05:50] LABS: BASOPHILS 0.3 % (0-2); EOSINOPHILS 3.1 % (0-7); HEMATOCRIT 33.7 % (36.0-48.0); HEMOGLOBIN 10.3 g/dL (12-16); IMMATURE GRANULOCYTES 0.5 % (0-5); LYMPHOCYTES 27.5 % (15-50); MCH 26.5 pg (26.0-34.0); MCHC 30.6 g/dL (31.0-37.0); MCV 86.9 fL (80.0-100.0); MONOCYTES 8.3 % (2-11); NEUTROPHILS 60.3 % (40-80); PLATELET COUNT 302 10x3/uL (130-400); RBC 3.88 10x6/uL (4.00-5.40); RDW 19.4 % (11.5-14.5); WBC 6.2 10x3/uL (4.8-10.8)
[2018-08-18 06:00] LABS: ANION GAP 13.2 mmol/L (8-16); CALCIUM 8.4 mg/dL (8.5-10.1); CARBON DIOXIDE 26.8 mmol/L (21.0-32.0); CREATININE - SERUM 1.1 mg/dL (0.6-1.3)
--- NOTE | 2018-08-18 12:00 | NUR ---
PT ASSISTED UP FROM BED TO TOILET. LINENS CHANGED ON BED. PT NOW IN CHAIR AT BEDSIDE. LUNCH TRAY PROVIDED.
--- NOTE | 2018-08-18 13:08 | NUR ---
PT ASSISTED UP FROM CHAIR TO TOILET. URINATED ONLY. THEN ASSISTED TO BED SHE REQUESTED.
[2018-08-19 03:00] VITALS: BP 153/65
[2018-08-19 05:39] LABS: BASOPHILS 0.7 % (0-2); EOSINOPHILS 3.3 % (0-7); HEMATOCRIT 34.1 % (36.0-48.0); HEMOGLOBIN 10.4 g/dL (12-16); IMMATURE GRANULOCYTES 0.3 % (0-5); LYMPHOCYTES 29.1 % (15-50); MCH 26.5 pg (26.0-34.0); MCHC 30.5 g/dL (31.0-37.0); MEAN PLATELET VOLUME 10.6 fL (7.4-10.4); MONOCYTES 8.7 % (2-11); NEUTROPHILS 57.9 % (40-80); PLATELET COUNT 282 10x3/uL (130-400); RBC 3.92 10x6/uL (4.00-5.40); RDW 19.5 % (11.5-14.5); WBC 5.8 10x3/uL (4.8-10.8)
[2018-08-19 06:03] LABS: ANION GAP 13.3 mmol/L (8-16); CALCIUM 8.6 mg/dL (8.5-10.1); CARBON DIOXIDE 26.6 mmol/L (21.0-32.0); POTASSIUM - SERUM 3.9 mmol/L (3.5-5.1)
[2018-08-19 07:00] VITALS: BP 155/71
--- NOTE | 2018-08-19 07:00 | NUR ---
ASSESSMENT COMPLETE PER FLOWSHEET. VOICES NO CO AT TIME.
--- NOTE | 2018-08-19 08:00 | NUR ---
UP TO CHAIR FOR BREAKFAST.
--- NOTE | 2018-08-19 11:37 | MORECARE ---
CASE MANAGEMENT DISCHARGE SUMMARY PATIENT: JORGE JULIO UNIT: [id number] ADM DATE: 08/16/18 AGE: 78 : 42 SEX: F ROOM/BED: [facility] AUTHOR: TANNA JOHNSON PHYSICIAN: REFERRING PHYSICIAN: STAS ARIAS MD DATE OF SERVICE: 08/19/18 Discharge Plan Patient Name: JORGE JULIO [facility] [facility] 1940 Planned Disposition: Home Anticipated Discharge Date: Discharge Date: Expected LOS: Initial Reviewer: [email or web address] Initial Review Date: 08/16/2018 Generated: 08/19/18 12:37 pm Patient Name: JORGE JULIO Page [id number] at 1137 All edits/amendments must be made on the electronic document DICTATION DATE: 08/19/181136 SYSTEM CONSULTANT: JACOB 08/19/18 1137 RPT#: [id number] DC DATE: STATUS: ADM IN [facility] [address] [place] [address] END OF REPORT
--- NOTE | 2018-08-19 11:46 | MORECARE ---
CASE MANAGEMENT DISCHARGE SUMMARY PATIENT: JORGE JULIO UNIT: [id number] ADM DATE: 08/16/18 AGE: 78 : 42 SEX: F ROOM/BED: [facility] AUTHOR: TANNA JOHNSON PHYSICIAN: REFERRING PHYSICIAN: STAS ARIAS MD DATE OF SERVICE: 08/19/18 Discharge Plan Patient Name: JORGE JULIO [facility] [facility] 1940 Planned Disposition: Home Anticipated Discharge Date: Discharge Date: Expected LOS: Initial Reviewer: [email or web address] Initial Review Date: 08/16/2018 Generated: 08/19/18 12:46 pm DCPIA - Discharge Planning Initial Assessment Updated by [email or web address]: Jeaan Cedillo on 08/19/18 11:45 am * Is the patient Alert and Oriented? Yes * How many steps to enter\exit or inside your home? * PCP JUANA * Pharmacy [facility] [address] * Preadmission Environment Home with Family * ADLs Partial Dependent * Partial ADLs (Assistance needed) Toileting Transfers * Other Equipment WALKER, SHOWER CHAIR, BEDSIDE COMMODE * List name and contact numbers for known caregivers / representatives who currently or will assist patient after discharge: GENET MEYERS- [phone] * Verbal permission to speak to the caregivers and representatives has been obtained from the patient. N/A * Community resources currently utilized None * Additional services required to return to the preadmission environment? No * Can the patient safely return to the preadmission environment? Yes * Has this patient been hospitalized within the prior 30 days at any hospital? Yes Last DP export: 08/19/18 10:37 a Patient Name: JORGE JULIO Page 32360 at 1146 All edits/amendments must be made on the electronic document DICTATION DATE: 08/19/18 1146 LABELLING MACHINE OPERATOR: JACOB 08/19/18 1146 RPT#: [id number] DC DATE: STATUS: ADM IN [facility] [address] [place] [address] END OF REPORT
--- NOTE | 2018-08-19 12:31 | MORECARE ---
CASE MANAGEMENT DISCHARGE SUMMARY PATIENT: JORGE JULOI UNIT: [id number] ADM DATE: 08/16/18 AGE: 78 : 42 SEX: F ROOM/BED: [facility] AUTHOR: TANNA JOHNSON PHYSICIAN: REFERRING PHYSICIAN: STAS ARIAS MD DATE OF SERVICE: 08/19/18 Discharge Plan Patient Name: JORGE JULIO Facility: [facility]:[place] : 1940 Planned Disposition: Home with Home Health Anticipated Discharge Date: Discharge Date: Expected LOS: Initial Reviewer: [email or web address] Initial Review Date: 08/16/2018 Generated: 08/19/18 1:31 pm DCPIA - Discharge Planning Initial Assessment Updated by [email or web address]: Jeana Cedillo on 08/19/18 11:45 am * Is the patient Alert and Oriented? Yes * How many steps to enter\exit or inside your home? * PCP JUANA * Pharmacy [facility] [address] * Preadmission Environment Home with Family * ADLs Partial Dependent * Partial ADLs (Assistance needed) Toileting Transfers * Other Equipment WALKER, SHOWER CHAIR, BEDSIDE COMMODE * List name and contact numbers for known caregivers / representatives who currently or will assist patient after discharge: GENET MEYERS- [phone] * Verbal permission to speak to the caregivers and representatives has been obtained from the patient. N/A * Community resources currently utilized None * Additional services required to return to the preadmission environment? No * Can the patient safely return to the preadmission environment? Yes * Has this patient been hospitalized within the prior 30 days at any hospital? Yes Last DP export: 08/19/18 10:46 a Patient Name: JORGE JULIO Page 75897 at 1231 All edits/amendments must be made on the electronic document DICTATION DATE: 08/19/18 1230 FEEDER SWITCHBOARD OPERATOR: JACOB 08/19/18 1230 RPT#: [id number] DC DATE: STATUS: ADM IN [facility] [address] [place] [address] END OF REPORT
--- NOTE | 2018-08-19 12:43 | MORECARE ---
CASE MANAGEMENT DISCHARGE SUMMARY PATIENT: JORGE JULIO UNIT: [id number] ADM DATE: 08/16/18 AGE: 78 : 42 SEX: F ROOM/BED: [facility] AUTHOR: ALEXDOC PHYSICIAN: REFERRING PHYSICIAN: STAS ARIAS MD DATE OF SERVICE: 08/19/18 Discharge Plan Patient Name: JORGE JULIO Facility: [facility]:[place] : 1940 Planned Disposition: Home with Home Health Anticipated Discharge Date: Discharge Date: Expected LOS: Initial Reviewer: [email or web address] Initial Review Date: 08/16/2018 Generated: 08/19/18 1:43 pm Comments DCP- Discharge Planning Updated by [email or web address]: Jeana Cedillo on 08/19/18 11:[address] Patient Name: JORGE JULIO Admission Status: ER Accout number: [id number] Admission Date: 08-16-2018 : 1940 Admission Diagnosis:CHRONIC OR UNSPECIFIED GASTRIC ULCER WITH HEMORRHAGE Attending: STAS ARIAS Current LOS: 3 Anticipated DC Date: Planned Disposition: Home with Home Health Primary Insurance: [facility] MEDICARE SOLUTIONS Discharge Planning Comments: CM met with patient to discuss discharge planning, she is alone in the room. She states she lives with her son, grand daughter and her , her 2 great grandchildren (ages 3 and 5). States she ambulates with her walker, otherwise is independent with ADL's. She has a CPAP that she got 5-7 years ago, but states she does not use it. Patient states she would like a hospital bed it would help with her back pain. She also states that she has been wanting a motorized wheelchair but can't get doctor to write an order for it. States she had [facility] and was just released from their care but would like it resumed. CM will continue to follow and assist as needed with discharge planning / needs. . Lithostripper: Jeana Cedillo DCPIA - Discharge Planning Initial Assessment Updated by [email or web address]: Jeana Cedillo on 08/19/18 11:45 am * Is the patient Alert and Oriented? Yes * How many steps to enter\exit or inside your home? * PCP JUANA * Pharmacy [facility] [address] * Preadmission Environment Home with Family * ADLs Partial Dependent * Partial ADLs (Assistance needed) Toileting Transfers * Other Equipment WALKER, SHOWER CHAIR, BEDSIDE COMMODE * List name and contact numbers for known caregivers / representatives who currently or will assist patient after discharge: GENET MEYERS- [phone] * Verbal permission to speak to the caregivers and representatives has been obtained from the patient. N/A * Community resources currently utilized None * Additional services required to return to the preadmission environment? No * Can the patient safely return to the preadmission environment? Yes * Has this patient been hospitalized within the prior 30 days at any hospital? Yes Last DP export: 08/19/18 11:31 a Patient Name: JORGE JULIO Page 39883 at 1243 All edits/amendments must be made on the electronic document DICTATION DATE: 08/19/18 1242 VALIDATION INTERN: JACOB 08/19/18 1242 RPT#: [id number] DC DATE: STATUS: ADM IN [facility] [address] [place] [address] END OF REPORT
[2018-08-19 13:00] VITALS: BP 136/72
--- NOTE | 2018-08-19 13:24 | NUR ---
Pt is on a diabetic diet with 100% intake of all meals yesterday Pt reports eating well Pt states that metformin has been stopped however her BG continues to run between 95-152. Pt hopes she will not have to restart this drug. Pt reports she is careful with diet at home and focuses on following a low sodium diet. RD following
[2018-08-19 15:00] VITALS: BP 129/53
--- NOTE | 2018-08-19 16:30 | NUR ---
SITTING UP ON SIDE OF BED EATING SUPPER.
--- NOTE | 2018-08-19 16:55 | NUR ---
DR NATION HERE SEEING PT.
--- NOTE | 2018-08-19 18:06 | NUR ---
UP TO USE BATHROOM. NO CO AT TIME.
[2018-08-19 19:01] VITALS: BP 137/59
--- NOTE | 2018-08-19 19:04 | NUR ---
BEDSIDE SHIFT REPORT GIVEN BY DEPARTING RN. PT LAYING IN BED WATCHING TV. AAOX4. BEBO. ASSESSMENT COMPLETE AT THIS TIME. SEE FLOWSHEET FOR FULL DETAILS. SAFETY MEASURES IN PLACE. CBIR.
--- NOTE | 2018-08-19 20:26 | NUR ---
HS MEDS GIVEN WITHOUT DIFFICULTY. SWALLOWED PO MEDS WITH WATER. PRN PAIN MED GIVEN FOR BACK PAIN RATING A 8/10 ON NUMERIC PAIN SCALE. SEE MAR FOR FULL DETAILS.
--- NOTE | 2018-08-19 22:45 | NUR ---
PT ARRIVED TO FLOOR VIA WHEELCHAIR ESCORTED BY ICU STAFF. PT IS ALERT AND ORIENTED AND UP ADLIB. PT UPSET UPON ARRIVAL TO THE FLOOR. ICU NURSE REPORTED OPEN SORES ON BACK AND CHEST. SORES ARE CRUSTED OVER . 20G IV INFILTRATED AND DC'D WITH CATHETER TIP IN PLACE. PT DENIES ANY PAIN OR NEEDS AT THIS TIME. BED LOW CALL LIGHT WITHIN REACH. WILL CONTINUE TO MONITOR.
[2018-08-19 23:01] VITALS: BP 144/55
--- NOTE | 2018-08-19 23:24 | NUR ---
REPORT GIVEN TO [facility] 2 KIKA JIN USING SBAR. ALL QUESTIONS ANSWERED.
[2018-08-20] VITALS: BP 141/98
[2018-08-20 04:00] VITALS: BP 102/75
[2018-08-20 06:10] LABS: ANION GAP 11.9 mmol/L (8-16); CALCIUM 8.3 mg/dL (8.5-10.1); CARBON DIOXIDE 27.9 mmol/L (21.0-32.0); CREATININE - SERUM 0.9 mg/dL (0.6-1.3); POTASSIUM - SERUM 3.8 mmol/L (3.5-5.1)
[2018-08-20 06:13] LABS: HEMATOCRIT 32.7 % (36.0-48.0); HEMOGLOBIN 9.9 g/dL (12-16); MCH 26.3 pg (26.0-34.0); MCHC 30.3 g/dL (31.0-37.0); MCV 86.7 fL (80.0-100.0); MEAN PLATELET VOLUME 11.2 fL (7.4-10.4); PLATELET COUNT 290 10x3/uL (130-400); RBC 3.77 10x6/uL (4.00-5.40); RDW 19.5 % (11.5-14.5); WBC 5.4 10x3/uL (4.8-10.8)
--- NOTE | 2018-08-20 07:15 | NUR ---
ASSESSMENT DONE. DENIES NEEDS.
[2018-08-20 07:24] LABS: EOSINOPHILS 1 % (0-7); LYMPHOCYTES 31 % (15-50); MONOCYTES 6 % (2-11); NEUTROPHILS 59 % (40-80); PLATELET ESTIMATE NORMAL
--- NOTE | 2018-08-20 07:30 | NUR ---
RESTING QUIETLY NAD NOTED
[2018-08-20 08:02] VITALS: BP 145/46
--- NOTE | 2018-08-20 08:49 | NUR ---
CALLED DR. HUGHES'S OFFICE LEFT MESSAGE WITH KASSIDY WHO WILL HAVE GILSON CALL BACK WITH RECOMMENDATIONS FOR FOLLOW UP
--- NOTE | 2018-08-20 11:06 | NUR ---
DC GIVEN TO PT
--- NOTE | 2018-08-20 11:06 | MORECARE ---
CASE MANAGEMENT DISCHARGE SUMMARY PATIENT: JORGE JULIO UNIT: [id number] ADM DATE: 08/16/18 AGE: 78 : 42 SEX: F ROOM/BED: D.2105 AUTHOR: TANNA JOHNSON PHYSICIAN: REFERRING PHYSICIAN: STAS ARIAS MD DATE OF SERVICE: 08/20/18 Discharge Plan Patient Name: JORGE JULIO Facility: [facility]:[place] : 1940 Planned Disposition: Home with Home Health Anticipated Discharge Date: Discharge Date: Expected LOS: Initial Reviewer: [email or web address] Initial Review Date: 08/16/2018 Generated: 08/20/18 12:06 pm Comments DCP- Discharge Planning Updated by [email or web address]: Jeana Cedillo on 08/19/18 11:[address] Patient Name: JORGE JULIO Admission Status: ER Accout number: [id number] Admission Date: 08-16-2018 : 1940 Admission Diagnosis:CHRONIC OR UNSPECIFIED GASTRIC ULCER WITH HEMORRHAGE Attending: STAS ARIAS Current LOS: 3 Anticipated DC Date: Planned Disposition: Home with Home Health Primary Insurance: [facility] MEDICARE SOLUTIONS Discharge Planning Comments: CM met with patient to discuss discharge planning, she is alone in the room. She states she lives with her son, grand daughter and her , her 2 great grandchildren (ages 3 and 5). States she ambulates with her walker, otherwise is independent with ADL's. She has a CPAP that she got 5-7 years ago, but states she does not use it. Patient states she would like a hospital bed it would help with her back pain. She also states that she has been wanting a motorized wheelchair but can't get doctor to write an order for it. States she had [facility] and was just released from their care but would like it resumed. CM will continue to follow and assist as needed with discharge planning / needs. . Fork Truck Operator: Jeana Cedillo DCPIA - Discharge Planning Initial Assessment Updated by [email or web address]: Jeana Cedillo on 08/19/18 11:45 am * Is the patient Alert and Oriented? Yes * How many steps to enter\exit or inside your home? * PCP JUANA * Pharmacy [facility] [address] * Preadmission Environment Home with Family * ADLs Partial Dependent * Partial ADLs (Assistance needed) Toileting Transfers * Other Equipment WALKER, SHOWER CHAIR, BEDSIDE COMMODE * List name and contact numbers for known caregivers / representatives who currently or will assist patient after discharge: GENET MEYERS- [phone] * Verbal permission to speak to the caregivers and representatives has been obtained from the patient. N/A * Community resources currently utilized None * Additional services required to return to the preadmission environment? No * Can the patient safely return to the preadmission environment? Yes * Has this patient been hospitalized within the prior 30 days at any hospital? Yes External Providers External Provider: [facility] Next Contact Date: 08/20/2018 Service Request Date: Service Type: Resolution: Reviewer: Comments: Anthony DP export: 08/19/18 11:43 a Patient Name: JORGE JULIO Page 99812 at 1106 All edits/amendments must be made on the electronic document DICTATION DATE: 08/20/18 1105 UNDERWATER HUNTER: JACOB 08/20/18 1105 RPT#: [id number] DC DATE: STATUS: ADM IN [facility] [address] [place] [address] END OF REPORT
--- NOTE | 2018-08-20 11:15 | MORECARE ---
CASE MANAGEMENT DISCHARGE SUMMARY PATIENT: JORGE JULIO UNIT: [id number] ADM DATE: 08/16/18 AGE: 78 : 42 SEX: F ROOM/BED: D.2106 AUTHOR: TANNA JOHNSON PHYSICIAN: REFERRING PHYSICIAN: STAS ARIAS MD DATE OF SERVICE: 08/20/18 Discharge Plan Patient Name: JORGE JULIO Facility: [facility]:[place] : 1940 Planned Disposition: Home with Home Health Anticipated Discharge Date: 08/20/18 Discharge Date: Expected LOS: 4 Initial Reviewer: [email or web address] Initial Review Date: 08/16/2018 Generated: 08/20/18 12:15 pm Comments DCP- Discharge Planning Updated by [email or web address]: Jeana Cedillo on 08/19/18 11:[address] Patient Name: JORGE JULIO Admission Status: ER Accout number: [id number] Admission Date: 08-16-2018 : 1940 Admission Diagnosis:CHRONIC OR UNSPECIFIED GASTRIC ULCER WITH HEMORRHAGE Attending: STAS ARIAS Current LOS: 3 Anticipated DC Date: Planned Disposition: Home with Home Health Primary Insurance: [facility] MEDICARE SOLUTIONS Discharge Planning Comments: CM met with patient to discuss discharge planning, she is alone in the room. She states she lives with her son, grand daughter and her , her 2 great grandchildren (ages 3 and 5). States she ambulates with her walker, otherwise is independent with ADL's. She has a CPAP that she got 5-7 years ago, but states she does not use it. Patient states she would like a hospital bed it would help with her back pain. She also states that she has been wanting a motorized wheelchair but can't get doctor to write an order for it. States she had [facility] and was just released from their care but would like it resumed. CM will continue to follow and assist as needed with discharge planning / needs. . Synthetic Soil Blocks Pulper: Jeana Cedillo DCPIA - Discharge Planning Initial Assessment Updated by [email or web address]: Jeana Cedillo on 08/19/18 11:45 am * Is the patient Alert and Oriented? Yes * How many steps to enter\exit or inside your home? * PCP JUANA * Pharmacy [facility] [address] * Preadmission Environment Home with Family * ADLs Partial Dependent * Partial ADLs (Assistance needed) Toileting Transfers * Other Equipment WALKER, SHOWER CHAIR, BEDSIDE COMMODE * List name and contact numbers for known caregivers / representatives who currently or will assist patient after discharge: GENET MEYERS- [phone] * Verbal permission to speak to the caregivers and representatives has been obtained from the patient. N/A * Community resources currently utilized None * Additional services required to return to the preadmission environment? No * Can the patient safely return to the preadmission environment? Yes * Has this patient been hospitalized within the prior 30 days at any hospital? Yes Last DP export: 08/20/18 10:06 a Patient Name: JORGE JULIO Page 87991 at 1115 All edits/amendments must be made on the electronic document DICTATION DATE: 08/20/181113 UNDERGROUND CONDUIT INSTALLER: JACOB 08/20/181113 RPT#: [id number] DC DATE: STATUS: ADM IN [facility] [address] [place] [address] END OF REPORT
--- NOTE | 2018-08-20 11:23 | MORECARE ---
CASE MANAGEMENT DISCHARGE SUMMARY PATIENT: JORGE JULIO UNIT: [id number] ADM DATE: 08/16/18 AGE: 78 : 42 SEX: F ROOM/BED: D.2107 AUTHOR: ALEX,DOC PHYSICIAN: REFERRING PHYSICIAN: STAS ARIAS MD DATE OF SERVICE: 08/20/18 Discharge Plan Patient Name: JORGE JULIO Facility: [facility]:[place] : 1940 Planned Disposition: Home with Home Health Anticipated Discharge Date: 08/20/18 Discharge Date: Expected LOS: 4 Initial Reviewer: [email or web address] Initial Review Date: 08/16/2018 Generated: 08/20/18 12:23 pm Comments DCP- Discharge Planning Updated by [email or web address]: Celso Guthrie on 08/20/18 10:[address] Patient Name: JORGE JULIO Encounter No: [id number] : 1940 Primary Insurance: [facility] MEDICARE SOLUTIONS Anticipated DC Date: 08-20-2018 Planned Disposition: Home with Home Health External Planned Provider: [facility] DCP follow-up note: CM RECEIVED HOME HEALTH AND DISCHARGE ORDER, MET WITH PT IN ROOM TO DISCUSS DISCHARGE NEEDS AND PLANNING. CM DISCUSSED AVAILABILITY OF HOME HEALTH, REHAB SERVICES AND MEDICAL EQUIPMENT. PT ASKED FOR HOME HEALTH WITH [employer], ASKED ABOUT HOSPITAL BED. CM ADVISD PT THAT CM REVIEWED CHART AND PT HAS NO OBVIOUS QUALIFYING DIAGNOSIS OR CRITERIA THAT WOULD ALLOW INSURANCE TO PAY FOR THE HOSPTIAL BED. PT DOES NOT WANT TO RENT ONE PRIVATELY AND WILL FOLLOW UP WITH HER PRIMARY DOCTOR ABOUT THIS ISSUE IF SHE WOULD LIKE TO PURSUE IT AT A LATER DATE. PT DENIES DISCHARGE FUTHER NEEDS. DAUGHTER TO TRANSPORT HOME AT DISCHARGE TODAY. CHOICE FOR [facility] SIGNED. IMPORTANT MESSAGE FROM MEDICARE PROVIDED AND EXPLAINED. CM CALLED [facility], , SPOKE TO BRYN, REFERRAL PROVIDED, BRYN WILL CALL CM BACK AFTER REVIEW OF REFERRAL, SHE WILL NEED TO ASK EDDY CURRENT INSPECTOR IF THEY WILL ACCEPT PT BACK DUE TO PAST NON COMPLIANCE/CHANGING OR REFUSING HOME HEALTH SERVICES. CM FAXED REFERRAL AND DISCHARGE INFORMATIONTO [facility] AT [phone]. CM WAITING ON RETURN CALL FROM [facility]. Celso Guthrie, CASE MANAGEMENT DCP- Discharge Planning Updated by [id number]: Jeana Cedillo on 08/19/18 11:[address] Patient Name: JORGE JULIO Admission Status: ER Accout number: [id number] Admission Date: 08-16-2018 : 1940 Admission Diagnosis:CHRONIC OR UNSPECIFIED GASTRIC ULCER WITH HEMORRHAGE Attending: STAS ARIAS Current LOS: 3 Anticipated DC Date: Planned Disposition: Home with Home Health Primary Insurance: [facility] MEDICARE SOLUTIONS Discharge Planning Comments: CM met with patient to discuss discharge planning, she is alone in the room. She states she lives with her son, grand daughter and her , her 2 great grandchildren (ages 3 and 5). States she ambulates with her walker, otherwise is independent with ADL's. She has a CPAP that she got 5-7 years ago, but states she does not use it. Patient states she would like a hospital bed it would help with her back pain. She also states that she has been wanting a motorized wheelchair but can't get doctor to write an order for it. States she had [facility] and was just released from their care but would like it resumed. CM will continue to follow and assist as needed with discharge planning / needs. . Oil Change Technician: Jeana Cedillo DCPIA - Discharge Planning Initial Assessment Updated by [email or web address]: Jeana Leblancr on 08/19/18 11:45 am * Is the patient Alert and Oriented? Yes * How many steps to enter\exit or inside your home? * PCP JUANA * Pharmacy [facility] [address] * Preadmission Environment Home with Family * ADLs Partial Dependent * Partial ADLs (Assistance needed) Toileting Transfers * Other Equipment WALKER, SHOWER CHAIR, BEDSIDE COMMODE * List name and contact numbers for known caregivers / representatives who currently or will assist patient after discharge: GENET WALLS-DAUGHTER- [phone] * Verbal permission to speak to the caregivers and representatives has been obtained from the patient. N/A * Community resources currently utilized None * Additional services required to return to the preadmission environment? No * Can the patient safely return to the preadmission environment? Yes * Has this patient been hospitalized within the prior 30 days at any hospital? Yes Coverage Notice Reviewer: [id number] - Celso uGthrie Notice Issued Date-Time: 08/20/2018 9:50 Notice Type: Patient Choice Letter Notice Delivered To: Patient Relationship to Patient: Hot Roller Name: Delivery Method: HAND - Hand Delivered Meka Days: Prior Verbal Notification: Recipient Understood Notice: Yes Recipient Signature: Yes Med Rec Note Co-signed by Attending: Coverage Notice Comment: [facility] Reviewer: [id number] Velma Guthrie Notice Issued Date-Time: 08/20/2018 9:50 Notice Type: IM Discharge Notice Notice Delivered To: Patient Relationship to Patient: Hot Roller Name: Delivery Method: HAND - Hand Delivered Meka Days: Prior Verbal Notification: Recipient Understood Notice: Yes Recipient Signature: Yes Med Rec Note Co-signed by Attending: Coverage Notice Comment: Last DP export: 08/20/18 10:15 a Patient Name: JORGE JULIO Page 34419 at 1123 All edits/amendments must be made on the electronic document DICTATION DATE: 08/20/181121 FILLING HAND: JACOB 08/20/18 112 RPT#: [id number] DC DATE: STATUS: ADM IN [facility] [address] [place] [address] END OF REPORT
[2018-08-20 11:25] VITALS: BP 105/54
--- NOTE | 2018-08-20 11:45 | NUR ---
DC HOME PER PERSONAL CAR
--- NOTE | 2018-08-20 15:40 | MORECARE ---
CASE MANAGEMENT DISCHARGE SUMMARY PATIENT: JORGE JULIO UNIT: [id number] ADM DATE: 08/16/18 AGE: 78 : 42 SEX: F ROOM/BED: D.2101 AUTHOR: ALEX,DOC PHYSICIAN: REFERRING PHYSICIAN: STAS ARIAS MD DATE OF SERVICE: 08/20/18 Discharge Plan Patient Name: JORGE JULIO Facility: [facility]:[place] : 1940 Planned Disposition: Home with Home Health Anticipated Discharge Date: 08/20/18 Discharge Date: 08/20/2018 Expected LOS: 4 Initial Reviewer: [email or web address] Initial Review Date: 08/16/2018 Generated: 08/20/18 4:39 pm Comments DCP- Discharge Planning Updated by [email or web address]: Celso Lewis on 08/20/18 2:[address] Patient Name: JORGE JULIO Encounter No: [id number] : 1940 Primary Insurance: [facility] MEDICARE SOLUTIONS Anticipated DC Date: 08-20-2018 Planned Disposition: Home with Home Health External Planned Provider: [facility] DCP follow-up note: CM RECEIVED HOME HEALTH AND DISCHARGE ORDER, MET WITH PT IN ROOM TO DISCUSS DISCHARGE NEEDS AND PLANNING. CM DISCUSSED AVAILABILITY OF HOME HEALTH, REHAB SERVICES AND MEDICAL EQUIPMENT. PT ASKED FOR HOME HEALTH WITH [facility], ASKED ABOUT HOSPITAL BED. CM ADVISD PT THAT CM REVIEWED CHART AND PT HAS NO OBVIOUS QUALIFYING DIAGNOSIS OR CRITERIA THAT WOULD ALLOW INSURANCE TO PAY FOR THE HOSPTIAL BED. PT DOES NOT WANT TO RENT ONE PRIVATELY AND WILL FOLLOW UP WITH HER PRIMARY DOCTOR ABOUT THIS ISSUE IF SHE WOULD LIKE TO PURSUE IT AT A LATER DATE. PT DENIES DISCHARGE FUTHER NEEDS. DAUGHTER TO TRANSPORT HOME AT DISCHARGE TODAY. CHOICE FOR [facility] SIGNED. IMPORTANT MESSAGE FROM MEDICARE PROVIDED AND EXPLAINED. CM CALLED [facility], , SPOKE TO BRYN, REFERRAL PROVIDED, BRYN WILL CALL CM BACK AFTER REVIEW OF REFERRAL, SHE WILL NEED TO ASK COLLEGE PROFESSOR IF THEY WILL ACCEPT PT BACK DUE TO PAST NON COMPLIANCE/CHANGING OR REFUSING HOME HEALTH SERVICES. CM FAXED REFERRAL AND DISCHARGE INFORMATIONTO [facility] AT [phone]. CM WAITING ON RETURN CALL FROM [facility]. Celso Lewis, CASE MANAGEMENT Appended by Celso Lewis on 08/20/2018 15:37 FELTING MACHINE OPERATOR: CM RECEIVED CALL FROM BRYN [facility], THEY WILL ACCEPT PT FOR HOME HEALTH SERVICES, WILL ADMIT TOMORROW. CELSO LEWIS CASE MANAGEMENT DCP- Discharge Planning Updated by [email or web address]: Jeana Cedillo on 08/19/18 11:[address] Patient Name: JORGE JULIO Admission Status: ER Accout number: [id number] Admission Date: 08-16-2018 : 1940 Admission Diagnosis:CHRONIC OR UNSPECIFIED GASTRIC ULCER WITH HEMORRHAGE Attending: STAS ARIAS Current LOS: 3 Anticipated DC Date: Planned Disposition: Home with Home Health Primary Insurance: [facility] MEDICARE SOLUTIONS Discharge Planning Comments: CM met with patient to discuss discharge planning, she is alone in the room. She states she lives with her son, grand daughter and her , her 2 great grandchildren (ages 3 and 5). States she ambulates with her walker, otherwise is independent with ADL's. She has a CPAP that she got 5-7 years ago, but states she does not use it. Patient states she would like a hospital bed it would help with her back pain. She also states that she has been wanting a motorized wheelchair but can't get doctor to write an order for it. States she had [facility] and was just released from their care but would like it resumed. CM will continue to follow and assist as needed with discharge planning / needs. . Water Tender: Jeana Cedillo DCPIA - Discharge Planning Initial Assessment Updated by [email or web address]: Jeana Cedillo on 08/19/18 11:45 am * Is the patient Alert and Oriented? Yes * How many steps to enter\exit or inside your home? * PCP JUANA * Pharmacy [facility] [address] * Preadmission Environment Home with Family * ADLs Partial Dependent * Partial ADLs (Assistance needed) Toileting Transfers * Other Equipment WALKER, SHOWER CHAIR, BEDSIDE COMMODE * List name and contact numbers for known caregivers / representatives who currently or will assist patient after discharge: GENET MEYERS- [phone] * Verbal permission to speak to the caregivers and representatives has been obtained from the patient. N/A * Community resources currently utilized None * Additional services required to return to the preadmission environment? No * Can the patient safely return to the preadmission environment? Yes * Has this patient been hospitalized within the prior 30 days at any hospital? Yes Coverage Notice Reviewer: [email or web address] Lewis Notice Issued Date-Time: 08/20/2018 9:50 Notice Type: Patient Choice Letter Notice Delivered To: Patient Relationship to Patient: Port Purser Name: Delivery Method: HAND - Hand Delivered Meka Days: Prior Verbal Notification: Recipient Understood Notice: Yes Recipient Signature: Yes Med Rec Note Co-signed by Attending: Coverage Notice Comment: [facility] Reviewer: [email or web address] Velma Lewis Notice Issued Date-Time: 08/20/2018 9:50 Notice Type: IM Discharge Notice Notice Delivered To: Patient Relationship to Patient: Port Purser Name: Delivery Method: HAND - Hand Delivered Meka Days: Prior Verbal Notification: Recipient Understood Notice: Yes Recipient Signature: Yes Med Rec Note Co-signed by Attending: Coverage Notice Comment: Last DP export: 08/20/18 10:23 a Patient Name: JORGE JULIO Page [id number] at 1540 All edits/amendments must be made on the electronic document DICTATION DATE: 08/20/18 153 ARTIST RELATIONSHIP MANAGER: JACOB 08/20/18 153 RPT#: [id number] DC DATE:08/20/18 STATUS: DIS IN [facility] [address] [place] [address] END OF REPORT
--- NOTE | 2018-08-21 07:50 | MORECARE ---
CASE MANAGEMENT DISCHARGE SUMMARY PATIENT: JORGE JULIO UNIT: [id number] ADM DATE: 08/16/18 AGE: 78 : 42 SEX: F ROOM/BED: D.2101 AUTHOR: ALEX,DOC PHYSICIAN: REFERRING PHYSICIAN: STAS ARIAS MD DATE OF SERVICE: 08/21/18 Discharge Plan Patient Name: JORGE JULIO Facility: [facility]:[place] : 1940 Planned Disposition: Home with Home Health Anticipated Discharge Date: 08/20/18 Discharge Date: 08/20/2018 Expected LOS: 4 Initial Reviewer: [email or web address] Initial Review Date: 08/16/2018 Generated: 08/21/18 8:50 am Comments DCP- Discharge Planning Updated by [email or web address]: Celso Lewis on 08/20/18 2:[address] Patient Name: JORGE JULIO Encounter No: [id number] : 1940 Primary Insurance: [facility] MEDICARE SOLUTIONS Anticipated DC Date: 08-20-2018 Planned Disposition: Home with Home Health External Planned Provider: [facility] DCP follow-up note: CM RECEIVED HOME HEALTH AND DISCHARGE ORDER, MET WITH PT IN ROOM TO DISCUSS DISCHARGE NEEDS AND PLANNING. CM DISCUSSED AVAILABILITY OF HOME HEALTH, REHAB SERVICES AND MEDICAL EQUIPMENT. PT ASKED FOR HOME HEALTH WITH [facility], ASKED ABOUT HOSPITAL BED. CM ADVISD PT THAT CM REVIEWED CHART AND PT HAS NO OBVIOUS QUALIFYING DIAGNOSIS OR CRITERIA THAT WOULD ALLOW INSURANCE TO PAY FOR THE HOSPTIAL BED. PT DOES NOT WANT TO RENT ONE PRIVATELY AND WILL FOLLOW UP WITH HER PRIMARY DOCTOR ABOUT THIS ISSUE IF SHE WOULD LIKE TO PURSUE IT AT A LATER DATE. PT DENIES DISCHARGE FUTHER NEEDS. DAUGHTER TO TRANSPORT HOME AT DISCHARGE TODAY. CHOICE FOR [facility] SIGNED. IMPORTANT MESSAGE FROM MEDICARE PROVIDED AND EXPLAINED. CM CALLED [facility], , SPOKE TO BRYN, REFERRAL PROVIDED, BRYN WILL CALL CM BACK AFTER REVIEW OF REFERRAL, SHE WILL NEED TO ASK SEARCH ANALYST IF THEY WILL ACCEPT PT BACK DUE TO PAST NON COMPLIANCE/CHANGING OR REFUSING HOME HEALTH SERVICES. CM FAXED REFERRAL AND DISCHARGE INFORMATIONTO [facility] AT [phone]. CM WAITING ON RETURN CALL FROM [facility]. Celso Lewis, CASE MANAGEMENT Appended by Celso Lewis on 08/20/2018 15:37 MANAGER MAC: CM RECEIVED CALL FROM BRYN [facility], THEY WILL ACCEPT PT FOR HOME HEALTH SERVICES, WILL ADMIT TOMORROW. CELSO LEWIS CASE MANAGEMENT DCP- Discharge Planning Updated by [email or web address]: Jeana Cedillo on 08/19/18 11:[address] Patient Name: JORGE JULIO Admission Status: ER Accout number: [id number] Admission Date: 08-16-2018 : 1940 Admission Diagnosis:CHRONIC OR UNSPECIFIED GASTRIC ULCER WITH HEMORRHAGE Attending: STAS ARIAS Current LOS: 3 Anticipated DC Date: Planned Disposition: Home with Home Health Primary Insurance: [facility] MEDICARE SOLUTIONS Discharge Planning Comments: CM met with patient to discuss discharge planning, she is alone in the room. She states she lives with her son, grand daughter and her , her 2 great grandchildren (ages 3 and 5). States she ambulates with her walker, otherwise is independent with ADL's. She has a CPAP that she got 5-7 years ago, but states she does not use it. Patient states she would like a hospital bed it would help with her back pain. She also states that she has been wanting a motorized wheelchair but can't get doctor to write an order for it. States she had [facility] and was just released from their care but would like it resumed. CM will continue to follow and assist as needed with discharge planning / needs. . Quitline Counselor: Jeana Cedillo DCPIA - Discharge Planning Initial Assessment Updated by [email or web address]: Jeana Cedillo on 08/19/18 11:45 am * Is the patient Alert and Oriented? Yes * How many steps to enter\exit or inside your home? * PCP JUANA * Pharmacy [facility] [address] * Preadmission Environment Home with Family * ADLs Partial Dependent * Partial ADLs (Assistance needed) Toileting Transfers * Other Equipment WALKER, SHOWER CHAIR, BEDSIDE COMMODE * List name and contact numbers for known caregivers / representatives who currently or will assist patient after discharge: GENET MEYERS- [phone] * Verbal permission to speak to the caregivers and representatives has been obtained from the patient. N/A * Community resources currently utilized None * Additional services required to return to the preadmission environment? No * Can the patient safely return to the preadmission environment? Yes * Has this patient been hospitalized within the prior 30 days at any hospital? Yes Coverage Notice Reviewer: [id number] Velma Lewis Notice Issued Date-Time: 08/20/2018 9:50 Notice Type: Patient Choice Letter Notice Delivered To: Patient Relationship to Patient: Administration Vice President Name: Delivery Method: HAND - Hand Delivered Meka Days: Prior Verbal Notification: Recipient Understood Notice: Yes Recipient Signature: Yes Med Rec Note Co-signed by Attending: Coverage Notice Comment: [facility] Reviewer: [id number] Velma Lewis Notice Issued Date-Time: 08/20/2018 9:50 Notice Type: IM Discharge Notice Notice Delivered To: Patient Relationship to Patient: Administration Vice President Name: Delivery Method: HAND - Hand Delivered Meka Days: Prior Verbal Notification: Recipient Understood Notice: Yes Recipient Signature: Yes Med Rec Note Co-signed by Attending: Coverage Notice Comment: Last DP export: 08/20/18 2:39 p Patient Name: JORGE JULIO Page [id number] at 0750 All edits/amendments must be made on the electronic document DICTATION DATE: 08/21/18749 ASSOCIATE STORE MANAGER: JACOB 08/21/18 075 RPT#: [id number] DC DATE:08/20/18 STATUS: DIS IN [facility] [address] [place] [address] END OF REPORT
== END 2018-08-20 11:45 | disposition home or self-care (01) | DRG 377 ==
LOC: D.ER 11:56 → D.CVICU 17:47 → D.ICU 08-17 13:56 → D.CVICU 08-17 14:00 → D.M2 08-19 23:29
PROVIDERS: Family Medicine; Internal Medicine Gastroenterology; ADMIT Family Medicine
DX: K25.4 Chronic or unspecified gastric ulcer with hemorrhage (principal); I26.99 Other pulmonary embolism without acute cor pulmonale; Z68.41 Body mass index [BMI] 40.0-44.9, adult; E11.9 Type 2 diabetes mellitus without complications; D64.9 Anemia, unspecified; G89.29 Other chronic pain; Z86.718 Personal history of other venous thrombosis and embolism; K44.9 Diaphragmatic hernia without obstruction or gangrene; Z79.01 Long term (current) use of anticoagulants; E66.01 Morbid (severe) obesity due to excess calories

== ENCOUNTER → 2018-09-10 12:43 | Outpatient (CLI) | payer MEDICARE ==
[2018-08-17 14:17] VITALS: BMI 41.6
[~2018-09-10 12:43] MED LIST changes: +XARELTO10 MG
== END | disposition home or self-care (01) ==
LOC: D.US 12:43
DX: I82.409 Acute embolism and thrombosis of unspecified deep veins of unspecified lower extremity (principal); I27.82 Chronic pulmonary embolism

== ENCOUNTER 2018-11-29 11:47 | Inpatient (IN) | payer MEDICARE ==
[~2018-11-29] VITALS: Ht 172.7 cm; Wt 127.5 kg
[2018-11-29 12:19] LABS: BASOPHILS 0.5 % (0-2); EOSINOPHILS 1.2 % (0-7); HEMATOCRIT 29.1 % (36.0-48.0); HEMOGLOBIN 8.5 g/dL (12-16); IMMATURE GRANULOCYTES 0.7 % (0-5); LYMPHOCYTES 22.8 % (15-50); MCH 22.4 pg (26.0-34.0); MCHC 29.2 g/dL (31.0-37.0); MCV 76.6 fL (80.0-100.0); MEAN PLATELET VOLUME 10.6 fL (7.4-10.4); NEUTROPHILS 66.8 % (40-80); PLATELET COUNT 338 10x3/uL (130-400); WBC 8.6 10x3/uL (4.8-10.8)
[2018-11-29 12:25] LABS: APTT 22.3 SECONDS (22.8-39.4); INR 1.03 (0.85-1.17)
[2018-11-29 12:31] LABS: ALBUMIN 3.2 g/dL (3.4-5.0); ANION GAP 14.7 mmol/L (8-16); BILIRUBIN - TOTAL 0.27 mg/dL (0.2-1.3); CARBON DIOXIDE 25.5 mmol/L (21.0-32.0); POTASSIUM - SERUM 4.2 mmol/L (3.5-5.1); PROTEIN - SERUM 6.7 g/dL (6.4-8.2)
[2018-11-29 13:12] VITALS: BP 126/90
[2018-11-29 13:14] LABS: % SATURATION 5 % (15-55); IRON 16 ug/dl (35-150); TOTAL IRON BIND CAPACITY 303 ug/dl (260-445); UNSAT IRON BIND CAPACITY 287 ug/dl (150-375)
[2018-11-29 16:41] VITALS: BP 143/60; BMI 42.8
[2018-11-29 20:00] VITALS: BP 112/57
[2018-11-29 23:09] LABS: HEMATOCRIT 29.3 % (36.0-48.0); HEMOGLOBIN 8.7 g/dL (12-16)
[2018-11-30] VITALS: BP 108/61
--- NOTE | 2018-11-30 00:46 | NUR ---
VITALS SIGNS STABLE PRIOR TO INFUSION. RESPIRATIONS 15, TEMP 98.3F. PRBC VERIFIED AND SPIKED BY RN. INFUSING AT 100MLs PER HOUR. NO IMMEDIATE REACTIONS VISIBLE, PT DENIES ANY FEELING OF DISCOMFORT. WILL CONTINUE TO MONITOR CLOSELY. PT DENIES FURTHER NEEDS AT THIS TIME. VITAL SIGNS REMAINING STABLE. 16 RESP. 98.4F.
[2018-11-30 03:00] VITALS: BP 101/64
[2018-11-30 05:14] LABS: BASOPHILS 0.5 % (0-2); EOSINOPHILS 3.1 % (0-7); HEMATOCRIT 32.1 % (36.0-48.0); HEMOGLOBIN 9.5 g/dL (12-16); IMMATURE GRANULOCYTES 0.4 % (0-5); LYMPHOCYTES 20.1 % (15-50); MCH 23.3 pg (26.0-34.0); MCHC 29.6 g/dL (31.0-37.0); MEAN PLATELET VOLUME 10.3 fL (7.4-10.4); NEUTROPHILS 65.9 % (40-80); RBC 4.07 10x6/uL (4.00-5.40); RDW 17.2 % (11.5-14.5); WBC 7.7 10x3/uL (4.8-10.8)
[2018-11-30 05:28] LABS: MCV 78.9 fL (80.0-100.0); PLATELET COUNT 249 10x3/uL (130-400)
--- NOTE | 2018-11-30 05:28 | NUR ---
I have reviewed this patient and I concur with the Shift Assessment completed by the Licensed Practical Nurse today this shift.
[2018-11-30 05:41] LABS: ANION GAP 11.7 mmol/L (8-16); CALCIUM 8.4 mg/dL (8.5-10.1); CARBON DIOXIDE 29.5 mmol/L (21.0-32.0); POTASSIUM - SERUM 4.2 mmol/L (3.5-5.1)
--- NOTE | 2018-11-30 08:00 | NUR ---
PATIENT BACK FROM EGD. VS STABLE. BP A LITTE LOW. ON POST OP VS Q 15 MIN. WILL CONTINUE TO MONITOR. NO COMPLAINTS OR SIGNS OF DISTRESS. CALL LIGHT WITHIN REACH. BSCDS ON AND WORKING.
--- NOTE | 2018-11-30 14:45 | NUR ---
PATIENT IN BED WITH EYES CLOSED RESTING QUIETLY. NO COMPLAINTS OR SIGNS OF DISTRESS. IV INTACT. CALL LIGHT WITHIN REACH.
[2018-11-30 15:06] VITALS: Ht 172.7 cm; Wt 127.5 kg
[2018-11-30 16:49] VITALS: BP 135/47
--- NOTE | 2018-11-30 17:52 | NUR ---
PATIENT IN BED WITH NO COMPLAINTS OR SIGNS OF DISTRESS. IV INTACT. CALL LIGHT WITHIN REACH.
[2018-11-30 18:00] VITALS: BP 137/55
[2018-12-01 01:06] VITALS: BP 117/53
--- NOTE | 2018-12-01 01:18 | NUR ---
MORPHINE 4MG IV GIVEN AT 1939 FOR PAIN 8 OF 10 ABD PAIN.RECHECK AT 2129 SLEEPING
--- NOTE | 2018-12-01 03:44 | NUR ---
RESTING IN BED ON RIGHT SIDE NO S/S OF DISTRESS RESPRATIONS EVEN AND UNLABORED.
[2018-12-01 04:18] LABS: BASOPHILS 0.1 % (0-2); EOSINOPHILS 1.6 % (0-7); HEMATOCRIT 29.5 % (36.0-48.0); HEMOGLOBIN 8.9 g/dL (12-16); IMMATURE GRANULOCYTES 0.7 % (0-5); LYMPHOCYTES 16.2 % (15-50); MCH 23.5 pg (26.0-34.0); MCHC 30.2 g/dL (31.0-37.0); MEAN PLATELET VOLUME 10.1 fL (7.4-10.4); MONOCYTES 9.2 % (2-11); NEUTROPHILS 72.2 % (40-80); PLATELET COUNT 243 10x3/uL (130-400); RBC 3.78 10x6/uL (4.00-5.40); RDW 17.6 % (11.5-14.5); WBC 8.5 10x3/uL (4.8-10.8)
[2018-12-01 04:36] LABS: ANION GAP 11.9 mmol/L (8-16); CREATININE - SERUM 1.1 mg/dL (0.6-1.3); POTASSIUM - SERUM 3.9 mmol/L (3.5-5.1)
[2018-12-01 05:56] VITALS: BP 117/63
--- NOTE | 2018-12-01 08:16 | NUR ---
PRBC STARTED AT THIS TIME BY RN. TOLERATED WELL AT THIS TIME. WILL CONTINUE TO OBSERVE FOR NEEDS. C/L IN REACH AT BEDSIDE.
[2018-12-01 09:13] VITALS: BP 127/53
--- NOTE | 2018-12-01 11:09 | NUR ---
PT REFUSED TO AM MEDICATION UNITL NOW D/T C/O ABD PAIN AND WANTING TO WAIT. C/L IN REACH AT BEDSIDE.
--- NOTE | 2018-12-01 13:05 | MORECARE ---
CASE MANAGEMENT DISCHARGE SUMMARY PATIENT: JORGE JULIO UNIT: [id number] ADM DATE: 11/29/18 AGE: 78 : 42 SEX: F ROOM/BED: D.2223 AUTHOR: TANNA JOHNSON PHYSICIAN: REFERRING PHYSICIAN: STAS ARIAS MD DATE OF SERVICE: 12/01/18 Discharge Plan Patient Name: JORGE JULIO [facility] [facility] 1940 Planned Disposition: Home with Home Health Anticipated Discharge Date: Discharge Date: Expected LOS: Initial Reviewer: [email or web address] Initial Review Date: 12/01/2018 Generated: 12/01/18 2:05 pm Patient Name: JORGE JULIO Page [id number] at 1305 All edits/amendments must be made on the electronic document DICTATION DATE: 12/01/18 1304 NEON TECHNICIAN: JACOB 12/01/18 1304 RPT#: [id number] DC DATE: STATUS: ADM IN [facility] [address] [place] [address] END OF REPORT
--- NOTE | 2018-12-01 13:12 | MORECARE ---
CASE MANAGEMENT DISCHARGE SUMMARY PATIENT: JORGE MUJICA UNIT: [id number] ADM DATE: 11/29/18 AGE: 78 : 42 SEX: F ROOM/BED: D.2223 AUTHOR: ALEX,DOC PHYSICIAN: REFERRING PHYSICIAN: STAS ARIAS MD DATE OF SERVICE: 12/01/18 Discharge Plan Patient Name: JORGE MUJICA Facility: [facility]:[place] : 1940 Planned Disposition: Home with Home Health Anticipated Discharge Date: Discharge Date: Expected LOS: Initial Reviewer: [email or web address] Initial Review Date: 12/01/2018 Generated: 12/01/18 2:12 pm Comments DCP- Discharge Planning Updated by [email or web address]: Tamara Flores on 12/01/18 12:[address] Patient Name: JORGE MUJICA Admission Status: ER Accout number: [id number] Admission Date: 11-29-2018 : 1940 Admission Diagnosis: Attending: STAS ARIAS Current LOS: 2 Anticipated DC Date: Planned Disposition: Home with Home Health Primary Insurance: [facility] MEDICARE SOLUTIONS Discharge Planning Comments: CM met with patient to complete initial dc planning assessment. CM educated patient on the CM role and verbal consent given by patient to complete assessment. Patient lives at home with her son, grand daughter and her and her 2 great grandchildren (3&5 years old). At discharge patient plans to return and feels this is a safe discharge. CM discussed availability of home health, rehab services, and medical equipment. Patient states she is considering going to a skilled facility and will speak to her son first, BECKY for [facility] signed. States she feels she may need some strengthening. She has had PT with [facility] in the past as well, and is considering [facility]. I faxed a face sheet to [place] with the [facility] to see if she has skilled days available. CM will continue to follow and will assist as needed with dc plans/needs. Emt B: Tamara Flores DCPIA - Discharge Planning Initial Assessment Updated by [id number]: Tamara Flores on 12/01/18 1:08 pm * Is the patient Alert and Oriented? Yes * How many steps to enter\exit or inside your home? 1/0 * PCP Dr. Arias * Pharmacy [facility] [address] * Preadmission Environment Home with Family * ADLs Partial Dependent * Partial ADLs (Assistance needed) Ambulation Medication Management * Equipment Bedside Commode Walker * List name and contact numbers for known caregivers / representatives who currently or will assist patient after discharge: Hellen Elena - Grand daughter - [phone] Manuel Mujica - son - [phone] * Verbal permission to speak to the caregivers and representatives has been obtained from the patient. Yes * Community resources currently utilized None * Additional services required to return to the preadmission environment? No * Can the patient safely return to the preadmission environment? Yes * Has this patient been hospitalized within the prior 30 days at any hospital? No External Providers External Provider: [facility] Next Contact Date: Service Request Date: Service Type: Resolution: Reviewer: Comments: Last DP export: 12/01/18 12:05 p Patient Name: JORGE MUJICA Page [phone] at 1312 All edits/amendments must be made on the electronic document DICTATION DATE: 12/01/18 1311 DELINQUENCY PREVENTION OFFICER: JACOB 12/01/18 1311 RPT#: [id number] DC DATE: STATUS: ADM IN [facility] [address] [place] [address] END OF REPORT
--- NOTE | 2018-12-01 18:45 | NUR ---
I have reviewed this patient and I concur with the Shift Assessment completed by the Licensed Practical Nurse today this shift.
[2018-12-01 21:14] VITALS: BP 120/42
[2018-12-01 22:45] LABS: HEMATOCRIT 34.3 % (36.0-48.0); HEMOGLOBIN 10.8 g/dL (12-16)
--- NOTE | 2018-12-01 22:55 | NUR ---
DR IN THIS SHIFT WITH NEW ORDERS FOR H&H EVERY 8HR AND TO GIVE ONE UNIT OF PRBC IF HCT IS LESS THAN 27 GIVE TWO IF LESS THAN 25, ORDERS TO GIVE CARAFATE SUSPENSION INSTEAD OF TABS CALL TO PHARMACY THEY ONLY HAVE TABS. RETRUNED CALL MD INFORMED THEN STATED TO DISSOLVED IN WATER FOR BETTER DELIVERY BUT PATIENT REFUSED TO HAVE IT DISSOLVED TOKE TAB.
[2018-12-02 01:40] VITALS: BP 124/84
[2018-12-02 05:02] VITALS: BP 124/92
[2018-12-02 05:05] LABS: BASOPHILS 0.3 % (0-2); EOSINOPHILS 1.3 % (0-7); HEMATOCRIT 34.6 % (36.0-48.0); HEMOGLOBIN 10.8 g/dL (12-16); IMMATURE GRANULOCYTES 0.4 % (0-5); LYMPHOCYTES 30.2 % (15-50); MCH 24.4 pg (26.0-34.0); MCHC 31.2 g/dL (31.0-37.0); MCV 78.1 fL (80.0-100.0); MEAN PLATELET VOLUME 9.8 fL (7.4-10.4); MONOCYTES 11.5 % (2-11); NEUTROPHILS 56.3 % (40-80); PLATELET COUNT 220 10x3/uL (130-400); RBC 4.43 10x6/uL (4.00-5.40); RDW 17.5 % (11.5-14.5); WBC 6.8 10x3/uL (4.8-10.8)
[2018-12-02 05:32] LABS: ANION GAP 10.7 mmol/L (8-16); CALCIUM 8.3 mg/dL (8.5-10.1); CARBON DIOXIDE 30.1 mmol/L (21.0-32.0); CREATININE - SERUM 1.2 mg/dL (0.6-1.3); POTASSIUM - SERUM 3.8 mmol/L (3.5-5.1)
[2018-12-02 08:53] VITALS: BP 137/48
[2018-12-02 10:18] LABS: APPEARANCE CLEAR (CLEAR); BILIRUBIN NEGATIVE (NEGATIVE); COLOR YELLOW (YELLOW); GLUCOSE NEGATIVE (NEGATIVE); KETONE NEGATIVE (NEGATIVE); NITRITE NEGATIVE (NEGATIVE); PROTEIN NEGATIVE (NEGATIVE); SPECIFIC GRAVITY 1.015 (1.005-1.020); UROBILINOGEN NORMAL (NORMAL)
[2018-12-02 10:19] LABS: BACTERIA FEW /hpf (NONE SEEN); EPITHELIAL CELLS OCC /hpf (0-5); MUCUS <1+ /lpf (NONE SEEN); RED CELLS - URINE OCC /hpf (0-5)
--- NOTE | 2018-12-02 11:26 | MORECARE ---
CASE MANAGEMENT DISCHARGE SUMMARY PATIENT: JORGE MUJICA UNIT: [id number] ADM DATE: 11/29/18 AGE: 78 : 42 SEX: F ROOM/BED: D.2223 AUTHOR: ALEX,DOC PHYSICIAN: REFERRING PHYSICIAN: STAS ARIAS MD DATE OF SERVICE: 12/02/18 Discharge Plan Patient Name: JORGE MUJICA Facility: [facility]:[place] : 1940 Planned Disposition: Home with Home Health Anticipated Discharge Date: Discharge Date: Expected LOS: Initial Reviewer: [email or web address] Initial Review Date: 12/01/2018 Generated: 12/02/18 12:26 pm Comments DCP- Discharge Planning Updated by [email or web address]: Tamara Sandra on 12/02/18 10:[address] Spoke with patient, she would like a referral to [facility] for SNF. I contacted Inessa Mortensen and updated clinical faxed. OT consult is pending. CM will continue to follow and assist with discharge planning/needs. DCP- Discharge Planning Updated by [email or web address]: Tamara Vangkorin on 12/01/18 12:[address] Patient Name: JORGE MUJICA Admission Status: ER Accout number: [id number] Admission Date: 11-29-2018 : 1940 Admission Diagnosis: Attending: STAS ARIAS Current LOS: 2 Anticipated DC Date: Planned Disposition: Home with Home Health Primary Insurance: [facility] MEDICARE SOLUTIONS Discharge Planning Comments: CM met with patient to complete initial dc planning assessment. CM educated patient on the CM role and verbal consent given by patient to complete assessment. Patient lives at home with her son, grand daughter and her and her 2 great grandchildren (3&5 years old). At discharge patient plans to return and feels this is a safe discharge. CM discussed availability of home health, rehab services, and medical equipment. Patient states she is considering going to a skilled facility and will speak to her son first, [facility] signed. States she feels she may need some strengthening. She has had PT with [facility] in the past as well, and is considering HHS. I faxed a face sheet to [facility] to see if she has skilled days available. CM will continue to follow and will assist as needed with dc plans/needs. Emergency Response Coordinator: Tamara Flores DCPIA - Discharge Planning Initial Assessment Updated by [email or web address]: Tamara Flores on 12/01/18 1:08 pm * Is the patient Alert and Oriented? Yes * How many steps to enter\exit or inside your home? 1/0 * PCP Dr. Arias * Pharmacy [facility] on [address] * Preadmission Environment Home with Family * ADLs Partial Dependent * Partial ADLs (Assistance needed) Ambulation Medication Management * Equipment Bedside Commode Walker * List name and contact numbers for known caregivers / representatives who currently or will assist patient after discharge: Hellen Elena - Grand daughter - [phone] Manuel Mujica - son - [phone] * Verbal permission to speak to the caregivers and representatives has been obtained from the patient. Yes * Community resources currently utilized None * Additional services required to return to the preadmission environment? No * Can the patient safely return to the preadmission environment? Yes * Has this patient been hospitalized within the prior 30 days at any hospital? No Last DP export: 12/01/18 12:12 p Patient Name: JORGE MUJICA Page [id number] at 1126 All edits/amendments must be made on the electronic document DICTATION DATE: 12/02/181125 CORE JAVA ENGINEER: JACOB 12/02/181125 RPT#: [id number] DC DATE: STATUS: ADM IN [facility] [address] [place] [address] END OF REPORT
[2018-12-02 12:00] VITALS: BP 153/66
--- NOTE | 2018-12-02 14:15 | NUR ---
PT IS WITHOUT DISTRESS.CALL LIGHT IN REACH
--- NOTE | 2018-12-02 16:29 | NUR ---
PT LYING IN BED ON LEFT SIDE. STATES THAT SHE IS NOT FEELING WELL TODAY, PT GOT UP WITH PHYSICAL THERAPY AND WALKED AROUND ROOM, AND SAT IN CHAIR FOR A BIT, HAS BEEN SITTING UP AT BEDSIDE DURING MEALS. ADMINISTERED PRN PAIN MEDICATION REQUESTED WELL ZOFRAN. PT STATED STOMACH IS QUEASY. ADMINISTERED PEN ZOFRAN WELL. CONTINUE WITH PLAN OF CARE
[2018-12-02 17:09] VITALS: BP 107/44
--- NOTE | 2018-12-02 20:00 | NUR ---
ALERT SITTING UP IN BED NO APPARENT DISTRESS, SEE SHIFT ASSESSMENT, CALL LIGHT IN REACH
[2018-12-02 21:17] VITALS: BP 103/49
[2018-12-03 00:56] VITALS: BP 130/45
[2018-12-03 05:04] VITALS: BP 124/50
[2018-12-03 06:14] LABS: BASOPHILS 0.3 % (0-2); EOSINOPHILS 2.2 % (0-7); HEMATOCRIT 35.7 % (36.0-48.0); HEMOGLOBIN 11.1 g/dL (12-16); IMMATURE GRANULOCYTES 0.3 % (0-5); LYMPHOCYTES 32.5 % (15-50); MCH 24.4 pg (26.0-34.0); MCHC 31.1 g/dL (31.0-37.0); MCV 78.6 fL (80.0-100.0); MEAN PLATELET VOLUME 11.5 fL (7.4-10.4); MONOCYTES 13.3 % (2-11); NEUTROPHILS 51.4 % (40-80); PLATELET COUNT 260 10x3/uL (130-400); RBC 4.54 10x6/uL (4.00-5.40); RDW 17.8 % (11.5-14.5); WBC 6.7 10x3/uL (4.8-10.8)
[2018-12-03 06:40] LABS: ANION GAP 10.1 mmol/L (8-16); CALCIUM 8.1 mg/dL (8.5-10.1); CARBON DIOXIDE 31.1 mmol/L (21.0-32.0); CREATININE - SERUM 1.2 mg/dL (0.6-1.3); T4 THYROXIN - FREE 1.01 ng/dL (0.76-1.46); THYROID STIMULATING HORMONE 2.4 uIU/mL (0.36-3.74)
[2018-12-03 06:47] LABS: POTASSIUM - SERUM 3.2 mmol/L (3.5-5.1)
--- NOTE | 2018-12-03 07:15 | NUR ---
PT IS RESTING IN BED WITH EYES OPEN. RESPIRATIONS ARE EVEN AND UNLABORED. PT REPORTS SLIGHT PAIN, BUT DENIES NEEDS FOR PAIN MEDICATION AT THIS TIME. PT REPORTS DISCOMFORT IN ABDOMINAL AREA. PT REPORTS THAT SHE IS PASSING GAS WITHOUT DIFFICULTY. PT STATES LAST BM WAS 2 DAYS AGO AND DENIES ANY PRESENCE OF BLEEDING SINCE LAST BM. PT DENIES PRESENCE OF N/V. PT INFORMED OF NPO FOR CT SCAN. PT VERBALIZES UNDERSTANDING AND DENIES FURTHER QUESTIONS/CONCERNS/NEEDS AT THIS TIME. BED IS IN THE LOWEST POSITION. CALL LIGHT AND BEDSIDE TABLE ARE WITHIN REACH. SIDE RAILS X 2. BED ALARM IS ON AND WORKING. WILL CONT TO MONITOR.
[2018-12-03 08:58] VITALS: BP 127/80
--- NOTE | 2018-12-03 11:32 | NUR ---
Nutrition Follow Up: Chart reviewed Diet: ADA PO Intake: 88% meal avg BM: 12/02/18 Labs reviewed Meds noted including Lasix Rec continue current diet. RD following.
--- NOTE | 2018-12-03 11:53 | NUR ---
PT REPORTS A MODERATE SIZE BM THAT IS "BLACK". PT DENIES PRESENCE OF BLOOD WITH WIPING. PT STATES, "I COULDNT FIND ANY BROWN IN IT".
[2018-12-03 13:26] VITALS: BP 99/57
--- NOTE | 2018-12-03 14:30 | MORECARE ---
CASE MANAGEMENT DISCHARGE SUMMARY PATIENT: JORGE MUJICA UNIT: [id number] ADM DATE: 11/29/18 AGE: 78 : 42 SEX: F ROOM/BED: D.2223 AUTHOR: ALEX,DOC PHYSICIAN: REFERRING PHYSICIAN: STAS ARIAS MD DATE OF SERVICE: 12/03/18 Discharge Plan Patient Name: JORGE MUJICA Facility: [facility]:[place] : 1940 Planned Disposition: Home with Home Health Anticipated Discharge Date: Discharge Date: Expected LOS: Initial Reviewer: [email or web address] Initial Review Date: 12/01/2018 Generated: 12/03/18 3:29 pm Comments DCP- Discharge Planning Updated by [email or web address]: Tamara Sandra on 12/03/18 1:[address] Received authorization from Inessa Mortensen that patient has been accepted to the [facility] and insurance auth has been received for [facility]. I called Dr. Arias and verbal orders received. Possible discharge tomorrow if labs are stable. I notified Inessa of possible discharge tomorrow. CM will continue to follow and assist with discharge planning/needs. DCP- Discharge Planning Updated by [email or web address]: Tamara Sandra on 12/02/18 10:[address] Spoke with patient, she would like a referral to [facility] for SNF. I contacted Inessa Mortensen and updated clinical faxed. OT consult is pending. CM will continue to follow and assist with discharge planning/needs. DCP- Discharge Planning Updated by [email or web address]: Tamara Vangkorin on 12/01/18 12:[address] Patient Name: JORGE MUJICA Admission Status: ER Accout number: [id number] Admission Date: 11-29-2018 : 1940 Admission Diagnosis: Attending: STAS ARIAS Current LOS: 2 Anticipated DC Date: Planned Disposition: Home with Home Health Primary Insurance: [facility] MEDICARE SOLUTIONS Discharge Planning Comments: CM met with patient to complete initial dc planning assessment. CM educated patient on the CM role and verbal consent given by patient to complete assessment. Patient lives at home with her son, grand daughter and her and her 2 great grandchildren (3&5 years old). At discharge patient plans to return and feels this is a safe discharge. CM discussed availability of home health, rehab services, and medical equipment. Patient states she is considering going to a skilled facility and will speak to her son first, [facility] signed. States she feels she may need some strengthening. She has had PT with [facility] in the past as well, and is considering HHS. I faxed a face sheet to [facility] to see if she has skilled days available. CM will continue to follow and will assist as needed with dc plans/needs. Prop Cutter: Tamara Flores DCPIA - Discharge Planning Initial Assessment Updated by [email or web address]: Tamara Sandra on 12/01/18 1:08 pm * Is the patient Alert and Oriented? Yes * How many steps to enter\exit or inside your home? 1/0 * PCP Dr. Arias * Pharmacy [facility] on [address] * Preadmission Environment Home with Family * ADLs Partial Dependent * Partial ADLs (Assistance needed) Ambulation Medication Management * Equipment Bedside Commode Walker * List name and contact numbers for known caregivers / representatives who currently or will assist patient after discharge: Hellen Elena - Grand daughter - [phone] Manuel Mujica - son - [phone] * Verbal permission to speak to the caregivers and representatives has been obtained from the patient. Yes * Community resources currently utilized None * Additional services required to return to the preadmission environment? No * Can the patient safely return to the preadmission environment? Yes * Has this patient been hospitalized within the prior 30 days at any hospital? No Last DP export: 12/02/18 10:26 a Patient Name: JORGE MUJICA Page [id number] at 1430 All edits/amendments must be made on the electronic document DICTATION DATE: 12/03/181428 TABLEMAN: JACOB 12/03/181428 RPT#: [id number] DC DATE: STATUS: ADM IN [facility] [address] [place] [address] END OF REPORT
[2018-12-03 16:11] LABS: HEMATOCRIT 37.6 % (36.0-48.0); HEMOGLOBIN 11.7 g/dL (12-16)
[2018-12-03 18:00] VITALS: BP 119/49
--- NOTE | 2018-12-03 19:14 | NUR ---
OT NOTE: PT COMPLETED BED MOB WITH SBA. PT COMPLETED SUPINE TO SIT IWTH SBA. PT COMPLETED SIT TO STAND WITH SBA. PT COMPLETED SIDE STEPPING WITH SBA. PT COMPLETED TOILETING WITH CGA. PT COMPLETED UE AROM AXS. THANK YOU, LALITA LONDON
[2018-12-03 20:00] VITALS: BP 143/69
[2018-12-04] VITALS: BP 141/50
[2018-12-04 03:39] LABS: BASOPHILS 0.5 % (0-2); EOSINOPHILS 2.5 % (0-7); HEMOGLOBIN 11.6 g/dL (12-16); IMMATURE GRANULOCYTES 0.5 % (0-5); LYMPHOCYTES 40.2 % (15-50); MCH 24.2 pg (26.0-34.0); MCHC 30.5 g/dL (31.0-37.0); MCV 79.3 fL (80.0-100.0); MEAN PLATELET VOLUME 10.3 fL (7.4-10.4); MONOCYTES 11.5 % (2-11); NEUTROPHILS 44.8 % (40-80); PLATELET COUNT 236 10x3/uL (130-400); RBC 4.79 10x6/uL (4.00-5.40); RDW 17.8 % (11.5-14.5); WBC 4.4 10x3/uL (4.8-10.8)
[2018-12-04 03:45] LABS: ANION GAP 10.1 mmol/L (8-16); CALCIUM 8.3 mg/dL (8.5-10.1); CARBON DIOXIDE 32.4 mmol/L (21.0-32.0); CREATININE - SERUM 1.2 mg/dL (0.6-1.3); POTASSIUM - SERUM 3.5 mmol/L (3.5-5.1)
[2018-12-04 04:00] VITALS: BP 119/55
[2018-12-04] MEDS ORDERED: PROTONIX40 MG PO (07:31)
--- NOTE | 2018-12-04 08:00 | NUR ---
ALERT AND ORIENTED WITH PATINET NPO PENDING SCAN. REINSTRUCED ON NOTHING BY MOUTH. ABDOMEN SOFT WITH BS NOTED X4. LUNGS CTA. ENCOURAGED TO USE CALL LIG FOR ASSISTANCE.
--- NOTE | 2018-12-04 08:28 | MORECARE ---
CASE MANAGEMENT DISCHARGE SUMMARY PATIENT: JORGE MUJICA UNIT: [id number] ADM DATE: 11/29/18 AGE: 78 : 42 SEX: F ROOM/BED: D.2223 AUTHOR: ALEX,DOC PHYSICIAN: REFERRING PHYSICIAN: STAS ARIAS MD DATE OF SERVICE: 12/04/18 Discharge Plan Patient Name: JORGE MUJICA Facility: [facility]:[place] : 1940 Planned Disposition: Home with Home Health Anticipated Discharge Date: Discharge Date: Expected LOS: Initial Reviewer: [email or web address] Initial Review Date: 12/01/2018 Generated: 12/04/18 9:27 am Comments DCP- Discharge Planning Updated by [email or web address]: Tamara Flores on 12/04/18 7:[address] Patient has decided she wants to go home instead of [facility], Dr. Arias is aware of this. I spoke with the patient and she does want to go home. I offered home health and she declines. She states she has 4 small dogs and home health interferes with her dogs. I instructed her if she changed her mind on either SNF or home health to notify Dr. Arias. Home today. CM will continue to follow and assist with discharge planning/needs. DCP- Discharge Planning Updated by [email or web address]: Tamara Flores on 12/03/18 1:[address] Received authorization from Inessa Mortensen that patient has been accepted to the [facility] and insurance auth has been received for [facility]. I called Dr. Arias and verbal orders received. Possible discharge tomorrow if labs are stable. I notified Inessa of possible discharge tomorrow. CM will continue to follow and assist with discharge planning/needs. DCP- Discharge Planning Updated by [email or web address]: Tamara Flores on 12/02/18 10:[address] Spoke with patient, she would like a referral to [facility] for SNF. I contacted Inessa Mortensen and updated clinical faxed. OT consult is pending. CM will continue to follow and assist with discharge planning/needs. DCP- Discharge Planning Updated by [email or web address]: Tamara Flores on 12/01/18 12:[address] Patient Name: JORGE MUJICA Admission Status: ER Accout number: [id number] Admission Date: 11-29-2018 : 1940 Admission Diagnosis: Attending: STAS ARIAS Current LOS: 2 Anticipated DC Date: Planned Disposition: Home with Home Health Primary Insurance: [facility] MEDICARE SOLUTIONS Discharge Planning Comments: CM met with patient to complete initial dc planning assessment. CM educated patient on the CM role and verbal consent given by patient to complete assessment. Patient lives at home with her son, grand daughter and her and her 2 great grandchildren (3&5 years old). At discharge patient plans to return and feels this is a safe discharge. CM discussed availability of home health, rehab services, and medical equipment. Patient states she is considering going to a skilled facility and will speak to her son first, [facility] signed. States she feels she may need some strengthening. She has had PT with [facility] in the past as well, and is considering HHS. I faxed a face sheet to [facility] to see if she has skilled days available. CM will continue to follow and will assist as needed with dc plans/needs. Bureau Director: Tamara Flores DCPIA - Discharge Planning Initial Assessment Updated by [email or web address]: Tamara Flores on 12/01/18 1:08 pm * Is the patient Alert and Oriented? Yes * How many steps to enter\exit or inside your home? 1/0 * PCP Dr. Arias * Pharmacy [facility] on [address] * Preadmission Environment Home with Family * ADLs Partial Dependent * Partial ADLs (Assistance needed) Ambulation Medication Management * Equipment Bedside Commode Walker * List name and contact numbers for known caregivers / representatives who currently or will assist patient after discharge: Hellen Kassy - Grand daughter - [phone] Manuel Mujica - son - [phone] * Verbal permission to speak to the caregivers and representatives has been obtained from the patient. Yes * Community resources currently utilized None * Additional services required to return to the preadmission environment? No * Can the patient safely return to the preadmission environment? Yes * Has this patient been hospitalized within the prior 30 days at any hospital? No Coverage Notice Reviewer: [email or web address] - Tamara Flores Notice Issued Date-Time: 12/04/2018 8:17 Notice Type: IM Discharge Notice Notice Delivered To: Patient Relationship to Patient: Self Pediatric Sports Medicine Specialist Name: Delivery Method: HAND - Hand Delivered Meka Days: Prior Verbal Notification: Recipient Understood Notice: Yes Recipient Signature: Yes Med Rec Note Co-signed by Attending: Coverage Notice Comment: IMM explained, signed, given, copy placed in MR Last DP export: 12/03/18 1:29 p Patient Name: JORGE MUJICA Page [phone] at 0828 All edits/amendments must be made on the electronic document DICTATION DATE: 12/04/18826 LOG TRUCK DRIVER: JACOB 12/04/18826 RPT#: [id number] DC DATE: STATUS: ADM IN [facility] [address] [place] [address] END OF REPORT
[2018-12-04 09:49] VITALS: BP 119/58
[2018-12-04 14:38] VITALS: BP 140/87
--- NOTE | 2018-12-04 15:29 | NUR ---
PT LEAVING UNIT FOR PROCEDURE AT THIIS TIME AND STABLE UPON GOING.
--- NOTE | 2018-12-04 15:37 | NUR ---
OT NOTE: PT COMPLETED BED MOB WITH SBA. PT COMPLETED ADL MOB WITH SBA. PT COMPLETED TOILETING WITH SBA. THANK YOU, LALITA LONDON
--- NOTE | 2018-12-04 17:18 | NUR ---
IVS REMOVED FROM LEFT AND RIGHT HAND. TIPS INTACT. DENIES FURTHER NEEDS. CALLED FAMILY MEMBER TO COME TAKE HOME.
--- NOTE | 2018-12-07 16:16 | MORECARE ---
CASE MANAGEMENT DISCHARGE SUMMARY PATIENT: JORGE MUJICA UNIT: [id number] ADM DATE: 11/29/18 AGE: 78 : 42 SEX: F ROOM/BED: D.2223 AUTHOR: ALEX,DOC PHYSICIAN: REFERRING PHYSICIAN: STAS ARIAS MD DATE OF SERVICE: 12/07/18 Discharge Plan Patient Name: JORGE MUJICA Facility: [facility]:[place] : 1940 Planned Disposition: Home with Home Health Anticipated Discharge Date: Discharge Date: 12/04/2018 Expected LOS: 0 Initial Reviewer: [email or web address] Initial Review Date: 12/01/2018 Generated: 12/07/18 5:16 pm DCP- Discharge Planning Updated by [email or web address]: Tamara Flores on 12/04/18 7:[address] Patient has decided she wants to go home instead of [facility], Dr. Arias is aware of this. I spoke with the patient and she does want to go home. I offered home health and she declines. She states she has 4 small dogs and home health interferes with her dogs. I instructed her if she changed her mind on either SNF or home health to notify Dr. Arias. Home today. CM will continue to follow and assist with discharge planning/needs. DCP- Discharge Planning Updated by [email or web address]: Tamara Flores on 12/03/18 1:[address] Received authorization from Inessa Mortensen that patient has been accepted to the [facility] and insurance auth has been received for [facility]. I called Dr. Arias and verbal orders received. Possible discharge tomorrow if labs are stable. I notified Inessa of possible discharge tomorrow. CM will continue to follow and assist with discharge planning/needs. DCP- Discharge Planning Updated by [email or web address]: Tamara Flores on 12/02/18 10:[address] Spoke with patient, she would like a referral to [facility] for SNF. I contacted Inessa Mortensen and updated clinical faxed. OT consult is pending. CM will continue to follow and assist with discharge planning/needs. DCP- Discharge Planning Updated by [email or web address]: Tamara Flores on 12/01/18 12:[address] Patient Name: JORGE MUJICA Admission Status: ER Accout number: [id number] Admission Date: 11-29-2018 : 1940 Admission Diagnosis: Attending: STAS ARIAS Current LOS: 2 Anticipated DC Date: Planned Disposition: Home with Home Health Primary Insurance: [facility] MEDICARE SOLUTIONS Discharge Planning Comments: CM met with patient to complete initial dc planning assessment. CM educated patient on the CM role and verbal consent given by patient to complete assessment. Patient lives at home with her son, grand daughter and her and her 2 great grandchildren (3&5 years old). At discharge patient plans to return and feels this is a safe discharge. CM discussed availability of home health, rehab services, and medical equipment. Patient states she is considering going to a skilled facility and will speak to her son first, B[facility]KY [facility] signed. States she feels she may need some strengthening. She has had PT with [facility] in the past as well, and is considering HHS. I faxed a face sheet to [facility] to see if she has skilled days available. CM will continue to follow and will assist as needed with dc plans/needs. Occ Med Physician: Tamara Flores DCPIA - Discharge Planning Initial Assessment Updated by [email or web address]: Tamara Flores on 12/01/18 1:08 pm * Is the patient Alert and Oriented? Yes * How many steps to enter\exit or inside your home? 1/0 * PCP Dr. Arias * Pharmacy [facility] on [address] * Preadmission Environment Home with Family * ADLs Partial Dependent * Partial ADLs (Assistance needed) Ambulation Medication Management * Equipment Bedside Commode Walker * List name and contact numbers for known caregivers / representatives who currently or will assist patient after discharge: Hellen Kassy - Grand daughter - [phone] Manuel Mujica - son - [phone] * Verbal permission to speak to the caregivers and representatives has been obtained from the patient. Yes * Community resources currently utilized None * Additional services required to return to the preadmission environment? No * Can the patient safely return to the preadmission environment? Yes * Has this patient been hospitalized within the prior 30 days at any hospital? No Coverage Notice Reviewer: [id number] - Tamara Flores Notice Issued Date-Time: 12/04/2018 8:17 Notice Type: IM Discharge Notice Notice Delivered To: Patient Relationship to Patient: Self Stock Puller Name: Delivery Method: HAND - Hand Delivered Meka Days: Prior Verbal Notification: Recipient Understood Notice: Yes Recipient Signature: Yes Med Rec Note Co-signed by Attending: Coverage Notice Comment: IMM explained, signed, given, copy placed in MR Last DP export: 12/04/18 7:27 a Patient Name: JORGE MUJICA Page 32394 at 1616 All edits/amendments must be made on the electronic document DICTATION DATE: 12/07/185 MANAGER OF ADMINISTRATION: JACOB 12/07/18 1615 RPT#: [id number] DC DATE:12/04/18 STATUS: DIS IN [facility] [address] [place] [address] END OF REPORT
== END 2018-12-04 17:42 | DRG 381 ==
LOC: D.ER 11:47 → D.MS 13:09
PROVIDERS: Emergency Medicine; Internal Medicine Gastroenterology; ADMIT Family Medicine; ATTEND Family Medicine
PROC: 0DJ08ZZ Inspection of Upper Intestinal Tract, Via Natural or Artificial Opening Endoscopic (ICD-10-PCS; principal; 2018-11-30 07:01)
DX: K22.11 Ulcer of esophagus with bleeding (principal); Z68.41 Body mass index [BMI] 40.0-44.9, adult; D64.9 Anemia, unspecified; I10 Essential (primary) hypertension; I48.91 Unspecified atrial fibrillation; E11.9 Type 2 diabetes mellitus without complications; K21.9 Gastro-esophageal reflux disease without esophagitis; E66.01 Morbid (severe) obesity due to excess calories; K44.9 Diaphragmatic hernia without obstruction or gangrene; K29.71 Gastritis, unspecified, with bleeding; K25.4 Chronic or unspecified gastric ulcer with hemorrhage

== ENCOUNTER 2019-01-13 13:34 | Emergency (ER) | payer MEDICARE ==
[~2019-01-13] VITALS: Ht 172.7 cm; Wt 122.7 kg
[2019-01-13 13:53] VITALS: Ht 172.7 cm; Wt 122.7 kg
[2019-01-13 14:15] LABS: HEMATOCRIT 34.3 % (36.0-48.0); HEMOGLOBIN 10.5 g/dL (12-16); LYMPHOCYTES 24.2 % (15-50); MCHC 30.6 g/dL (31.0-37.0); MCV 78.3 fL (80.0-100.0); MEAN PLATELET VOLUME 9.9 fL (7.4-10.4); NEUTROPHILS 67.5 % (40-80); RBC 4.38 10x6/uL (4.00-5.40); RDW 16.7 % (11.5-14.5); WBC 7.8 10x3/uL (4.8-10.8)
[2019-01-13 14:27] LABS: APTT 21.3 SECONDS (22.8-39.4); INR 1.01 (0.85-1.17); PROTIME 12.8 SECONDS (11.6-15.0)
[2019-01-13 14:28] LABS: ALBUMIN 3.3 g/dL (3.4-5.0); ALKALINE PHOSPHATASE 126 U/L (46-116); ALT (SGPT) 21 U/L (10-68); BILIRUBIN - TOTAL 0.29 mg/dL (0.2-1.3); CALC OSMOLALITY 286 mosm/kg (275-300); CALCIUM 8.8 mg/dL (8.5-10.1); CARBON DIOXIDE 32.3 mmol/L (21.0-32.0); CHLORIDE - SERUM 100 mmol/L (98-107); CREATININE - SERUM 1.2 mg/dL (0.6-1.3); POTASSIUM - SERUM 3.8 mmol/L (3.5-5.1); PROTEIN - SERUM 7.5 g/dL (6.4-8.2); SODIUM 139 mmol/L (136-145); UREA NITROGEN 23 mg/dL (7-18); eGFR NON AFRICAN AMERICAN 46 mL/min (90-120)
[2019-01-13 14:29] LABS: PLATELET COUNT 359 10x3/uL (130-400)
[2019-01-13 14:38] LABS: GLUCOSE 182 mg/dL (74-106)
[2019-01-13 14:39] LABS: CKMB 0.2 U/L (0.0-3.6); CREATINE KINASE 24 UL (21-215); PRO BNP 134 pg/mL (0-450)
[2019-01-13 14:40] LABS: TROPONIN-I < 0.017 ng/mL (0.000-0.060)
[2019-01-13 16:18] LABS: APPEARANCE CLEAR (CLEAR); BILIRUBIN NEGATIVE (NEGATIVE); COLOR YELLOW (YELLOW); GLUCOSE NEGATIVE (NEGATIVE); KETONE NEGATIVE (NEGATIVE); NITRITE NEGATIVE (NEGATIVE); PROTEIN NEGATIVE (NEGATIVE); UROBILINOGEN NORMAL (NORMAL)
[2019-01-13 16:19] LABS: BACTERIA MODERATE /hpf (NONE SEEN); EPITHELIAL CELLS 0-5 /hpf (0-5); RED CELLS - URINE 0-5 /hpf (0-5)
[2019-01-13] MEDS ORDERED: MACROBID100 MG PO (17:26)
[2019-01-13 18:05] VITALS: BP 123/43
== END 2019-01-13 18:05 | disposition home or self-care (01) ==
LOC: D.ER 13:34
PROVIDERS: Family Medicine
DX: N39.0 Urinary tract infection, site not specified (principal); M79.7 Fibromyalgia; E11.9 Type 2 diabetes mellitus without complications; Z86.718 Personal history of other venous thrombosis and embolism; Z79.01 Long term (current) use of anticoagulants

== ENCOUNTER → 2019-01-14 13:20 | Outpatient (CLI) | payer MEDICARE ==
[2019-01-13 13:53] VITALS: BMI 41.1
--- NOTE | ~2019-01-14 | HEMODYNAMI ---
PATIENT:JORGE JULIO MEDICAL RECORD: [id number] : 44 LOCATION:[facility] ADMISSION DATE: 01/14/19 Generatedon:01/14/201914:35 Patient name: JORGE JULIO Patient #: [id number] SSN: : 1940 Date of study: 01/14/2019 Page: Of Hemodynamic Procedure Report Patient Data Patient Demographics Procedure consent was obtained First Name: JORGE Gender: Female Last Name: NORI : 1940 [facility] Initial: YUSUF Age: 78 year(s) Patient #: [id number] Race: Unknown Additional ID: [id number] Contact details Address: [address] [place] [address] State: [place] City: [place] Zip code: [address] Past Medical History Allergies Allergen Reaction Date Comments Reported Other allergy 05/27/2018 BENADRYL,PCN Other allergy 01/14/2019 PCN ADHESIVE TAPE AND BENADRYL Admission Admission Data Admission Date: 01/14/2019 Admission Time: 13:20 Procedure Procedure Types Cath Procedure Peripheral Cath Diagnostic Procedure Miscellaneous Aspiration/Injection (Joint) Procedure Description Procedure Date Procedure Date: 01/14/2019 Procedure Start Time: 14:19 Procedure Staff Name Function Mike Vance MD Performing Physician Rick Mclaughlin RT Monitor Clair Flannery RT Monitor Procedure Data Cath Procedure Fluoroscopy Diagnostic fluoroscopy Total fluoroscopy Time: 0.3 time: 0.3 min min Diagnostic fluoroscopy Total fluoroscopy dose: 4 dose: 4 mGy mGy Hemodynamics Rest Pre Cath Intra NCS Post Cath Procedure Log Time Note 14:07:07 Rick Mclaughlin RT (R) (CV) sent for patient. Start room use. 14:07:18 Patient received from Outpatients to IR Alert and oriented. Tansferred to table in Supine position. 14:07:19 Correct patient and procedure confirmed by team. 14:07:22 Signed procedure consent form obtained from patient. 14:08:07 Patient allergic to Other allergyPCN ADHESIVE TAPE AND BENADRYL 14:08:19 Left Hip was prepped with betadine and draped in sterile fashion. 14:18:53 Physician arrived 14:18:53 --------ALL STOP TIME OUT------ 14:18:54 Final Timeout: patient, procedure, and site verified with staff and physician. All members of the team are in agreement. 14:19:12 Procedure started. 14:19:12 Full Disclosure recording started 14:19:44 Local anesthetic to Left Hip with Lidocaine 1% by Mike Vance MD.INITIAL ACCESS ONLY 14:28:34 Procedure ended.(Physican Out) 14:33:51 Fluoroscopy time 00.30 minutes. 14:33:55 Fluoroscopy dose: 4 mGy 14:33:55 Flurop Dose total: 4 14:34:16 Procedure and supply charges have been captured, reviewed, submitted and are correct. 14:35:01 Patient transfered to Other with Wheelchair. Signature Audit [place] Stage Time Signature Unsigned Intra-Procedure 01/14/2019 Clair Flannery 2:35:13 PM RT(R) Signatures Monitor : Rick Signature : Arnoldo RT Date : Time : Monitor : Clair Flannery RT Signature : Date : Time : [facility] [address] [place] [address]
[~2019-01-14 13:20] MED LIST changes: +MACROBID100 MG PO
== END | disposition home or self-care (01) ==
LOC: D.SP 13:20 → D.RAD 13:30
PROVIDERS: ATTEND Orthopaedic Surgery
DX: M25.552 Pain in left hip (principal); Z01.812 Encounter for preprocedural laboratory examination

== ENCOUNTER 2019-02-04 08:16 | Day surgery (SDC) | payer MEDICARE ==
[~2019-02-04] VITALS: Ht 182.9 cm; Wt 113.4 kg
[~2019-02-04 08:16] MED LIST changes: +CARDIZEM CD120 MG PO; -CARDIZEM120 MG PO
[2019-02-04 08:45] LABS: ANION GAP 10.9 mmol/L (8-16); CARBON DIOXIDE 31.6 mmol/L (21.0-32.0); CREATININE - SERUM 1.3 mg/dL (0.6-1.3); HEMATOCRIT 34.9 % (36.0-48.0); HEMOGLOBIN 10.5 g/dL (12-16); MCH 22.7 pg (26.0-34.0); MCHC 30.1 g/dL (31.0-37.0); MCV 75.5 fL (80.0-100.0); MEAN PLATELET VOLUME 10.6 fL (7.4-10.4); POTASSIUM - SERUM 3.5 mmol/L (3.5-5.1); RBC 4.62 10x6/uL (4.00-5.40); RDW 17.7 % (11.5-14.5); WBC 7.7 10x3/uL (4.8-10.8)
[2019-02-04 09:21] VITALS: BP 177/98; Ht 182.9 cm; Wt 113.4 kg
[2019-02-04] MEDS ORDERED: HYDROCODON-ACE1 EAC7 PO (10:59)
--- NOTE | 2019-02-04 11:53 | OP ---
PATIENT NAME: JORGE JULIO MEDICAL RECORD: [id number] :44 LOCATION:[facility] ADMISSION DATE: SURGEON: SERGIO SINGH MD DATE OF OPERATION: 02/04/2019 PREOPERATIVE DIAGNOSIS: Trigger thumb, left thumb. POSTOPERATIVE DIAGNOSIS: Trigger thumb, left thumb. PROCEDURE: Trigger thumb release. ANESTHESIA: TIVA with local. INTRAOPERATIVE COMPLICATIONS: None. SUMMARY OF PATHOLOGIC FINDINGS: The patient has a very tight A1 birgit of the left thumb consistent with the preoperative diagnosis. There were some attritional changes of the flexor tendon; however, no full-thickness tearing was noted. OPERATIVE SUMMARY IN DETAIL: After obtaining the appropriate preoperative orthopedic surgery consent as well as anesthetic consultation, evaluation, and clearance, the patient was brought to the operating room and placed on the operating table in supine position. After general TIVA anesthesia was administered, left upper extremity was prepped and draped in routine sterile fashion. The arm was elevated and exsanguinated, tourniquet was inflated to 250 mmHg. Local infiltration of Marcaine was then followed by an incision, it was taken directly down to the A1 birgit with the digital nerves retracted. The A1 birgit was identified and incised in its entirety. Mild amount of tenosynovitis with some bulbous tissue noted of the flexor tendon, some excoriated changes were noted; however, no tearing was noted. The wound was irrigated and closed with 4-0 Prolene. Sterile dressings were applied. Tourniquet was deflated. The patient was awakened, taken to recovery room in stable condition. All final needle and sponge counts were correct. TRANSINT:[id number] Voice Confirmation ID: [id number] DOCUMENT ID: [id number] SERGIO SINGH MD at 1153 CC: [id number] DICTATION DATE: 02/04/19 1100 BRACELET AND BROOCH MAKER: 02/04/19 1108 REG [place] [id number] [place] [id number]
--- NOTE | 2019-02-04 15:57 | NUR ---
1255 SAT UP IN BED AND ATE LIQUID LUNCH. TOLERATED WELL. NO PAIN. ALL DC CRITERIA MET. ALL DISCHARGE INSTRUCTIONS GIVEN. VOICES UNDERSTANDING. TAKEN OUT VIA W/C AND ASSISTED TO CAR WITH FAMILY. ADVISED TO CALL OR COME BACK IF ANY QUESTIONS.
== END 2019-02-04 12:55 | disposition home or self-care (01) ==
LOC: D.OPS 08:16 → D.PAN 15:50 → D.OPS 15:50 → D.PAN 17:00 → D.OPS 17:00
PROVIDERS: Anesthesiology; ATTEND Orthopaedic Surgery
DX: M65.312 Trigger thumb, left thumb (principal); Z01.812 Encounter for preprocedural laboratory examination

== ENCOUNTER 2019-02-10 08:50 | Inpatient (IN) | payer MEDICARE ==
[~2019-02-10] VITALS: Ht 182.9 cm; Wt 122.5 kg
[2019-02-10] VITALS (14 sets, daily range): BP systolic 113–163; BP diastolic 36–84; BMI 36.7
[~2019-02-10 08:50] MED LIST changes: -CARDIZEM CD120 MG PO; +CARDIZEM120 MG PO
[2019-02-10 09:20] LABS: BASOPHILS 0.2 % (0-2); EOSINOPHILS 0.5 % (0-7); HEMATOCRIT 29.1 % (36.0-48.0); HEMOGLOBIN 8.5 g/dL (12-16); IMMATURE GRANULOCYTES 0.5 % (0-5); LYMPHOCYTES 18.2 % (15-50); MCH 22.5 pg (26.0-34.0); MCHC 29.2 g/dL (31.0-37.0); MCV 77.2 fL (80.0-100.0); MEAN PLATELET VOLUME 10.3 fL (7.4-10.4); MONOCYTES 3.8 % (2-11); NEUTROPHILS 76.8 % (40-80); PLATELET COUNT 359 10x3/uL (130-400); RBC 3.77 10x6/uL (4.00-5.40); RDW 17.7 % (11.5-14.5); WBC 11.6 10x3/uL (4.8-10.8)
[2019-02-10 09:34] LABS: APTT 22.8 SECONDS (22.8-39.4); INR 1.16 (0.85-1.17); PROTIME 14.3 SECONDS (11.6-15.0)
[2019-02-10 09:41] LABS: ALBUMIN 2.9 g/dL (3.4-5.0); ALKALINE PHOSPHATASE 104 U/L (46-116); ALT (SGPT) 14 U/L (10-68); BILIRUBIN - TOTAL 0.52 mg/dL (0.2-1.3); CALC OSMOLALITY 298 mosm/kg (275-300); CALCIUM 8.9 mg/dL (8.5-10.1); CARBON DIOXIDE 29.3 mmol/L (21.0-32.0); CHLORIDE - SERUM 103 mmol/L (98-107); CREATININE - SERUM 1.2 mg/dL (0.6-1.3); POTASSIUM - SERUM 4.7 mmol/L (3.5-5.1); PROTEIN - SERUM 6.5 g/dL (6.4-8.2); SODIUM 140 mmol/L (136-145); UREA NITROGEN 50 mg/dL (7-18); eGFR NON AFRICAN AMERICAN 46 mL/min (90-120)
[2019-02-10 09:47] LABS: GLUCOSE 229 mg/dL (74-106)
[2019-02-10 09:49] LABS: LIPASE 99 U/L (73-393); PRO BNP 237 pg/mL (0-450)
[2019-02-10 09:51] LABS: TROPONIN-I < 0.017 ng/mL (0.000-0.060)
[2019-02-10 10:00] LABS: APPEARANCE HAZY (CLEAR); COLOR YELLOW (YELLOW)
[2019-02-10 10:01] LABS: BACTERIA FEW /hpf (NONE SEEN); BILIRUBIN NEGATIVE (NEGATIVE); GLUCOSE NEGATIVE (NEGATIVE); KETONE MODERATE mg/dL (NEGATIVE); NITRITE NEGATIVE (NEGATIVE); PROTEIN TRACE mg/dL (NEGATIVE); UROBILINOGEN NORMAL (NORMAL); WHITE CELLS - URINE 0-5 /hpf (0-5)
[2019-02-10 10:02] LABS: HYALINE CAST 0-5 /lpf (NONE SEEN)
--- NOTE | 2019-02-10 12:00 | NUR ---
Pt arrived to unit around 1115 to unit via bed. On room air. 20G PIV on amari wrist. Protonix infusing at 10ml/hr. Unit of blood infusing. Connected to ICU monitors. VSS. no fever. Alert and oriented x 4. Safety measures in place. Will continue to monitor.
--- NOTE | 2019-02-10 12:12 | NUR ---
pateint had CT scan and was evaluated by Dr. Mcnally. Pt was instructed by Uli to go to [facility] for an immediate appt with Dr. Martinez with Optometry Pt was given instructions and contact information for Dr. Martinez and was discharged. Pt was taken by wheelchair and placed in vehicle by this nurse. Pt nilamthomas is driving her to Dr. Martinez's office at this time. Pt AAOX4 - no distress noted - Walked with steady gait.
--- NOTE | 2019-02-10 13:00 | NUR ---
UNIT OF BLOOD FINISHED INFUSING AT THIS TIME. BP 114/46. GI LAB SETTING UP FOR EGD. CONSENT FORMS SIGNED AND PLACED IN CHART. WILL CONTINUE TO MONITOR.
--- NOTE | 2019-02-10 13:55 | NUR ---
PT OPENING EYES AND SMILING. METAL SANDER IN ROOM. WILL CONTINUE TO MONITOR.
--- NOTE | 2019-02-10 16:00 | NUR ---
PT RESTING COMFORTABLY ON LEFT SIDE. REFUSED BATH AT THIS TIME. WILL LET ME KNOW WHEN SHE IS READY.
--- NOTE | 2019-02-10 17:24 | NUR ---
Dinner tray delivered and set up. Pt used bedside commode at this time. Clear yellow urine noted. No further needs a this time. Continue to monitor.
--- NOTE | 2019-02-10 20:46 | NUR ---
PT RECEIVED WITH EYES CLOSED AND CHEST RISING. EASILY AWOKEN TO VERBAL STIMULI. NO S/S OF DISTRESS. NO NEEDS MADE KNOWN. CALL LIGHT IN REACH. WILL CONTNUE TO OBSERVE.
--- NOTE | 2019-02-10 22:41 | NUR ---
PT RESTING WITH EYES CLOSED AND CHEST RISING. VSS. NO S/S OF DISTRESS. CALL LIGHT IN REACH. WILL CONTINUE TO OBSERVE.
[2019-02-11] VITALS (12 sets, daily range): BP systolic 113–143; BP diastolic 30–56; Ht 182.9 cm; Wt 122.5 kg
--- NOTE | 2019-02-11 00:46 | NUR ---
PT WITH EYES OPEN ON TABLET. ASSIST GIVEN TO BEDSIDE COMMODE. WEAKNESS NOTED. 400 YELLOW URINE NOTED, NO BM. BACK IN BED. ORANGE JELLO AND APPLE JUICE GIVEN PER REQEST. NO OTHER NEEDS MADE KNOWN. CALL LIGHT IN REACH. WILL CONTINUE TO OBSERVE.
--- NOTE | 2019-02-11 03:32 | NUR ---
REASSESSMENT COMPLETED, SEE FLOW SHEET. NO NEEDS MADE KNOWN. WILL CONTINUE TO OBSERVE.
--- NOTE | 2019-02-11 06:28 | NUR ---
PT REFUSED BATH AT THIS TIME, SHE STATES THAT SHE WANTS IT LATER THIS MORNING. LAB IS AT BEDSIDE AT THIS TIME. WILL CONTINUE TO OBSERVE.
[2019-02-11 06:59] LABS: BASOPHILS 0.5 % (0-2); EOSINOPHILS 1.7 % (0-7); HEMATOCRIT 27.7 % (36.0-48.0); HEMOGLOBIN 8.6 g/dL (12-16); IMMATURE GRANULOCYTES 0.6 % (0-5); LYMPHOCYTES 27.4 % (15-50); MCH 23.6 pg (26.0-34.0); MCV 75.9 fL (80.0-100.0); MEAN PLATELET VOLUME 10.7 fL (7.4-10.4); NEUTROPHILS 62.8 % (40-80); RBC 3.65 10x6/uL (4.00-5.40); RDW 17.4 % (11.5-14.5)
[2019-02-11 07:06] LABS: CALCIUM 8.2 mg/dL (8.5-10.1); CARBON DIOXIDE 27.6 mmol/L (21.0-32.0); CREATININE - SERUM 0.9 mg/dL (0.6-1.3); POTASSIUM - SERUM 3.6 mmol/L (3.5-5.1)
[2019-02-11 07:20] LABS: PLATELET COUNT 278 10x3/uL (130-400); WBC 8.4 10x3/uL (4.8-10.8)
--- NOTE | 2019-02-11 09:31 | NUR ---
0700 REPORT RECIEVED, PT AAOX4, PACEMAKER IN LEFT CHEST, BILAT PERIPERAL IV IN WRISTS TO SALINE LOCK. STITCHES IN LEFT THUMB CDI, GLASSES ON, NO REPORTS OF PAIN. 0900 PT SITTING UP ON SIDE OF BED EATING BREAKFAST, VITALS STABLE, WILL CONTINUE TO MONITOR.
--- NOTE | 2019-02-11 10:40 | NUR ---
PT RECIEVED TO FLOOR FROM ICU WITH ICU STAFF. ICU NURSE BROUGHT 1U PRBC TO INFUSE. UNIT CHECKED WITH SECOND NURSE WITNESS THEN ICU NURSE LEFT. ATTEMPTED TO HANG BLOOD BUT PIVS TO PT BILATERAL WRISTS HAD INFILTRATED. THIS NURSE ATTEMPTED PIV INSERTION X1 ATTEMPT AND FAILED. NOTIFIED VASCULAR ACCESS NURSE. VASCULAR ACCESS NURSE INSERTED 22G PIV TO PT RIGHT WRIST X2 ATTEMPTS. PRE INFUSION VITALS OBTAINED AND WNL. INFUSION OF 1U PRBC STARTED AT 1040
--- NOTE | 2019-02-11 10:55 | NUR ---
VITALS RECHECKED, WNL. WILL CONT TO FOLLOW POC
--- NOTE | 2019-02-11 13:00 | NUR ---
BLOOD STILL INFUSING. PT TOLERATING WELL. FAMILY AT BEDSIDE AT THIS TIME, DENIES ANY NEEDS AT THIS TIME, WILL CONT TO FOLLOW POC
--- NOTE | 2019-02-11 14:00 | NUR ---
BLOOD FINISHED TRANSFUSING, VSS AND WNL
--- NOTE | 2019-02-11 15:20 | NUR ---
1 UNIT PRBC VERIFIED WITH SECOND NURSE, PRE-TRANSFUSION VITALS TAKEN AND WNL. INFUSION STARTED AT 1505. SECOND SET OF VITALS TAKEN AT 1520 AND ARE WNL
--- NOTE | 2019-02-11 17:29 | NUR ---
PT RESTING IN BED EATING SUPPER. DENIES ANY NEEDS AT THIS TIME, WILL CONT TO FOLLOW POC
--- NOTE | 2019-02-11 17:41 | NUR ---
INFUSION COMPLETE AT 1700
--- NOTE | 2019-02-11 19:53 | MORECARE ---
CASE MANAGEMENT DISCHARGE SUMMARY PATIENT: JORGE JULIO UNIT: [id number] ADM DATE: 02/10/19 AGE: 78 : 42 SEX: F ROOM/BED: D.1207 AUTHOR: TANNA JOHNSON PHYSICIAN: REFERRING PHYSICIAN: STAS ARIAS MD DATE OF SERVICE: 02/11/19 Discharge Plan Patient Name: JORGE JULIO [facility] [facility] 1940 Planned Disposition: Home Anticipated Discharge Date: Discharge Date: Expected LOS: Initial Reviewer: [email or web address] Initial Review Date: 02/10/2019 Generated: 02/11/19 8:53 pm DCPIA - Discharge Planning Initial Assessment Updated by [email or web address]: Jeana Cedillo on 02/11/19 7:53 pm * Is the patient Alert and Oriented? Yes * How many steps to enter\exit or inside your home? * PCP JUANA * Pharmacy [facility] * Preadmission Environment Home with Family * ADLs Independent * Other Equipment WALKER, CANE, W/C, BSC * List name and contact numbers for known caregivers / representatives who currently or will assist patient after discharge: GENET ORTIZ - GRAND-DAUGHTER- [phone] * Verbal permission to speak to the caregivers and representatives has been obtained from the patient. Yes * Community resources currently utilized None * Additional services required to return to the preadmission environment? No * Can the patient safely return to the preadmission environment? Yes * Has this patient been hospitalized within the prior 30 days at any hospital? No Patient Name: JORGE JULIO Page [id number] at 3 All edits/amendments must be made on the electronic document DICTATION DATE: 02/11/191952 ORDER ENTRY ADMINISTRATOR: JACOB 02/11/191952 RPT#: [id number] DC DATE: STATUS: ADM IN [facility] [address] [place] [address] END OF REPORT
--- NOTE | 2019-02-11 20:00 | MORECARE ---
CASE MANAGEMENT DISCHARGE SUMMARY PATIENT: JORGE JULIO UNIT: [id number] ADM DATE: 02/10/19 AGE: 78 : 42 SEX: F ROOM/BED: D.1207 AUTHOR: ALXE,DOC PHYSICIAN: REFERRING PHYSICIAN: STAS ARIAS MD DATE OF SERVICE: 02/11/19 Discharge Plan Patient Name: JORGE JULIO Facility: [facility]:[place] : 1940 Planned Disposition: Home Anticipated Discharge Date: Discharge Date: Expected LOS: Initial Reviewer: [email or web address] Initial Review Date: 02/10/2019 Generated: 02/11/19 8:59 pm Comments DCP- Discharge Planning Updated by [email or web address]: Jeana Cedillo on 02/11/19 6:[address] Patient Name: JORGE JULIO Admission Status: ER Accout number: [id number] Admission Date: 02-10-2019 : 1940 Admission Diagnosis: Attending: STAS ARIAS Current LOS: 1 Anticipated DC Date: Planned Disposition: Home Primary Insurance: [facility] MEDICARE SOLUTIONS Discharge Planning Comments: CM met with patient at bedside after explaining CM role and obtaining verbal consent. Patient lives at home with her family (4 generations) and plans to return there upon discharge. Patient feels this would be a safe discharge. CM discussed availability / needs of home health and medical equipment. Patient denies any discharge needs at this time. Patient stated that if she should need rehab then she would prefer [facility]. Patient states that she has been there a few times in the past. Patient states she will have family drive her home upon discharge. CM will continue to follow and assist as needed with discharge planning / needs. Entry Level Sales Representative: Jeana Cedillo DCPIA - Discharge Planning Initial Assessment Updated by [email or web address]: Jeana Cedillo on 02/11/19 7:53 pm * Is the patient Alert and Oriented? Yes * How many steps to enter\exit or inside your home? * PCP JUANA * [facility] * Preadmission Environment Home with Family * ADLs Independent * Other Equipment WALKER, CANE, W/C, BSC * List name and contact numbers for known caregivers / representatives who currently or will assist patient after discharge: GENET ORTIZ - GRAND-DAUGHTER- [phone] * Verbal permission to speak to the caregivers and representatives has been obtained from the patient. Yes * Community resources currently utilized None * Additional services required to return to the preadmission environment? No * Can the patient safely return to the preadmission environment? Yes * Has this patient been hospitalized within the prior 30 days at any hospital? No Last DP export: 02/11/19 6:53 p Patient Name: JORGE JULIO Page [phone] at 2000 All edits/amendments must be made on the electronic document DICTATION DATE: 02/11/191958 CARDIOLOGY CONSULTANTS: JACOB 02/11/191958 RPT#: [id number] DC DATE: STATUS: ADM IN [facility] [address] [place] [address] END OF REPORT
[2019-02-12] VITALS: BP 130/77
[2019-02-12 04:00] VITALS: BP 95/35
[2019-02-12 06:25] LABS: BASOPHILS 0.6 % (0-2); EOSINOPHILS 2.3 % (0-7); HEMATOCRIT 29.5 % (36.0-48.0); HEMOGLOBIN 9.3 g/dL (12-16); IMMATURE GRANULOCYTES 0.6 % (0-5); MCH 24.7 pg (26.0-34.0); MCHC 31.5 g/dL (31.0-37.0); MEAN PLATELET VOLUME 10.5 fL (7.4-10.4); MONOCYTES 9.9 % (2-11); NEUTROPHILS 59.6 % (40-80); PLATELET COUNT 230 10x3/uL (130-400); RBC 3.76 10x6/uL (4.00-5.40); RDW 17.4 % (11.5-14.5); WBC 7.1 10x3/uL (4.8-10.8)
[2019-02-12 06:26] LABS: ANION GAP 10.3 mmol/L (8-16); CALCIUM 7.8 mg/dL (8.5-10.1); CARBON DIOXIDE 28.4 mmol/L (21.0-32.0); CREATININE - SERUM 1.1 mg/dL (0.6-1.3); POTASSIUM - SERUM 3.7 mmol/L (3.5-5.1)
[2019-02-12 06:44] LABS: MCV 78.5 fL (80.0-100.0)
--- NOTE | 2019-02-12 07:10 | NUR ---
REPORT RECIEVED FROM BENZOL STILL OPERATOR AND PATIENT CARE ASSUMED. PATIENT AWAKE, ALERT AND ORIENTED X 4. PATIENT IS STABLE AND VSS. PATIENT DENIES ANY NEEDS OR PAIN. PATIENT STATES THAT SHE HOPES SHE GETS TO GO HOME TODAY. WILL CONTINUE WITH PLAN OF CARE. SR UP X 2 BED IN LOW POSITION AND CALL LIGHT IN REACH.
[2019-02-12 09:25] VITALS: BP 157/55
--- NOTE | 2019-02-12 10:08 | NUR ---
PATIENT IS STABLE AND VSS. PATIENT DENIES ANY NEEDS OR PAIN. ORDERS RECEIVED FOR DC. ALL DC INSTRUCTIONS GIVEN VERBALLY AND WRIITEN. PATIENT VERBALIZED UNDERSTANDING AND SIGNED PAPERWORK. PATIENT AWAITING WARP SCOURING VAT TENDER TO PICK HER UP. WILL CONTINUE TO MONITOR.
--- NOTE | 2019-02-12 10:59 | NUR ---
IV REMOVED FROM RIGHT HAND WITH NO REDENESS OR EDEMA AT SITE
--- NOTE | 2019-02-12 11:18 | NUR ---
PATIENT IS STABLE AND VSS. PATIENT DENIES ANY NEEDS OR PAIN. IV DC WITHOUT DIFFICULTY WITH ENTIRE CATHETER INTACT. PATIENT TO FRONT DOOR VIA WC AND PRIVATE VEHICLE DRIVEN BY A FAMILY MEMBER.
--- NOTE | 2019-02-12 20:01 | MORECARE ---
CASE MANAGEMENT DISCHARGE SUMMARY PATIENT: JORGE JULIO UNIT: [id number] ADM DATE: 02/10/19 AGE: 78 : 42 SEX: F ROOM/BED: D.1207 AUTHOR: ALEX,DOC PHYSICIAN: REFERRING PHYSICIAN: STAS ARIAS MD DATE OF SERVICE: 02/12/19 Discharge Plan Patient Name: JORGE JULIO Facility: [facility]:[place] : 1940 Planned Disposition: Home Anticipated Discharge Date: Discharge Date: 02/12/2019 Expected LOS: Initial Reviewer: [email or web address] Initial Review Date: 02/10/2019 Generated: 02/12/19 9:01 pm Comments DCP- Discharge Planning Updated by [email or web address]: Jeana Cedillo on 02/11/19 6:[address] Patient Name: JORGE JULIO Admission Status: ER Accout number: [id number] Admission Date: 02-10-2019 : 1940 Admission Diagnosis: Attending: STAS ARIAS Current LOS: 1 Anticipated DC Date: Planned Disposition: Home Primary Insurance: [facility] MEDICARE SOLUTIONS Discharge Planning Comments: CM met with patient at bedside after explaining CM role and obtaining verbal consent. Patient lives at home with her family (4 generations) and plans to return there upon discharge. Patient feels this would be a safe discharge. CM discussed availability / needs of home health and medical equipment. Patient denies any discharge needs at this time. Patient stated that if she should need rehab then she would prefer [facility]. Patient states that she has been there a few times in the past. Patient states she will have family drive her home upon discharge. CM will continue to follow and assist as needed with discharge planning / needs. Ob Tech: Jeana Cedillo DCPIA - Discharge Planning Initial Assessment Updated by [email or web address]: Jeana Cedillo on 02/11/19 7:53 pm * Is the patient Alert and Oriented? Yes * How many steps to enter\exit or inside your home? * PCP JUANA * [facility] * Preadmission Environment Home with Family * ADLs Independent * Other Equipment WALKER, CANE, W/C, BSC * List name and contact numbers for known caregivers / representatives who currently or will assist patient after discharge: GENET ORTIZ - GRAND-DAUGHTER- [phone] * Verbal permission to speak to the caregivers and representatives has been obtained from the patient. Yes * Community resources currently utilized None * Additional services required to return to the preadmission environment? No * Can the patient safely return to the preadmission environment? Yes * Has this patient been hospitalized within the prior 30 days at any hospital? No Last DP export: 02/11/19 7:00 p Patient Name: JORGE JULIO Page [phone] at 2000 All edits/amendments must be made on the electronic document DICTATION DATE: 02/12/192000 BILINGUAL OFFICE ASSISTANT: JACOB 02/12/192000 RPT#: [id number] DC DATE:02/12/19 STATUS: DIS IN [facility] [address] [place] [address] END OF REPORT
== END 2019-02-12 11:20 | disposition home or self-care (01) | DRG 382 ==
LOC: D.ER 08:50 → D.ICU 10:10 → D.M3 10:10 → D.CVICU 10:10 → D.M3 02-11 10:00
PROVIDERS: Family Medicine; Internal Medicine Gastroenterology; ADMIT Family Medicine; ATTEND Family Medicine
PROC: 0DJ08ZZ Inspection of Upper Intestinal Tract, Via Natural or Artificial Opening Endoscopic (ICD-10-PCS; principal; 2019-02-10 13:03)
DX: K22.11 Ulcer of esophagus with bleeding (principal); D50.0 Iron deficiency anemia secondary to blood loss (chronic); K44.9 Diaphragmatic hernia without obstruction or gangrene; K29.70 Gastritis, unspecified, without bleeding; K57.10 Diverticulosis of small intestine without perforation or abscess without bleeding

== ENCOUNTER 2019-02-19 21:35 | Emergency (ER) | payer MEDICARE ==
[~2019-02-19] VITALS: Ht 182.9 cm; Wt 122.7 kg
[~2019-02-19 21:35] MED LIST changes: +CARDIZEM CD120 MG PO; -CARDIZEM120 MG PO
[2019-02-19 21:40] VITALS: Ht 182.9 cm; Wt 122.7 kg
[2019-02-19 22:01] LABS: BASOPHILS 0.3 % (0-2); EOSINOPHILS 1.5 % (0-7); HEMATOCRIT 32.7 % (36.0-48.0); HEMOGLOBIN 10.1 g/dL (12-16); IMMATURE GRANULOCYTES 0.4 % (0-5); LYMPHOCYTES 21.9 % (15-50); MCH 24.4 pg (26.0-34.0); MCHC 30.9 g/dL (31.0-37.0); MEAN PLATELET VOLUME 10.7 fL (7.4-10.4); MONOCYTES 6.3 % (2-11); NEUTROPHILS 69.6 % (40-80); RBC 4.14 10x6/uL (4.00-5.40); RDW 18.2 % (11.5-14.5)
[2019-02-19 22:02] LABS: PLATELET COUNT 376 10x3/uL (130-400)
[2019-02-19 22:15] LABS: APTT 24.8 SECONDS (22.8-39.4); INR 1.02 (0.85-1.17); PROTIME 12.9 SECONDS (11.6-15.0)
[2019-02-19 22:20] LABS: ALBUMIN 3.1 g/dL (3.4-5.0); ANION GAP 12.8 mmol/L (8-16); BILIRUBIN - TOTAL 0.27 mg/dL (0.2-1.3); CALCIUM 8.8 mg/dL (8.5-10.1); CARBON DIOXIDE 27.1 mmol/L (21.0-32.0); CREATININE - SERUM 1.3 mg/dL (0.6-1.3); POTASSIUM - SERUM 3.9 mmol/L (3.5-5.1); PROTEIN - SERUM 6.9 g/dL (6.4-8.2)
[2019-02-20 03:25] VITALS: BP 143/82
== END 2019-02-19 23:30 | disposition other institution (70) ==
LOC: D.ER 21:35
PROVIDERS: Family Medicine
DX: K92.2 Gastrointestinal hemorrhage, unspecified (principal)

== ENCOUNTER 2019-03-02 09:21 | Outpatient (CLI) | payer MEDICARE ==
[2019-02-19 21:40] VITALS: BMI 36.7
--- NOTE | 2019-03-02 16:46 | NUR ---
1200 DIFFICULT MANOMETRY BUT ABLE TO COMPLETE. DC INSTRUCTIONS GIVEN. TAKEN OUT VIA W/C TO CAR WITH FAMILY. ADVISED TO CALL OR COME BACK IT ANY PROBLEMS.
== END 2019-03-02 12:00 | disposition home or self-care (01) ==
LOC: D.OPS 09:21
PROVIDERS: ATTEND Surgery
DX: K44.9 Diaphragmatic hernia without obstruction or gangrene (principal); K21.9 Gastro-esophageal reflux disease without esophagitis

== ENCOUNTER 2019-03-09 07:23 | Day surgery (SDC) | payer MEDICARE ==
[~2019-03-09] VITALS: Ht 182.9 cm; Wt 125.0 kg
[2019-03-09 07:42] LABS: BASOPHILS 0.4 % (0-2); EOSINOPHILS 2.7 % (0-7); HEMATOCRIT 29.6 % (36.0-48.0); HEMOGLOBIN 8.8 g/dL (12-16); IMMATURE GRANULOCYTES 0.6 % (0-5); LYMPHOCYTES 23.7 % (15-50); MCHC 29.7 g/dL (31.0-37.0); MCV 77.3 fL (80.0-100.0); MEAN PLATELET VOLUME 10.3 fL (7.4-10.4); MONOCYTES 7.7 % (2-11); NEUTROPHILS 64.9 % (40-80); PLATELET COUNT 349 10x3/uL (130-400); RBC 3.83 10x6/uL (4.00-5.40); RDW 17.7 % (11.5-14.5); WBC 6.8 10x3/uL (4.8-10.8)
[2019-03-09 07:48] LABS: ANION GAP 11.6 mmol/L (8-16); CALCIUM 8.8 mg/dL (8.5-10.1); CARBON DIOXIDE 30.4 mmol/L (21.0-32.0); CREATININE - SERUM 1.1 mg/dL (0.6-1.3)
[2019-03-09] MEDS ORDERED: METOPROLOL TART50 MG PO (08:28)
[2019-03-09] MEDS ORDERED: TOPROL XL25 MG PO (08:28)
[2019-03-09 08:29] VITALS: BP 136/59; BMI 37.4
--- NOTE | 2019-03-09 14:58 | NUR ---
1430 GALLEY BOY STARTED AND PT REPOSITIONED IN BED. O2 PER NC. MOUTH BREATHING. NO ROOM AVAILABLE ON MED SURG
--- NOTE | 2019-03-09 15:15 | NUR ---
1307 SEE FREQUENT VS SHEET
--- NOTE | 2019-03-09 15:29 | NUR ---
1430 IRRIGATED RIGHT EYE WITH NS. PT STATED SHE FELT LIKE SOMETHING WAS IN HER EYE. IRRIGATED AND INCOURAGED PT TO NOT RUB HER EYE ANYMORE
[2019-03-09 18:11] VITALS: BP 138/62; Ht 182.9 cm; Wt 125.0 kg
[2019-03-09 20:00] VITALS: BP 114/37
[2019-03-10 00:16] VITALS: BP 122/68
[2019-03-10 04:00] VITALS: BP 120/38
[2019-03-10 06:15] LABS: BASOPHILS 0.2 % (0-2); EOSINOPHILS 0.5 % (0-7); HEMATOCRIT 27.7 % (36.0-48.0); IMMATURE GRANULOCYTES 0.3 % (0-5); LYMPHOCYTES 12.2 % (15-50); MCH 22.9 pg (26.0-34.0); MCHC 28.9 g/dL (31.0-37.0); MCV 79.1 fL (80.0-100.0); MEAN PLATELET VOLUME 10.8 fL (7.4-10.4); MONOCYTES 6.8 % (2-11); PLATELET COUNT 346 10x3/uL (130-400)
[2019-03-10 06:25] LABS: WBC 12.6 10x3/uL (4.8-10.8)
[2019-03-10 06:43] LABS: CARBON DIOXIDE 30.2 mmol/L (21.0-32.0); CREATININE - SERUM 1.2 mg/dL (0.6-1.3); POTASSIUM - SERUM 4.2 mmol/L (3.5-5.1)
--- NOTE | 2019-03-10 07:31 | NUR ---
PT IS RESTING IN BED WITH EYES CLOSED. RESPIRATIONS ARE EVEN AND UNLABORED. CAROLIN ALARM IS ON AND WORKING. PT WITH FALL PRECAUTIONS IN PLACE. SCDS ARE ON. PT IS ORIENTED X 4. PT IS PALE IN THE FACE. CAP REFILL TO FINGERS/TIES ARE <3 SECONDS. PT REPORTS PAIN TO ABDOMINAL AREA. SERVICE GIRL DILAUDID AVAILABLE. PT EDUCATED ON SERVICE GIRL AND USE. PT VERBALIZES UNDERSTANDING. PT DENIES PRESENCE OF N/V. BED IS IN THE LOWEST POSITION. CALL LIGHT AND BEDSIDE TABLE ARE WITHIN REACH. SIDE RAILS X 2. WILL CONT TO MONITOR.
--- NOTE | 2019-03-10 07:34 | NUR ---
AT ABOUT 520AN PT ALRM SOUNDED , WENT TO ROOM SHE WAS SITTING ON THE FLOOR BESIDE BED BETWEEN BED AND BATHROOM. SHE STSTED I GOT UP TO FIX THIS GOWN AND SAT DOWN. ASSESSED WITH NO INJURY NOTED. CALLED TO SUPERVISOR CHEMICAL DR LEONOR GUERRERO INFORMED WITH NO NEW ORDERS. SON EMIGDIO FREEMAN CALLED STATED SHE DOES THAT ALL THE TIME AT HOME. I WILL COME BY AND SEE HER ON MY WAY HOME. CHARGE NURSE , PATIENT TRANSPORT OFFICER.INFORMED.
[2019-03-10 08:30] VITALS: BP 134/54
--- NOTE | 2019-03-10 10:00 | NUR ---
DILAUDID DC PER ORDER. IV INFUSION SLOWED TO 30/HR PER ORDER.
[2019-03-10 12:45] VITALS: BP 115/57
--- NOTE | 2019-03-10 12:47 | NUR ---
PT STATES, "I AM A DIABETIC AND I FEEL BAD. I FEEL LIKE MY SUGAR IS LOW". BLOOD GLUCOSE CHECKED AND IS WNL. SEE LAB RESULTS. PT GIVEN JELL-O. PT REPORTS THAT SHE IS FEELING BETTER NOW KNOWING THAT BLOOD SUGAR IS NOT LOW. PT IS SITTING IN BEDSIDE CHAIR. CAROLIN ALARM IS ON AND WORKING. BED SIDE TABLE AND CALL LIGHT ARE WITHIN REACH. WILL CONT TO MONITOR.
[2019-03-10] MEDS ORDERED: HYDROCODON-ACE1 EA10 PO (13:10)
[2019-03-10] MEDS ORDERED: REGLAN10 MG PO (13:11)
--- NOTE | 2019-03-10 15:00 | NUR ---
ALL DISCHARGE PAPERS SIGNED. ALL QUESTIONS/CONCERNS ADDRESSED. PRINTED RX GIVEN TO PT. PIV TO RIGHT HAND REMOVED. CATHETER TIP INTACT. DRESSING APPLIED. PIV TO LEFT FA REMOVED. CATHETER TIP INTACT. DRESSING APPLIED. PT DENIES FURTHER QUESTIONS/CONCERNS/NEEDS AT THIS TIME.
--- NOTE | 2019-03-10 15:30 | NUR ---
PT [id number] FROM ROOM VIA WHEELCHAIR. PT DENIES FURTHER NEEDS/QUESTIONS/CONCERNS AT THIS TIME. PT REPORTS THAT SHE HAS ALL BELONGINGS.
[2019-03-10 16:00] VITALS: BP 115/59
--- NOTE | 2019-03-18 07:19 | OP ---
PATIENT NAME: JORGE JULIO MEDICAL RECORD: [id number] :44 LOCATION:[facility] ADMISSION DATE: SURGEON: NICOLAS PRIEST MD DATE OF OPERATION: 03/09/2019 PREOPERATIVE DIAGNOSES: 1. Paraesophageal hernia. 2. Gastroesophageal reflux disease. 3. 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 4. Hypertension. 5. Diabetes mellitus. 6. Conductive disorder of the heart. POSTOPERATIVE DIAGNOSES: 1. Paraesophageal hernia. 2. Gastroesophageal reflux disease. 3. 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 4. Hypertension. 5. Diabetes mellitus. 6. Conductive disorder of the heart. PROCEDURES: Laparoscopic paraesophageal hernia repair. SURGEON: Nicolas Priest MD REPORT OF PROCEDURE: The patient's abdomen was prepped and draped in sterile fashion. A Veress needle was inserted in the left upper quadrant and the abdomen was insufflated. An 11-mm Visiport trocar was inserted in the midline just above the umbilicus. The Veress needle was visualized and there was no sign of any injury to bowel or surrounding structures. An 11-mm trocar was placed in the left subcostal region. A 5-mm trocar was placed in the epigastrium, a 5-mm trocar was placed in the right lateral subcostal region, and a final 5-mm trocar was placed in the left lateral abdomen. The liver was elevated, and at this point, we clearly visualized the large hiatal hernia. As we pulled this down, we could see approximately two-thirds to three-quarters of the stomach was present up in the chest. As we pulled this down, there was a lot of tension and if we would release the stomach, would go back into the chest. We began our dissection by taking down the lesser omentum using Harmonic scalpel. This was done over to the left side of the right kyung. We then scored the peritoneum and began our dissection of the hernia sac present in the chest cavity. We continued this dissection as far anteriorly and posteriorly as possible. We then came to the greater curvature of the stomach and on the upper third of the stomach, we took down the short gastric using Harmonic scalpel all the way up to the left side of the right kyung. Again, we scored the peritoneum and penetrated into the thoracic cavity. The hernia sac was taken down. At this point, we had good visualization of the patient's esophagus. The vagus nerves were visualized and protected. We continued our dissection trying to free up the stomach and esophagus as much as possible. We were eventually able to get all the attachments released and the stomach and the bottom 1 cm of the esophagus would rest in the abdominal cavity without any tension. We then took down a lot of the fatty tissue that was present overlying the GE junction. At this point, we could really visualize the structures well. The esophageal hiatus was then closed using interrupted 0 Polydeks times 3. We then performed a posterior 360-degree Mino wrap of the fundus of the stomach around the distal esophagus. This was done using interrupted 0 Polydeks times 3 with the OPERATIVE REPORT [id number] JORGE JULIO top and the bottom suture incorporating a bite of the esophagus. The wrap appeared to rest in good position and it did not appear to be under undue tension. The area was then irrigated out with normal saline and care was taken to assure there was no sign of any bleeding. At this point, the 11-mm trocar site fascias were closed with interrupted 0 Vicryls using a Omar-James suture passer device. The ports and insufflation were then removed along with the liver retractor. At this point, we irrigated out the wounds and used a total of 20 mL of 0.25% Marcaine with epinephrine. The skin incisions were all closed with subcutaneous 5-0 Monocryl and dressed appropriately. COMPLICATIONS: None. CONDITION: Stable. ANESTHESIA: General endotracheal and local. BLOOD LOSS: 30 mL. TRANSINT:[id number] Voice Confirmation ID: [id number] DOCUMENT ID: [id number] NICOLAS PRIEST MD at 0719 CC: STAS ARIAS and GANESH FUENTES DO [id number] DICTATION DATE: 03/09/19 1114 TOMBSTONE ERECTOR HELPER: 03/09/19 1130 [facility] 03/10/19 [id number] [place] [address]
== END 2019-03-10 16:11 | disposition home or self-care (01) ==
LOC: D.MS 07:23 → D.OPS 07:23 → D.PAN 09:15 → D.OPS 09:15 → D.MS 15:48 → D.OPS 03-10 16:11
PROVIDERS: ATTEND Surgery
DX: K44.9 Diaphragmatic hernia without obstruction or gangrene (principal); K21.9 Gastro-esophageal reflux disease without esophagitis; D50.0 Iron deficiency anemia secondary to blood loss (chronic); I10 Essential (primary) hypertension; E11.9 Type 2 diabetes mellitus without complications

== ENCOUNTER 2019-03-10 21:40 | Inpatient (IN) | payer MEDICARE ==
[~2019-03-10] VITALS: Ht 182.9 cm; Wt 122.5 kg
[~2019-03-10 21:40] MED LIST changes: +HYDROCODON-ACE1 EA10 PO; +METOPROLOL TART50 MG PO; +REGLAN10 MG PO; +TOPROL XL25 MG PO
[2019-03-10 22:59] LABS: BASOPHILS 0.4 % (0-2); EOSINOPHILS 3.5 % (0-7); HEMATOCRIT 26.9 % (36.0-48.0); IMMATURE GRANULOCYTES 0.6 % (0-5); LYMPHOCYTES 16.2 % (15-50); MCH 22.9 pg (26.0-34.0); MCHC 29.7 g/dL (31.0-37.0); MEAN PLATELET VOLUME 10.2 fL (7.4-10.4); MONOCYTES 9.5 % (2-11); NEUTROPHILS 69.8 % (40-80); PLATELET COUNT 328 10x3/uL (130-400); RDW 17.9 % (11.5-14.5); WBC 10.5 10x3/uL (4.8-10.8)
[2019-03-10 23:04] LABS: MCV 76.9 fL (80.0-100.0)
[2019-03-10 23:28] LABS: ANION GAP 13.8 mmol/L (8-16); BILIRUBIN - TOTAL 0.48 mg/dL (0.2-1.3); CALCIUM 8.2 mg/dL (8.5-10.1); CARBON DIOXIDE 26.3 mmol/L (21.0-32.0); CREATININE - SERUM 1.2 mg/dL (0.6-1.3); POTASSIUM - SERUM 4.1 mmol/L (3.5-5.1); PROTEIN - SERUM 6.2 g/dL (6.4-8.2)
[2019-03-11] VITALS (8 sets, daily range): BP systolic 117–145; BP diastolic 31–58; Ht 182.9 cm; Wt 122.5 kg
--- NOTE | 2019-03-11 00:10 | NUR ---
PT TO CT AT THIS TIME. GRANDDAUGHTER LEFT CONTACT INFORMATION: GENET PAGE [phone]
--- NOTE | 2019-03-11 03:09 | NUR ---
RECEIVED TO ROOM FROM ER VIA WHEELCHAIR. AWAKE,ALERT.NO DISTRESS NOTED. RESP UNLABORED. IV TO LFA INTACT WITHOUT REDNESS OR EDEMA NOTED. BANDAIDS INTACT TO ABD LAP SITES X 5 WITH NO DRAINAGE NOTED. ORIETNED TO ROOM. CL IN REACH. CAROLIN ROSMERY ON.SR UP X 3. BED IN LOW POSITIOND.
--- NOTE | 2019-03-11 03:58 | NUR ---
REC'D TO ROOM 2228 PER STRETCHER FROM ER DEPT WITH POST OP PAIN FROM RECENT HERNIA REPAIR. ASSESSMENT PER ADMIT PACKET.
--- NOTE | 2019-03-11 08:29 | NUR ---
PT RESTING IN BED WITH EYES OPEN. COMPLAINGING OF LEFT SIDED ABDOMEN PAIN 02/27 REQUESTING SOMETHING FOR PAIN, ADMINISTERED NORCO PER HUMERA. ORDERS. CURRENTLY RCVING 2L VIA NC. IV LOCATED TO LEFT FOREARM RUNNING D5LR @ 100. ASSISTED TO THE BATHROOM AND BACK TO BED. WILL CONTINUE TO MONITOR.
[2019-03-12 01:28] VITALS: BP 173/75
--- NOTE | 2019-03-12 02:49 | NUR ---
PT RESTING IN BED. ALERT AND ORIENTED. PT STATES SOME SHORTNESS OF BREATH. 98% ON 2LO2 NASAL CANNULA. SET PT UP IN BED. FAN GOING. IV SITE LT FA DRESSING CLEAN DRY AND INTACT. NO SIGNS OF INFECTION. BOWEL SOUNDS ACTIVE. LUNG SOUNDS DIMINISHED. ABD INCISIONS X4. CLEAN DRY AND INTACT. WILL CONTINUE PLAN OF CARE. CALL LIGHT IN REACH. BED LOWERED AND LOCKED. BED RAILS UP X3. CAROLIN ALARM ON.
--- NOTE | 2019-03-12 03:00 | NUR ---
I have reviewed this patient and I concur with the Shift Assessment completed by the Licensed Practical Nurse today this shift.
[2019-03-12 04:59] VITALS: BP 164/60
[2019-03-12 07:23] LABS: BASOPHILS 0.1 % (0-2); EOSINOPHILS 5.3 % (0-7); HEMATOCRIT 25.8 % (36.0-48.0); IMMATURE GRANULOCYTES 0.4 % (0-5); LYMPHOCYTES 13.3 % (15-50); MCH 22.5 pg (26.0-34.0); MCHC 29.1 g/dL (31.0-37.0); MCV 77.5 fL (80.0-100.0); MEAN PLATELET VOLUME 10.9 fL (7.4-10.4); MONOCYTES 8.3 % (2-11); NEUTROPHILS 72.6 % (40-80); PLATELET COUNT 333 10x3/uL (130-400); RBC 3.33 10x6/uL (4.00-5.40); RDW 17.9 % (11.5-14.5)
[2019-03-12 07:34] LABS: ANION GAP 10.5 mmol/L (8-16); CALCIUM 8.1 mg/dL (8.5-10.1); CARBON DIOXIDE 30.9 mmol/L (21.0-32.0); CREATININE - SERUM 0.9 mg/dL (0.6-1.3)
[2019-03-12 07:35] LABS: POTASSIUM - SERUM 3.4 mmol/L (3.5-5.1)
--- NOTE | 2019-03-12 08:00 | NUR ---
OSCAR AT THE BEDSIDE, INFORMED HIM THAT PTS HGB IS 7.5, OSCAR ALSO OK`D THE LASIX TO BE ORDERED PO INSTEAD OF IV. WILL CONT TO MONITOR.
--- NOTE | 2019-03-12 08:00 | NUR ---
PT RESTING IN BED WITH EYES OPEN. NO IV PRESENT. CURRENTLY RCVING 3L VIA NC, COMPLAINING OF SOB, O2SAT IS 97. UP TO CHAIR AT BEDSIDE TO SIT UP FOR A WHILE.
[2019-03-12 08:08] LABS: WBC 7.7 10x3/uL (4.8-10.8)
[2019-03-12 08:13] LABS: HEMOGLOBIN 7.5 g/dL (12-16)
[2019-03-12 09:01] VITALS: BP 153/47
[2019-03-12 13:26] VITALS: BP 118/35
[2019-03-12 17:25] VITALS: BP 149/43
[2019-03-12 20:40] VITALS: BP 135/42
[2019-03-13 00:19] VITALS: BP 135/58
[2019-03-13 04:50] VITALS: BP 123/47
[2019-03-13 06:42] LABS: BASOPHILS 0.2 % (0-2); EOSINOPHILS 9.5 % (0-7); HEMATOCRIT 26.4 % (36.0-48.0); HEMOGLOBIN 7.6 g/dL (12-16); IMMATURE GRANULOCYTES 0.4 % (0-5); LYMPHOCYTES 26.1 % (15-50); MCH 22.4 pg (26.0-34.0); MCHC 28.8 g/dL (31.0-37.0); MCV 77.9 fL (80.0-100.0); MEAN PLATELET VOLUME 10.8 fL (7.4-10.4); MONOCYTES 11.5 % (2-11); NEUTROPHILS 52.3 % (40-80); PLATELET COUNT 318 10x3/uL (130-400); RBC 3.39 10x6/uL (4.00-5.40)
[2019-03-13 06:43] LABS: WBC 5.1 10x3/uL (4.8-10.8)
[2019-03-13 06:58] LABS: ANION GAP 9.3 mmol/L (8-16); CALCIUM 8.2 mg/dL (8.5-10.1); CARBON DIOXIDE 32.2 mmol/L (21.0-32.0); CREATININE - SERUM 0.9 mg/dL (0.6-1.3); POTASSIUM - SERUM 3.5 mmol/L (3.5-5.1)
[2019-03-13 08:58] VITALS: BP 101/70
[2019-03-13 12:35] VITALS: BP 102/51
[2019-03-13 17:36] VITALS: BP 148/80
[2019-03-13 20:21] VITALS: BP 140/53
[2019-03-14 00:32] VITALS: BP 141/53
[2019-03-14 04:37] VITALS: BP 122/50
[2019-03-14 07:25] VITALS: BP 119/53
--- NOTE | 2019-03-14 07:50 | NUR ---
ALERT AND ORIETNED. LUNGS CLEAR BILATERALLY IN ALL RYAN. HEART SOUNDS S1 AND S2 HEARD IN ALL RYAN. BOWEL SOUNDS ACTIVE X 4. SKIN INTACT WITHOUT REDNESS. DENIES PAIN. DENIES NEEDS. BED LOW. CALL SINGLETARY AND PERSONAL ITEMS IN REACH. WILL CONTINUE TO MONITOR.
[2019-03-14 07:58] VITALS: BP 133/52
--- NOTE | 2019-03-14 09:55 | NUR ---
PATIENT SLEEPING. WILL CONTINUE TO MONITOR.
[2019-03-14 11:46] LABS: BASOPHILS 0.3 % (0-2); EOSINOPHILS 8.2 % (0-7); IMMATURE GRANULOCYTES 0.4 % (0-5); LYMPHOCYTES 17.4 % (15-50); MCH 24.5 pg (26.0-34.0); MCHC 31.3 g/dL (31.0-37.0); MCV 78.1 fL (80.0-100.0); MEAN PLATELET VOLUME 10.2 fL (7.4-10.4); MONOCYTES 7.5 % (2-11); NEUTROPHILS 66.2 % (40-80); PLATELET COUNT 356 10x3/uL (130-400); RDW 17.4 % (11.5-14.5)
[2019-03-14 11:47] LABS: HEMATOCRIT 36.4 % (36.0-48.0); HEMOGLOBIN 11.4 g/dL (12-16); RBC 4.66 10x6/uL (4.00-5.40); WBC 7.6 10x3/uL (4.8-10.8)
[2019-03-14 11:58] LABS: ANION GAP 9.1 mmol/L (8-16); CALCIUM 8.9 mg/dL (8.5-10.1); CARBON DIOXIDE 32.4 mmol/L (21.0-32.0); POTASSIUM - SERUM 3.5 mmol/L (3.5-5.1)
--- NOTE | 2019-03-14 12:20 | NUR ---
O2 TURNED OFF PER DR ARIAS VERBAL ORDER IN ROOM. O2 SAT 95%. WILL CONTINUE TO MONITOR.
[2019-03-14 12:52] VITALS: BP 117/51
--- NOTE | 2019-03-14 13:20 | NUR ---
PATIENT O2 SAT 94% STANDING. WALKED PATIENT 50 FEET. O2 SAT 95% AFTER WALKING. WILL PAGE DR ARIAS.
--- NOTE | 2019-03-14 13:22 | NUR ---
DR JUANA DOYLE.
--- NOTE | 2019-03-14 13:37 | NUR ---
SPOKE WITH DR ARIAS ABOUT PATIENT O2 SAT OK. STATES WILL DISCHARGE PATIENT.
--- NOTE | 2019-03-14 15:38 | MORECARE ---
CASE MANAGEMENT DISCHARGE SUMMARY PATIENT: JORGE JULIO UNIT: [id number] ADM DATE: 03/13/19 AGE: 78 : 42 SEX: F ROOM/BED: D.2228 AUTHOR: TANNA JOHNSON PHYSICIAN: REFERRING PHYSICIAN: STAS ARIAS MD DATE OF SERVICE: 03/14/19 Discharge Plan Patient Name: JORGE JULIO [facility] [facility] 1940 Planned Disposition: Home with Home Health Anticipated Discharge Date: 03/14/19 Discharge Date: Expected LOS: 1 Initial Reviewer: [email or web address] Initial Review Date: 03/11/2019 Generated: 03/14/19 4:38 pm DCPIA - Discharge Planning Initial Assessment Updated by [email or web address]: Ariana Chapin on 03/14/19 3:36 pm * Is the patient Alert and Oriented? Yes * How many steps to enter\exit or inside your home? ONE * PCP DR ARIAS * Pharmacy [facility] * Preadmission Environment Home with Family * ADLs Partial Dependent * Partial ADLs (Assistance needed) Bathing Dressing * Equipment Glucometer Other Shower Chair Walker * Other Equipment CANE, ROLLATOR, TUB CHAIR, WHEELCHAIR, GLUCOMETER * List name and contact numbers for known caregivers / representatives who currently or will assist patient after discharge: GENET ORTIZ- GRANDDAUGHTER- [phone] * Verbal permission to speak to the caregivers and representatives has been obtained from the patient. No * Community resources currently utilized None * Please name any agencies selected above. N/A * Additional services required to return to the preadmission environment? Yes * Can the patient safely return to the preadmission environment? Yes * Has this patient been hospitalized within the prior 30 days at any hospital? Yes Patient Name: JORGE JULIO Page [phone] at 1538 All edits/amendments must be made on the electronic document DICTATION DATE: 03/14/19 153 GREY IRON MOLDER: JACOB 03/14/191537 RPT#: [id number] DC DATE: STATUS: ADM IN [facility] [address] [place] [address] END OF REPORT
--- NOTE | 2019-03-14 15:50 | NUR ---
DISCHARGE EDUCATION PROVIDED BOTH WRITTEN AND VERBAL. VERBALIZED UNDERSTANDING. DENIES FURTHER QUESTIONS. IV REMOVED FROM RIGHT AC WITH TIP INTACT. PATIENT WAITING FOR RIDE AND STATES WILL BE A COUPLE OF HOURS.
--- NOTE | 2019-03-14 15:57 | MORECARE ---
CASE MANAGEMENT DISCHARGE SUMMARY PATIENT: JORGE JULIO UNIT: [id number] ADM DATE: 03/13/19 AGE: 78 : 42 SEX: F ROOM/BED: D.2228 AUTHOR: ALEX,DOC PHYSICIAN: REFERRING PHYSICIAN: STAS ARIAS MD DATE OF SERVICE: 03/14/19 Discharge Plan Patient Name: JORGE JULIO Facility: [facility]:[place] : 1940 Planned Disposition: Home with Home Health Anticipated Discharge Date: 03/14/19 Discharge Date: Expected LOS: 1 Initial Reviewer: [email or web address] Initial Review Date: 03/11/2019 Generated: 03/14/19 4:57 pm Comments DCP- Discharge Planning Updated by [email or web address]: Ariana Chapin on 03/14/19 2:[address] LATE ENTRY 1430 CM MET WITH THE PATIENT AT THE BEDSIDE. THE PATIENT IS ALERT AND ORIENTED. SHE IS PLANNING ON GOING HOME W/ HER GRANDDAUGHTER, GENET. HAS ORDERED HOME HEALTH AND SHE IS IN AGREEMENT W/ THE DISCHARGE PLAN. PATIENT WAS READMITTED AFTER HER 03/11/19 DISCHARGE. CM ADVISED HER THE DOCTOR HAD ORDERED HOME HEALTH. SHE IS IN AGREEMENT. CM PROVIDED THE HOME HEALTH PROVIDER LIST. SHE KNEW SHE WANTED [facility]. SHE HAD THEM PREVIOUSLY. POC OBTAINED 2 COPIES SIGNED. ONE COPY TO THE PATIENT. ONE COPY TO THE HARD CHART. DISCHARGE IMM SIGNED 2 COPIES. ONE COPY TO THE PATIENT. ONE COPY TO THE HARD CHART. PATIENT GRANDDAUGHTER IS PROVIDING TRANSPORTATION TO HOME. PCP- [facility] [address] PATIENT DENIES ANY ADDITIONAL NEED. DCPIA - Discharge Planning Initial Assessment Updated by [email or web address]: Ariana Chapin on 03/14/19 3:36 pm * Is the patient Alert and Oriented? Yes * How many steps to enter\exit or inside your home? ONE * PCP DR ARIAS * [facility] [address] * Preadmission Environment Home with Family * ADLs Partial Dependent * Partial ADLs (Assistance needed) Bathing Dressing * Equipment Glucometer Other Shower Chair Walker * Other Equipment CANE, ROLLATOR, TUB CHAIR, WHEELCHAIR, GLUCOMETER * List name and contact numbers for known caregivers / representatives who currently or will assist patient after discharge: GENET ORTIZ- DALAUREN- [phone] * Verbal permission to speak to the caregivers and representatives has been obtained from the patient. No * Community resources currently utilized None * Please name any agencies selected above. N/A * Additional services required to return to the preadmission environment? Yes * Can the patient safely return to the preadmission environment? Yes * Has this patient been hospitalized within the prior 30 days at any hospital? Yes Last DP export: 03/14/19 2:38 p Patient Name: JORGE JULIO Page 48591 at 1557 All edits/amendments must be made on the electronic document DICTATION DATE: 03/14/191555 COMPENSATION EXPERT: JACOB 03/14/191555 RPT#: [id number] DC DATE: STATUS: ADM IN [facility] [address] [place] [address] END OF REPORT
--- NOTE | 2019-03-14 17:06 | MORECARE ---
CASE MANAGEMENT DISCHARGE SUMMARY PATIENT: JORGE JULIO UNIT: [id number] ADM DATE: 03/13/19 AGE: 78 : 42 SEX: F ROOM/BED: D.2228 AUTHOR: ALEX,DOC PHYSICIAN: REFERRING PHYSICIAN: STAS ARIAS MD DATE OF SERVICE: 03/14/19 Discharge Plan Patient Name: JORGE JULIO Facility: [facility]:[place] : 1940 Planned Disposition: Home with Home Health Anticipated Discharge Date: 03/14/19 Discharge Date: Expected LOS: 1 Initial Reviewer: [email or web address] Initial Review Date: 03/11/2019 Generated: 03/14/19 6:06 pm Comments DCP- Discharge Planning Updated by [email or web address]: Ariana Chapin on 03/14/19 4:[address] LATE ENTRY 1630 TC TO [employer] SERVICE. RECEIVED CB. CM SPOKE WITH EDWARD, THE IT COMPLIANCE MANAGER NURSE, FROM [employer]. THE PATIENT WILL BE SEEN FRIDAY OR FRIDAY. FAXED REFERRAL. DCP- Discharge Planning Updated by [email or web address]: Ariana Chapin on 03/14/19 2:[address] LATE ENTRY 1430 CM MET WITH THE PATIENT AT THE BEDSIDE. THE PATIENT IS ALERT AND ORIENTED. SHE IS PLANNING ON GOING HOME W/ HER GRANDDAUGHTER, GENET. HAS ORDERED HOME HEALTH AND SHE IS IN AGREEMENT W/ THE DISCHARGE PLAN. PATIENT WAS READMITTED AFTER HER 03/11/19 DISCHARGE. HUBER ADVISED HER THE DOCTOR HAD ORDERED HOME HEALTH. SHE IS IN AGREEMENT. HUBER PROVIDED THE HOME HEALTH PROVIDER LIST. SHE KNEW SHE WANTED [facility]. SHE HAD THEM PREVIOUSLY. POC OBTAINED 2 COPIES SIGNED. ONE COPY TO THE PATIENT. ONE COPY TO THE HARD CHART. DISCHARGE IMM SIGNED 2 COPIES. ONE COPY TO THE PATIENT. ONE COPY TO THE HARD CHART. PATIENT GRANDDAUGHTER IS PROVIDING TRANSPORTATION TO HOME. PCP- DR [facility] [address] PATIENT DENIES ANY ADDITIONAL NEED. DCPIA - Discharge Planning Initial Assessment Updated by [email or web address]: Ariana Chapin on 03/14/19 3:36 pm * Is the patient Alert and Oriented? Yes * How many steps to enter\exit or inside your home? ONE * PCP DR ARIAS * Pharmacy [facility] * Preadmission Environment Home with Family * ADLs Partial Dependent * Partial ADLs (Assistance needed) Bathing Dressing * Equipment Glucometer Other Shower Chair Walker * Other Equipment CANE, ROLLATOR, TUB CHAIR, WHEELCHAIR, GLUCOMETER * List name and contact numbers for known caregivers / representatives who currently or will assist patient after discharge: GENET KEYESDALAUREN- [phone] * Verbal permission to speak to the caregivers and representatives has been obtained from the patient. No * Community resources currently utilized None * Please name any agencies selected above. N/A * Additional services required to return to the preadmission environment? Yes * Can the patient safely return to the preadmission environment? Yes * Has this patient been hospitalized within the prior 30 days at any hospital? Yes Last DP export: 03/14/19 2:57 p Patient Name: JORGE JULIO Page 64096 at 1706 All edits/amendments must be made on the electronic document DICTATION DATE: 03/14/191705 DEGREASING SOLUTION RECLAIMER: JACOB 03/14/191705 RPT#: [id number] DC DATE: STATUS: ADM IN [facility] [address] [place] [address] END OF REPORT
--- NOTE | 2019-03-14 18:15 | NUR ---
PATIENT DISCHARGED HOME WITH ALL BELONGINGS.
--- NOTE | 2019-03-18 08:24 | MORECARE ---
CASE MANAGEMENT DISCHARGE SUMMARY PATIENT: JORGE JULIO UNIT: [id number] ADM DATE: 03/13/19 AGE: 78 : 42 SEX: F ROOM/BED: D.2228 AUTHOR: ALEX,DOC PHYSICIAN: REFERRING PHYSICIAN: STAS ARIAS MD DATE OF SERVICE: 03/18/19 Discharge Plan Patient Name: JORGE JULIO Facility: [facility]:[place] : 1940 Planned Disposition: Home with Home Health Anticipated Discharge Date: 03/14/19 Discharge Date: 03/14/2019 Expected LOS: 1 Initial Reviewer: [email or web address] Initial Review Date: 03/11/2019 Generated: 03/18/19 9:23 am Comments DCP- Discharge Planning Updated by [email or web address]: Ariana Chapin on 03/14/19 4:[address] LATE ENTRY 1630 TC TO [employer] SERVICE. RECEIVED CB. CM SPOKE WITH EDWARD, THE PIPE LINE GAUGER NURSE, FROM [employer]. THE PATIENT WILL BE SEEN FRIDAY OR FRIDAY. FAXED REFERRAL. DCP- Discharge Planning Updated by [email or web address]: Ariana Chapin on 03/14/19 2:[address] LATE ENTRY 1430 CM MET WITH THE PATIENT AT THE BEDSIDE. THE PATIENT IS ALERT AND ORIENTED. SHE IS PLANNING ON GOING HOME W/ HER GRANDDAUGHTER, GENET. HAS ORDERED HOME HEALTH AND SHE IS IN AGREEMENT W/ THE DISCHARGE PLAN. PATIENT WAS READMITTED AFTER HER 03/11/19 DISCHARGE. CM ADVISED HER THE DOCTOR HAD ORDERED HOME HEALTH. SHE IS IN AGREEMENT. HUBER PROVIDED THE HOME HEALTH PROVIDER LIST. SHE KNEW SHE WANTED [facility]. SHE HAD THEM PREVIOUSLY. POC OBTAINED 2 COPIES SIGNED. ONE COPY TO THE PATIENT. ONE COPY TO THE HARD CHART. DISCHARGE IMM SIGNED 2 COPIES. ONE COPY TO THE PATIENT. ONE COPY TO THE HARD CHART. PATIENT GRANDDAUGHTER IS PROVIDING TRANSPORTATION TO HOME. PCP- DR [facility]AS [facility]- [facility] [address] PATIENT DENIES ANY ADDITIONAL NEED. DCPIA - Discharge Planning Initial Assessment Updated by [email or web address]: Ariana Chapin on 03/14/19 3:36 pm * Is the patient Alert and Oriented? Yes * How many steps to enter\exit or inside your home? ONE * PCP DR ARIAS * Pharmacy [facility] * Preadmission Environment Home with Family * ADLs Partial Dependent * Partial ADLs (Assistance needed) Bathing Dressing * Equipment Glucometer Other Shower Chair Walker * Other Equipment CANE, ROLLATOR, TUB CHAIR, WHEELCHAIR, GLUCOMETER * List name and contact numbers for known caregivers / representatives who currently or will assist patient after discharge: GENET ORTIZ- GRANDDAUGHTER- [phone] * Verbal permission to speak to the caregivers and representatives has been obtained from the patient. No * Community resources currently utilized None * Please name any agencies selected above. N/A * Additional services required to return to the preadmission environment? Yes * Can the patient safely return to the preadmission environment? Yes * Has this patient been hospitalized within the prior 30 days at any hospital? Yes Last DP export: 03/14/19 4:06 p Patient Name: JORGE JULIO Page [phone] at 0824 All edits/amendments must be made on the electronic document DICTATION DATE: 03/18/19822 FLOOR SERVICE WORKER SPRING: JACOB 03/18/19822 RPT#: [id number] DC DATE:03/14/19 STATUS: DIS IN [facility] [address] [place] [address] END OF REPORT
--- NOTE | 2019-03-20 12:04 | MORECARE ---
CASE MANAGEMENT DISCHARGE SUMMARY PATIENT: JORGE JULIO UNIT: [id number] ADM DATE: 03/13/19 AGE: 78 : 42 SEX: F ROOM/BED: D.2228 AUTHOR: ALEX,DOC PHYSICIAN: REFERRING PHYSICIAN: STAS ARIAS MD DATE OF SERVICE: 03/20/19 Discharge Plan Patient Name: JORGE JULIO Facility: [facility]:[place] : 1940 Planned Disposition: Home with Home Health Anticipated Discharge Date: 03/14/19 Discharge Date: 03/14/2019 Expected LOS: 1 Initial Reviewer: [email or web address] Initial Review Date: 03/11/2019 Generated: 03/20/19 1:04 pm Comments DCP- Discharge Planning Updated by [email or web address]: Ariana Chapin on 03/14/19 4:[address] LATE ENTRY 1630 TC TO [employer] SERVICE. RECEIVED CB. CM SPOKE WITH EDWARD, THE STATE'S ATTORNEY NURSE, FROM [employer]. THE PATIENT WILL BE SEEN FRIDAY OR FRIDAY. FAXED REFERRAL. DCP- Discharge Planning Updated by [id number]: Ariana Chapin on 03/14/19 2:[address] LATE ENTRY 1430 CM MET WITH THE PATIENT AT THE BEDSIDE. THE PATIENT IS ALERT AND ORIENTED. SHE IS PLANNING ON GOING HOME W/ HER GRANDDAUGHTER, GENET. HAS ORDERED HOME HEALTH AND SHE IS IN AGREEMENT W/ THE DISCHARGE PLAN. PATIENT WAS READMITTED AFTER HER 03/11/19 DISCHARGE. CM ADVISED HER THE DOCTOR HAD ORDERED HOME HEALTH. SHE IS IN AGREEMENT. HUBER PROVIDED THE HOME HEALTH PROVIDER LIST. SHE KNEW SHE WANTED [facility]. SHE HAD THEM PREVIOUSLY. POC OBTAINED 2 COPIES SIGNED. ONE COPY TO THE PATIENT. ONE COPY TO THE HARD CHART. DISCHARGE IMM SIGNED 2 COPIES. ONE COPY TO THE PATIENT. ONE COPY TO THE HARD CHART. PATIENT GRANDDAUGHTER IS PROVIDING TRANSPORTATION TO HOME. PCP- [facility]- [facility] [address] PATIENT DENIES ANY ADDITIONAL NEED. DCPIA - Discharge Planning Initial Assessment Updated by [email or web address]: Araina Chapin on 03/14/19 3:36 pm * Is the patient Alert and Oriented? Yes * How many steps to enter\exit or inside your home? ONE * PCP DR ARIAS * Pharmacy [facility] * Preadmission Environment Home with Family * ADLs Partial Dependent * Partial ADLs (Assistance needed) Bathing Dressing * Equipment Glucometer Other Shower Chair Walker * Other Equipment CANE, ROLLATOR, TUB CHAIR, WHEELCHAIR, GLUCOMETER * List name and contact numbers for known caregivers / representatives who currently or will assist patient after discharge: GENET ORTIZ- DAUGHTER- [phone] * Verbal permission to speak to the caregivers and representatives has been obtained from the patient. No * Community resources currently utilized None * Please name any agencies selected above. N/A * Additional services required to return to the preadmission environment? Yes * Can the patient safely return to the preadmission environment? Yes * Has this patient been hospitalized within the prior 30 days at any hospital? Yes Last DP export: 03/18/19 7:24 a Patient Name: JORGE JULIO Page 34938 at 1204 All edits/amendments must be made on the electronic document DICTATION DATE: 03/20/19 1203 FIREWORKS DISPLAY SPECIALIST: JACOB 03/20/19 1203 RPT#: [id number] DC DATE:03/14/19 STATUS: DIS IN [facility] [address] [place] [address] END OF REPORT
== END 2019-03-14 18:20 | disposition home health service (06) | DRG 948 ==
LOC: D.ER 21:40 → D.MS 03-11 01:06 → OBSVTIME 03-11 01:06 → D.MS 03-11 01:06
PROVIDERS: Emergency Medicine; ADMIT Family Medicine; ATTEND Family Medicine
DX: G89.18 Other acute postprocedural pain (principal); D62 Acute posthemorrhagic anemia; I50.22 Chronic systolic (congestive) heart failure; D50.0 Iron deficiency anemia secondary to blood loss (chronic); R06.02 Shortness of breath; I11.0 Hypertensive heart disease with heart failure; E11.9 Type 2 diabetes mellitus without complications

== ENCOUNTER → 2019-07-28 20:33 | Outpatient (CLI) | payer MEDICARE ==
[2019-03-11 13:55] VITALS: BMI 36.6
== END | disposition home or self-care (01) ==
LOC: D.LABREF 20:33
PROVIDERS: ATTEND Orthopaedic Surgery
DX: M16.12 Unilateral primary osteoarthritis, left hip (principal)

== ENCOUNTER 2020-02-21 12:32 | Observation (INO) | payer MEDICARE ==
[~2020-02-21] VITALS: Ht 182.9 cm; Wt 118.2 kg
[2020-02-21] VITALS (7 sets, daily range): BP systolic 157–188; BP diastolic 63–78; Ht 182.9 cm; Wt 118.2 kg
[2020-02-21 13:50] LABS: BASOPHILS 0.3 % (0-2); EOSINOPHILS 2.2 % (0-7); HEMATOCRIT 47.3 % (36.0-48.0); HEMOGLOBIN 14.8 g/dL (12-16); IMMATURE GRANULOCYTES 0.5 % (0-5); LYMPHOCYTES 25.9 % (15-50); MCH 27.4 pg (26.0-34.0); MCHC 31.3 g/dL (31.0-37.0); MCV 87.4 fL (80.0-100.0); MEAN PLATELET VOLUME 11.2 fL (7.4-10.4); MONOCYTES 9.6 % (2-11); NEUTROPHILS 61.5 % (40-80); RBC 5.41 10x6/uL (4.00-5.40); RDW 16.4 % (11.5-14.5); WBC 8.7 10x3/uL (4.8-10.8)
[2020-02-21 13:51] LABS: PLATELET COUNT 242 10x3/uL (130-400)
[2020-02-21 14:06] LABS: APTT 27.1 SECONDS (22.8-39.4); INR 1.06 (0.85-1.17); PROTIME 13.8 SECONDS (11.6-15.0)
[2020-02-21 14:16] LABS: CALC OSMOLALITY 278 mosm/kg (275-300); CALCIUM 9.8 mg/dL (8.5-10.1); CARBON DIOXIDE 28.5 mmol/L (21.0-32.0); CHLORIDE - SERUM 101 mmol/L (98-107); CREATININE - SERUM 1.1 mg/dL (0.6-1.3); POTASSIUM - SERUM 4.2 mmol/L (3.5-5.1); SODIUM 138 mmol/L (136-145); UREA NITROGEN 20 mg/dL (7-18); eGFR NON AFRICAN AMERICAN 51 mL/min (90-120)
[2020-02-21 14:21] LABS: GLUCOSE 98 mg/dL (74-106)
[2020-02-21 14:33] LABS: ALBUMIN 3.5 g/dL (3.4-5.0); ALKALINE PHOSPHATASE 117 U/L (30-120); ALT (SGPT) 17 U/L (10-68); BILIRUBIN - TOTAL 0.44 mg/dL (0.2-1.3); CKMB 0.4 U/L (0.0-3.6); CREATINE KINASE 40 UL (21-215); MAGNESIUM - SERUM 2.4 mg/dL (1.8-2.4); PROTEIN - SERUM 7.7 g/dL (6.4-8.2)
[2020-02-21 14:35] LABS: TROPONIN-I < 0.017 ng/mL (0.000-0.060)
[2020-02-21 15:31] LABS: BILIRUBIN NEGATIVE (NEGATIVE); GLUCOSE NEGATIVE (NEGATIVE); KETONE NEGATIVE (NEGATIVE); NITRITE NEGATIVE (NEGATIVE); UROBILINOGEN NORMAL (NORMAL)
[2020-02-21 15:34] LABS: BACTERIA MODERATE /hpf (NEGATIVE); EPITHELIAL CELLS 0-5 /hpf (0-5); RED CELLS - URINE 0-5 /hpf (0-5); WHITE CELLS - URINE 0-5 /hpf (NEGATIVE)
--- NOTE | 2020-02-21 19:10 | NUR ---
REPORT TO KIKA HANSON.
--- NOTE | 2020-02-21 20:01 | NUR ---
PT AMBULATED TO THE RESTROOM WITH ASSISTANCE. NO ACUTE DISTRESS NOTED.
[2020-02-22] VITALS (7 sets, daily range): BP systolic 115–162; BP diastolic 43–76
[2020-02-22] MEDS ORDERED: PAXIL40 MG PO (01:21)
[2020-02-22] MEDS ORDERED: ELIQUIS2.5 MG PO (01:22)
[2020-02-22] MEDS ORDERED: REMERON30 MG PO (01:22)
[2020-02-22] MEDS ORDERED: BUSPAR10 MG PO (01:22)
[2020-02-22 05:41] LABS: BASOPHILS 0.3 % (0-2); EOSINOPHILS 3.1 % (0-7); HEMATOCRIT 43.1 % (36.0-48.0); HEMOGLOBIN 13.4 g/dL (12-16); LYMPHOCYTES 28.8 % (15-50); MCH 27.2 pg (26.0-34.0); MCHC 31.1 g/dL (31.0-37.0); MCV 87.6 fL (80.0-100.0); MEAN PLATELET VOLUME 11.6 fL (7.4-10.4); MONOCYTES 10.1 % (2-11); NEUTROPHILS 56.7 % (40-80); PLATELET COUNT 231 10x3/uL (130-400); RBC 4.92 10x6/uL (4.00-5.40); RDW 16.6 % (11.5-14.5); WBC 7.4 10x3/uL (4.8-10.8)
[2020-02-22 06:24] LABS: ALBUMIN 3.1 g/dL (3.4-5.0); ALKALINE PHOSPHATASE 104 U/L (30-120); ALT (SGPT) 14 U/L (10-68); BILIRUBIN - TOTAL 0.34 mg/dL (0.2-1.3); CALC OSMOLALITY 286 mosm/kg (275-300); CALCIUM 8.8 mg/dL (8.5-10.1); CARBON DIOXIDE 27.5 mmol/L (21.0-32.0); CHLORIDE - SERUM 105 mmol/L (98-107); CKMB 0.4 U/L (0.0-3.6); CREATINE KINASE 27 UL (21-215); CREATININE - SERUM 1.1 mg/dL (0.6-1.3); GLUCOSE 129 mg/dL (74-106); POTASSIUM - SERUM 3.9 mmol/L (3.5-5.1); PROTEIN - SERUM 6.2 g/dL (6.4-8.2); SODIUM 141 mmol/L (136-145); TROPONIN-I < 0.017 ng/mL (0.000-0.060); UREA NITROGEN 24 mg/dL (7-18); eGFR NON AFRICAN AMERICAN 51 mL/min (90-120)
--- NOTE | 2020-02-22 06:50 | NUR ---
RESTING IN BED WITH EYES CLOSED. RESPIRATIONS EVEN AND UNLABORED. NO S/S OF ACUTE DISTRESS NOTED. BED ALARM ON. UP WITH ASSIST. ABDOMEN DISTENDED. SCDS ON. IV TO LEFT HAND, NS INFUSING @ KVO. SITE PATENT WITHOUT REDNESS OR SWELLING. ON TELEMETRY SR 60. CALL LIGHT IN REACH. WILL CONTINUE TO MONITOR.
--- NOTE | 2020-02-22 08:16 | HP ---
PATIENT: JORGE JULIO MEDICAL RECORD: [id number] ACCOUNT: [id number] LOCATION:D.MS [id number] : 44 ADMISSION DATE: 02/21/20 PCP: STAS ARIAS MD HISTORY AND PHYSICAL EXAMINATION DATE OF ADMISSION: 02/21/2020 CHIEF COMPLAINT: Frequent falls, near syncope. HISTORY OF PRESENT ILLNESS: A 79-year-old white female followed by Dr. Arias complaining of generalized pain, atrial fibrillation, losing balance and falls on Eliquis. She states she did not feel good a couple days ago and had a left earache yesterday. Today, she has no earache. She does not feel dizzy, but when she tried to get up 3 different times during the day, she would fall back. She did not hit her head. She has no obvious bleeding anywhere. Again, she is on Eliquis for atrial fibrillation. She was brought to the ER where workup was fairly unremarkable. Chest x-ray was unremarkable. CT of the head shows nothing acute. She is admitted to observation overnight due to her falls on Eliquis. PAST MEDICAL AND SURGICAL HISTORY: CHF, atrial fibrillation, diabetes, history of DVT in 05/2018, history of gastric ulcer, anxiety, depression, neuropathy. PAST SURGICAL HISTORY: Pacemaker placement. She has had bilateral total knee arthroplasties and a right total hip arthroplasty. She has had right shoulder replacement and right reverse shoulder replacement. She has had a left shoulder replacement. She had a wrist surgery times 3, hernia repair, IVC filter placed, and hysterectomy. ALLERGIES: PENICILLIN, BENADRYL AND TAPE. CURRENT MEDICATIONS: Hydrocodone 7.5/325 one p.o. t.i.d. p.r.n. pain, metoprolol tartrate 50 mg twice a day, metformin ER 500 one at bedtime, sotalol 120 mg twice a day, paroxetine 40 mg twice a day, Lasix 40 mg twice a day, potassium 20 mEq once a day, BuSpar 10 grams twice a day, Eliquis 2.5 mg twice a day, gabapentin 300 mg twice a day p.r.n. pain, mirtazapine 30 mg p.o. at bedtime, Flexeril 5 mg t.i.d. p.r.n. muscle spasm, Cardizem-CD 120 once a day. SOCIAL HISTORY: . Her lives in a skilled nursing due to dementia. She is retired. She lives with several family members including grandchildren, great grandchildren, son and his . FAMILY HISTORY: Father is , he had a cancer. Mother is , she had dementia. HABITS: No tobacco, alcohol or drugs. REVIEW OF SYSTEMS: GENERAL: No major weight changes. HEENT: No particular sinus or allergy problems. RESPIRATORY: No history of COPD or asthma. CARDIAC: She has a history of CHF. She has a history of atrial fibrillation, has a pacemaker. GASTROINTESTINAL: She has had gastric ulcer in the past. GENITOURINARY: No significant problems there. HISTORY AND PHYSICAL [id number] JORGE JULIO MUSCULOSKELETAL: She has osteoarthritis and has had both knees replaced and right hip replaced, shoulders replaced. NEUROLOGIC: She has neuropathy. No seizures or migraines. PSYCHIATRIC: She has depression and anxiety. PHYSICAL EXAMINATION: VITAL SIGNS: Temperature 97.5, pulse 65, respirations 14, blood pressure 163/64. GENERAL: She does not appear in acute distress. She is lying in the gurney in the Emergency Room #13. SKIN: Warm and dry. HEENT: Grossly within normal limits. NECK: Supple. No JVD or bruit. HEART: Regular rate and rhythm at this time. LUNGS: Fairly clear. ABDOMEN: Soft, obese, nontender. EXTREMITIES: No edema. LABORATORY DATA: Urinalysis shows yellow, hazy urine, trace leukocyte esterase, moderate bacteria. CBC with a white count of 8700, hemoglobin 14.8, hematocrit 47.3. Basic metabolic panel: Sodium 138, potassium 4.2, chloride 101, CO2 28.5, BUN 20, creatinine 1.1, glucose 98, calcium 9.8. Liver functions are all normal. INR 1.06, magnesium ____, troponin less than 0.017. IMAGING: Chest x-ray shows nothing acute. CT of the head shows no acute process. ASSESSMENT: 1. Frequent falls, near syncope on Eliquis. 2. Generalized pain. 3. Atrial fibrillation. PLAN: Admit, observation telemetry. We will have physical therapy walk her tomorrow. Other tests or procedures as warranted. TRANSINT:[id number] Voice Confirmation ID: [id number] DOCUMENT ID: [id number] KELLY DE SANTIAGO MD at 0816 CC: [id number] DICTATION DATE: 02/22/20 0133 SENIOR RESEARCH MANAGER: 02/22/20 0203 ADM IN [facility] [address] [id number]
--- NOTE | 2020-02-22 17:40 | NUR ---
OT NOTE: PT COMPLETED SUPINE TO SIT WITH SPV.PT COMPLETED EOB SITTING WITH SPV. PT COMPLETED SIT TO STAND WITH SPV. PT COMPLETED SIDE STEPPING WITH CGA.PT COMPLETED AROM AXS WITH FUNCTIONAL TASKS. [phone] THANK YOU,LALITA LONDON
--- NOTE | 2020-02-22 17:45 | NUR ---
DISCHARGED PATIENT HOME WITH FAMILY VIA WHEELCHAIR. DISCONTINUED IV, CATHETER TIP INTACT. WENT OVER DISCHARGE INSTRUCTIONS WITH PATIENT, VERBALIZED UNDERSTANDING. DENIES ANYTHING FURTHER.
== END 2020-02-22 17:56 | disposition home or self-care (01) ==
LOC: D.ER 12:32 → D.MS 21:12 → OBSVTIME 21:12 → D.MS 21:12
PROVIDERS: Family Medicine; ADMIT Family Medicine; ATTEND Family Medicine
DX: R55 Syncope and collapse (principal); E11.9 Type 2 diabetes mellitus without complications; I48.91 Unspecified atrial fibrillation; R52 Pain, unspecified; Z91.81 History of falling

== ENCOUNTER 2020-03-04 20:51 | Inpatient (IN) | payer MEDICARE ==
[~2020-03-04] VITALS: Ht 182.9 cm; Wt 118.3 kg
--- NOTE | ~2020-03-04 | EEG ---
PATIENT:JORGE JULIO MEDICAL RECORD: [id number] DATE OF : 44 LOCATION:D.210 D.M2 ADMISSION DATE: 03/05/20 REFERRING PHYSICIAN: INTERPRETING PHYSICIAN: SERGIO HOUSTON MD DATE OF SERVICE: 03/08/2020 ROOM NUMBER: [id number] EEG ORDERED BY: Dr. Houston CASE HISTORY: A 79-year-old female with known history of cardiac arrhythmias and pacemaker in place. Reports recent episodes of syncope and on 03/05/2020, the patient walked across the room, turned and fell to the left side without loss of consciousness, sustaining bruising and laceration on the left forehead and eye. Further medical history, sick sinus syndrome with pacemaker, CHF, depression, hypertension, insulin-dependent diabetes mellitus, PAT. MEDICATIONS: Paxil, metoprolol, diltiazem, Betapace, Remeron, Glucophage, KCl, gabapentin, BuSpar, insulin, Lasix, Salix, Eliquis. PROCEDURE: EEG done as a routine bedside portable recording using the standard 10-20 international electrode system, 16 channels used with 17th as EKG. Photic stimulation was done as activation procedures. TECHNICAL DESCRIPTION: EEG opens with the patient awake with the record displaying a well-organized posterior dominant rhythm of 9 Hz, this is of moderate amplitude, symmetric and attenuates with eye opening. Later in the record, the patient demonstrates drowsiness transitioning to stage I sleep. Infrequent bilateral independent single theta slow waves were seen while alert. Photic stimulation did not yield a significant driving response nor was a photomyogenic or photoparoxysmal response seen. No epileptiform change such as spike, polyspike, or spike and wave was seen. IMPRESSION: Normal waking, drowsy and brief sleep EEG recording without evidence of seizure disorder. TRANSINT:[id number] Voice Confirmation ID: [id number] DOCUMENT ID: [id number] SERGIO HOUSTON MD CC: [id number] DICTATION DATE: 03/08/20 1645 SOURCING ASSOCIATE: 03/09/20 0233 ADM IN [id number] [place] [address]
[~2020-03-04 20:51] MED LIST changes: +BUSPAR10 MG PO; +ELIQUIS2.5 MG PO; +REMERON30 MG PO
--- NOTE | 2020-03-04 21:09 | NUR ---
TRAUMA BAND [id number]
[2020-03-04 23:17] LABS: HEMATOCRIT 44.8 % (36.0-48.0); HEMOGLOBIN 14.1 g/dL (12-16); LYMPHOCYTES 17.8 % (15-50); MCH 27.6 pg (26.0-34.0); MCHC 31.5 g/dL (31.0-37.0); MCV 87.7 fL (80.0-100.0); MEAN PLATELET VOLUME 11.1 fL (7.4-10.4); NEUTROPHILS 74.8 % (40-80); PLATELET COUNT 198 10x3/uL (130-400); RBC 5.11 10x6/uL (4.00-5.40); RDW 15.8 % (11.5-14.5); WBC 7.8 10x3/uL (4.8-10.8)
[2020-03-04 23:24] LABS: PROTIME 13.2 SECONDS (11.6-15.0)
[2020-03-04 23:25] LABS: ANION GAP 12.6 mmol/L (8-16); CARBON DIOXIDE 27.5 mmol/L (21.0-32.0); POTASSIUM - SERUM 4.1 mmol/L (3.5-5.1)
[2020-03-04 23:39] LABS: ALBUMIN 3.5 g/dL (3.4-5.0); BILIRUBIN - TOTAL 0.41 mg/dL (0.2-1.3); PROTEIN - SERUM 7.2 g/dL (6.4-8.2); THYROID STIMULATING HORMONE 1.7 uIU/mL (0.36-3.74)
--- NOTE | 2020-03-05 01:52 | NUR ---
PT ARRIVED VIA STRETCHER. NO DISTRESS NOTED.
[2020-03-05 02:08] VITALS: BP 158/78; Ht 182.9 cm; Wt 118.3 kg
--- NOTE | 2020-03-05 02:27 | NUR ---
ADMISSION ASESSMENT, HISTORY AND HOME MED LIST COMPLETED. IV TO R HAND SL. ALERT AND ORIENTED TO PERSON, PLACE AND TIME. TOMPKINS. LUNGS CTA. SORES NOTED TO BILAT ARMS. LACERATION APPROX 1CM IN DIAMETER NOTED TO L FOREHEAD. HEMATOMA NOTED TO L FOREHEAD. NAIN. MOVES ALL EXTREMITIES. ST PER CM HR 102. PPM NOTED. SR UP X2, CALL LIGHT WITHIN REACH AND BED ALARM ON.
--- NOTE | 2020-03-05 04:08 | NUR ---
PT AWAKE; DENIES ANY DISCOMFORT. SR UP X2, CALL LIGHT WITHIN REACH AND BED AALRM ON.
--- NOTE | 2020-03-05 05:46 | NUR ---
N0 CHANGE IN STATUS NOTED. NEEDS MET';ILL CONTINUE TO MONITOR.
[2020-03-05 08:00] VITALS: BP 154/58
--- NOTE | 2020-03-05 08:50 | NUR ---
PATIENT HAS A PACEMAKER. MRI NOT POSSIBLE. NOTIFIED NURSE ROBERT. CANCELLED IN [facility]. ORDERING PHYSICIAN, DR JUNIOR, ALREADY GONE FROM ER. PUT THIS NOTE IN NURSING MODULE IN [facility].
[2020-03-05 12:00] VITALS: BP 118/46
--- NOTE | 2020-03-05 14:00 | NUR ---
ALERT AND ORIENTED X4. RESTING IN BED. RT ARM BP-118/46. LT ARM BP-114/42. LAYING BP-114/69, SITTING BP-146/55, STANDING BP-126/72. DENIES ANY NEEDS AT THIS TIME. CONTINUE PLAN OF CARE AND SAFETY PRECAUTIONS.
--- NOTE | 2020-03-05 15:50 | HP ---
PATIENT: JORGE JULIO MEDICAL RECORD: [id number] ACCOUNT: [id number] LOCATION:[address] : 44 ADMISSION DATE: 03/05/20 PCP: STAS ARIAS MD HISTORY AND PHYSICAL EXAMINATION ADMITTING PHYSICIAN: Stas Arias MD REASON FOR ADMISSION: Syncopal episode. HISTORY OF PRESENT ILLNESS: The patient is a 79-year-old female with sick sinus syndrome and a pacemaker, who was in this hospital about 10 days ago for syncopal episode. Workup at that time was unremarkable. Negative CT of the head. She cannot have an MRI of her brain due to pacemaker. She was evaluated by Dr. Arias and neurology, Dr. Houston, they felt her symptoms were non-neurologic and recommended cardiology evaluation. She saw her poultry cleaner at [facility] last week, hospitalized overnight and had a pacemaker download that did not show any ventricular arrhythmia. Apparently, her poultry cleaner felt it might be a medication that she was taking causing her symptoms, but Dr. Arias did not think so as her medicines have not changed for years. 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 She hit her head, had no presyncopal symptoms of dizziness or vertigo and had no loss of consciousness. She was bleeding from her left frontal scalp when came to the ED and that was closed with Dermabond by Dr. Gamino. He felt she needed to be admitted. CT scan of the head again that showed no acute changes or bleeding. She is on Eliquis for AFib. She states that she has been listing to the left when she walks for years. But yesterday afternoon, when she was walking, she ran into the wall just because she fell to her left side, but did not lose consciousness. She never has a warning this was going to happen. She has also had multiple orthopedic procedures with both knees have been replaced and hip as well, but states she did not really have a gait problem. PAST MEDICAL HISTORY: AODM; chronic PAF; sick sinus syndrome with pacemaker; GERD, improved, post-paraesophageal hernia repair; neuropathy; hypertension; history of congestive heart failure, her last echocardiogram showed normal ejection fraction; osteoarthritis; osteoporosis, postmenopausal; history of depression. SURGICAL HISTORY: Pacemaker placement; esophageal hernia repair, 03/09/2019; hysterectomy; bilateral total knee replacements; has had a right total hip replacement; carpal tunnel replaced on the right; right shoulder scope. She had some type of a nerve ablation to her right lower extremity. Reverse total shoulder and trigger finger repair. ALLERGIES: BENADRYL, PENICILLIN, ADHESIVE TAPE. MEDICATIONS: Flexeril 5 mg t.i.d. p.r.n., Eliquis 2.5 mg daily, Cardizem-CD 120 daily, Toprol-XL 50 mg daily, sotalol 120 mg b.i.d., Neurontin 300 mg p.o. b.i.d., hydrocodone 10/325 one q.6 hours p.r.n. severe back pain, Remeron 30 mg p.o. at bedtime, Paxil 40 mg b.i.d., BuSpar 10 mg t.i.d., Lasix 40 mg p.o. b.i.d., Micro-K 8 mEq p.o. t.i.d., metformin ER 500 mg at bedtime. REVIEW OF SYSTEMS: GENERAL: No weight change, fever or fatigue. HEENT: Denies headache, visual change, sinus congestion, sore throat, little HISTORY AND PHYSICAL [id number] JORGE JULIO over left frontal scalp currently. RESPIRATORY: No severe cough. CARDIAC: No palpitations, PND, or orthopnea. Again, recent pacemaker download was unremarkable for arrhythmia. GASTROINTESTINAL: Intermittent dyspepsia. No change in bowel habits or blood per rectum. GENITOURINARY: Mild incontinence, no dysuria. GYNECOLOGICAL: No vaginal bleeding, she is post-hysterectomy. MUSCULOSKELETAL: Has some arthralgias in her lumbar spine and cervical spine as well. PSYCHIATRIC: Admits to depressed mood, but is treated with Paxil for that and states she is not suicidal. INTEGUMENT: No rash or itching. She has had a laceration on her left scalp. Frontal area closed with Dermabond and some bruising on her left lateral knee. This is from her fall. PHYSICAL EXAMINATION: GENERAL: The patient is alert and oriented and in no acute distress. VITAL SIGNS: Her temperature 98.4, pulse 102, respirations are 18, blood pressure 150/78, sat 97% on room air. HEENT: Normocephalic. Eyes are clear. She has a fresh one inch laceration of the left frontal scalp, it was closed with Dermabond, minimal bruising noted. Eyes are clear. NECK: No bruits or masses. CHEST: Clear without wheeze or rales. HEART: Regular without any gallop or murmur. ABDOMEN: Obese, soft, nontender. EXTREMITIES: She has healed bilateral total knee replacement scars bilaterally. She has some bruising on the left lateral knee with good range of motion. No peripheral edema. INTEGUMENT: Bruising of the left knee and laceration of left scalp stable. NEUROLOGIC: Oriented to person, place, and time. Cranial nerves intact. Gait is unremarkable. Romberg is negative. LABORATORY DATA: H&H of 14 and 44.8 respectively. BMP is normal except for glucose of 109. INR is 1.0. DIAGNOSTIC DATA: Facial bones unremarkable on CT. Cervical spine shows degenerative changes, but no fracture. Head CT, small left forehead hematomas noted. EKG shows left axis deviation, otherwise sinus rhythm, rate of 85. ASSESSMENT: 1. Fall with syncope, etiology unknown. She is not presyncopal and has no symptoms of dizziness. She is on several medications, which could cause arrhythmia, but with her recent pacemaker download, she reports was unremarkable. She has no symptoms of subclavian steal, but we will check blood pressures in both arms or pulses today are equal. 2. Hypertension. 3. Paroxysmal atrial fibrillation. 4. Diabetes mellitus. 5. Left frontal skin laceration. PLAN: PT to assess the patient's gait. MRI is contraindicated unfortunately due to the pacemaker. We will check carotid Dopplers if that have not been done. Further workup pending her clinical course. She will have neuro checks HISTORY AND PHYSICAL [id number] JORGE JULIO due to recent head trauma and Eliquis therapy. TRANSINT:[id number] Voice Confirmation ID: [id number] DOCUMENT ID: [id number] HAY ACEVES MD at 1550 CC: [id number] DICTATION DATE: 03/05/20915 MAINSPRING FABRICATION SUPERVISOR: 03/05/20 1433 ADM IN [facility] [address] [place] [address]
[2020-03-05 16:00] VITALS: BP 114/69
[2020-03-05 20:45] VITALS: BP 150/62
--- NOTE | 2020-03-05 22:57 | NUR ---
INITIAL ROUNDS COMPLETED AT 0 HRS. PT DENIED ANY DISCOMFORT. ASSESSMENT COMPLETED AT 2034 HRS. VSS. SR PER CM HR 71. ALERT AND ORIENTED TO PERSON,PLACE AND TIME. TOMPKINS. IV TO R HAND SL. HEMATOMA WITH SMALL LACERATION NOTED TO L FOREHEAD. LUNGS ESSENTIALLY CTA. TOMPKINS. PALPABLE PERIPHERAL PULSES. PT USTEADY ON FEET. FOLLOWS COMMANDS. PM FSBS 114. NO COVERAGE NEEDED. PM MEDS GIVEN PER ORDERS. PT CURRENTLY WATCHING TV. SR UP X2, CALL LIGHT WITHIN REACH AND BED ALARM ON.
[2020-03-06 01:40] VITALS: BP 99/34
--- NOTE | 2020-03-06 02:11 | NUR ---
PT RESTING WITH EYES CLOSED. RESP EVEN AND REGULAR. CALL LIGHT WITHIN REACH.
--- NOTE | 2020-03-06 03:42 | NUR ---
PT RESTING WITH EYES CLOSED. RESP EVEN AND REGULAR. SR UP X2, CALL LIGHT WITHIN REACH.
[2020-03-06 06:15] LABS: BASOPHILS 0.4 % (0-2); EOSINOPHILS 3.9 % (0-7); HEMATOCRIT 44.8 % (36.0-48.0); HEMOGLOBIN 13.4 g/dL (12-16); IMMATURE GRANULOCYTES 0.2 % (0-5); MCH 27.1 pg (26.0-34.0); MCHC 29.9 g/dL (31.0-37.0); MEAN PLATELET VOLUME 11.1 fL (7.4-10.4); MONOCYTES 11.2 % (2-11); NEUTROPHILS 55.3 % (40-80); PLATELET COUNT 206 10x3/uL (130-400); RBC 4.95 10x6/uL (4.00-5.40); RDW 16.8 % (11.5-14.5)
[2020-03-06 06:17] LABS: MCV 90.5 fL (80.0-100.0); WBC 4.9 10x3/uL (4.8-10.8)
--- NOTE | 2020-03-06 06:27 | NUR ---
VSS THROUGHOUT NIGHT. SR PER CM. PT DENIED ANY DISCOMFORT. AM FSBS 102. NO COVERAGE NEEDED. NEEDS MET; WILL CONTINUE TO MONITOR.
[2020-03-06 06:46] LABS: CALCIUM 8.6 mg/dL (8.5-10.1); CREATININE - SERUM 1.1 mg/dL (0.6-1.3); MAGNESIUM - SERUM 2.2 mg/dL (1.8-2.4); PHOSPHOROUS 4.4 mg/dL (2.5-4.9)
[2020-03-06 07:06] VITALS: BP 135/48
[2020-03-06 08:00] VITALS: BP 126/51
[2020-03-06 11:00] VITALS: BP 140/57
[2020-03-06 15:00] VITALS: BP 141/71
[2020-03-06 20:00] VITALS: BP 142/61
--- NOTE | 2020-03-06 20:40 | NUR ---
REPORT RECEIVED, WILL CONT POC. PT A&O, UP IN BED. NO S/S OF DISTRESS OBSERVED. RR EVEN & UNLABORED ON ROOM AIR. PT DENIES NEEDS AT THIS TIME. CALL LIGHT IN REACH, BED LOCKED AND LOWERED. ASSESSMENT COMPLETED AT THIS TIME. WILL CONT TO MONITOR.
[2020-03-07 04:00] VITALS: BP 111/50
[2020-03-07 06:02] LABS: BASOPHILS 0.3 % (0-2); EOSINOPHILS 4.6 % (0-7); HEMOGLOBIN 12.8 g/dL (12-16); IMMATURE GRANULOCYTES 0.3 % (0-5); LYMPHOCYTES 37.3 % (15-50); MCH 27.4 pg (26.0-34.0); MCHC 30.5 g/dL (31.0-37.0); MCV 89.9 fL (80.0-100.0); MEAN PLATELET VOLUME 11.5 fL (7.4-10.4); MONOCYTES 10.6 % (2-11); NEUTROPHILS 46.9 % (40-80); PLATELET COUNT 213 10x3/uL (130-400); RBC 4.67 10x6/uL (4.00-5.40); RDW 16.7 % (11.5-14.5); WBC 5.9 10x3/uL (4.8-10.8)
[2020-03-07 06:34] LABS: ANION GAP 8.2 mmol/L (8-16); CALCIUM 8.7 mg/dL (8.5-10.1); CARBON DIOXIDE 32.4 mmol/L (21.0-32.0); CREATININE - SERUM 1.2 mg/dL (0.6-1.3); POTASSIUM - SERUM 3.6 mmol/L (3.5-5.1)
--- NOTE | 2020-03-07 07:15 | NUR ---
RECEIVE BEDSIDE SHIFT REPORT. HEAD CT ORDERED DUE TO REPORT OF SLUGGISH PUPILS AND PREVIOUS FALL. WILL CONTINUE WITH NEURO CHECKS. ALERT AND ORIENTED. NO SIGNS OF DISTRESS. CONTINUE PLAN OF CARE.
[2020-03-07 08:00] VITALS: BP 113/53
[2020-03-07 08:10] VITALS: BP 119/53; BP 121/63; BP 128/54
[2020-03-07 11:00] VITALS: BP 132/79
[2020-03-07 15:00] VITALS: BP 142/68
[2020-03-07 22:30] VITALS: BP 125/69
[2020-03-08 04:30] VITALS: BP 130/56
--- NOTE | 2020-03-08 07:20 | NUR ---
WALKING ROUNDS COMPLETE, PT RESTING IN BED WITH EYES OPEN, PT DENIES PAIN OR NEEDS, PT DOES NOT HAVE AN IV, DOCTOR AWARE, BED LOW AND LOCKED, SR UP X2, CALL LIGHT IN REACH, WILL CONTINUE TO MONITOR
[2020-03-08 08:46] VITALS: BP 137/52
--- NOTE | 2020-03-08 09:10 | NUR ---
GAVE PT SCHEDULED MEDS, NO OTHER NEEDS VOICED, BS 107, NO COVERAGE NEEDED,
[2020-03-08 11:59] VITALS: BP 143/53
--- NOTE | 2020-03-08 16:36 | NUR ---
BLOOD SUGAR 133, NO COVERAGE NEEDED, PT DENIES PAIN OR NEEDS, WILL MONITOR
[2020-03-08 20:30] VITALS: BP 144/72
[2020-03-09 00:30] VITALS: BP 144/67
[2020-03-09 04:30] VITALS: BP 106/49
[2020-03-09 06:38] LABS: ANION GAP 8.4 mmol/L (8-16); CALCIUM 8.9 mg/dL (8.5-10.1); CARBON DIOXIDE 31.4 mmol/L (21.0-32.0); CREATININE - SERUM 1.2 mg/dL (0.6-1.3); POTASSIUM - SERUM 3.8 mmol/L (3.5-5.1)
[2020-03-09 07:40] VITALS: BP 134/75
[2020-03-09 07:42] LABS: BASOPHILS 0.4 % (0-2); EOSINOPHILS 4.9 % (0-7); HEMATOCRIT 43.4 % (36.0-48.0); HEMOGLOBIN 13.3 g/dL (12-16); IMMATURE GRANULOCYTES 0.4 % (0-5); LYMPHOCYTES 31.9 % (15-50); MCH 27.6 pg (26.0-34.0); MCHC 30.6 g/dL (31.0-37.0); MEAN PLATELET VOLUME 12.1 fL (7.4-10.4); NEUTROPHILS 53.4 % (40-80); PLATELET COUNT 230 10x3/uL (130-400); RBC 4.82 10x6/uL (4.00-5.40); RDW 16.5 % (11.5-14.5); WBC 7.9 10x3/uL (4.8-10.8)
--- NOTE | 2020-03-09 10:37 | MORECARE ---
CASE MANAGEMENT DISCHARGE SUMMARY PATIENT: JORGE JULIO UNIT: [id number] ADM DATE: 03/05/20 AGE: 79 : 42 SEX: F ROOM/BED: D.2106 AUTHOR: TANNA JOHNSON PHYSICIAN: REFERRING PHYSICIAN: HAY ACEVES MD DATE OF SERVICE: 03/09/20 Discharge Plan Patient Name: JORGE JULIO [facility] [facility] 1940 Planned Disposition: Home Anticipated Discharge Date: Discharge Date: Expected LOS: Initial Reviewer: [email or web address] Initial Review Date: 03/05/2020 Generated: 03/09/20 11:37 am Patient Name: JORGE JULIO Page [phone] at 1037 All edits/amendments must be made on the electronic document DICTATION DATE: 03/09/20 1037 FOREST SCIENCE PROFESSOR: JACOB 03/09/20 [facility] RPT#: [id number] DC DATE: STATUS: ADM IN [facility] [address] [place] [address] END OF REPORT
[2020-03-09 13:13] VITALS: BP 128/59
[2020-03-09 15:20] VITALS: BP 116/47
--- NOTE | 2020-03-09 18:09 | MORECARE ---
CASE MANAGEMENT DISCHARGE SUMMARY PATIENT: JORGE MUJICA UNIT: [id number] ADM DATE: 03/05/20 AGE: 79 : 42 SEX: F ROOM/BED: D.2101 AUTHOR: TANNA JOHNSON PHYSICIAN: REFERRING PHYSICIAN: HAY ACEVES MD DATE OF SERVICE: 03/09/20 Discharge Plan Patient Name: JORGE MUJICA Facility: [facility]:[place] : 1940 Planned Disposition: Home Anticipated Discharge Date: 03/10/20 Discharge Date: Expected LOS: 5 Initial Reviewer: [email or web address] Initial Review Date: 03/05/2020 Generated: 03/09/20 7:08 pm DCP- Discharge Planning Updated by [email or web address]: Allison Fabian on 03/09/20 4:[address] DC Plan: Home with Manuel Mujica (son) [phone]. CM will need an order for a RW. CM met with patient for DC plans. patient is in agreement to same. PCP: Dr. Odell. Pharmacy: [facility] DME: Shower chair, ela Dunn. Patient request a new RW (the one she uses is her mother's). Patient lives with her son, and other family members. States he has plenty of help. CM discussed Rehab, SNF, HHS, but states she cannot do this due to her being in [facility] here at [employer]. Per patient, spouse is not expected to survive long. Patient states after her spouse passes and given time, she would [facility]. Encouraged patient, that if she changes her mind about home services to let me know and after DC to let Dr. Odell's office know. CM will follow and assist with DC needs PRN. Last DP export: 03/09/20 9:37 a Patient Name: JORGE MUJICA Page [phone] at 1809 All edits/amendments must be made on the electronic document DICTATION DATE: 03/09/201807 TAPE RECORDER REPAIRER: JACOB 03/09/201807 RPT#: [id number] DC DATE: STATUS: ADM IN [facility] [address] [place] [address] END OF REPORT
--- NOTE | 2020-03-09 19:00 | NUR ---
PT IS IN WC IN HUSBANDS ROOM DENIES NEEDS AT THIS TIME
[2020-03-09 20:00] VITALS: BP 150/52
[2020-03-10] VITALS: BP 149/79
[2020-03-10 04:00] VITALS: BP 111/33
[2020-03-10 08:00] VITALS: BP 144/54
[2020-03-10] MEDS ORDERED: PAXIL20 MG PO (08:31)
--- NOTE | 2020-03-10 09:20 | MORECARE ---
CASE MANAGEMENT DISCHARGE SUMMARY PATIENT: JORGE MUJICA UNIT: [id number] ADM DATE: 03/05/20 AGE: 79 : 42 SEX: F ROOM/BED: D.2101 AUTHOR: TANNA JOHNSON PHYSICIAN: REFERRING PHYSICIAN: HAY ACEVES MD DATE OF SERVICE: 03/10/20 Discharge Plan Patient Name: JORGE MUJICA Facility: [facility]:[place] : 1940 Planned Disposition: Home Anticipated Discharge Date: 03/10/20 Discharge Date: Expected LOS: 5 Initial Reviewer: [email or web address] Initial Review Date: 03/05/2020 Generated: 03/10/20 10:19 am DCP- Discharge Planning Updated by [email or web address]: Allison Fabian on 03/09/20 4:[address] DC Plan: Home with Manuel Mujica (son) [phone]. CM will need an order for a RW. CM met with patient for DC plans. patient is in agreement to same. PCP: Dr. Odell. Pharmacy: [facility]. DME: Shower chair, Shaun, ela. Patient request a new RW (the one she uses is her mother's). Patient lives with her son, and other family members. States he has plenty of help. CM discussed Rehab, SNF, HHS, but states she cannot do this due to her being in [facility] here at [employer] [facility] [employer] [facility]. Per patient, spouse is not expected to survive long. Patient states after her spouse passes and given time, she would like to go [facility]. Encouraged patient, that if she changes her mind about home services to let me know and after DC to let Dr. Odell's office know. CM will follow and assist with DC needs PRN. External Providers External Provider: Sharona Next Contact Date: Service Request Date: Service Type: Resolution: Reviewer: Comments: Last DP export: 03/09/20 5:09 p Patient Name: JORGE MUJICA Page [phone] at 0920 All edits/amendments must be made on the electronic document DICTATION DATE: 03/10/20918 PIG FURNACE OPERATOR: JACOB 03/10/20918 RPT#: [id number] DC DATE: STATUS: ADM IN [facility] [address] [place] [address] END OF REPORT
--- NOTE | 2020-03-10 11:30 | MORECARE ---
CASE MANAGEMENT DISCHARGE SUMMARY PATIENT: JORGE MUJICA UNIT: [id number] ADM DATE: 03/05/20 AGE: 79 : 42 SEX: F ROOM/BED: D.2109 AUTHOR: TANNA JOHNSON PHYSICIAN: REFERRING PHYSICIAN: HAY ACEVES MD DATE OF SERVICE: 03/10/20 Discharge Plan Patient Name: JORGE MUJICA Facility: [facility]:[place] : 1940 Planned Disposition: Home Anticipated Discharge Date: 03/10/20 Discharge Date: Expected LOS: 5 Initial Reviewer: [email or web address] Initial Review Date: 03/05/2020 Generated: 03/10/20 12:29 pm Comments DCP- Discharge Planning Updated by [email or web address]: Allison Fabian on 03/10/20 10:[address] RW ordered this morning from [facility] and will be delivered to the patient's room. Patient is aware and in agreement. DCP- Discharge Planning Updated by [email or web address]: Allison Fabian on 03/09/20 4:[address] DC Plan: Home with Manuel Mujica (son) [phone]. CM will need an order for a RW. CM met with patient for DC plans. patient is in agreement to same. PCP: Dr. dOell. Pharmacy: [facility]. DME: Shower chair, Shaun, ela. Patient request a new RW (the one she uses is her mother's). Patient lives with her son, and other family members. States he has plenty of help. CM discussed Rehab, SNF, HHS, but states she cannot do this due to her being in [facility] here at [facility]. Per patient, spouse is not expected to survive long. Patient states after her spouse passes and given time, she would like to [facility]. Encouraged patient, that if she changes her mind about home services to let me know and after DC to let Dr. Odell's office know. CM will follow and assist with DC needs PRN. Last DP export: 03/10/20 8:20 a Patient Name: JORGE MUJICA Page [phone] at 1130 All edits/amendments must be made on the electronic document DICTATION DATE: 03/10/201128 FEED RESEARCH TECHNICIAN: JACOB 03/10/20 112 RPT#: [id number] DC DATE: STATUS: ADM IN [facility] [address] [place] [address] END OF REPORT
--- NOTE | 2020-03-10 14:34 | NUR ---
PATIENT BELONGINGS PACKED FOR HER BY HOUSEKEEPING AFTER BEING TOLD SHE WAS DISCHARGED WHILE SHE WAS IN HUSBANDS ROOM WHO IS ON THE SAME FLOOR IN HOSPICE AND SHE WAS GOING TO BE DISCHARGED BUT IN A FEW HOURS AND WAS WAITING ON [facility] TO PACK BELONGINGS. PATIENT VERY UPSET AND CRYING, APOLOGIZED AND CALMED BY MYSELF AND OTHER STAFF MEMBERS. WILL REMAIN WITH AT THIS TIME. WILL BE DISCHARGED FROM ROOM SHE HAS WRITTEN ORDER.
--- NOTE | 2020-03-10 15:37 | NUR ---
SENG HOOD WITH EVS AND [facility]RIST[facility]EVEN FLOOR MGR BOTH SPOKE WITH PATIENT ABOUT ROOM BEING CLEANED OUT BEFORE SHE WAS DISCHARGED.
--- NOTE | 2020-03-10 15:39 | NUR ---
DISCHARGE PAPERS WITH PATIENT AND GRANDAUGHTER, IN ROOM WITH AT THIS TIME.
--- NOTE | 2020-03-13 09:26 | MORECARE ---
CASE MANAGEMENT DISCHARGE SUMMARY PATIENT: JORGE MUJICA UNIT: [id number] ADM DATE: 03/05/20 AGE: 79 : 42 SEX: F ROOM/BED: D.210 AUTHOR: TANNA JOHNSON PHYSICIAN: REFERRING PHYSICIAN: HAY ACEVES MD DATE OF SERVICE: 03/13/20 Discharge Plan Patient Name: JORGE MUJICA Facility: [facility]:[place] : 1940 Planned Disposition: Home Anticipated Discharge Date: 03/10/20 Discharge Date: 03/10/2020 Expected LOS: 5 Initial Reviewer: [email or web address] Initial Review Date: 03/05/2020 Generated: 03/13/20 10:25 am Comments DCP- Discharge Planning Updated by [email or web address]: Allison Fabian on 03/10/20 10:[address] RW ordered this morning from [facility] and will be delivered to the patient's room. Patient is aware and in agreement. DCP- Discharge Planning Updated by [email or web address]: Allison Fabian on 03/09/20 4:[address] DC Plan: Home with Manuel Mujica (son) [phone]. CM will need an order for a RW. CM met with patient for DC plans. patient is in agreement to same. PCP: Dr. Odell. Pharmacy: [facility]. DME: Shower chair, Walker, ela. Patient request a new RW (the one she uses is her mother's). Patient lives with her son, and other family members. States he has plenty of help. CM discussed Rehab, SNF, HHS, but states she cannot do this due to her being in [facility] here at [place]. Per patient, spouse is not expected to survive long. Patient states after her spouse passes and given time, she would like to [facility]. Encouraged patient, that if she changes her mind about home services to let me know and after DC to let Dr. Odell's office know. CM will follow and assist with DC needs PRN. Coverage Notice Reviewer: [email or web address] - Allison Fabian Notice Issued Date-Time: 03/09/2020 17:59 Notice Type: IM Discharge Notice Notice Delivered To: Patient Relationship to Patient: Self As400 Developer Name: Jorge Mujica Delivery Method: MAIL - Mail Meka Days: Prior Verbal Notification: Recipient Understood Notice: Yes Recipient Signature: Yes Med Rec Note Co-signed by Attending: Coverage Notice Comment: DC IMM signed/delivered to patient. Original to chart. Reviewer: [email or web address] Velma Fabian Notice Issued Date-Time: 03/10/2020 17:59 Notice Type: Patient Choice Letter Notice Delivered To: Patient Relationship to Patient: Self As400 Developer Name: Jorge Mujica Delivery Method: MAIL - Mail Meka Days: Prior Verbal Notification: Recipient Understood Notice: Yes Recipient Signature: Yes Med Rec Note Co-signed by Attending: Coverage Notice Comment: Patient choice for [employer] signed/delivered to patient. Original to chart. Last DP export: 03/10/20 10:30 a Patient Name: JORGE MUJICA Page [phone] at 0926 All edits/amendments must be made on the electronic document DICTATION DATE: 03/13/20924 AVIATION MANAGER: JACOB 03/13/20924 RPT#: [id number] DC DATE:03/10/20 STATUS: DIS IN [facility] [id number] [place] [address] END OF REPORT
== END 2020-03-10 15:40 | disposition home or self-care (01) | DRG 312 ==
LOC: D.ER 20:51 → D.M2 03-05 00:07
PROVIDERS: Family Medicine; ADMIT Family Medicine; ATTEND Family Medicine
PROC: 0HQ0XZZ Repair Scalp Skin, External Approach (ICD-10-PCS; principal; 2020-03-04)
DX: R55 Syncope and collapse (principal); S01.81XA Laceration without foreign body of other part of head, initial encounter; W19.XXXA Unspecified fall, initial encounter; I48.0 Paroxysmal atrial fibrillation; E11.40 Type 2 diabetes mellitus with diabetic neuropathy, unspecified; I11.0 Hypertensive heart disease with heart failure; I50.9 Heart failure, unspecified; R51 Headache; Z95.0 Presence of cardiac pacemaker; Z78.0 Asymptomatic menopausal state

== ENCOUNTER 2020-10-06 10:51 | Emergency (ER) | payer MEDICARE ==
[~2020-10-06] VITALS: Ht 182.9 cm; Wt 109.1 kg
[~2020-10-06 10:51] MED LIST changes: +PAXIL20 MG PO
[2020-10-06 11:26] VITALS: BP 128/92; Ht 182.9 cm; Wt 109.1 kg
[2020-10-06] MEDS ORDERED: BETAPACE 80 MG80 MG PO ×2 (12:03→13:25)
[2020-10-06 12:16] LABS: BASOPHILS 0.4 % (0-2); EOSINOPHILS 1.8 % (0-7); HEMATOCRIT 50.6 % (36.0-48.0); HEMOGLOBIN 16.1 g/dL (12-16); IMMATURE GRANULOCYTES 0.6 % (0-5); LYMPHOCYTE ABS# 1.42 10x3/uL (1.18-3.74); MCH 30.6 pg (26.0-34.0); MCHC 31.8 g/dL (31.0-37.0); MEAN PLATELET VOLUME 11.8 fL (7.4-10.4); MONOCYTES 8.3 % (2-11); NEUTROPHIL ABS# 6.02 10x3/uL (1.56-6.13); NEUTROPHILS 71.9 % (40-80); PLATELET COUNT 255 10x3/uL (130-400); RBC 5.27 10x6/uL (4.00-5.40); RDW 13.8 % (11.5-14.5); WBC 8.4 10x3/uL (4.8-10.8)
[2020-10-06 12:24] LABS: CALC OSMOLALITY 283 mosm/kg (275-300); CALCIUM 9.3 mg/dL (8.5-10.1); CARBON DIOXIDE 27.5 mmol/L (21.0-32.0); CHLORIDE - SERUM 108 mmol/L (98-107); CREATININE - SERUM 1.2 mg/dL (0.6-1.3); GLUCOSE 103 mg/dL (74-106); POTASSIUM - SERUM 4.2 mmol/L (3.5-5.1); SODIUM 141 mmol/L (136-145); UREA NITROGEN 22 mg/dL (7-18); eGFR NON AFRICAN AMERICAN 46 mL/min (90-120)
[2020-10-06 12:34] LABS: ALBUMIN 3.5 g/dL (3.4-5.0); ALKALINE PHOSPHATASE 122 U/L (30-120); ALT (SGPT) 26 U/L (10-68); BILIRUBIN - TOTAL 0.49 mg/dL (0.2-1.3); CREATINE KINASE 23 UL (21-215); PROTEIN - SERUM 7.6 g/dL (6.4-8.2); TROPONIN-I < 0.017 ng/mL (0.000-0.060)
== END 2020-10-06 14:16 | disposition home or self-care (01) ==
LOC: D.ER 10:51
PROVIDERS: Emergency Medicine
DX: I48.20 Chronic atrial fibrillation, unspecified (principal); R07.89 Other chest pain; E11.40 Type 2 diabetes mellitus with diabetic neuropathy, unspecified; I11.0 Hypertensive heart disease with heart failure; I50.9 Heart failure, unspecified; Z79.84 Long term (current) use of oral hypoglycemic drugs

== ENCOUNTER 2020-12-03 09:23 | Emergency (ER) | payer MEDICARE ==
[~2020-12-03] VITALS: Ht 182.9 cm; Wt 118.2 kg
[2020-12-03 09:34] VITALS: Ht 182.9 cm; Wt 118.2 kg
[2020-12-03] MEDS ORDERED: METOPROLOL TART50 MG PO (09:39)
[2020-12-03] MEDS ORDERED: ALDACTONE25 MG PO (09:40)
[2020-12-03 11:02] LABS: NITRITE POSITIVE (NEGATIVE)
[2020-12-03 11:03] LABS: BILIRUBIN NEGATIVE (NEGATIVE); KETONE NEGATIVE (NEGATIVE); UROBILINOGEN NORMAL mg/dL (< 2)
[2020-12-03 11:04] LABS: BACTERIA MANY HPF (NONE SEEN); SQUAMOUS EPITHELIAL 0-5 HPF (0-4); WHITE CELLS - URINE 0-5 HPF (0-4)
[2020-12-03] MEDS ORDERED: CYCLOBENZAPRINE5 MG PO (11:18)
[2020-12-03] MEDS ORDERED: CEPHALEXIN500 M1 PO (11:18)
[2020-12-03] MEDS ORDERED: ACETAMINOPHEN500 M1 PO (11:18)
[2020-12-03 11:37] VITALS: BP 124/63
== END 2020-12-03 11:15 | disposition home or self-care (01) ==
LOC: D.ER 09:23
PROVIDERS: Family Medicine
DX: S50.02XA Contusion of left elbow, initial encounter (principal); R10.9 Unspecified abdominal pain; M79.672 Pain in left foot; R51.9 Headache, unspecified; M79.10 Myalgia, unspecified site; T14.8XXA Other injury of unspecified body region, initial encounter; W19.XXXA Unspecified fall, initial encounter; Y93.9 Activity, unspecified; Y92.9 Unspecified place or not applicable; E11.40 Type 2 diabetes mellitus with diabetic neuropathy, unspecified; I11.0 Hypertensive heart disease with heart failure; I50.9 Heart failure, unspecified; Z95.0 Presence of cardiac pacemaker; Z79.84 Long term (current) use of oral hypoglycemic drugs

== ENCOUNTER → 2021-01-09 10:04 | Outpatient (CLI) | payer MEDICARE, OTHER ==
[2020-12-03 09:34] VITALS: BMI 35.3
[~2021-01-09 10:04] MED LIST changes: +ACETAMINOPHEN500 M1 PO; +ALDACTONE25 MG PO; +CEPHALEXIN500 M1 PO
== END | disposition home or self-care (01) ==
LOC: D.CT 10:04
PROVIDERS: ATTEND Neurological Surgery
DX: M54.16 Radiculopathy, lumbar region (principal)